=== PATIENT | male | born 1970 | race Caucasian/White ===

== ENCOUNTER → 2020-05-24 | Outpatient (CLI) | payer BC ==
--- NOTE | 2020-05-28 06:09 | PE ---
EXAMINATION TYPE: PET CT fusion skull to thigh DATE OF EXAM: 05/24/2020 COMPARISON: Outside CT abdomen and pelvis May 21, 2020. HISTORY: Colon cancer newly diagnosed on surgical excision April 15. TECHNIQUE: Following the intravenous administration of 11.98 mCi of F-18 FDG, whole body images are performed from the skull base to the midthigh. Images are reviewed on the computer in the coronal, a xial, and sagittal planes. Reconstructed rotating images are created on independent workstation and reviewed on the computer. A l noncontrast CT is performed in conjunction with the PET scan. SCAN: Initial Scan FINDINGS: SKULL BASE AND NECK: Abnormal left supraclavicular adenopathy with multiple hypermetabolic and enlar ged lymph nodes at and below level of thyroid gland. For reference there is 1.6 x 1.7 cm lymph node a xial image 62, max SUV is 3.9. There is high superior mediastinal right paratracheal 1.2 x 0.9 cm hyp ermetabolic lymph node axial image 67, max SUV is 4.29. CHEST, MEDIASTINUM, AND HILAR REGION: Scattered areas of irregular and slightly nodular infiltrates t hroughout both lungs some with slight increased hypermetabolic uptake., for reference roughly 1.4 x 0 .9 cm left lingular irregular nodule or nodular consolidation has increased hypermetabolic uptake, ma x SUV is 2.91 on axial image 107. Posterior right basilar 6 mm nodule or nodular infiltrate has mild hypermetabolic uptake axial image 113, max SUV less than 2.5. There is abnormal hypermetabolic enlarged thoracic adenopathy. For reference subcarinal lymph node me asures 1.9 x 1.3 cm has max SUV of 8.24 on axial image 93. For reference hypervascular left hilar lym ph node on axial image 93 measures 1.7 x 1.3 cm with max SUV of 7.14. For reference enlarged right pa ratracheal lymph node measures 1.5 x 1.4 cm axial image 83 with max SUV of 10.7 cm. ABDOMEN AND PELVIS: Abnormal hypermetabolic retrocrural lymph node at level of diaphragm measures 2.2 x 1.7 cm axial image 116, max SUV is 8.96. There is hepatic metastatic lesion with faint hypodensity roughly 2.8 cm long axis left hepatic lobe lesion axial image 129, max SUV is 6.35. There is abnormal hypermetabolic left adrenal mass measuring 2.8 x 1.9 cm, max SUV is 6.33 on axial i mage 140. There is abnormal hypermetabolic left paracolic peritoneal deposit measuring 1.3 x 0.8 cm axial image 159, max SUV is 4.06. Additionally anterior left mid abdominal peritoneal deposit measuring 1.9 x 0. 8 cm axial image 185, max SUV is 6.53. Marked abnormal retroperitoneal adenopathy with multiple enlarged and hypermetabolic lymph nodes surr ounding aorta, for reference there is 1.8 x 1.3 cm aortocaval lymph node below renal vessels axial im age 177, max SUV is 4.19. OSSEOUS STRUCTURES: Multiple scattered osseous metastatic lesions throughout the spine and pelvis cor responding to subtle lytic lesions, for reference anterior lytic lesion near anterior wall right acet abulum axial image 225 has max SUV of 4.86. OTHER CT: There is left-sided PICC line terminating in SVC. There is coronary artery calcification p resent. Persistent small calcified dependent gallstones. Additional scattered subcentimeter low dense benign lesions throughout the liver are ametabolic. There are a few nonobstructing right renal calculi. Surg ical sutures from partial right-sided colectomy noted. There is percutaneous pigtail drainage cathete r in the right lower quadrant with resolving fluid. There is enlarged prostate gland consistent with BPH. Adjacent pelvic phleboliths. IMPRESSION: Findings are consistent with diffuse metastatic disease as detailed above.
== END | disposition home or self-care (01) ==
LOC: RADPETMAIN 08:58
PROVIDERS: ATTEND Internal Medicine Hematology & Oncology
DX: C18.8 Malignant neoplasm of overlapping sites of colon (principal); C79.51 Secondary malignant neoplasm of bone
CPT/HCPCS: 78815; A9552

== ENCOUNTER 2020-06-25 14:17 | Inpatient (IN) | payer BC ==
[2020-06-25] MEDS ORDERED: SODIUM CHLORIDE 0.9% 1,000 ML IV STA ×2 (14:27→14:29)
[2020-06-25] MEDS ORDERED: ACETAMINOPHEN TAB 500 MG TAB PO STA (14:29)
[2020-06-25] MEDS ORDERED: IBUPROFEN 800 MG TAB PO STA (14:29)
--- NOTE | 2020-06-25 14:29 | ED ---
Arrhythmia/Palpitations HPI - General Chief Complaint: Arrhythmia/Palpitations Stated Complaint: elevated heart rate/fever Time Seen by Provider: 06/25/20 14:27 Source: patient, RN notes reviewed, old records reviewed Mode of arrival: ambulatory Limitations: no limitations - History of Present Illness Initial Comments: This is a 41-year-old male DF for evaluation and feeling feverish nauseous weak, overall not feeling well causing his heart is racing, very thirsty with increased thirst patient has no nausea/vomiting and diarrhea. No medical changes no medical MD Complaint: rapid heart beat, "heart racing" -: days(s) Context: occurred during rest, occurred during exertion Associated Symptoms: nausea/vomiting, anxiety, muscle cramps - Related Data Home Medications Medication Instructions Recorded Confirmed HYDROcodone/APAP 5-325MG [[place] 1 tab PO QID PRN 06/25/20 06/25/20 5-325] fentaNYL 50MCG/HR PATCH [[place] 1 patch TRANSDERM Q72H 06/25/20 06/25/20 50MCG/HR] Allergies Allergy/AdvReac Type Severity Reaction Status Date / Time No Known Allergies Allergy Verified 06/25/20 16:23 Review of Systems ROS Statement: Those systems with pertinent positive or pertinent negative responses have been documented in the HPI. ROS Other: All systems not noted in ROS Statement are negative. Past Medical History Past Medical History: Cancer Additional Past Medical History / Comment(s): colon cancer History of Any Multi-Drug Resistant Organisms: None Reported Past Surgical History: Bowel Resection Past Psychological History: No Psychological Hx Reported Smoking Status: Never smoker Past Alcohol Use History: None Reported Past Drug Use History: None Reported General Exam Limitations: no limitations General appearance: alert, in no apparent distress, anxious Head exam: Present: atraumatic, normocephalic, normal inspection Eye exam: Present: normal appearance, PERRL, EOMI. Absent: scleral icterus, conjunctival injection, periorbital swelling ENT exam: Present: normal exam, mucous membranes dry Neck exam: Present: normal inspection. Absent: tenderness, meningismus, lymphadenopathy Respiratory exam: Present: normal lung sounds bilaterally. Absent: respiratory distress, wheezes, rales, rhonchi, stridor Cardiovascular Exam: Present: normal rhythm, tachycardia, normal heart sounds. Absent: systolic murmur, diastolic murmur, rubs, gallop, clicks GI/Abdominal exam: Present: soft, normal bowel sounds. Absent: distended, tenderness, guarding, rebound, rigid Extremities exam: Present: normal inspection, full ROM, normal capillary refill. Absent: tenderness, pedal edema, joint swelling, calf tenderness Back exam: Present: normal inspection Neurological exam: Present: alert, oriented X3, CN II-XII intact Psychiatric exam: Present: normal affect, normal mood Skin exam: Present: warm, dry, intact, normal color. Absent: rash Course Vital Signs 06/25/20 06/25/20 06/25/20 14:21 15:00 15:30 Temperature 98.2 F Pulse Rate 143 H 137 H 124 H Respiratory 18 18 15 Rate Blood Pressure 113/81 109/86 122/85 O2 Sat by Pulse 96 98 97 Oximetry 06/25/20 06/25/20 15:44 16:00 Temperature 98.4 F Pulse Rate 118 H 120 H Respiratory 18 17 Rate Blood Pressure 127/85 127/85 O2 Sat by Pulse 95 97 Oximetry - Reevaluation(s) Reevaluation #1: 06/25/20 17:38 medical record is reviewed Reevaluation #2: 06/25/20 17:38 Patient has some mildly improved symptoms here in the ER - Consultations Consultation #1: Spoke with Dr. Mendoza who agrees patient EKG Findings - EKG Comments: EKG Findings:: EKG is sinus tachycardia 141 RI 118 QRS 84 QTc 401 Procedures - Sepsis Sepsis Focused Exam #1 Time Sepsis Criteria Met: 18:40 Sepsis Focused Exam Date: 06/25/20 Sepsis Focused Exam Time: 19:20 Sepsis Focused Exam Complete: Yes Vital Signs & RN Notes Reviewed: Yes Capillary Refill: > 2 Seconds: Fingers, Toes Peripheral Pulses: Normal: Radial (R), Radial (L), Posterior Tibialis (R), Posterior Tibialis (L), Dorsalis Pedis (R), Dorsalis Pedis (L) Skin Color: Normal for Patient Respiratory Exam: decreased breath sounds Cardiovascular Exam: tachycardia Medical Decision Making - Medical Decision Making 49 male DF for evaluation, patient presents with fever of unknown origin, severe tachycardia, Will admit for fever of unknown origin continued consultations regarding possible cause of fever, dehydration, hydration symptom management - Lab Data Result diagrams: 06/25/20 14:37 06/25/20 14:37 Lab Results 06/25/20 06/25/20 06/25/20 Range/Units 14:37 14:37 14:37 WBC 7.5 (3.8-10.6) k/uL RBC 5.22 (4.30-5.90) m/uL Hgb 13.9 D (13.0-17.5) gm/dL Hct 42.7 (39.0-53.0) % MCV 81.8 D (80.0-100.0) fL MCH 26.6 (25.0-35.0) pg MCHC 32.5 (31.0-37.0) g/dL RDW 17.7 H (11.5-15.5) % Plt Count 238 (150-450) k/uL Neutrophils % 83 % Lymphocytes % 4 % Monocytes % 8 % Eosinophils % 1 % Basophils % 1 % Neutrophils # 6.2 (1.3-7.7) k/uL Lymphocytes # 0.3 L (1.0-4.8) k/uL Monocytes # 0.6 (0-1.0) k/uL Eosinophils # 0.1 (0-0.7) k/uL Basophils # 0.1 (0-0.2) k/uL Anisocytosis Slight Microcytosis Slight PT 11.7 (9.0-12.0) sec INR 1.2 H (<1.2) APTT 23.0 (22.0-30.0) sec Sodium (137-145) mmol/L Potassium (3.5-5.1) mmol/L Chloride (98-107) mmol/L Carbon Dioxide (22-30) mmol/L Anion Gap mmol/L BUN (9-20) mg/dL Creatinine (0.66-1.25) mg/dL Est GFR (CKD-EPI)AfAm (>60 ml/min/1.73 sqM) Est GFR (CKD-EPI)NonAf (>60 ml/min/1.73 sqM) Glucose (74-99) mg/dL Lactic Ac Sepsis Rflx Plasma Lactic Acid [place] (0.7-2.0) mmol/L Calcium (8.4-10.2) mg/dL Phosphorus (2.5-4.5) mg/dL Magnesium (1.6-2.3) mg/dL Total Bilirubin (0.2-1.3) mg/dL AST (17-59) U/L ALT (4-49) U/L Alkaline Phosphatase (38-126) U/L Troponin I (0.000-0.034) ng/mL NT-Pro-B Natriuret Pep pg/mL Total Protein (6.3-8.2) g/dL Albumin (3.5-5.0) g/dL Lipase (23-300) U/L TSH (0.465-4.680) mIU/L Urine Color Yellow Urine Appearance Clear (Clear) Urine pH 5.5 (5.0-8.0) Ur Specific [place] 1.009 (1.001-1.035) Urine Protein Negative (Negative) Urine Glucose (UA) Negative (Negative) Urine Ketones Negative (Negative) Urine Blood Negative (Negative) Urine Nitrite Negative (Negative) Urine Bilirubin Negative (Negative) Urine Urobilinogen <2.0 (<2.0) mg/dL Ur Leukocyte Esterase Negative (Negative) 06/25/20 06/25/20 06/25/20 Range/Units 14:37 14:37 14:37 WBC (3.8-10.6) k/uL RBC (4.30-5.90) m/uL Hgb (13.0-17.5) gm/dL Hct (39.0-53.0) % MCV (80.0-100.0) fL MCH (25.0-35.0) pg MCHC (31.0-37.0) g/dL RDW (11.5-15.5) % Plt Count (150-450) k/uL Neutrophils % % Lymphocytes % % Monocytes % % Eosinophils % % Basophils % % Neutrophils # (1.3-7.7) k/uL Lymphocytes # (1.0-4.8) k/uL Monocytes # (0-1.0) k/uL Eosinophils # (0-0.7) k/uL Basophils # (0-0.2) k/uL Anisocytosis Microcytosis PT (9.0-12.0) sec INR (<1.2) APTT (22.0-30.0) sec Sodium 130 L (137-145) mmol/L Potassium 5.1 (3.5-5.1) mmol/L Chloride 92 L (98-107) mmol/L Carbon Dioxide 29 (22-30) mmol/L Anion Gap 9 mmol/L BUN 39 H (9-20) mg/dL Creatinine 1.77 H (0.66-1.25) mg/dL Est GFR (CKD-EPI)AfAm 52 (>60 ml/min/1.73 sqM) Est GFR (CKD-EPI)NonAf 45 (>60 ml/min/1.73 sqM) Glucose 102 H (74-99) mg/dL Lactic Ac Sepsis Rflx Plasma Lactic Acid [place] 2.1 H* (0.7-2.0) mmol/L Calcium 12.7 H (8.4-10.2) mg/dL Phosphorus 5.2 H (2.5-4.5) mg/dL Magnesium 1.9 (1.6-2.3) mg/dL Total Bilirubin 2.3 H (0.2-1.3) mg/dL AST 192 H (17-59) U/L ALT 109 H (4-49) U/L Alkaline Phosphatase 601 H (38-126) U/L Troponin I <0.012 (0.000-0.034) ng/mL NT-Pro-B Natriuret Pep pg/mL Total Protein 7.1 (6.3-8.2) g/dL Albumin 3.3 L (3.5-5.0) g/dL Lipase (23-300) U/L TSH 2.360 (0.465-4.680) mIU/L Urine Color Urine Appearance (Clear) Urine pH (5.0-8.0) Ur Specific [place] (1.001-1.035) Urine Protein (Negative) Urine Glucose (UA) (Negative) Urine Ketones (Negative) Urine Blood (Negative) Urine Nitrite (Negative) Urine Bilirubin (Negative) Urine Urobilinogen (<2.0) mg/dL Ur Leukocyte Esterase (Negative) 06/25/20 06/25/20 06/25/20 Range/Units 14:37 15:26 16:17 WBC (3.8-10.6) k/uL RBC (4.30-5.90) m/uL Hgb (13.0-17.5) gm/dL Hct (39.0-53.0) % MCV (80.0-100.0) fL MCH (25.0-35.0) pg MCHC (31.0-37.0) g/dL RDW (11.5-15.5) % Plt Count (150-450) k/uL Neutrophils % % Lymphocytes % % Monocytes % % Eosinophils % % Basophils % % Neutrophils # (1.3-7.7) k/uL Lymphocytes # (1.0-4.8) k/uL Monocytes # (0-1.0) k/uL Eosinophils # (0-0.7) k/uL Basophils # (0-0.2) k/uL Anisocytosis Microcytosis PT (9.0-12.0) sec INR (<1.2) APTT (22.0-30.0) sec Sodium (137-145) mmol/L Potassium (3.5-5.1) mmol/L Chloride (98-107) mmol/L Carbon Dioxide (22-30) mmol/L Anion Gap mmol/L BUN (9-20) mg/dL Creatinine (0.66-1.25) mg/dL Est GFR (CKD-EPI)AfAm (>60 ml/min/1.73 sqM) Est GFR (CKD-EPI)NonAf (>60 ml/min/1.73 sqM) Glucose (74-99) mg/dL Lactic Ac Sepsis Rflx Y Plasma Lactic Acid [place] (0.7-2.0) mmol/L Calcium (8.4-10.2) mg/dL Phosphorus (2.5-4.5) mg/dL Magnesium (1.6-2.3) mg/dL Total Bilirubin (0.2-1.3) mg/dL AST (17-59) U/L ALT (4-49) U/L Alkaline Phosphatase (38-126) U/L Troponin I (0.000-0.034) ng/mL NT-Pro-B Natriuret Pep 239 pg/mL Total Protein (6.3-8.2) g/dL Albumin (3.5-5.0) g/dL Lipase 182 (23-300) U/L TSH (0.465-4.680) mIU/L Urine Color Urine Appearance (Clear) Urine pH (5.0-8.0) Ur Specific [place] (1.001-1.035) Urine Protein (Negative) Urine Glucose (UA) (Negative) Urine Ketones (Negative) Urine Blood (Negative) Urine Nitrite (Negative) Urine Bilirubin (Negative) Urine Urobilinogen (<2.0) mg/dL Ur Leukocyte Esterase (Negative) - Radiology Data Radiology results: report reviewed (Ultrasound does show gallstones, chest x- rays negative for acute disease), image reviewed Critical Care Time Critical Care Time: Yes Total Critical Care Time: 31 Disposition Clinical Impression: Palpitations, Tachycardia, Dehydration, Transaminitis, Gallstones, Fever Disposition: ADMITTED IP TO THIS [facility] Condition: Fair Is patient prescribed a controlled substance at d/c from ED?: No Referrals: Vikas Mendoza MD [Primary Care Provider] - 1-2 days
[2020-06-25] MEDS ORDERED: MORPHINE SULFATE 4 MG/ML SYRINGE IVP STA (15:12)
[2020-06-25 15:14] LABS: Albumin 3.3 g/dL (3.5-5.0); Calcium 12.7 mg/dL (8.4-10.2); Magnesium 1.9 mg/dL (1.6-2.3); Phosphorus 5.2 mg/dL (2.5-4.5); Potassium 5.1 mmol/L (3.5-5.1); Total Bilirubin 2.3 mg/dL (0.2-1.3); Total Protein 7.1 g/dL (6.3-8.2)
[2020-06-25 15:22] LABS: INR 1.2 (<1.2); Prothrombin Time 11.7 sec (9.0-12.0)
[2020-06-25 15:33] LABS: Anisocytosis Slight; Basophils # (A) 0.1 k/uL (0-0.2); Basophils % (A) 1 %; Eosinophils # (A) 0.1 k/uL (0-0.7); Eosinophils % (A) 1 %; HCT 42.7 % (39.0-53.0); Lymphocytes # (A) 0.3 k/uL (1.0-4.8); Lymphocytes % (A) 4 %; MCH 26.6 pg (25.0-35.0); MCHC 32.5 g/dL (31.0-37.0); Mean Platelet Volume 7.9; Microcytosis Slight; Monocytes # (A) 0.6 k/uL (0-1.0); Monocytes % (A) 8 %; Neutrophils # (A) 6.2 k/uL (1.3-7.7); Neutrophils % (A) 83 %; Platelet Count 238 k/uL (150-450); RBC 5.22 m/uL (4.30-5.90); RDW 17.7 % (11.5-15.5); WBC 7.5 k/uL (3.8-10.6)
[2020-06-25 15:34] LABS: HGB 13.9 gm/dL (13.0-17.5); MCV 81.8 fL (80.0-100.0)
[2020-06-25 16:18] LABS: Appearance,Urine Clear (Clear); Bilirubin,Urine Negative (Negative); Blood,Urine Negative (Negative); Color,Urine Yellow; Glucose,Urine (UA) Negative (Negative); Ketones,Urine Negative (Negative); Leukocyte Esterase,Urine Negative (Negative); Nitrite,Urine Negative (Negative); PH, Urine 5.5 (5.0-8.0); Protein,Urine Negative (Negative); Specific Gravity,Urine 1.009 (1.001-1.035); Urobilinogen,Urine <2.0 mg/dL (<2.0)
--- NOTE | 2020-06-25 17:11 | US ---
EXAMINATION TYPE: US gallbladder DATE OF EXAM: 06/25/2020 COMPARISON: CT, PET CLINICAL HISTORY: weak. Midline incisional pain at umbilicus; fever. Patient ate grapes 4 hours earli er. Gallstones seen on PET scan. Pt is post colon resection for CA with history of previous abscess a t midline incision. EXAM MEASUREMENTS: Liver Length: 16.3 cm Gallbladder Wall: 0.4 cm CBD: 0.5 cm Right Kidney: 10.x 6.4 x 5.8 cm Pancreas: mildly hyperechoic, tail obscured by overlying bowel gas Liver: small left lobe is noted Gallbladder: multiple shadowing stones seen and are nonmobile in neck, shadowing stones also seen in fundus along with multiple hyperechoic wall foci which may be wall polyps. Evidence for sonographic Dalal's sign: yes, and noted intercostally CBD: wnl Right Kidney: mild hydronephrosis; couple of renal cysts seen upper pole with larger as cyst cluster = 1.1 x 1.0 x 1.0cm; upper pole hyperechoic and shadowing calcification cluster noted (renal stones) = 0.8 x 0.8 x 0.5cm. No abscess seen at patient's midline umbilical area incision at complaint of pa in. IMPRESSION: There are numerous gallstones. No dilated ducts. Mild right-sided hydronephrosis. Hydronephrosis appears new compared to 05/21/2020 and consistent wi th acute obstruction.
[2020-06-25] MEDS ORDERED: VANCOMYCIN IV PER PHARMACY 1 EACH MISC MISCELLANE PRN (17:35)
[2020-06-25] MEDS ORDERED: AMPICILLIN-SULBACTAM 3 GM in SODIUM CHLORIDE 0.9% 100 ML IVPB STA (17:35)
--- NOTE | 2020-06-25 17:52 | XR ---
EXAMINATION TYPE: XR chest 2V DATE OF EXAM: 06/25/2020 COMPARISON: NONE HISTORY: Weakness TECHNIQUE: 2 views FINDINGS: Heart is normal. There is patchy bilateral pulmonary airspace infiltrates. There is no hear t failure. There are chest leads. The bony thorax is intact. There is no pleural effusion. IMPRESSION: There is some patchy bilateral pneumonic infiltrates that is consistent with inflammatory disease. Normal heart.
[2020-06-25] MEDS ORDERED: VANCOMYCIN 1,250 MG in SODIUM CHLORIDE 0.9% 250 ML IVPB SCH (18:00)
[2020-06-25] MEDS: SODIUM CHLORIDE 0.9% 500 ML 500 ML IV SCH ×4 (18:03→23:56)
[2020-06-25] MEDS: SODIUM CHLORIDE 0.9% 1,000 ML IV SCH ×2 (18:03→23:56)
[2020-06-25] MEDS: HEPARIN SODIUM,PORCINE 5,000 UNIT/ML 1 ML VIAL SQ SCH (23:55)
[2020-06-26] MEDS ORDERED: AMPICILLIN-SULBACTAM 3 GM in SODIUM CHLORIDE 0.9% 100 ML IVPB SCH ×2
[2020-06-26] MEDS: MORPHINE SULFATE 4 MG/ML SYRINGE IVP PRN (00:11)
--- NOTE | 2020-06-26 05:28 | P.HPIM ---
History of Present Illness H&P Date: 06/25/20 Chief Complaint: possible infected Medi-Port. This is a 49 year old male with a previous medical history significant for kidney stones and cholelithiasis, was inititially complaining of increased abdominal pain in the right upper quadrant and had US of the abdomen that showed cholelithiasis, this was followed with HIDA scan that showed biliary dyskinesis and was referred to have Lap-Jocelyn with that week he developed to have increased abdominal pain with significant nausea and vomiting and he presented to [facility] with bowel obstruction picture, he underwent CT scan of the abdomen and pelvis that showed a large cecal mass suggestive of colon cancer, he underwent right colectomy with end to end anastomosis and then he developed to have a pelvic Abscess that was treated with transcutaneous drain and IV antibiotics through a PICC line for 4 weeks which he has done, he was then seen by Hem-Onc Toma Mars and underwent a battery of testing including PET c that showed metastatic disease, he has then had a Mediprot placed recently by Javier Jones and was seen today by STONER HAND at Dr. Chua 's office to discuss further treatment options and possibly a referral to a phase 3 trial at the [facility], patient was extremely weak and tachycardic and there was a suspicion for possible Mediport infection so he was referred to the ER , he did receive 2 L of Normal saline his heart rate was 16o with sinus tachycardia and he is down to 115 , blood cultures were obtained and he was started on Vancomycin and Zosyn and ID consult was obtained along with surgical consult. Review of Systems Constitutional: Reports anorexia, Reports fatigue, Reports night sweats, Reports poor appetite, Reports sweats, Reports weakness Eyes: denies blurred vision, denies bulging eye, denies decreased vision Ears, nose, mouth and throat: Denies dysphagia, Denies neck lump, Denies s welling in throat, Denies sore throat Cardiovascular: Reports rapid heart beat, Denies chest pain, Denies decreased exercise tolerance, Denies dyspnea on exertion, Denies leg edema, Denies lightheadedness, Denies shortness of breath, Denies syncope Respiratory: Denies congestion, Denies cough, Denies cough with sputum, Denies home oxygen, Denies sleep apnea, Denies snoring, Denies wheezing Gastrointestinal: Reports abdominal pain, Reports early satiety, Reports indigestion, Reports loss of appetite, Reports nausea, Denies belching, Denies bloating, Denies BRBPR, Denies change in bowel habits, Denies coffee ground emes is, Denies heartburn, Denies hematemesis, Denies hematochezia, Denies jaundice, Denies melena, Denies vomiting Genitourinary: Denies dysuria, Denies nocturia Musculoskeletal: Reports muscle weakness, Reports myalgias Musculoskeletal: absent: ankle pain, ankle stiffness, ankle swelling, elbow pain, elbow stiffness, elbow swelling, foot pain, foot stiffness, foot swelling, hand pain, hand stiffness, hand swelling, hip pain, hip stiffness, hip swelling, knee pain, knee stiffness, knee swelling, shoulder pain, shoulder stiffness, shoulder swelling, wrist pain, wrist stiffness, wrist swelling Integumentary: Denies pruritus, Denies rash Neurological: Denies numbness, Denies weakness Psychiatric: Reports depression, Denies sadness/tearfulness, Denies sleep disturbances, Denies suicidal ideation Endocrine: Reports fatigue, Reports weight change Past Medical History Past Medical History: Cancer (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 History of Any Multi-Drug Resistant Organisms: None Reported Past Surgical History: Bowel Resection (Right hemicolectomy) Past Psychological History: No Psychological Hx Reported Smoking Status: Never smoker Past Alcohol Use History: None Reported Past Drug Use History: None Reported - Past Family History Father Family Medical History: Cancer (Father at the age of 76 from lung cancer) Mother Family Medical History: Unable to Obtain (Mother at the age of 63) Brother(s) Family Medical History: No Reported History (2 brothers one from a Fire accident.) Sister(s) Family Medical History: No Reported History (2 sisters no health issues.) Son(s) Family Medical History: No Reported History (one son with mental health issues,lives in prison.) Medications and Allergies Home Medications Medication Instructions Recorded Confirmed Type HYDROcodone/APAP 5-325MG [[place] 1 tab PO QID PRN 06/25/20 06/25/20 History 5-325] fentaNYL 50MCG/HR PATCH [[place]ages[place] 1 patch TRANSDERM Q72H 06/25/20 06/25/20 History 50MCG/HR] Allergies Allergy/AdvReac Type Severity Reaction Status Date / Time No Known Allergies Allergy Verified 06/25/20 16:23 Physical Exam Vitals: Vital Signs Temp Pulse Resp BP Pulse Ox 06/25/20 17:56 113 H 16 122/78 97 06/25/20 16:00 98.4 F 120 H 17 127/85 97 06/25/20 15:44 118 H 18 127/85 95 06/25/20 15:30 124 H 15 122/85 97 06/25/20 15:00 137 H 18 109/86 98 06/25/20 14:21 98.2 F 143 H 18 113/81 96 Intake and Output 06/25/20 06/25/20 06/25/20 06:59 14:59 22:59 Other: Weight 59.874 kg Physical examination: HEENT: head is atraumatic normocephalic pupils were equal round reactive to light and accommodations extra ocular muscle movement were intact, conjunctivae were pale and sclera were mildly icteric, mucous membranes of the mouth are somewhat dry. Neck: supple no JVP. Chest: clear to auscultation bilaterally, there is no crackles or wheezes. Heart: first heart sound is normal , second heart sound is normal , tachycardic there is no gallop or murmur. Abdomen: there is mild abdominal tenderness with minimal fullness, there is surgical scar that have healed, positive bowel sounds. Extremities: there is no edema , no calf tenderness DP + 2 bilaterally. Neurologiic examination: patient is awake , alert and oriented X 3 CN II-XII are grossly intact muscle power 4/5 in bilateral upper and lower extremity . Results CBC & Chem 7: 06/25/20 14:37 06/25/20 14:37 Labs: Abnormal Lab Results - Last 24 Hours (Table) 06/25/20 06/25/20 06/25/20 Range/Units 14:37 14:37 14:37 RDW 17.7 H (11.5-15.5) % Lymphocytes # 0.3 L (1.0-4.8) k/uL INR 1.2 H (<1.2) Sodium 130 L (137-145) mmol/L Chloride 92 L (98-107) mmol/L BUN 39 H (9-20) mg/dL Creatinine 1.77 H (0.66-1.25) mg/dL Glucose 102 H (74-99) mg/dL Plasma Lactic Acid [place] (0.7-2.0) mmol/L Calcium 12.7 H (8.4-10.2) mg/dL Phosphorus 5.2 H (2.5-4.5) mg/dL Total Bilirubin 2.3 H (0.2-1.3) mg/dL AST 192 H (17-59) U/L ALT 109 H (4-49) U/L Alkaline Phosphatase 601 H (38-126) U/L Albumin 3.3 L (3.5-5.0) g/dL 06/25/20 Range/Units 14:37 RDW (11.5-15.5) % Lymphocytes # (1.0-4.8) k/uL INR (<1.2) Sodium (137-145) mmol/L Chloride (98-107) mmol/L BUN (9-20) mg/dL Creatinine (0.66-1.25) mg/dL Glucose (74-99) mg/dL Plasma Lactic Acid [place] 2.1 H* (0.7-2.0) mmol/L Calcium (8.4-10.2) mg/dL Phosphorus (2.5-4.5) mg/dL Total Bilirubin (0.2-1.3) mg/dL AST (17-59) U/L ALT (4-49) U/L Alkaline Phosphatase (38-126) U/L Albumin (3.5-5.0) g/dL Thrombosis Risk Factor Assmnt - DVT/VTE Prophylaxis DVT/VTE Prophylaxis: Pharmacologic Prophylaxis ordered, Mechanical Prophylaxis ordered Assessment and Plan Assessment: Assessment and Plan: 1. Acute kidney injury due to acute tubular necrosis and poor oral intake. start IVF Normal saline at 150 ml/h , we will increase oral intake of fluid and we will repeat CMP in AM. 2. Possible Mediport infection. Blood cultures X 2, we will start Vancomycin Pharmacy to [facility] and trough and Zosyn 3.375 gr IVPB Q 8 h. 3. Hyponatremia due to hypovolemia. we will continue with IVF and repeat CMP in AM. 4. Metastatic adenocarcinoma of the colon. was seen by Hem-Onc and [facility] 3 [facility]. 5. Gallstones with biliary dyskinesia. we will continue with Zofran and IVF. 6. history of kidney stones with mild right sided hydronephrosis we will continue to monitor this appears to be new since last US. 7. Sinus tachycardia due to poor oral intake of fluid and dehydration. we will contiue with IVF . 8. DVT prophylaxis. we will continue with Heparin 5000 units SC Q 8 hours. 9. GI prophylaxis. we will continue with Protonix 40 mg IVP daily. 10. Admits to inpatient . estimated length of stay 2 midnights. 11. Full code.
[2020-06-26 06:19] LABS: Anisocytosis Slight; Basophils # (A) 0.1 k/uL (0-0.2); Basophils % (A) 1 %; Eosinophils # (A) 0.2 k/uL (0-0.7); Eosinophils % (A) 3 %; HCT 34.6 % (39.0-53.0); Hypochromasia Slight; Lymphocytes # (A) 0.2 k/uL (1.0-4.8); Lymphocytes % (A) 5 %; MCH 26.5 pg (25.0-35.0); MCHC 31.4 g/dL (31.0-37.0); MCV 84.4 fL (80.0-100.0); Microcytosis Slight; Monocytes # (A) 0.3 k/uL (0-1.0); Monocytes % (A) 6 %; Neutrophils # (A) 4.3 k/uL (1.3-7.7); Neutrophils % (A) 83 %; Platelet Count 197 k/uL (150-450); RBC 4.11 m/uL (4.30-5.90); RDW 17.9 % (11.5-15.5); WBC 5.2 k/uL (3.8-10.6)
[2020-06-26 06:52] LABS: HGB 10.9 gm/dL (13.0-17.5)
[2020-06-26] MEDS: HEPARIN SODIUM,PORCINE 5,000 UNIT/ML 1 ML VIAL SQ SCH ×3 (08:30→23:37)
[2020-06-26] MEDS: PANTOPRAZOLE 40 MG/10 ML VIAL IV SCH (08:30)
[2020-06-26] MEDS: PIPERACILLIN-TAZOBACTAM 3.375 GM in SODIUM CHLORIDE 0.9% 100 ML IVPB SCH ×3 (08:30→23:37)
--- NOTE | 2020-06-26 08:30 | P.GSCN ---
History of Present Illness Consult date: 06/26/20 History of present illness: 49-year-old male that is known to me due to significant medical issues over the past few months. He was found to have an obstructive colon mass during in emergency department visit in April 2020 and did undergo an exploratory laparotomy and right hemicolectomy and omentectomy on April 152019. Pathology did confirm adenocarcinoma of the colon and oncologic workup has shown metastatic disease that is widespread. He is noted to have stage IV colon cancer. Due to the perforated colon cancer, he did also have an intra-abdominal infection that was drained with a catheter and patient was on IV antibiotics secondary to this. He has recently had a referral for a phase 3 trial at the [facility]. He presented to the oncologist's office and was noted to be extremely weak and tachycardic. He denies any significant abdominal pain at this time. He states that he was doing well until the past few days. Mediport was placed approximately 3 weeks ago. He states that he has had multiple blood draws from the site, however has not had any chemotherapy as of yet. He states that he was informed that there was concern for a Mediport infection. He has no additional complaints at this time. Denies any fevers, chills, chest pain or shortness of breath. Review of Systems All systems: negative Past Medical History Past Medical History: Cancer (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 History of Any Multi-Drug Resistant Organisms: None Reported Past Surgical History: Bowel Resection (Right hemicolectomy) Past Anesthesia/Blood Transfusion Reactions: No Reported Reaction Past Psychological History: No Psychological Hx Reported Smoking Status: Never smoker Past Alcohol Use History: None Reported Past Drug Use History: None Reported - Past Family History Father History Unknown: Yes Family Medical History: Cancer (Father at the age of 76 from lung cancer) Mother Family Medical History: Unable to Obtain (Mother at the age of 63) Brother(s) Family Medical History: No Reported History (2 brothers one from a Fire accident.) Sister(s) Family Medical History: No Reported History (2 sisters no health issues.) Son(s) Family Medical History: No Reported History (one son with mental health issues,lives in retirement.) Medications and Allergies Home Medications Medication Instructions Recorded Confirmed Type HYDROcodone/APAP 5-325MG [[place]ick[place] 1 tab PO QID PRN 06/25/20 06/25/20 History 5-325] fentaNYL 50MCG/HR PATCH [Duragesic 1 patch TRANSDERM Q72H 06/25/20 06/25/20 History 50MCG/HR] Allergies Allergy/AdvReac Type Severity Reaction Status Date / Time No Known Allergies Allergy Verified 06/25/20 16:23 Surgical - Exam Osteopathic Statement: *. No significant issues noted on an osteopathic structural exam other than those noted in the History and Physical/Consult. Vital Signs Temp Pulse Resp BP Pulse Ox 98.2 F 143 H 18 113/81 96 06/25/20 14:21 06/25/20 14:21 06/25/20 14:21 06/25/20 14:21 06/25/20 14:21 - General no distress, cachectic - Eyes PERRL, normal ocular movement - ENT no hearing loss - Neck trachea midline - Respiratory normal respiratory effort - Abdomen Soft, nontender, nondistended, no rebound, no guarding, midline incision well healed - Neurologic normal coordination, normal sensation - Psychiatric oriented to time, oriented to person, oriented to place Chest exam performed. No obvious palpable induration or fluctuance at the Mediport site. No erythema. No active purulent drainage. Results - Labs 06/26/20 05:49 06/25/20 14:37 Abnormal Lab Results - Last 24 Hours (Table) 06/25/20 06/25/20 06/25/20 Range/Units 14:37 14:37 14:37 RBC (4.30-5.90) m/uL Hgb (13.0-17.5) gm/dL Hct (39.0-53.0) % RDW 17.7 H (11.5-15.5) % Lymphocytes # 0.3 L (1.0-4.8) k/uL INR 1.2 H (<1.2) Sodium 130 L (137-145) mmol/L Chloride 92 L (98-107) mmol/L BUN 39 H (9-20) mg/dL Creatinine 1.77 H (0.66-1.25) mg/dL Glucose 102 H (74-99) mg/dL Plasma Lactic Acid Layton (0.7-2.0) mmol/L Calcium 12.7 H (8.4-10.2) mg/dL Phosphorus 5.2 H (2.5-4.5) mg/dL Total Bilirubin 2.3 H (0.2-1.3) mg/dL AST 192 H (17-59) U/L ALT 109 H (4-49) U/L Alkaline Phosphatase 601 H (38-126) U/L Albumin 3.3 L (3.5-5.0) g/dL 06/25/20 06/26/20 Range/Units 14:37 05:49 RBC 4.11 L (4.30-5.90) m/uL Hgb 10.9 L D (13.0-17.5) gm/dL Hct 34.6 L (39.0-53.0) % RDW 17.9 H (11.5-15.5) % Lymphocytes # 0.2 L (1.0-4.8) k/uL INR (<1.2) Sodium (137-145) mmol/L Chloride (98-107) mmol/L BUN (9-20) mg/dL Creatinine (0.66-1.25) mg/dL Glucose (74-99) mg/dL Plasma Lactic Acid Layton 2.1 H* (0.7-2.0) mmol/L Calcium (8.4-10.2) mg/dL Phosphorus (2.5-4.5) mg/dL Total Bilirubin (0.2-1.3) mg/dL AST (17-59) U/L ALT (4-49) U/L Alkaline Phosphatase (38-126) U/L Albumin (3.5-5.0) g/dL Diabetes panel 06/25/20 Range/Units 14:37 Sodium 130 L (137-145) mmol/L Potassium 5.1 (3.5-5.1) mmol/L Chloride 92 L (98-107) mmol/L Carbon Dioxide 29 (22-30) mmol/L BUN 39 H (9-20) mg/dL Creatinine 1.77 H (0.66-1.25) mg/dL Glucose 102 H (74-99) mg/dL Calcium 12.7 H (8.4-10.2) mg/dL AST 192 H (17-59) U/L ALT 109 H (4-49) U/L Alkaline Phosphatase 601 H (38-126) U/L Total Protein 7.1 (6.3-8.2) g/dL Albumin 3.3 L (3.5-5.0) g/dL Thyroid panel 06/25/20 Range/Units 14:37 TSH 2.360 (0.465-4.680) mIU/L Calcium panel 06/25/20 Range/Units 14:37 Calcium 12.7 H (8.4-10.2) mg/dL Phosphorus 5.2 H (2.5-4.5) mg/dL Albumin 3.3 L (3.5-5.0) g/dL Pituitary panel 06/25/20 Range/Units 14:37 Sodium 130 L (137-145) mmol/L Potassium 5.1 (3.5-5.1) mmol/L Chloride 92 L (98-107) mmol/L Carbon Dioxide 29 (22-30) mmol/L BUN 39 H (9-20) mg/dL Creatinine 1.77 H (0.66-1.25) mg/dL Glucose 102 H (74-99) mg/dL Calcium 12.7 H (8.4-10.2) mg/dL TSH 2.360 (0.465-4.680) mIU/L Adrenal panel 06/25/20 Range/Units 14:37 Sodium 130 L (137-145) mmol/L Potassium 5.1 (3.5-5.1) mmol/L Chloride 92 L (98-107) mmol/L Carbon Dioxide 29 (22-30) mmol/L BUN 39 H (9-20) mg/dL Creatinine 1.77 H (0.66-1.25) mg/dL Glucose 102 H (74-99) mg/dL Calcium 12.7 H (8.4-10.2) mg/dL Total Bilirubin 2.3 H (0.2-1.3) mg/dL AST 192 H (17-59) U/L ALT 109 H (4-49) U/L Alkaline Phosphatase 601 H (38-126) U/L Total Protein 7.1 (6.3-8.2) g/dL Albumin 3.3 L (3.5-5.0) g/dL Assessment and Plan (1) Dehydration Narrative/Plan: 41-year-old male with stage IV metastatic colon carcinoma. Exam of the chest was performed with no obvious erythema or induration around the Mediport placement site. There is no palpable fluctuance. There is no active purulent drainage. At this point, there does not appear to be a surface infection of the Mediport site. Blood cultures are pending. We will follow up on blood cultures for decision on Mediport removal. Patient is also noted to have transaminitis and elevated bilirubin. He is currently complaining of no abdominal pain. Transaminitis could be associated with metastatic disease or documented cholelithiasis. We will continue to follow. No plan for surgical intervention for gallbladder disease at this time based on the patient's medical history and current asymptomatic presentation. Current Visit: Yes Status: Acute Code(s): E86.0 - DEHYDRATION SNOMED Code(s): 05556540
[2020-06-26 09:49] LABS: African American GFR (CKD) 58.2 (60.0-200.0); Albumin 2.5 g/dL (3.80-4.90); Albumin/Globulin Ratio 1.19 (1.60-3.17); Anion Gap 8.4 mmol/L (4.00-12.00); BUN/Creat Ratio 22.5 Ratio (12.00-20.00); Calcium 10.5 mg/dL (8.7-10.3); Carbon Dioxide 24.6 mmol/L (21.6-31.8); Globulin 2.1 g/dL (1.6-3.3); Non-African American GFR(CKD) 50.2 (60.0-200.0); Potassium 4.3 mmol/L (3.5-5.5); Total Bilirubin 0.9 mg/dL (0.2-1.2); Total Protein 4.6 g/dL (6.2-8.2)
[2020-06-26] MEDS ORDERED: METOPROLOL TARTRATE 12.5 MG TAB PO SCH (11:45)
[2020-06-26] MEDS ORDERED: SODIUM CHLORIDE 0.9% 250 ML with PAMIDRONATE 30 MG IV SCH ×2 (12:15)
[2020-06-26] MEDS ORDERED: SODIUM CHLORIDE 0.9% 250 ML with PAMIDRONATE 30 MG IV ONE ×2 (12:30)
[2020-06-26] MEDS: VANCOMYCIN 1,250 MG in SODIUM CHLORIDE 0.9% 250 ML IVPB SCH (12:31)
[2020-06-26] MEDS: SODIUM CHLORIDE 0.9% 1,000 ML IV SCH ×2 (12:52→17:00)
--- NOTE | 2020-06-26 13:49 | P.CONS ---
History of Present Illness - Reason for Consult Consult date: 06/26/20 Metastatic Colon Cancer Requesting physician: Amee Day - Chief Complaint declining status, weakness - History of Present Illness Mr Kamara is a otherwise healthy white male, who had presented to [facility] on 04/[facility]20, with progressive abdominal pain localized to the right mid to upper abdomen and epigastrium. The patient's symptoms are actually star nuha about 12/29 had been mild and intermittent. Due to the low density of the symptoms and ongoing coronavirus epidemic, the patient did not seek medical attention initially. However, the symptoms persisted and became more prominent. He had an ultrasound of the abdomen on 04/01/20 that showed uncomplicated cholelithiasis and fatty liver. HIDA scan on 04/10/[address] of the abdomen and pelvis on 04/15/20 showed evidence of intussusception of the ileum into the ascending colon with pneumatosis intestinalis of the ascending colon and cecum. There also appeared to be pericecal inflammatory changes and focal areas of the distal small bowel. It lower quadrant, as well as periaortic and retrocaval adenopathy. However size of the retroperitoneal adenopathy was not mentioned. the patient proceeded to surgery on the same day with exploratory laparotomy, right hemicolectomy, as well as resection of a hard mass in the omentum. final pathology showed invasive grade 2 adenocarcinoma with partial mucinous features measuring 4.5 x 4 cm with microscopic serosal perforation, and pericolic lymph nodes involved. The omental nodule , however, showed mature adipose tissue with acute inflammation containing vegetable matter consistent with ruptured viscous. The patient's CT of the chest on 04/16/20 showed no evidence of pulmonary masses. There is bilateral nonspecific enlarged nodes. Echocardiogram from 04/21/20was fairly normal. MRI of the liver on 04/22/20 showed multiple round T2 hyperintense lesions all subcentimeter in size without suspicious nodularity most consistent with benign etiology ( [place] complex) The patient was seen for initial consult during this hospitalization on 04/20/20. He was readmitted to the hospital because of recurrent right-sided abdominal pain and drop in blood pressure. He was found to have a right lower quadrant abscess on CT scan on 04/29/20.and had a drainage tube placed. He also had a PICC line and was started on IV antibiotics. repeat CT on 05/21/20 showed marked decrease in size of the fluid collection with enlarged retroperitoneal nodes similar to the prior CT scan. The patient was seen for his first office visit on 05/21/20. He denied any personal history of malignancy. No prior colonoscopies. Family history is positive only for lung cancer related to smoking. The patient subsequently had a PET scan which unfortunately showed widespread metastatic disease involving left supraclavicular, mediastinal, retroperitoneal and mesenteric nodes, left adrenal, as well as multiple osseous sites, especially in the lumbar spine. There also appeared to be uptake in the liver lesion. He underwent Palliative radiation to his spine with Dr. Levy for pain, when he was seen in May with his in laws it was recommended systemic therapy be started soon as he has advanced disease. The patient and family wanted to seek second opinion at [facility] for options of a clinical trial, although the delay in the appointment has resulted with further overall performance and decline to [facility]. Apparently they had also seen opinion at [facility] for clinical trial through Dr. Baptiste during this time. Dileep presented to the office yesterday for increased weakness, weight loss and overall not feeling well. He admits to intermitant N/V, states out of blue, his legs are weaker and difficult to walk, he has lost close to 20Lbs in 4 weeks. Hypotensive, Tachycardic, and low grade fever on admission. Therefore he was referred to emergency department for further evaluation. Past Medical History Past Medical History: Cancer (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 History of Any Multi-Drug Resistant Organisms: None Reported Past Surgical History: Bowel Resection (Right hemicolectomy) Past Anesthesia/Blood Transfusion Reactions: No Reported Reaction Past Psychological History: No Psychological Hx Reported Smoking Status: Never smoker Past Alcohol Use History: None Reported Past Drug Use History: None Reported - Past Family History Father History Unknown: Yes Family Medical History: Cancer (Father at the age of 76 from lung cancer) Mother Family Medical History: Unable to Obtain (Mother at the age of 63) Brother(s) Family Medical History: No Reported History (2 brothers one from a Fire accident.) Sister(s) Family Medical History: No Reported History (2 sisters no health issues.) Son(s) Family Medical History: No Reported History (one son with mental health issues,lives in retirement.) Medications and Allergies Home Medications Medication Instructions Recorded Confirmed Type HYDROcodone/APAP 5-325MG [Niles 1 tab PO QID PRN 06/25/20 06/25/20 History 5-325] fentaNYL 50MCG/HR PATCH [Duragesic 1 patch TRANSDERM Q72H 06/25/20 06/25/20 History 50MCG/HR] Allergies Allergy/AdvReac Type Severity Reaction Status Date / Time No Known Allergies Allergy Verified 06/25/20 16:23 Physical Exam Vitals: Vital Signs Temp Pulse Pulse Resp BP BP Pulse Ox 06/26/20 07:00 98.7 F 130 H 18 131/86 92 L 06/26/20 04:20 16 06/26/20 00:40 16 06/26/20 00:10 97.6 F 99 16 121/80 96 06/25/20 19:50 16 06/25/20 19:00 97.5 F L 113 H 18 113/79 95 06/25/20 17:56 113 H 16 122/78 97 06/25/20 16:00 98.4 F 120 H 17 127/85 97 06/25/20 15:44 118 H 18 127/85 95 06/25/20 15:30 124 H 15 122/85 97 06/25/20 15:00 137 H 18 109/86 98 06/25/20 14:21 98.2 F 143 H 18 113/81 96 Intake and Output 06/25/20 06/26/20 06/26/20 22:59 06:59 14:59 Intake Total 3050 Balance 3050 Intake: Intake, IV Titration 2950 Amount Ampicillin-Sulbactam 3 gm 100 In Sodium Chloride 0.9% 100 ml @ 200 mls/hr IVPB ONCE STA Rx#:[id number] Ampicillin-Sulbactam 3 gm 100 In Sodium Chloride 0.9% 100 ml @ 200 mls/hr IVPB Q8HR MATTY Rx#:[id number] Sodium Chloride 0.9% 1, 750 000 ml @ 150 mls/hr IV . Q6H40M MATTY Rx#:[id number] Sodium Chloride 0.9% 500 2000 ml 500 ml @ 1000 mls/hr IV Q35M [facility] Rx#:[id number] Oral 100 Other: Voiding Method Toilet # Voids 2 1 Weight 59.874 kg - Constitutional General appearance: cooperative, mild distress, thin - EENT Oral Thrush Eyes: EOMI ENT: NA/AT, normal oropharynx, thrush - Neck Neck: normal ROM - Respiratory Respiratory: bilateral: diminished - Cardiovascular Heart rate: 130 Rhythm: regularly irregular - Gastrointestinal General gastrointestinal: soft, tenderness - Integumentary Integumentary: pale - Musculoskeletal Musculoskeletal: generalized weakness - Psychiatric Weakness Psychiatric: A&O x's 3, appropriate affect Results CBC & Chem 7: 06/26/20 05:49 06/26/20 05:49 Labs: Abnormal Lab Results - Last 24 Hours (Table) 06/25/20 06/25/20 06/25/20 Range/Units 14:37 14:37 14:37 RBC (4.30-5.90) m/uL Hgb (13.0-17.5) gm/dL Hct (39.0-53.0) % RDW 17.7 H (11.5-15.5) % Lymphocytes # 0.3 L (1.0-4.8) k/uL INR 1.2 H (<1.2) Sodium 130 L (137-145) mmol/L Chloride 92 L (98-107) mmol/L BUN 39 H (9-20) mg/dL Creatinine 1.77 H (0.66-1.25) mg/dL Est GFR (CKD-EPI)AfAm (60.0-200.0) Est GFR (CKD-EPI)NonAf (60.0-200.0) BUN/Creatinine Ratio (12.00-20.00) Ratio Glucose 102 H (74-99) mg/dL Plasma Lactic Acid Layton (0.7-2.0) mmol/L Calcium 12.7 H (8.4-10.2) mg/dL Phosphorus 5.2 H (2.5-4.5) mg/dL Total Bilirubin 2.3 H (0.2-1.3) mg/dL AST 192 H (17-59) U/L ALT 109 H (4-49) U/L Alkaline Phosphatase 601 H (38-126) U/L Total Protein (6.2-8.2) g/dL Albumin 3.3 L (3.5-5.0) g/dL Albumin/Globulin Ratio (1.60-3.17) g/dL 06/25/20 06/26/20 06/26/20 Range/Units 14:37 05:49 05:49 RBC 4.11 L (4.30-5.90) m/uL Hgb 10.9 L D (13.0-17.5) gm/dL Hct 34.6 L (39.0-53.0) % RDW 17.9 H (11.5-15.5) % Lymphocytes # 0.2 L (1.0-4.8) k/uL INR (<1.2) Sodium (137-145) mmol/L Chloride (98-107) mmol/L BUN 36.0 H (9-20) mg/dL Creatinine 1.6 H (0.66-1.25) mg/dL Est GFR (CKD-EPI)AfAm 58.2 L (60.0-200.0) Est GFR (CKD-EPI)NonAf 50.2 L (60.0-200.0) BUN/Creatinine Ratio 22.50 H (12.00-20.00) Ratio Glucose (74-99) mg/dL Plasma Lactic Acid Layton 2.1 H* (0.7-2.0) mmol/L Calcium 10.5 H (8.4-10.2) mg/dL Phosphorus (2.5-4.5) mg/dL Total Bilirubin (0.2-1.3) mg/dL AST 72 H (17-59) U/L ALT 64 H (4-49) U/L Alkaline Phosphatase 424 H (38-126) U/L Total Protein 4.6 L (6.2-8.2) g/dL Albumin 2.50 L (3.5-5.0) g/dL Albumin/Globulin Ratio 1.19 L (1.60-3.17) g/dL Chest x-ray: report reviewed (Pneumonic Inflammatory infiltrates ) Assessment and Plan (1) Colon carcinoma metastatic to bone Current Visit: Yes Status: Acute Code(s): C18.9 - MALIGNANT NEOPLASM OF COLON, UNSPECIFIED; C79.51 - SECONDARY MALIGNANT NEOPLASM OF BONE SNOMED Code(s): 582961759 Plan: Assessment and Recommendations: Metastatic Colon Cancer: - Patient has yet to start systemic treatment has been waiting on second opinion from Jessica., although patient has progressively declined since i s it has been re-iterated that systemic treatment is needed to gain control zoila. - Status Post Palliative radiation to Spine - Pain - Currently planned to visit with Jessica on Wednesday next week, we have scheduled chemotherapy in office for Wednesday next week to ensure if he is able to start chemo safetly there wont be further delay, although will need to await padron culture work-up from this hospitalization. Hypercalcemia: - Dehydration and Metastatic Disease to Bones - Aredia 30mg daily x3 days (total dose 90mg), will continue with Xgeva as outpatient in 4 weeks SIRS: 3/4 - Padron Cultures Pending - Chest Xray with inflammatory/infectious, pneumonia - Abx ordered - ID is following Abnormal Liver Function Encephalopathy: - possible secondary to increased Liver versus metastatic disease to Brain -MRI Brain Ordered - Ammonia Level PLan: - Recommend re-imaging CT Chest, ABdomen and Pelvis when Renal FUnction improved - MRI of Brain - Await Padron Cultures/COVID - PT/OT Physician Attest: I have completed the full history and physical and agree with above dictation dictated as a scribe
[2020-06-26] MEDS ORDERED: METOPROLOL TARTRATE 12.5 MG TAB PO STA (14:32)
--- NOTE | 2020-06-26 15:16 | P.PN ---
Subjective Progress Note Date: 06/26/20 This is a 49 year old male with a previous medical history significant for kidney stones and cholelithiasis, was inititially complaining of increased abdominal pain in the right upper quadrant and had US of the abdomen that showed cholelithiasis, this was followed with HIDA scan that showed biliary dyskinesis and was referred to have Lap-Jocelyn with that week he developed to have increased abdominal pain with significant nausea and vomiting and he presented to [facility] with bowel obstruction picture, he underwent CT scan of the abdomen and pelvis that showed a large cecal mass suggestive of colon cancer, he underwent right colectomy with end to end anastomosis and then he developed to have a pelvic Abscess that was treated with transcutaneous drain and IV antibiotics through a PICC line for 4 weeks which he has done, he was then seen by Hem-Onc Toma Mars and underwent a battery of testing including PET c that showed metastatic disease, he has then had a Mediprot placed recently by and was seen today by VIDEO TAPE TRANSFERRER at Dr. Chua 's office to discuss further jeniffer tment options and possibly a referral to a phase 3 trial at the [facility], patient was extremely weak and tachycardic and there was a suspicion for possible Mediport infection so he was referred to the ER , he did receive 2 L of Normal saline his heart rate was 16o with sinus tachycardia and he is down to 115 , blood cultures were obtained and he was started on Vancomycin and Zosyn and ID consult was obtained along with surgical consult. 06/26: Patient has been seen by Dr. Hollis does not feel that there is infection of the Mediport site. Patient was also noted to have transaminitis and elevated bilirubin possibly associated with metastatic disease or documented cholelithiasis. No plan for surgical intervention for gallbladder disease at this time based on patient's medical history and asymptomatic presentation. Patient has been afebrile, heart rate 131/86, pulse ox 92% on 2 L nasal cannula. Heart rate has been elevated up to 140 with activity and 110-120 at rest. Low dose Lopressor added at 12.5 mg twice daily and subsequently increased to 25 mg twice daily. Repeat blood work reveals WBC 5.2, hemoglobin 10.9, platelet count 197. Electrolytes normal, BUN 36, creatinine 1.6. Total bilirubin 0.9, AST 72, ALT 64, alkaline phosphatase 424. Repeat lactic acid 1.0. Patient is currently on IV antibiotics in the form of Zosyn and vancomycin. Oncology consult added. Patient was to start chemotherapy. Consult in place for Dr. Menjivar. Blood culture is status post received. Patient is eating very little and has been seen by dietitian and Ensure 3 times daily is in place. Oncology has ordered Aredia, patient is on IV fluids 150 mL per hour. Of the brain has been ordered. CEA, ferritin, iron profile, uric acid, methylmalonic acid, B12 are pending. Objective - Vital Signs Vital signs: Vital Signs Temp 98.7 F 06/26/20 07:00 Pulse 130 H 06/26/20 07:00 Resp 18 06/26/20 07:00 BP 131/86 06/26/20 07:00 Pulse Ox 92 L 06/26/20 07:00 Intake & Output 06/25/20 06/26/20 06/26/20 18:59 06:59 18:59 Intake Total 3050 Balance 3050 Weight 59.874 kg 59.874 kg Intake: Intake, IV Titration 2950 Amount Ampicillin-Sulbactam 3 gm 100 In Sodium Chloride 0.9% 100 ml @ 200 mls/hr IVPB ONCE [facility] Rx#:[id number] Ampicillin-Sulbactam 3 gm 100 In Sodium Chloride 0.9% 100 ml @ 200 mls/hr IVPB Q8HR [facility] Rx#:[id number] Sodium Chloride 0.9% 1, 750 000 ml @ 150 mls/hr IV . Q6H40M [facility] Rx#:[id number] Sodium Chloride 0.9% 500 2000 ml 500 ml @ 1000 mls/hr IV Q35M [facility] Rx#:[id number] Oral 100 Other: Voiding Method Toilet # Voids 1 - Exam Review of Systems Constitutional: Reports anorexia, Reports fatigue, Reports night sweats, Reports poor appetite, Reports sweats, Reports weakness Eyes: denies blurred vision, denies bulging eye, denies decreased vision Ears, nose, mouth and throat: Denies dysphagia, Denies neck lump, Denies swelling in throat, Denies sore throat Cardiovascular: Reports rapid heart beat, Denies chest pain, Denies decreased exercise tolerance, Denies dyspnea on exertion, Denies leg edema, Denies lightheadedness, Denies shortness of breath, Denies syncope Respiratory: Denies congestion, Denies cough, Denies cough with sputum, Denies home oxygen, Denies sleep apnea, Denies snoring, Denies wheezing Gastrointestinal: Reports abdominal pain, Reports early satiety, Reports indigestion, Reports loss of appetite, Reports nausea, Denies belching, Denies bloating, Denies BRBPR, Denies change in bowel habits, Denies coffee ground emesis, Denies heartburn, Denies hematemesis, Denies hematochezia, Denies jaundice, Denies melena, Denies vomiting Genitourinary: Denies dysuria, Denies nocturia Musculoskeletal: Reports muscle weakness, Reports myalgias Musculoskeletal: absent: ankle pain, ankle stiffness, ankle swelling, elbow pain, elbow stiffness, elbow swelling, foot pain, foot stiffness, foot swelling, hand pain, hand stiffness, hand swelling, hip pain, hip stiffness, hip swelling, knee pain, knee stiffness, knee swelling, shoulder pain, shoulder stiffness, shoulder swelling, wrist pain, wrist stiffness, wrist swelling Integumentary: Denies pruritus, Denies rash Neurological: Denies numbness, Denies weakness Psychiatric: Reports depression, Denies sadness/tearfulness, Denies sleep disturbances, Denies suicidal ideation Endocrine: Reports fatigue, Reports weight change Physical Examination HEENT: head is atraumatic normocephalic pupils were equal round reactive to light and accommodations extra ocular muscle movement were intact, conjunctivae were pale and sclera were mildly icteric, mucous membranes of the mouth are somewhat dry. Neck: supple no JVP. Chest: clear to auscultation bilaterally, there is no crackles or wheezes. Heart: first heart sound is normal , second heart sound is normal , tachycardic there is no gallop or murmur. Abdomen: there is mild abdominal tenderness with minimal fullness, there is surgical scar that have healed, positive bowel sounds. Extremities: there is no edema , no calf tenderness DP + 2 bilaterally. Neurologiic examination: patient is awake , alert and oriented X 3 but slow to respond, mild confusion noted CN II-XII are grossly intact muscle power 4/5 in bilateral upper and lower extremity . - Labs CBC & Chem 7: 06/26/20 05:49 06/26/20 05:49 Labs: Abnormal Lab Results - Last 24 Hours (Table) 06/25/20 06/25/20 06/25/20 Range/Units 14:37 14:37 14:37 RBC (4.30-5.90) m/uL Hgb (13.0-17.5) gm/dL Hct (39.0-53.0) % RDW 17.7 H (11.5-15.5) % Lymphocytes # 0.3 L (1.0-4.8) k/uL INR 1.2 H (<1.2) Sodium 130 L (137-145) mmol/L Chloride 92 L (98-107) mmol/L BUN 39 H (9-20) mg/dL Creatinine 1.77 H (0.66-1.25) mg/dL Est GFR (CKD-EPI)AfAm (60.0-200.0) Est GFR (CKD-EPI)NonAf (60.0-200.0) BUN/Creatinine Ratio (12.00-20.00) Ratio Glucose 102 H (74-99) mg/dL Plasma Lactic Acid Layton (0.7-2.0) mmol/L Calcium 12.7 H (8.4-10.2) mg/dL Phosphorus 5.2 H (2.5-4.5) mg/dL Total Bilirubin 2.3 H (0.2-1.3) mg/dL AST 192 H (17-59) U/L ALT 109 H (4-49) U/L Alkaline Phosphatase 601 H (38-126) U/L Total Protein (6.2-8.2) g/dL Albumin 3.3 L (3.5-5.0) g/dL Albumin/Globulin Ratio (1.60-3.17) g/dL 06/25/20 06/26/20 06/26/20 Range/Units 14:37 05:49 05:49 RBC 4.11 L (4.30-5.90) m/uL Hgb 10.9 L D (13.0-17.5) gm/dL Hct 34.6 L (39.0-53.0) % RDW 17.9 H (11.5-15.5) % Lymphocytes # 0.2 L (1.0-4.8) k/uL INR (<1.2) Sodium (137-145) mmol/L Chloride (98-107) mmol/L BUN 36.0 H (9-20) mg/dL Creatinine 1.6 H (0.66-1.25) mg/dL Est GFR (CKD-EPI)AfAm 58.2 L (60.0-200.0) Est GFR (CKD-EPI)NonAf 50.2 L (60.0-200.0) BUN/Creatinine Ratio 22.50 H (12.00-20.00) Ratio Glucose (74-99) mg/dL Plasma Lactic Acid Layton 2.1 H* (0.7-2.0) mmol/L Calcium 10.5 H (8.4-10.2) mg/dL Phosphorus (2.5-4.5) mg/dL Total Bilirubin (0.2-1.3) mg/dL AST 72 H (17-59) U/L ALT 64 H (4-49) U/L Alkaline Phosphatase 424 H (38-126) U/L Total Protein 4.6 L (6.2-8.2) g/dL Albumin 2.50 L (3.5-5.0) g/dL Albumin/Globulin Ratio 1.19 L (1.60-3.17) g/dL Assessment and Plan Plan: 1. Acute kidney injury due to acute tubular necrosis and poor oral intake. start IVF Normal saline at 150 ml/h , we will increase oral intake of fluid and we will repeat CMP in AM. 2. Possible Mediport infection. Blood cultures X 2, we will start Vancomycin Pharmacy to [facility] it [facility] and trough and Zosyn 3.375 gr IVPB Q [address] Menjivar. 3. Hyponatremia due to hypovolemia. we will continue with IVF and repeat CMP in AM. 4. Metastatic adenocarcinoma of the colon. was seen by Hem-Onc and [facility] 3 [facility]. Consult added for oncology. 5. Gallstones with biliary dyskinesia. we will continue with Zofran and IVF. 6. History of kidney stones with mild right sided hydronephrosis we will continue to monitor this appears to be new since last US. 7. Sinus tachycardia due to poor oral intake of fluid and dehydration. we will contiue with IVF . 8. DVT prophylaxis. we will continue with Heparin 5000 units SC Q 8 hours. 9. GI prophylaxis. we will continue with Protonix 40 mg IVP daily. 10. Severe protein calorie malnutrition with poor oral intake, lack of appetite, BMI of 18. Consult with dietitian appreciated. Continue Ensure 3 times daily along with diet. 11. Sinus tachycardia. Lopressor 25 mg twice daily. 12. Mild metabolic encephalopathy secondary to hypocalcemia. Patient is on Aredia. CODE STATUS: Full code. Discharge plan: Home Impression and plan of care have been directed as dictated by the signing physician. Amee Day nurse practitioner acting as scribe for signing physician.
[2020-06-26 15:51] LABS: % Iron Saturation 33.12 (15.00-50.00); Ferritin 13654.2 ng/mL (22.0-322.0)
[2020-06-26 16:40] LABS: Phosphorus 4.3 mg/dL (2.4-5.1); Uric Acid 8.1 mg/dL (3.7-8.7)
--- NOTE | 2020-06-26 19:39 | CT ---
EXAMINATION TYPE: CT brain wo con DATE OF EXAM: 06/26/2020 COMPARISON: None HISTORY: Decreasing cognitive status. History of bowel cancer. CT DLP: 1098.4 mGycm Automated exposure control for dose reduction was used. Ventricles of normal size. There is no mass effect nor midline shift. There is no sign of intracrania l hemorrhage. The calvarium is intact. There is no evidence of cerebral edema. IMPRESSION: Negative unenhanced head CT scan.
[2020-06-26] MEDS: METOPROLOL TARTRATE 25 MG TAB PO SCH (21:04)
[2020-06-27] MEDS: SODIUM CHLORIDE 0.9% 1,000 ML IV SCH ×5 (03:26→17:40)
[2020-06-27] MEDS: VANCOMYCIN 1,250 MG in SODIUM CHLORIDE 0.9% 250 ML IVPB SCH (03:48)
[2020-06-27 05:37] LABS: African American GFR (CKD) 33.9 (60.0-200.0); Anion Gap 11.3 mmol/L (4.00-12.00); BUN/Creat Ratio 17.2 Ratio (12.00-20.00); Calcium 10.4 mg/dL (8.7-10.3); Carbon Dioxide 21.7 mmol/L (21.6-31.8); Non-African American GFR(CKD) 29.3 (60.0-200.0); Potassium 4.7 mmol/L (3.5-5.5)
[2020-06-27] MEDS: IOPAMIDOL CONTRAST (ORAL USE) VIAL PO PRN ×2 (07:36→08:49)
[2020-06-27] MEDS: PANTOPRAZOLE 40 MG/10 ML VIAL IV SCH (07:48)
[2020-06-27] MEDS: PIPERACILLIN-TAZOBACTAM 3.375 GM in SODIUM CHLORIDE 0.9% 100 ML IVPB SCH ×3 (07:48→23:32)
[2020-06-27] MEDS: HEPARIN SODIUM,PORCINE 5,000 UNIT/ML 1 ML VIAL SQ SCH ×3 (07:48→23:31)
[2020-06-27] MEDS: METOPROLOL TARTRATE 25 MG TAB PO SCH ×2 (07:49→22:00)
--- NOTE | 2020-06-27 08:05 | P.CONS ---
History of Present Illness - Reason for Consult Consult date: 06/26/20 infection Requesting physician: Vikas Mendoza - Chief Complaint weakness x few days - History of Present Illness Patient is a 49-year-old male with a past medical history significant for metastatic colon cancer status post partial colectomy subsequently admitted to the hospital with evidence abdominal abscess that was CT-guided drain and the patient has completed his antibiotic therapy for patient apparently presented to his oncology office yesterday for a follow-up patient was noticed to be tachycardic he was complaining of weakness and did have a low-grade fever with concern for possible infection patient has been advised admission to the hospital on arrival to the ER patient was afebrile patient did have a normal white count liver enzymes were elevated blood culture has been drawn patient did have ultrasound of the gallbladder which shows numerous gallstones but no dilated ducts mild right-sided hydronephrosis which is new compared to previous CT, patient UA was negative patient was started on Zosyn and vancomycin has been admitted to hospital infectious disease was consulted for possible infection and there was concern for possible Mediport site infection however the patient currently not having symptoms to his Mediport site with no pain no swelling or any drainage. Review of Systems Positive point has been mentioned HPI rest of the systems negative Past Medical History Past Medical History: Cancer (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 History of Any Multi-Drug Resistant Organisms: None Reported Past Surgical History: Bowel Resection (Right hemicolectomy) Past Anesthesia/Blood Transfusion Reactions: No Reported Reaction Past Psychological History: No Psychological Hx Reported Smoking Status: Never smoker Past Alcohol Use History: None Reported Past Drug Use History: None Reported - Past Family History Father History Unknown: Yes Family Medical History: Cancer (Father at the age of 76 from lung cancer) Mother Family Medical History: Unable to Obtain (Mother at the age of 63) Brother(s) Family Medical History: No Reported History (2 brothers one from a Fire accident.) Sister(s) Family Medical History: No Reported History (2 sisters no health issues.) Son(s) Family Medical History: No Reported History (one son with mental health issues,lives in longterm.) Medications and Allergies Home Medications Medication Instructions Recorded Confirmed Type HYDROcodone/APAP 5-325MG [[place] 1 tab PO QID PRN 06/25/20 06/25/20 History 5-325] fentaNYL 50MCG/HR PATCH [Duragesic 1 patch TRANSDERM Q72H 06/25/20 06/25/20 History 50MCG/HR] Allergies Allergy/AdvReac Type Severity Reaction Status Date / Time No Known Allergies Allergy Verified 06/25/20 16:23 Physical Exam Vitals: Vital Signs Temp Pulse Pulse Resp BP BP Pulse Ox 06/26/20 07:00 98.7 F 130 H 18 131/86 92 L 06/26/20 04:20 16 06/26/20 00:40 16 06/26/20 00:10 97.6 F 99 16 121/80 96 06/25/20 19:50 16 06/25/20 19:00 97.5 F L 113 H 18 113/79 95 06/25/20 17:56 113 H 16 122/78 97 06/25/20 16:00 98.4 F 120 H 17 127/85 97 06/25/20 15:44 118 H 18 127/85 95 06/25/20 15:30 124 H 15 122/85 97 06/25/20 15:00 137 H 18 109/86 98 06/25/20 14:21 98.2 F 143 H 18 113/81 96 Intake and Output 06/25/20 06/26/20 06/26/20 22:59 06:59 14:59 Intake Total 3050 Balance 3050 Intake: Intake, IV Titration 2950 Amount Ampicillin-Sulbactam 3 gm 100 In Sodium Chloride 0.9% 100 ml @ 200 mls/hr IVPB ONCE [facility] Rx#:[id number] Ampicillin-Sulbactam 3 gm 100 In Sodium Chloride 0.9% 100 ml @ 200 mls/hr IVPB Q8HR [facility] Rx#:[id number] Sodium Chloride 0.9% 1, 750 000 ml @ 150 mls/hr IV . Q6H40M [facility] Rx#:[id number] Sodium Chloride 0.9% 500 2000 ml 500 ml @ 1000 mls/hr IV Q35M [facility] Rx#:[id number] Oral 100 Other: Voiding Method Toilet # Voids 2 1 Weight 59.874 kg GENERAL DESCRIPTION: Middle-aged male lying in bed, no distress. No tachypnea or accessory muscle of respiration use. HEENT: Shows Pallor , no scleral icterus. Oral mucous membrane is dry. NECK: Trachea central, no thyromegaly. LUNGS: Unlabored breathing. Clear to auscultation anteriorly. No wheeze or crackle. HEART: S1, S2, regular rate and rhythm. ABDOMEN: Soft, mild distention but no tenderness , guarding or rigidity EXTREMITIES: No edema of feet. SKIN: No rash, no masses palpable. NEUROLOGICAL: The patient is awake, alert, oriented x3, mood and affect normal. Results CBC & Chem 7: 06/26/20 05:49 06/26/20 20:13 Labs: Abnormal Lab Results - Last 24 Hours (Table) 06/25/20 06/25/20 06/25/20 Range/Units 14:37 14:37 14:37 RBC (4.30-5.90) m/uL Hgb (13.0-17.5) gm/dL Hct (39.0-53.0) % RDW 17.7 H (11.5-15.5) % Lymphocytes # 0.3 L (1.0-4.8) k/uL INR 1.2 H (<1.2) Sodium 130 L (137-145) mmol/L Chloride 92 L (98-107) mmol/L BUN 39 H (9-20) mg/dL Creatinine 1.77 H (0.66-1.25) mg/dL Est GFR (CKD-EPI)AfAm (60.0-200.0) Est GFR (CKD-EPI)NonAf (60.0-200.0) BUN/Creatinine Ratio (12.00-20.00) Ratio Glucose 102 H (74-99) mg/dL Plasma Lactic Acid Layton (0.7-2.0) mmol/L Calcium 12.7 H (8.4-10.2) mg/dL Phosphorus 5.2 H (2.5-4.5) mg/dL Total Bilirubin 2.3 H (0.2-1.3) mg/dL AST 192 H (17-59) U/L ALT 109 H (4-49) U/L Alkaline Phosphatase 601 H (38-126) U/L Total Protein (6.2-8.2) g/dL Albumin 3.3 L (3.5-5.0) g/dL Albumin/Globulin Ratio (1.60-3.17) g/dL 06/25/20 06/26/20 06/26/20 Range/Units 14:37 05:49 05:49 RBC 4.11 L (4.30-5.90) m/uL Hgb 10.9 L D (13.0-17.5) gm/dL Hct 34.6 L (39.0-53.0) % RDW 17.9 H (11.5-15.5) % Lymphocytes # 0.2 L (1.0-4.8) k/uL INR (<1.2) Sodium (137-145) mmol/L Chloride (98-107) mmol/L BUN 36.0 H (9-20) mg/dL Creatinine 1.6 H (0.66-1.25) mg/dL Est GFR (CKD-EPI)AfAm 58.2 L (60.0-200.0) Est GFR (CKD-EPI)NonAf 50.2 L (60.0-200.0) BUN/Creatinine Ratio 22.50 H (12.00-20.00) Ratio Glucose (74-99) mg/dL Plasma Lactic Acid Layton 2.1 H* (0.7-2.0) mmol/L Calcium 10.5 H (8.4-10.2) mg/dL Phosphorus (2.5-4.5) mg/dL Total Bilirubin (0.2-1.3) mg/dL AST 72 H (17-59) U/L ALT 64 H (4-49) U/L Alkaline Phosphatase 424 H (38-126) U/L Total Protein 4.6 L (6.2-8.2) g/dL Albumin 2.50 L (3.5-5.0) g/dL Albumin/Globulin Ratio 1.19 L (1.60-3.17) g/dL Assessment and Plan Assessment: patient presented to hospital with weakness patient was noticed to be tachyca rdic with a low-grade fever at oncology office with concern for possible Mediport infection however the Mediport site looks clean with no evidence of any cellulitis blood culture repeat yesterday has been negative so far patient also have ultrasound of the gallbladder with some gallstone and new right-sided hydronephrosis in this patient with recent history of abdominal abscess will obtain a CT to make sure no evidence of any intra-abdominal collection. (1) Fever Current Visit: Yes Status: Acute Code(s): R50.9 - FEVER, UNSPECIFIED SNOMED Code(s): 238399586 Plan: 1-obtain a CT of abdominal pelvis with oral contrast only 2-Zosyn 3.375 g every 12hr to continue while waiting for the culture finalized however discontinue the vancomycin we will follow on clinical condition and cultures to further adjust medication if needed Thank you for this consultation we will follow the patient along with you Time with Patient: Greater than 30
[2020-06-27 09:23] LABS: African American GFR (CKD) 32.3 (60.0-200.0); Albumin 2.4 g/dL (3.80-4.90); Albumin/Globulin Ratio 1.09 (1.60-3.17); Anion Gap 9.3 mmol/L (4.00-12.00); BUN/Creat Ratio 16.54 Ratio (12.00-20.00); Calcium 10.3 mg/dL (8.7-10.3); Carbon Dioxide 22.7 mmol/L (21.6-31.8); Globulin 2.2 g/dL (1.6-3.3); Non-African American GFR(CKD) 27.9 (60.0-200.0); Potassium 4.6 mmol/L (3.5-5.5); Total Bilirubin 0.9 mg/dL (0.2-1.2); Total Protein 4.6 g/dL (6.2-8.2)
--- NOTE | 2020-06-27 11:00 | CT ---
EXAMINATION TYPE: CT abdomen pelvis wo con DATE OF EXAM: 06/27/2020 COMPARISON: PET CT 05/24/2020 INDICATION: mid abd pain, abscess DLP: 684.1 mGycm, Automated exposure control for dose reduction was used. CONTRAST: 0 mL of Isovue 300. Study performed with Oral Contrast TECHNIQUE: Axial images were obtained from above the diaphragm to the pubic rami in the axial plane a t 5 mm thick sections. Reconstructed images are reviewed on the computer in the coronal plane. FINDINGS: Limited CT sections are obtained the lung bases. There are patchy infiltrates at the bilateral lung bases which are nonspecific. These are increasing from the comparison. Consider infectious etiology. Consider atypical pneumonia within the differential. Small bilateral pleural effusions are present. CT ABDOMEN: Liver: Normal Spleen: Normal Pancreas: Normal Adrenal glands: The adrenal glands are normal. Gallbladder: Normal Kidneys: No masses are evident. There is a moderate right hydronephrosis and hydroureter. Hydroureter extends to the ureterovesical junction. An etiology for the obstruction is not identified. There is mild left hydronephrosis and mild left hydroureter. Hydronephrosis and hydroureter aren't interval fi nding from 05/24/2020. There is a 0.7 cm superior pole right renal stone. A mid right renal stone savanah uring 0.6 cm is present. A punctate 2 mm stones at the inferior pole left kidney. A 0.3 cm mid left r enal calcification is present. These appear to be nonobstructing renal stones. No cysts are present. Lymphadenopathy: There is periaortic lymphadenopathy present. Enlarged lymph nodes are not identified on there are some lymph nodes measuring up to 0.9 cm. These are hyperintense on the PET scan. Aorta: Vascular calcification is within the aorta. Inferior vena cava: Normal. CT PELVIS: Loops of bowel within the abdomen and pelvis are normal. Oral contrast extends to the colon. Ther e are some loops of bowel lacking oral contrast limiting their evaluation. Appendix: Not clearly identified. No suspicious tubular structure is evident Urinary bladder: Distended. Genitourinary structures: Prostate is prominent contains calcification. Osseous structures: No suspicious lytic or sclerotic lesions. IMPRESSIONS: 1. Markedly distended urinary bladder with moderate right hydronephrosis and mild left hydronephrosi s with bilateral hydroureter. Nonobstructing renal stones are identified. Etiology for the hydrourete r and hydronephrosis may be related to the distended urinary bladder. This is an interval finding May 2020. 2. Scattered abdominal adenopathy which is not enlarged by CT criteria but is abnormal by prior recen t PET scan. 3. No suspicious abnormality to suggest abscess. 4. Patchy infiltrates at the lung bases with small bilateral pleural effusions. Infectious etiologies should be considered. Consider atypical pneumonia
[2020-06-27] MEDS ORDERED: SODIUM CHLORIDE 0.9% 250 ML with PAMIDRONATE 30 MG IV ONE ×2 (12:30)
--- NOTE | 2020-06-27 12:52 | P.PN ---
Subjective Progress Note Date: 06/27/20 Patient seen and examined at bedside. Appears confused today. Required Bassett catheter placement based on distended urinary bladder on CT of the abdomen and pelvis that was performed. Objective - Vital Signs Vital signs: Vital Signs Temp 98.0 F 06/27/20 07:52 Pulse 113 H 06/27/20 10:53 Resp 18 06/27/20 07:52 BP 165/105 06/27/20 10:53 Pulse Ox 93 L 06/27/20 07:52 Intake & Output 06/26/20 06/27/20 06/27/20 18:59 06:59 18:59 Intake Total 1036 1200 Output Total 1600 Balance 1036 1200 -1600 Weight 59.874 kg Intake: IV 800 1200 Sodium Chloride 0.9% 1, 800 1200 000 ml @ 150 mls/hr IV . Q6H40M [facility] Rx#:[id number] Oral 236 Output: Urine 1600 Uretheral (Bassett) 1600 Other: # Voids 1 1 # Bowel Movements 1 1 - Constitutional General appearance: Present: no acute distress - Respiratory Details: No difficulty with respiration - Gastrointestinal Gastrointestinal Comment(s): Soft, nontender, nondistended, no rebound, no guarding - Musculoskeletal Musculoskeletal: Present: generalized weakness - Labs CBC & Chem 7: 06/26/20 05:49 06/27/20 06:02 Labs: Abnormal Lab Results - Last 24 Hours (Table) 06/26/20 06/26/20 06/26/20 Range/Units 05:49 05:49 20:13 BUN 43.0 H (9.0-27.0) mg/dL Creatinine 2.5 H (0.6-1.5) mg/dL Est GFR (CKD-EPI)AfAm 33.9 L (60.0-200.0) Est GFR (CKD-EPI)NonAf 29.3 L (60.0-200.0) Calcium 10.4 H (8.7-10.3) mg/dL Iron 51 L (65-175) ug/dL TIBC 154 L (228-460) ug/dL Ferritin 14767.2 H (22.0-322.0) ng/mL AST (14-35) U/L Alkaline Phosphatase (41-126) U/L Total Protein (6.2-8.2) g/dL Albumin (3.80-4.90) g/dL Albumin/Globulin Ratio (1.60-3.17) g/dL Carcinoembryonic Ag 19.2 H (0.0-4.9) ng/mL 06/27/20 Range/Units 06:02 BUN 43.0 H (9.0-27.0) mg/dL Creatinine 2.6 H (0.6-1.5) mg/dL Est GFR (CKD-EPI)AfAm 32.3 L (60.0-200.0) Est GFR (CKD-EPI)NonAf 27.9 L (60.0-200.0) Calcium (8.7-10.3) mg/dL Iron (65-175) ug/dL TIBC (228-460) ug/dL Ferritin (22.0-322.0) ng/mL AST 72 H (14-35) U/L Alkaline Phosphatase 481 H (41-126) U/L Total Protein 4.6 L (6.2-8.2) g/dL Albumin 2.40 L (3.80-4.90) g/dL Albumin/Globulin Ratio 1.09 L (1.60-3.17) g/dL Carcinoembryonic Ag (0.0-4.9) ng/mL Microbiology - Last 24 Hours (Table) 06/25/20 14:51 Blood Culture - Preliminary Blood No Growth after 24 hours Assessment and Plan (1) Dehydration Narrative/Plan: 49-year-old male with metastatic colon cancer, stage IV. Patient has had significant medical decline. Currently, CT of the abdomen and pelvis does not show any intra-abdominal abscess formation and Mediport does not appear to be infected on the surface. So far, blood cultures are negative. No plan for surgical intervention at this time, we will continue to follow and make recommendations based on the patient's clinical progress. Current Visit: Yes Status: Acute Code(s): E86.0 - DEHYDRATION SNOMED Code(s): 83722304
[2020-06-27] MEDS ORDERED: SODIUM CHLORIDE 0.9% 1,000 ML IV SCH ×2 (13:15→14:30)
--- NOTE | 2020-06-27 13:40 | P.PN ---
Subjective Progress Note Date: 06/27/20 This is a 49 year old male with a previous medical history significant for kidney stones and cholelithiasis, was inititially complaining of increased abdominal pain in the right upper quadrant and had US of the abdomen that showed cholelithiasis, this was followed with HIDA scan that showed biliary dyskinesis and was referred to have Lap-Jocelyn with that week he developed to have increased abdominal pain with significant nausea and vomiting and he presented to [facility] with bowel obstruction picture, he underwent CT scan of the abdomen and pelvis that showed a large cecal mass suggestive of colon cancer, he underwent right colectomy with end to end anastomosis and then he developed to have a pelvic Abscess that was treated with transcutaneous drain and IV antibiotics through a PICC line for 4 weeks which he has done, he was then seen by Hem-Onc Toma Mars and underwent a battery of testing including PET c that showed metastatic disease, he has then had a Mediprot placed recently by and was seen today by [employer] ATTENDANT at Dr. Chua 's office to discuss further jeniffer tment options and possibly a referral to a phase 3 trial at the [facility], patient was extremely weak and tachycardic and there was a suspicion for possible Mediport infection so he was referred to the ER , he did receive 2 L of Normal saline his heart rate was 16o with sinus tachycardia and he is down to 115 , blood cultures were obtained and he was started on Vancomycin and Zosyn and ID consult was obtained along with surgical consult. 06/26: Patient has been seen by Dr. Hollis does not feel that there is infection of the Mediport site. Patient was also noted to have transaminitis and elevated bilirubin possibly associated with metastatic disease or documented cholelithiasis. No plan for surgical intervention for gallbladder disease at this time based on patient's medical history and asymptomatic presentation. Patient has been afebrile, heart rate 131/86, pulse ox 92% on 2 L nasal cannula. Heart rate has been elevated up to 140 with activity and 110-120 at rest. Low dose Lopressor added at 12.5 mg twice daily and subsequently increased to 25 mg twice daily. Repeat blood work reveals WBC 5.2, hemoglobin 10.9, platelet count 197. Electrolytes normal, BUN 36, creatinine 1.6. Total bilirubin 0.9, AST 72, ALT 64, alkaline phosphatase 424. Repeat lactic acid 1.0. Patient is currently on IV antibiotics in the form of Zosyn and vancomycin. Oncology consult added. Patient was to start chemotherapy. Consult in place for Dr. Menjivar. Blood culture is status post received. Patient is eating very little and has been seen by dietitian and Ensure 3 [address] is in place. Oncology has ordered Aredia, patient is on IV fluids 150 mL per hour. Of the brain has been ordered. CEA, ferritin, iron profile, uric acid, methylmalonic acid, B12 are pending. 06/27: CAT scan of the abdomen pelvis without contrast revealed markedly distended urinary bladder with moderate right hydronephrosis and mild left hydronephrosis with bilateral hydroureter. Nonobstructing renal stones are identified. Etiology of hydroureter and hydronephrosis may be related to distended urinary bladder. Scattered abdominal adenopathy. No suspicious abnormality to suggest abscess. Patchy infiltrates at the lung bases and small bilateral pleural effusions. Infectious etiologies should be considered. Consider atypical pneumonia. Consult with urology added for hydronephrosis. Patient has been seen by Dr. Menjivar and vancomycin has been discontinued. Patient is currently on Zosyn. Bassett catheter was placed today with removal of 1600 ML's. Patient's aunt is at the bedside and she states she has been going to his house feeding him and doing his housework. Patient is known to have more confusion today. He states what is this idea about her race car. He thinks that he is leaving today. Patient is reoriented. Patient has been afebrile, heart rate 113, blood pressure 165/105, pulse ox 93% on room air. Patient's heart rate has been high despite starting Lopressor yesterday. Hydralazine added for blood pressure. Repeat blood work revealed creatinine of 2.6. Consult with nephrology will be added. Total bilirubin 0.9, AST 72, ALT 45, alkaline phosphatase 481. Albumin 2.4. CEA elevated at 19.2, vitamin B12 299. Uric acid 8.1 iron 51, TIBC 154, iron saturation 33, ferritin 13,654. Patient is eating very little. He is taking in some protein supplementation. Patient is more views from yesterday. CAT scan of the brain showed no acute abnormality. Objective - Vital Signs Vital signs: Vital Signs Temp 98.0 F 06/27/20 07:52 Pulse 113 H 06/27/20 10:53 Resp 18 06/27/20 07:52 BP 165/105 06/27/20 10:53 Pulse Ox 93 L 06/27/20 07:52 Intake & Output 06/26/20 06/27/20 06/27/20 18:59 06:59 18:59 Intake Total 1036 1200 Output Total 1600 Balance 1036 1200 -1600 Weight 59.874 kg Intake: IV 800 1200 Sodium Chloride 0.9% 1, 800 1200 000 ml @ 150 mls/hr IV . Q6H40M MATTY Rx#:[id number] Oral 236 Output: Urine 1600 Uretheral (Bassett) 1600 Other: # Voids 1 1 # Bowel Movements 1 1 - Exam Review of Systems Constitutional: Reports anorexia, Reports fatigue, Reports night sweats, Reports poor appetite, Reports sweats, Reports weakness Eyes: denies blurred vision, denies bulging eye, denies decreased vision Ears, nose, mouth and throat: Denies dysphagia, Denies neck lump, Denies swelling in throat, Denies sore throat Cardiovascular: Reports rapid heart beat, Denies chest pain, Denies decreased exercise tolerance, Denies dyspnea on exertion, Denies leg edema, Denies lightheadedness, Denies shortness of breath, Denies syncope Respiratory: Denies congestion, Denies cough, Denies cough with sputum, Denies home oxygen, Denies sleep apnea, Denies snoring, Denies wheezing Gastrointestinal: Reports abdominal pain, Reports early satiety, Reports indigestion, Reports loss of appetite, Reports nausea, Denies belching, Denies bloating, Denies BRBPR, Denies change in bowel habits, Denies coffee ground emesis, Denies heartburn, Denies hematemesis, Denies hematochezia, Denies jaundice, Denies melena, Denies vomiting Genitourinary: Denies dysuria, Denies nocturia, reported retention Musculoskeletal: Reports muscle weakness, Reports myalgias Musculoskeletal: absent: ankle pain, ankle stiffness, ankle swelling, elbow pain, elbow stiffness, elbow swelling, foot pain, foot stiffness, foot swelling, hand pain, hand stiffness, hand swelling, hip pain, hip stiffness, hip swelling, knee pain, knee stiffness, knee swelling, shoulder pain, shoulder stiffness, shoulder swelling, wrist pain, wrist stiffness, wrist swelling Integumentary: Denies pruritus, Denies rash Neurological: Denies numbness, Denies weakness on the patient confused Psychiatric: Reports depression, Denies sadness/tearfulness, Denies sleep disturbances, Denies suicidal ideation Endocrine: Reports fatigue, Reports weight change Physical Examination HEENT: head is atraumatic normocephalic pupils were equal round reactive to l ight and accommodations extra ocular muscle movement were intact, conjunctivae were pale and sclera were mildly icteric, mucous membranes of the mouth are somewhat dry. Neck: supple no JVP. Chest: clear to auscultation bilaterally, there is no crackles or wheezes. Heart: first heart sound is normal , second heart sound is normal , tachycardic there is no gallop or murmur. Abdomen: there is no abdominal tenderness with minimal fullness, there is surgical scar that have healed, positive bowel sounds. Bassett catheter draining blood-tinged urine Extremities: there is no edema , no calf tenderness DP + 2 bilaterally. Neurologiic examination: patient is awake , alert and oriented to person. CN II-XII are grossly intact muscle power 4/5 in bilateral upper and lower extremity . - Labs CBC & Chem 7: 06/26/20 05:49 06/27/20 06:02 Labs: Abnormal Lab Results - Last 24 Hours (Table) 06/26/20 06/26/20 06/26/20 Range/Units 05:49 05:49 20:13 BUN 43.0 H (9.0-27.0) mg/dL Creatinine 2.5 H (0.6-1.5) mg/dL Est GFR (CKD-EPI)AfAm 33.9 L (60.0-200.0) Est GFR (CKD-EPI)NonAf 29.3 L (60.0-200.0) Calcium 10.4 H (8.7-10.3) mg/dL Iron 51 L (65-175) ug/dL TIBC 154 L (228-460) ug/dL Ferritin 31859.2 H (22.0-322.0) ng/mL AST (14-35) U/L Alkaline Phosphatase (41-126) U/L Total Protein (6.2-8.2) g/dL Albumin (3.80-4.90) g/dL Albumin/Globulin Ratio (1.60-3.17) g/dL Carcinoembryonic Ag 19.2 H (0.0-4.9) ng/mL 06/27/20 Range/Units 06:02 BUN 43.0 H (9.0-27.0) mg/dL Creatinine 2.6 H (0.6-1.5) mg/dL Est GFR (CKD-EPI)AfAm 32.3 L (60.0-200.0) Est GFR (CKD-EPI)NonAf 27.9 L (60.0-200.0) Calcium (8.7-10.3) mg/dL Iron (65-175) ug/dL TIBC (228-460) ug/dL Ferritin (22.0-322.0) ng/mL AST 72 H (14-35) U/L Alkaline Phosphatase 481 H (41-126) U/L Total Protein 4.6 L (6.2-8.2) g/dL Albumin 2.40 L (3.80-4.90) g/dL Albumin/Globulin Ratio 1.09 L (1.60-3.17) g/dL Carcinoembryonic Ag (0.0-4.9) ng/mL Microbiology - Last 24 Hours (Table) 06/25/20 14:51 Blood Culture - Preliminary Blood No Growth after 24 hours Assessment and Plan Plan: 1. Acute kidney injury due to acute tubular necrosis and poor oral intake, hypercalcemia and urinary retention. start IVF Normal saline at 125 ml/h , we will increase oral intake of fluid and we will repeat CMP in AM. Consult with nephrology due to worsening renal function. 2. Possible Mediport infection. Blood cultures, continue Zosyn 3.375 gr IVPB Q [address] Menjivar appreciated. Vancomycin discontinued.. 3. Hyponatremia due to hypovolemia. we will continue with IVF and repeat CMP in AM. 4. Metastatic adenocarcinoma of the colon. was seen by Hem-Onc and [facility]. Consult with oncology appreciated. 5. Gallstones with biliary dyskinesia. we will continue with Zofran and IVF. 6. History of kidney stones with mild right sided hydronephrosis we will continue to monitor this appears to be new since last US. 7. Sinus tachycardia due to poor oral intake of fluid and dehydration. we will contiue with IVF. Continue Lopressor 25 mg twice daily . 8. DVT prophylaxis. we will continue with Heparin 5000 units SC Q 8 hours. 9. GI prophylaxis. we will continue with Protonix 40 mg IVP daily. 10. Severe protein calorie malnutrition with poor oral intake, lack of appe tite, BMI of 18. Consult with dietitian appreciated. Continue Ensure 3 times daily along with diet. 11. Metabolic encephalopathy secondary to hypercalcemia. Patient is on Aredia. 12. Hypercalcemia secondary to dehydration and metastatic disease to the bones. Oncology managing. 13. Bilateral hydronephrosis. Consult with urology. 14. Urinary retention. Bassett catheter placed, consult with urology. 15. Hypertension. Patient started on hydralazine 25 mg twice daily. CODE STATUS: Full code. Discharge plan: To be determined Impression and plan of care have been directed as dictated by the signing physician. Amee Day nurse practitioner acting as scribe for signing physician.
[2020-06-27] MEDS ORDERED: hydrALAZINE HCL 25 MG TAB PO SCH (13:45)
--- NOTE | 2020-06-27 15:00 | P.PN ---
Subjective Progress Note Date: 06/27/20 Patient with marked generalized weakness, slow affect and comprehension. There appears to be intermittent confusion. He states that his pain is responsive to current medications. He denied any nausea or vomiting. No headaches or dizziness. Objective - Vital Signs Vital signs: Vital Signs Temp 98.0 F 06/27/20 07:52 Pulse 113 H 06/27/20 10:53 Resp 18 06/27/20 07:52 BP 165/105 06/27/20 10:53 Pulse Ox 93 L 06/27/20 07:52 Intake & Output 06/26/20 06/27/20 06/27/20 18:59 06:59 18:59 Intake Total 1036 1200 Output Total 2650 Balance 1036 1200 -2650 Weight 59.874 kg Intake: IV 800 1200 Sodium Chloride 0.9% 1, 800 1200 000 ml @ 150 mls/hr IV . Q6H40M MTATY Rx#:[id number] Oral 236 Output: Urine 2650 Uretheral (Bassett) 2650 Other: # Voids 1 1 # Bowel Movements 1 1 - Constitutional Constitutional Comment(s): Marked generalized weakness - EENT Eyes: Present: EOMI ENT: Present: hearing grossly normal, normal oropharynx - Respiratory Respiratory: bilateral: diminished - Cardiovascular Rhythm: regular Heart sounds: normal: S1, S2 - Gastrointestinal General gastrointestinal: Present: normal bowel sounds, soft - Integumentary Integumentary: Present: normal - Neurologic Neurologic: Present: CNII-XII intact - Musculoskeletal Musculoskeletal: Present: generalized weakness, strength equal bilaterally - Psychiatric Psychiatric Comment(s): lethargic,Definite slowing of affect and comprehension. There appears to be at least intermittent confusion - Labs CBC & Chem 7: 06/26/20 05:49 06/27/20 06:02 Labs: Abnormal Lab Results - Last 24 Hours (Table) 06/26/20 06/26/20 06/26/20 Range/Units 05:49 05:49 20:13 BUN 43.0 H (9.0-27.0) mg/dL Creatinine 2.5 H (0.6-1.5) mg/dL Est GFR (CKD-EPI)AfAm 33.9 L (60.0-200.0) Est GFR (CKD-EPI)NonAf 29.3 L (60.0-200.0) Calcium 10.4 H (8.7-10.3) mg/dL Iron 51 L (65-175) ug/dL TIBC 154 L (228-460) ug/dL Ferritin 67099.2 H (22.0-322.0) ng/mL AST (14-35) U/L Alkaline Phosphatase (41-126) U/L Total Protein (6.2-8.2) g/dL Albumin (3.80-4.90) g/dL Albumin/Globulin Ratio (1.60-3.17) g/dL Carcinoembryonic Ag 19.2 H (0.0-4.9) ng/mL 06/27/20 Range/Units 06:02 BUN 43.0 H (9.0-27.0) mg/dL Creatinine 2.6 H (0.6-1.5) mg/dL Est GFR (CKD-EPI)AfAm 32.3 L (60.0-200.0) Est GFR (CKD-EPI)NonAf 27.9 L (60.0-200.0) Calcium (8.7-10.3) mg/dL Iron (65-175) ug/dL TIBC (228-460) ug/dL Ferritin (22.0-322.0) ng/mL AST 72 H (14-35) U/L Alkaline Phosphatase 481 H (41-126) U/L Total Protein 4.6 L (6.2-8.2) g/dL Albumin 2.40 L (3.80-4.90) g/dL Albumin/Globulin Ratio 1.09 L (1.60-3.17) g/dL Carcinoembryonic Ag (0.0-4.9) ng/mL Microbiology - Last 24 Hours (Table) 06/26/20 12:19 Blood Culture - Preliminary Blood No Growth after 24 hours 06/25/20 14:51 Blood Culture - Preliminary Blood No Growth after 24 hours Assessment and Plan (1) Dehydration Narrative/Plan: Due to markedly decreased oral intake, related to progressive malignancy. He is currently on ongoing IV hydration at 150 mL per hour. Continue same and monitor parameters. Current Visit: Yes Status: Acute Code(s): E86.0 - DEHYDRATION SNOMED Code(s): 33547846 (2) Hypercalcemia of malignancy Narrative/Plan: The patient has hypercalcemia likely due to metastatic disease to bone, exacerbated by dehydration. He is currently on normal saline at 1 50 cc an hour. He received Aredia 30 mg so far. Calcium is improved into the low 10 range. As creatinine is elevated, at this time, we will hold further doses of Aredia till creatinine improves. Continue to monitor Current Visit: Yes Status: Acute Code(s): E83.52 - HYPERCALCEMIA SNOMED Code(s): 99917718 (3) Mental status alteration Narrative/Plan: This is likely multifactorial, due to dehydration, as well as hypercalcemia. In addition, the patient has developed acute kidney injury. He is also being investigated for possible infection. The patient is receiving hydration, and hypercalcemia has been treated with improvement. Bassett catheter has been placed to relieve urinary retention, which is felt to be the cause for possible acute kidney injury. ID is on consult. MRI of the brain is pending to rule out brain metastasis. 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 Course so far discussed in the initial consult. He had recommended starting systemic chemotherapy at the time of his initial office visit, but the patient and family wanted to get additional opinions. They have had a consult at [facility], and are to see Dr. Feldman at the [facility] next week. Therefore, systemic therapy was on hold till second opinions were completed in case the patient was a candidate for any clinical trials which he and the family were very interested in Established prognosis is very guarded given aggressive course and clinical decline. At this time is set up to start systemic therapy immediately after his consult at the [facility], he is not a candidate for any clinical trials. Biomarker profile has been ordered with partial results obtained so far not showing any suitable target. The above has been discussed with family Current Visit: Yes Status: Acute Code(s): C18.9 - MALIGNANT NEOPLASM OF COLON, UNSPECIFIED; C79.51 - SECONDARY MALIGNANT NEOPLASM OF BONE SNOMED Code(s): 417883168 (5) Acute kidney failure Narrative/Plan: This appears to be also multifactorial, due to urinary retention and hydronephrosis, as well as hypercalcemia and dehydration. The patient is being treated with IV hydration, treatment for hypercalcemia, as well as Bassett catheter placement. He again remains elevated today. Continue to follow with ongoing measures Current Visit: Yes Status: Acute Code(s): N17.9 - ACUTE KIDNEY FAILURE, UNSPECIFIED SNOMED Code(s): 99683951
[2020-06-27] MEDS: amLODIPine 10 MG TAB PO SCH (15:18)
[2020-06-27] MEDS ORDERED: FUROSEMIDE 10 MG/ML 4 ML VIAL IV STA (15:25)
[2020-06-27] MEDS ORDERED: VANCOMYCIN IV PER PHARMACY 1 EACH MISC MISCELLANE PRN (17:25)
[2020-06-27] MEDS ORDERED: SODIUM CHLORIDE 0.9% 1,000 ML IV ONE (17:31)
--- NOTE | 2020-06-27 17:56 | P.GSCN ---
History of Present Illness Consult date: 06/27/20 Reason for Consult: Urinary retention and bilateral hydronephrosis History of present illness: mr root is 49 yo male with history of metastatic colon cancer. He's admitted to the hospital with weakness. He underwent a CT abdomen and pelvis that demonstrated bilateral hydronephrosis, of note it also showed significantly distended bladder. A Avila catheter was placed with return of 800 mL of urine. Per patient family the patient has been having urinary incontinence the past few weeks, he also been complaining of frequency. No known previous history of urinary retention. Denies any gross hematuria or dysuria Review of Systems ROS unobtainable: due to mental status Past Medical History Past Medical History: Cancer (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 History of Any Multi-Drug Resistant Organisms: None Reported Past Surgical History: Bowel Resection (Right hemicolectomy) Past Anesthesia/Blood Transfusion Reactions: No Reported Reaction Past Psychological History: No Psychological Hx Reported Smoking Status: Never smoker Past Alcohol Use History: None Reported Past Drug Use History: None Reported - Past Family History Father History Unknown: Yes Family Medical History: Cancer (Father at the age of 76 from lung cancer) Mother Family Medical History: Unable to Obtain (Mother at the age of 63) Brother(s) Family Medical History: No Reported History (2 brothers one from a Fire accident.) Sister(s) Family Medical History: No Reported History (2 sisters no health issues.) Son(s) Family Medical History: No Reported History (one son with mental health issues,lives in senior care.) Medications and Allergies Home Medications Medication Instructions Recorded Confirmed Type HYDROcodone/APAP 5-325MG [[place] 1 tab PO QID PRN 06/25/20 06/25/20 History 5-325] fentaNYL 50MCG/HR PATCH [Durages[place] 1 patch TRANSDERM Q72H 06/25/20 06/25/20 History 50MCG/HR] Allergies Allergy/AdvReac Type Severity Reaction Status Date / Time No Known Allergies Allergy Verified 06/25/20 16:23 Surgical - Exam Vital Signs Temp Pulse Resp BP Pulse Ox 98.2 F 143 H 18 113/81 96 06/25/20 14:21 06/25/20 14:21 06/25/20 14:21 06/25/20 14:21 06/25/20 14:21 - General moderate distress, no pain - Eyes normal ocular movement, pale - Respiratory normal expansion, normal respiratory effort - Abdomen Abdomen: no guarding, no rebound, no distended - Genitourinary avila draining clear yellow urine - Psychiatric oriented to person Results - Labs 06/26/20 05:49 06/27/20 06:02 Abnormal Lab Results - Last 24 Hours (Table) 06/26/20 06/26/20 06/27/20 Range/Units 05:49 20:13 06:02 BUN 43.0 H 43.0 H (9.0-27.0) mg/dL Creatinine 2.5 H 2.6 H (0.6-1.5) mg/dL Est GFR (CKD-EPI)AfAm 33.9 L 32.3 L (60.0-200.0) Est GFR (CKD-EPI)NonAf 29.3 L 27.9 L (60.0-200.0) Calcium 10.4 H (8.7-10.3) mg/dL AST 72 H (14-35) U/L Alkaline Phosphatase 481 H (41-126) U/L Total Protein 4.6 L (6.2-8.2) g/dL Albumin 2.40 L (3.80-4.90) g/dL Albumin/Globulin Ratio 1.09 L (1.60-3.17) g/dL Carcinoembryonic Ag 19.2 H (0.0-4.9) ng/mL Microbiology - Last 24 Hours (Table) 06/25/20 14:51 Blood Culture - Preliminary Blood No Growth after 48 hours 06/26/20 12:19 Blood Culture - Preliminary Blood No Growth after 24 hours Diabetes panel 06/26/20 06/27/20 Range/Units 20:13 06:02 Sodium 139 140 (135-145) mmol/L Potassium 4.7 4.6 (3.5-5.5) mmol/L Chloride 106 108 (96-109) mmol/L Carbon Dioxide 21.7 22.7 (21.6-31.8) mmol/L BUN 43.0 H 43.0 H (9.0-27.0) mg/dL Creatinine 2.5 H 2.6 H (0.6-1.5) mg/dL Glucose 94 94 (70-110) mg/dL Calcium 10.4 H 10.3 (8.7-10.3) mg/dL AST 72 H (14-35) U/L ALT 45 (10-49) U/L Alkaline Phosphatase 481 H (41-126) U/L Total Protein 4.6 L (6.2-8.2) g/dL Albumin 2.40 L (3.80-4.90) g/dL Calcium panel 06/26/20 06/27/20 Range/Units 20:13 06:02 Calcium 10.4 H 10.3 (8.7-10.3) mg/dL Albumin 2.40 L (3.80-4.90) g/dL Pituitary panel 06/26/20 06/27/20 Range/Units 20:13 06:02 Sodium 139 140 (135-145) mmol/L Potassium 4.7 4.6 (3.5-5.5) mmol/L Chloride 106 108 (96-109) mmol/L Carbon Dioxide 21.7 22.7 (21.6-31.8) mmol/L BUN 43.0 H 43.0 H (9.0-27.0) mg/dL Creatinine 2.5 H 2.6 H (0.6-1.5) mg/dL Glucose 94 94 (70-110) mg/dL Calcium 10.4 H 10.3 (8.7-10.3) mg/dL Adrenal panel 06/26/20 06/27/20 Range/Units 20:13 06:02 Sodium 139 140 (135-145) mmol/L Potassium 4.7 4.6 (3.5-5.5) mmol/L Chloride 106 108 (96-109) mmol/L Carbon Dioxide 21.7 22.7 (21.6-31.8) mmol/L BUN 43.0 H 43.0 H (9.0-27.0) mg/dL Creatinine 2.5 H 2.6 H (0.6-1.5) mg/dL Glucose 94 94 (70-110) mg/dL Calcium 10.4 H 10.3 (8.7-10.3) mg/dL Total Bilirubin 0.9 (0.2-1.2) mg/dL AST 72 H (14-35) U/L ALT 45 (10-49) U/L Alkaline Phosphatase 481 H (41-126) U/L Total Protein 4.6 L (6.2-8.2) g/dL Albumin 2.40 L (3.80-4.90) g/dL Assessment and Plan Assessment: 49 yo male with hx metastatic colon cancer, admitted to the hospital weakness. CT demonstrated bilateral hydronephrosis and a distended bladder. Avila catheter was placed with return of 800 mL urine. His bilateral hydronephrosis most likely secondary to urinary retention. Plan: -Keep Avila in place for 7 days, can have a trial void in 7 days if creatinine is back to baseline. if Patient still in the hospital in 7 days this can be done while he is inpatient , otherwise he can follow-up as an outpatient for trial of void -Start Flomax 0.4 mg daily
--- NOTE | 2020-06-27 18:04 | P.CNPUL ---
History of Present Illness Consult date: 06/27/20 Requesting physician: Vikas Mendoza Reason for consult: other Chief complaint: Altered mentation, tachycardia History of present illness: 49-year-old white male patient of Dr. Mendoza, with recently diagnosed invasive adenocarcinoma, status post exploratory laparotomy, right hemicolectomy, resection of a omental mass, with partial mucinous features measuring 4.5 x 4 cm with microscopic serosal perforation and 17 out of 20 pericolic with lymph node involvement. Patient was initially treated and worked up at the [facility] where he was admitted on 04/15/2020 with complaints of pr ogressive abdominal pain in the right mid to upper abdomen and epigastrium. Apparently patient's symptoms of abdominal discomfort has been ongoing since December however patient had been putting off medical attention related to ongoing coronavirus epidemic and related to low intensity of the symptoms. CT chest from April 2020 did not show any evidence of pulmonary masses, MRI from 04/22/2020 apparently showed multiple round T2 hyperintense lesions all subcentimeter in size without suspicious nodularity. Following his surgery patient had another readmission in April when she developed right-sided abdominal pain and right lower quadrant abscess as evidenced on the computed tomography scan of the abdomen and pelvis that required placement of a drainage tube, PICC line and IV antibiotics. Follow-up CT on 05/21/2020 showed marked decrease in size of the fluid collection with enlarged retroperitoneal nodes is similar to the prior computed tomography scan. Patient was referred to medical oncology following his discharge in regards to newly diagnosed adenocarcinoma of the colon. His PET scan showed widespread metastatic disease involving left supraclavicular, mediastinal, retroperitoneal and mesenteric nodes, left adrenal, as well as multiple osseous sites especially in the lumbar spine. There was also uptake in the liver lesion. Patient had palliative radiation to the spine with Dr. Levy in May, systemic therapy was recommended however the patient and family wanted to seek second opinion at the [facility], causing a delay in the start of treatment and declined to his overall condition. Patient came into the hospital on 06/25/2022 the emergency department with complaints of feeling feverish, nauseous, weak, having palpitations, feeling very thirsty, and having muscle cramps. Patient confused. The patient's initial hypercalcemia with a calcium level of comfort far. The patient was in acute kidney injury. Creatinine was 1.6 recovered with pressure and subsequently creatinine came up to 2.6 of the patient developed significant obstructive uropathy. CAT scan of the abdomen was done and it showed marked distention of the urinary bladder with moderate right hydronephrosis of marked left hydronephrosis. There was no evidence of the stones. There is evidence of bladder distention. Bassett cath was inserted by severe depression produce approximately 1.8 L of urinary output immediately. At this point in time, the patient is slow in answering questions. He is lethargic. He is confused. He is tachycardic with a heart rate of 150. He did not have any fever or recurrence temperature is 100.7. Pulse ox is 95% 40 suboptimal nasal cannula. No Abdominal pain. Port site over the right anterior chest area of blackened and intact. Review of Systems Constitutional: Reports chronic pain, Reports fatigue, Reports fever, Reports poor appetite, Reports weakness, Reports weight loss Eyes: denies as per HPI, denies blurred vision, denies bulging eye, denies decreased vision, denies diplopia, denies discharge, denies dry eye, denies irritation, denies itching, denies pain, denies photophobia, denies loss of peripheral vision, denies loss of vision, denies tunnel vision/blind spots Ears: deny: decreased hearing, ear discharge, earache, tinnitus Ears, nose, mouth and throat: Denies headache, Denies sore throat Cardiovascular: Denies chest pain, Denies shortness of breath Respiratory: Denies cough Gastrointestinal: Reports indigestion, Reports loss of appetite, Reports nausea Genitourinary: Reports as per HPI Musculoskeletal: Reports as per HPI Musculoskeletal: absent: ankle pain, ankle stiffness, ankle swelling Integumentary: Reports as per HPI Neurological: Reports confusion Psychiatric: Reports as per HPI, Reports confusion Endocrine: Reports fatigue Hematologic/Lymphatic: Reports as per HPI Allergic/Immunologic: Reports as per HPI Past Medical History Past Medical History: Cancer (Metastatic modertately differntiated Adenocarcinoma of the colon post right hemicolectomy) Additional Past Medical History / Comment(s): Metastatic adenocarcinoma of the colon, previous COLECTOMY with end-to-end anastomosis, previous history of pelvic abscess due to perforated colon post percutaneous drainage, Gallstones, kidney stones. History of Any Multi-Drug Resistant Organisms: None Reported Past Surgical History: Bowel Resection (Right hemicolectomy) Past Anesthesia/Blood Transfusion Reactions: No Reported Reaction Past Psychological History: No Psychological Hx Reported Smoking Status: Never smoker Past Alcohol Use History: None Reported Past Drug Use History: None Reported - Past Family History Father History Unknown: Yes Family Medical History: Cancer (Father at the age of 76 from lung cancer) Mother Family Medical History: Unable to Obtain (Mother at the age of 63) Brother(s) Family Medical History: No Reported History (2 brothers one from a Fire accident.) Sister(s) Family Medical History: No Reported History (2 sisters no health issues.) Son(s) Family Medical History: No Reported History (one son with mental health issues,lives in longterm.) Medications and Allergies Home Medications Medication Instructions Recorded Confirmed Type HYDROcodone/APAP 5-325MG [Boron 1 tab PO QID PRN 06/25/20 06/25/20 History 5-325] fentaNYL 50MCG/HR PATCH [Duragesic 1 patch TRANSDERM Q72H 06/25/20 06/25/20 History 50MCG/HR] Allergies Allergy/AdvReac Type Severity Reaction Status Date / Time No Known Allergies Allergy Verified 06/25/20 16:23 Physical Exam Vitals: Vital Signs Temp Pulse Resp BP Pulse Ox 06/27/20 16:32 94 L 06/27/20 16:13 98.2 F 148 H 44 H 148/107 91 L 06/27/20 15:00 98.7 F 135 H 16 164/95 93 L 06/27/20 10:53 113 H 165/105 06/27/20 08:03 121 H 180/97 06/27/20 08:00 121 H 06/27/20 07:52 98.0 F 121 H 18 164/113 93 L 06/27/20 01:56 98.2 F 112 H 16 152/97 95 06/26/20 21:16 95 06/26/20 20:58 98.7 F 126 H 16 142/91 93 L Intake and Output 06/27/20 06/27/20 06/27/20 06:59 14:59 22:59 Intake Total 1200 Output Total 2653 675 Balance 1200 -1179 -702 Intake: IV 1200 Sodium Chloride 0.9% 1, 1200 000 ml @ 150 mls/hr IV . Q6H40M MATTY Rx#:[id number] Output: Urine 2650 675 Uretheral (Bassett) 2650 Other: # Voids 1 1 # Bowel Movements 1 1 General appearance the patient is lethargic, confused, slow in answering questions, but having any significant respiratory distress Head is atraumatic normocephalic. Neck is supple and there is no JVDs no no goiter or neck masses Chest: clear to auscultation bilaterally, there is no crackles or wheezes. Heart: first heart sound is normal , second heart sound is normal , tachycardic there is no gallop or murmur. Abdomen: there is mild abdominal tenderness with minimal fullness, there is surgical scar that have healed, positive bowel sounds. Extremities: there is no edema , no calf tenderness DP + 2 bilaterally. Neurologiic examination: patient is awake , alert and oriented X 1-2 CN II-XII are grossly intact muscle power 4/5 in bilateral upper and lower extremity . Results - Laboratory Findings CBC and BMP: 06/26/20 05:49 06/27/20 06:02 PT/INR, D-dimer PT 11.7 sec (9.0-12.0) 06/25/20 14:37 INR 1.2 (<1.2) H 06/25/20 14:37 Abnormal lab findings: Abnormal Labs 06/25/20 06/25/20 06/25/20 14:37 14:37 14:37 RBC Hgb Hct RDW 17.7 H Lymphocytes # 0.3 L INR 1.2 H Sodium 130 L Chloride 92 L BUN 39 H Creatinine 1.77 H Est GFR (CKD-EPI)AfAm Est GFR (CKD-EPI)NonAf BUN/Creatinine Ratio Glucose 102 H Plasma Lactic Acid Layton Calcium 12.7 H Phosphorus 5.2 H Iron TIBC Ferritin Total Bilirubin 2.3 H AST 192 H ALT 109 H Alkaline Phosphatase 601 H Total Protein Albumin 3.3 L Albumin/Globulin Ratio Carcinoembryonic Ag 06/25/20 06/26/20 06/26/20 14:37 05:49 05:49 RBC 4.11 L Hgb 10.9 L D Hct 34.6 L RDW 17.9 H Lymphocytes # 0.2 L INR Sodium Chloride BUN 36.0 H Creatinine 1.6 H Est GFR (CKD-EPI)AfAm 58.2 L Est GFR (CKD-EPI)NonAf 50.2 L BUN/Creatinine Ratio 22.50 H Glucose Plasma Lactic Acid Layton 2.1 H* Calcium 10.5 H Phosphorus Iron TIBC Ferritin Total Bilirubin AST 72 H ALT 64 H Alkaline Phosphatase 424 H Total Protein 4.6 L Albumin 2.50 L Albumin/Globulin Ratio 1.19 L Carcinoembryonic Ag 06/26/20 06/26/20 06/26/20 05:49 05:49 20:13 RBC Hgb Hct RDW Lymphocytes # INR Sodium Chloride BUN 43.0 H Creatinine 2.5 H Est GFR (CKD-EPI)AfAm 33.9 L Est GFR (CKD-EPI)NonAf 29.3 L BUN/Creatinine Ratio Glucose Plasma Lactic Acid Layton Calcium 10.4 H Phosphorus Iron 51 L TIBC 154 L Ferritin 18176.2 H Total Bilirubin AST ALT Alkaline Phosphatase Total Protein Albumin Albumin/Globulin Ratio Carcinoembryonic Ag 19.2 H 06/27/20 06:02 RBC Hgb Hct RDW Lymphocytes # INR Sodium Chloride BUN 43.0 H Creatinine 2.6 H Est GFR (CKD-EPI)AfAm 32.3 L Est GFR (CKD-EPI)NonAf 27.9 L BUN/Creatinine Ratio Glucose Plasma Lactic Acid Layton Calcium Phosphorus Iron TIBC Ferritin Total Bilirubin AST 72 H ALT Alkaline Phosphatase 481 H Total Protein 4.6 L Albumin 2.40 L Albumin/Globulin Ratio 1.09 L Carcinoembryonic Ag - Diagnostic Findings Chest x-ray: image reviewed CT scan - chest: image reviewed Assessment and Plan Plan: 1 metastatic adenocarcinoma post colectomy with end-to-end anastomosis, post radiation therapy. Skeletal metastases, currently not receiving any treatment awaiting further input from [facility] regarding clinical trials. 2 acute tachycardia with low-grade fevers, consider underlying early infection/sepsis. 3 acute kidney injury due to obstructive uropathy. The patient's significant hydronephrosis bilaterally and distended bladder and depression of increased urine output following a Bassett catheter insertion. He is producing adequate urine output for now. 4 abnormal LFTs, likely secondary to liver metastases 5 pulmonary metastases with several thyroid nodules scattered bilaterally also seen on previous PET/CT 6 sinus tachycardia, secondary to above 7 enlargement and weight loss and a BMI of 18.4 8 generalized weakness and confusion secondary to above 9 Hypercalcemia secondary to skeletal metastases of the patient was treated with fluids and Aridia Plan Administer another 1 L bolus, maintenance IV fluids 0.9 normal saline at a rate of 125 ML per hour, continue with Zosyn and vancomycin, pharmacy to dose, on repeat ultrasound the kidneys tomorrow follow-up blood work, blood cultures have been sent, we need to establish CODE STATUS, his [id number] is currently applying for power of district attorney prognosis is poor, will monitor the patient in the ICU tonight I performed a history & physical examination of the patient and discussed their management with my nurse practitioner, Aleshia Alba. I reviewed the nurse practitioner's note and agree with the documented findings and plan of care. Lung sounds are positive for diffuse wheezes throughout the lung graham. The findings and the impression was discussed with the patient. I attest to the documentation by the nurse practitioner. Time with Patient: Greater than 30
[2020-06-27 18:12] LABS: Anisocytosis Slight; Basophils # (A) 0.2 k/uL (0-0.2); Basophils % (A) 3 %; Eosinophils # (A) 0.2 k/uL (0-0.7); Eosinophils % (A) 2 %; HCT 40.7 % (39.0-53.0); HGB 12.7 gm/dL (13.0-17.5); Hypochromasia Slight; Lymphocytes # (A) 0.1 k/uL (1.0-4.8); Lymphocytes % (A) 2 %; MCH 26.4 pg (25.0-35.0); MCHC 31.1 g/dL (31.0-37.0); MCV 84.9 fL (80.0-100.0); Microcytosis Slight; Monocytes # (A) 0.4 k/uL (0-1.0); Monocytes % (A) 6 %; Neutrophils % (A) 86 %; Platelet Count 233 k/uL (150-450); RDW 18.2 % (11.5-15.5)
--- NOTE | 2020-06-27 23:05 | PN ---
PROGRESS NOTE DATE OF SERVICE: 06/27/2020 REASON FOR FOLLOWUP: Fever. INTERVAL HISTORY: The patient did spike a low-grade fever of 100.7 this afternoon. The patient was tachycardic and had to be transferred to the ICU. When seen this morning after the CT scan he was noticed to have a distended bladder and hydronephrosis, for which a Bassett catheter was inserted. The patient denies having any chest pain or cough. No worsening abdominal pain. No nausea or any diarrhea. PHYSICAL EXAMINATION: Blood pressure 143/94 with a pulse of 141, temperature 100.7. He is 93% on 4 L nasal cannula. General description is a middle-aged male lying in bed in no distress. RESPIRATORY SYSTEM: Unlabored breathing with decreased breath sounds at the base. No wheeze. HEART: S1, S2. Tachycardic. ABDOMEN: Soft. No guarding or rigidity. EXTREMITIES: No edema of the feet. LABS: Hemoglobin is 12 with white count 7.0. BUN of 43, creatinine 2.6. Blood culture has been negative so far. DIAGNOSTIC IMPRESSION AND PLAN: Patient admitted to hospital with fever with initial concern for possible port-related versus intraabdominal source. CT did not show any abscess. The patient is currently covered with Zosyn, which will be continued while monitoring his clinical course closely. Continue with supportive care. MMODL / IJN: [id number] /
[2020-06-28] MEDS: SODIUM CHLORIDE 0.9% 1,000 ML IV SCH ×4 (05:20→17:01)
[2020-06-28 08:15] LABS: Anisocytosis Slight; HCT 36.6 % (39.0-53.0); HGB 11.5 gm/dL (13.0-17.5); Hypochromasia Slight; MCH 26.2 pg (25.0-35.0); MCHC 31.3 g/dL (31.0-37.0); MCV 83.8 fL (80.0-100.0); Mean Platelet Volume 6.8; Microcytosis Slight; Platelet Count 230 k/uL (150-450); RBC 4.37 m/uL (4.30-5.90); RDW 17.8 % (11.5-15.5); WBC 6.3 k/uL (3.8-10.6)
[2020-06-28] MEDS: PIPERACILLIN-TAZOBACTAM 3.375 GM in SODIUM CHLORIDE 0.9% 100 ML IVPB SCH ×3 (08:25→23:18)
[2020-06-28 08:29] LABS: ALT 39 U/L (4-49); AST 115 U/L (17-59); African American GFR (CKD) >90 (>60 ml/min/1.73 sqM); Albumin 2.3 g/dL (3.5-5.0); Alkaline Phosphatase 385 U/L (38-126); Anion Gap 4 mmol/L; Blood Urea Nitrogen 19 mg/dL (9-20); Calcium 9.6 mg/dL (8.4-10.2); Carbon Dioxide 28 mmol/L (22-30); Chloride 103 mmol/L (98-107); Glucose 98 mg/dL (74-99); Magnesium 1.4 mg/dL (1.6-2.3); Non-African American GFR(CKD) 90 (>60 ml/min/1.73 sqM); Potassium 3.3 mmol/L (3.5-5.1); Sodium 135 mmol/L (137-145); Total Bilirubin 1.2 mg/dL (0.2-1.3); Total Protein 5.3 g/dL (6.3-8.2)
[2020-06-28] MEDS: PANTOPRAZOLE 40 MG/10 ML VIAL IV SCH (08:29)
[2020-06-28] MEDS: TAMSULOSIN 0.4 MG CAP.ER.24H PO SCH (08:29)
[2020-06-28] MEDS: HEPARIN SODIUM,PORCINE 5,000 UNIT/ML 1 ML VIAL SQ SCH ×2 (08:30→16:59)
[2020-06-28] MEDS: METOPROLOL TARTRATE 25 MG TAB PO SCH ×2 (08:30→21:13)
[2020-06-28] MEDS: amLODIPine 10 MG TAB PO SCH (08:30)
[2020-06-28 08:34] LABS: Vancomycin,Random 9.3 ug/mL
[2020-06-28 08:45] LABS: INR 1.2 (<1.2); Partial Thromboplastin Time 28.2 sec (22.0-30.0); Prothrombin Time 12.5 sec (9.0-12.0)
[2020-06-28 09:34] LABS: Band Neutrophils % 2 %; Basophils # (M) 0.06 k/uL (0-0.2); Eosinophils # (M) 0.13 k/uL (0-0.7); Lymphocytes # (M) 0.57 k/uL (1.0-4.8); Metamyelocytes # (M) 0.19 k/uL (0); Metamyelocytes % 3 %; Monocytes # (M) 0.38 k/uL (0-1.0); Myelocytes # (M) 0.06 k/uL (0); Myelocytes % 1 %; Neutrophils % (M) 78 %; Nucleated Red Blood Cells 0 /100 WBC (0-0); Total Cells Counted 200
[2020-06-28] MEDS: VANCOMYCIN 1,250 MG in SODIUM CHLORIDE 0.9% 250 ML IVPB SCH ×2 (09:51→21:13)
--- NOTE | 2020-06-28 12:06 | P.PN ---
Subjective Progress Note Date: 06/28/20 49-year-old white male patient of Dr. Mendoza, with recently diagnosed invasive a denocarcinoma, status post exploratory laparotomy, right hemicolectomy, resection of a omental mass, with partial mucinous features measuring 4.5 x 4 cm with microscopic serosal perforation and 17 out of 20 pericolic with lymph node involvement. Patient was initially treated and worked up at the [facility] where he was admitted on 04/15/2020 with complaints of progressive abdominal pain in the right mid to upper abdomen and epigastrium. Apparently patient's symptoms of abdominal discomfort has been ongoing since December however patient had been putting off medical attention related to ongoing coronavirus epidemic and related to low intensity of the symptoms. CT chest from April 2020 did not show any evidence of pulmonary masses, MRI from 04/22/2020 apparently showed multiple round T2 hyperintense lesions all subcentimeter in size without suspicious nodularity. Following his surgery patient had another readmission in April when she developed right-sided abdominal pain and right lower quadrant abscess as evidenced on the computed tomography scan of the abdomen and pelvis that required placement of a drainage tube, PICC line and IV antibiotics. Follow-up CT on 05/21/2020 showed marked decrease in size of the fluid collection with enlarged retroperitoneal nodes is similar to the prior computed tomography scan. Patient was referred to medical oncology following his discharge in regards to newly diagnosed adenocarcinoma of the colon. His PET scan showed widespread metastatic disease involving left supraclavicular, mediastinal, retroperitoneal and mesenteric nodes, left adrenal, as well as multiple osseous sites especially in the lumbar spine. There was also uptake in the liver lesion. Patient had palliative radiation to the spine with Dr. Levy in May, systemic therapy was recommended however the patient and family wanted to seek second opinion at the [facility], causing a delay in the start of treatment and declined to his overall condition. Patient came into the hospital on 06/25/2022 the emergency department with complaints of feeling feverish, nauseous, weak, having palpitations, feeling very thirsty, and having muscle cramps. Patient confused. The patient's initial hypercalcemia with a calcium level of comfort far. The patient was in acute kidney injury. Creatinine was 1.6 recovered with pressure and subsequently creatinine came up to 2.6 of the patient developed significant obstructive uropathy. CAT scan of the abdomen was done and it showed marked distention of the urinary bladder with moderate right hydronephrosis of marked left hydronephrosis. There was no evidence of the stones. There is evidence of bladder distention. Bassett cath was inserted by severe depression produce approximately 1.8 L of urinary output immediately. At this point in time, the patient is slow in answering questions. He is lethargic. He is confused. He is tachycardic with a heart rate of 150. He did not have any fever or rec urrence temperature is 100.7. Pulse ox is 95% 40 suboptimal nasal cannula. No Abdominal pain. Port site over the right anterior chest area of blackened and intact. on 06/28/2020, the patient is awake and doesn't seem to be confused on today's evaluation. His tachycardia is improved and his heart rate is still in sinus between 110 and 120. He did have a spike of temperature yesterday and none since. His cultures of been all negative. He is on room air oxygen.no nausea. No vomiting. No abdominal pain. His white cell count is at 6.2 with hemoglobin 11.5. Platelets of 230.the electrolytes are all within normal limits. The potassium needs to be replaced. LFTs are abnormal as the patient has hepatic metastases. Vancomycin trough was at 9.3. The patient is on examination Zosyn and vancomycin. No other new complaints otherwise for now. Objective - Vital Signs Vital signs: Vital Signs Temp 99.2 F 06/28/20 08:00 Pulse 121 H 06/28/20 11:00 Resp 28 H 06/28/20 11:00 BP 144/86 06/28/20 11:00 Pulse Ox 91 L 06/28/20 11:00 Intake & Output 06/27/20 06/28/20 06/28/20 18:59 06:59 18:59 Intake Total 2017 825 Output Total 4150 2200 725 Balance -4150 -182 100 Weight 65.9 kg Intake: IV 1375 825 Piperacillin-Tazobactam 3 75 .375 gm In Sodium Chloride 0.9% 100 ml @ 25 mls/hr IVPB Q8HR [facility] Rx# :[id number] Sodium Chloride 0.9% 1, 1375 500 000 ml @ 125 mls/hr IV . Q8H [facility] Rx#:[id number] Vancomycin 1,250 mg In 250 Sodium Chloride 0.9% 250 ml @ 125 mls/hr IVPB Q12HR [facility] Rx#:[id number] Oral 643 Output: Urine 4150 2200 725 Uretheral (Bassett) 3475 Other: Voiding Method Toilet Toilet # Voids 1 # Bowel Movements 1 - Exam General appearance the patient is lethargic, has generalized weakness, not confu sed on today's evaluation Head is atraumatic normocephalic. Neck is supple and there is no JVDs no no goiter or neck masses Chest: clear to auscultation bilaterally, there is no crackles or wheezes. Heart: first heart sound is normal , second heart sound is normal , tachycardic there is no gallop or murmur. Abdomen: there is mild abdominal tenderness with minimal fullness, there is surgical scar that have healed, positive bowel sounds. Extremities: there is no edema , no calf tenderness DP + 2 bilaterally. Neurologiic examination: patient is awake , alert and oriented X 3 CN II-XII are grossly intact muscle power 4/5 in bilateral upper and lower extremity . - Labs CBC & Chem 7: 06/28/20 07:44 06/28/20 07:44 Labs: Abnormal Lab Results - Last 24 Hours (Table) 06/26/20 06/27/20 06/27/20 Range/Units 05:49 17:43 17:43 Hgb 12.7 L (13.0-17.5) gm/dL Hct (39.0-53.0) % RDW 18.2 H (11.5-15.5) % Lymphocytes # 0.1 L (1.0-4.8) k/uL Lymphocytes # (Manual) (1.0-4.8) k/uL Metamyelocytes # (Man) (0) k/uL Myelocytes # (Manual) (0) k/uL PT (9.0-12.0) sec INR (<1.2) Sodium (137-145) mmol/L Potassium (3.5-5.1) mmol/L Magnesium (1.6-2.3) mg/dL AST (17-59) U/L Alkaline Phosphatase (38-126) U/L Total Protein (6.3-8.2) g/dL Albumin (3.5-5.0) g/dL Methylmalonic Acid 0.68 H (<0.40) umol/L Procalcitonin 0.59 H (0.02-0.09) ng/mL 06/28/20 06/28/20 06/28/20 Range/Units 07:44 07:44 07:44 Hgb 11.5 L (13.0-17.5) gm/dL Hct 36.6 L (39.0-53.0) % RDW 17.8 H (11.5-15.5) % Lymphocytes # (1.0-4.8) k/uL Lymphocytes # (Manual) 0.57 L (1.0-4.8) k/uL Metamyelocytes # (Man) 0.19 H (0) k/uL Myelocytes # (Manual) 0.06 H (0) k/uL PT 12.5 H (9.0-12.0) sec INR 1.2 H (<1.2) Sodium 135 L (137-145) mmol/L Potassium 3.3 L (3.5-5.1) mmol/L Magnesium 1.4 L (1.6-2.3) mg/dL AST 115 H (17-59) U/L Alkaline Phosphatase 385 H (38-126) U/L Total Protein 5.3 L (6.3-8.2) g/dL Albumin 2.3 L (3.5-5.0) g/dL Methylmalonic Acid (<0.40) umol/L Procalcitonin (0.02-0.09) ng/mL Microbiology - Last 24 Hours (Table) 06/25/20 14:51 Blood Culture - Preliminary Blood No Growth after 48 hours 06/26/20 12:19 Blood Culture - Preliminary Blood No Growth after 24 hours Assessment and Plan Plan: 1 metastatic adenocarcinoma post colectomy with end-to-end anastomosis, post radiation therapy. Skeletal metastases, currently not receiving any treatment awaiting further input from [facility] regarding clinical trials. 2 acute tachycardia with low-grade fevers, consider underlying early infection/s epsis.note that the patient's tachycardia is improved compared to yesterday. He is in sinus tachycardia. Pulmonary embolism is felt to be doubtful. Tachycardia is most likely related to underlying systemic inflammatory response syndrome/sepsis. 3 acute kidney injury due to obstructive uropathy. The patient's significant hydronephrosis bilaterally and distended bladder and the renal function improved and normalized following a Bassett catheter insertion. There was obviously a component of obstructive uropathy and the patient was started on Flomax. Creatinine is down to 0.9. 4 abnormal LFTs, likely secondary to liver metastases 5 pulmonary metastases with several thyroid nodules scattered bilaterally also seen on previous PET/CT 6 sinus tachycardia, secondary to above 7 enlargement and weight loss and a BMI of 18.4 8 generalized weakness and confusion secondary to above 9 Hypercalcemia secondary to skeletal metastases of the patient was treated with fluids and Aridia Plan replace potassium Continue IV fluids The patient is on room air oxygen Tachycardia is improving Renal function is improving and keep the Bassett catheter in place Continue Zosyn and vancomycin as empiric antibiotic coverage Echocardiogram to be done today We'll follow
[2020-06-28] MEDS ORDERED: Potassium Replacement Protocol 1 EACH MISC MISCELLANE PRN (12:16)
[2020-06-28] MEDS: MAGNESIUM SULFATE-D5W PMX 1 GM in DEXTROSE/WATER 1 100ML.BAG IVPB SCH ×2 (12:20→14:33)
--- NOTE | 2020-06-28 12:24 | CONS ---
CONSULTATION REASON FOR CONSULT: Renal failure. HISTORY OF PRESENT ILLNESS: The patient is a 49-year-old male with history of colon cancer which is metastatic. He also has a history of kidney stones. Patient is currently maintained on chemotherapy. He is status post right colectomy with end-to-end anastomosis. There is history of pelvic abscess status post antibiotics for four weeks as well. Patient was admitted to the hospital as he was extremely weak and noted to be significantly tachycardic with suspicion for sepsis and MediPort infection. He denied any previous history of kidney diseases. He has had good urine output. Serum creatinine on admission was 1.7 and peaked to 2.6 mg/dL. Today it is down to 0.9. Patient is maintained on IV fluids at 120 mL an hour. He has currently good urine output. Blood pressure is not low with systolic currently at about 130 mmHg. PAST MEDICAL HISTORY: Colon cancer with metastasis, history of pelvic abscess after surgery, history of gallstones, history of kidney stones. PAST SURGICAL HISTORY: Right hemicolectomy with end-to-end anastomosis, MediPort placement. SOCIAL HISTORY: Negative for smoking, drug abuse or alcohol abuse. MEDICATIONS: Medications prior to admission included [place], Duragesic patch. ALLERGIES: None. REVIEW OF SYSTEMS: As per HPI. Other systems negative. EXAMINATION: Patient is comfortable, awake, he is not in any acute distress. He appears ill. Blood pressure is 125/78, heart rate 112 per minute. He is afebrile. Examination of the heart S1, S2. Examination of the lungs, bilateral breath sounds are heard. Abdomen is soft, nontender. Examination of lower extremities show no significant edema. 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 LABS: Show sodium of 135, potassium 3.3, chloride 103, CO2 is 28, BUN 19, creatinine 0.9, hemoglobin 11.5 g/dL. ASSESSMENT: 1. Acute kidney injury, prerenal, currently improved with IV fluids. Good urine output. UA is completely benign. 2. Metastatic colon cancer. 3. Hypokalemia, status post replacement. 4. Hypomagnesemia, we will replace. 5. Possible sepsis/MediPort related infection, maintained on vancomycin. 6. Hypercalcemia associated with metastatic cancer status post pamidronate. PLAN: Continue with IV fluids. Replace potassium. Replace magnesium. Encourage increased oral intake. Continue antibiotics. Monitor renal function and electrolytes. Thank you for this consultation. We will continue to follow the patient with you during his hospitalization. BETTINA / BENJYN: [id number] /
[2020-06-28] MEDS ORDERED: SODIUM CHLORIDE 0.9% 250 ML with PAMIDRONATE 30 MG IV ONE ×2 (12:30)
[2020-06-28] MEDS: POTASSIUM CHLORIDE ER 20 MEQ TAB.ER PO SCH ×4 (13:06→23:16)
--- NOTE | 2020-06-28 13:37 | P.PN ---
Subjective Progress Note Date: 06/28/20 Principal diagnosis: Metastatic Colon Cancer Patient still intermittently confused. although appears to be feeling better. He did have fever T max 100.7, Still tachycardic. Blood cultures negative to date. He was transferred to ICU overnight for closer monitoring. During this [place] evaluation he is confused, emperature max 100.7. Heart rate yesterday was running in the 140s to 150s with a blood pressure 147/97, pulse ox 92% on 2 L nasal cannula. He also had increas ing confusion and lethargy. Patient was transferred into the intensive care unit and consult added for Dr. Fry. Tachycardia is improved today. Echocardiogram has been ordered. Blood cultures are showing no growth. Repeat blood work reveals WBC 6.2, hemoglobin 11.5, platelet count 230. He is currently on Zosyn and vancomycin. Patient has been seen by nephrology with plans to continue IV fluids, replace potassium and magnesium, encourage oral intake and monitor renal function and electrolytes. Repeat sodium 135, potassium 3.3, BUN 19 and creatinine 0.9. Alkaline phosphatase 395, AST 115. Patient has been seen by urology with recommendations to keep Bassett for 7 days and then trial void if creatinine is back to baseline and start Flomax 0.4 mg daily. MRI of the brain, VQ scan and echocardiogram have been ordered for today. Objective - Vital Signs Vital signs: Vital Signs Temp 99.2 F 06/28/20 08:00 Pulse 121 H 06/28/20 11:00 Resp 28 H 06/28/20 11:00 BP 144/86 06/28/20 11:00 Pulse Ox 91 L 06/28/20 11:00 Intake & Output 06/27/20 06/28/20 06/28/20 18:59 06:59 18:59 Intake Total 2018 825 Output Total 4150 2200 725 Balance -4150 -182 100 Weight 65.9 kg 65.9 kg Intake: IV 1375 825 Piperacillin-Tazobactam 3 75 .375 gm In Sodium Chloride 0.9% 100 ml @ 25 mls/hr IVPB Q8HR [facility] Rx# :[id number] Sodium Chloride 0.9% 1, 1375 500 000 ml @ 125 mls/hr IV . Q8H [facility] Rx#:[id number] Vancomycin 1,250 mg In 250 Sodium Chloride 0.9% 250 ml @ 125 mls/hr IVPB Q12HR [facility] Rx#:[id number] Oral 643 Output: Urine 4150 2200 725 Uretheral (Bassett) 3475 Other: Voiding Method Toilet Toilet # Voids 1 # Bowel Movements 1 - Exam - Constitutional General appearance: cooperative, mild distress, thin - EENT Oral Thrush Eyes: EOMI ENT: NA/AT, normal oropharynx, thrush - Neck Neck: normal ROM - Respiratory Respiratory: bilateral: diminished - Cardiovascular Heart rate: 130 Rhythm: regularly irregular - Gastrointestinal General gastrointestinal: soft, tenderness - Integumentary Integumentary: pale - Musculoskeletal Musculoskeletal: generalized weakness - Psychiatric Weakness Psychiatric: A&O x's 3, appropriate affect - Labs CBC & Chem 7: 06/28/20 07:44 06/28/20 07:44 Labs: Abnormal Lab Results - Last 24 Hours (Table) 06/26/20 06/27/20 06/27/20 Range/Units 05:49 17:43 17:43 Hgb 12.7 L (13.0-17.5) gm/dL Hct (39.0-53.0) % RDW 18.2 H (11.5-15.5) % Lymphocytes # 0.1 L (1.0-4.8) k/uL Lymphocytes # (Manual) (1.0-4.8) k/uL Metamyelocytes # (Man) (0) k/uL Myelocytes # (Manual) (0) k/uL PT (9.0-12.0) sec INR (<1.2) Sodium (137-145) mmol/L Potassium (3.5-5.1) mmol/L Magnesium (1.6-2.3) mg/dL AST (17-59) U/L Alkaline Phosphatase (38-126) U/L Total Protein (6.3-8.2) g/dL Albumin (3.5-5.0) g/dL Methylmalonic Acid 0.68 H (<0.40) umol/L Procalcitonin 0.59 H (0.02-0.09) ng/mL 06/28/20 06/28/20 06/28/20 Range/Units 07:44 07:44 07:44 Hgb 11.5 L (13.0-17.5) gm/dL Hct 36.6 L (39.0-53.0) % RDW 17.8 H (11.5-15.5) % Lymphocytes # (1.0-4.8) k/uL Lymphocytes # (Manual) 0.57 L (1.0-4.8) k/uL Metamyelocytes # (Man) 0.19 H (0) k/uL Myelocytes # (Manual) 0.06 H (0) k/uL PT 12.5 H (9.0-12.0) sec INR 1.2 H (<1.2) Sodium 135 L (137-145) mmol/L Potassium 3.3 L (3.5-5.1) mmol/L Magnesium 1.4 L (1.6-2.3) mg/dL AST 115 H (17-59) U/L Alkaline Phosphatase 385 H (38-126) U/L Total Protein 5.3 L (6.3-8.2) g/dL Albumin 2.3 L (3.5-5.0) g/dL Methylmalonic Acid (<0.40) umol/L Procalcitonin (0.02-0.09) ng/mL Microbiology - Last 24 Hours (Table) 06/25/20 14:51 Blood Culture - Preliminary Blood No Growth after 48 hours 06/26/20 12:19 Blood Culture - Preliminary Blood No Growth after 24 hours Assessment and Plan (1) Colon carcinoma metastatic to bone Current Visit: Yes Status: Acute Code(s): C18.9 - MALIGNANT NEOPLASM OF COLON, UNSPECIFIED; C79.51 - SECONDARY MALIGNANT NEOPLASM OF BONE SNOMED Code(s): 454854257 Plan: Assessment and Recommendations: Metastatic Colon Cancer: - Patient has yet to start systemic treatment has been waiting on second opinion from Jessica., although patient has progressively declined since diagnosis it has been re-iterated that systemic treatment is needed to gain control zoila. - Status Post Palliative radiation to Spine - Pain - Currently planned to visit with Jessica on Wednesday next week, we have scheduled chemotherapy in office for Wednesday next week to ensure if he is able to start chemo safetly there wont be further delay, although will need to await padron culture work-up from this hospitalization. Hypercalcemia: - Dehydration and Metastatic Disease to Bones - Aredia 30mg daily x3 days (total dose 90mg), will continue with Xgeva as outpatient in 4 weeks SIRS: 3/4 - Padron Cultures Pending - Chest Xray with inflammatory/infectious, pneumonia - Abx ordered - ID is following Acute Renal Insuffieincy secondary to bilateral hydronephrosis: improved Abnormal Liver Function: Improving Encephalopathy: - possible secondary to increased Liver versus metastatic disease to Brain -MRI Brain Ordered - Ammonia Level PLan: - Continue care per ICU - MRI of Brain - PT/OT Physician Attest: I have completed the full history and physical and agree with above dictation dictated as a scribe
--- NOTE | 2020-06-28 15:55 | P.PN ---
Subjective Progress Note Date: 06/28/20 This is a 49 year old male with a previous medical history significant for kidney stones and cholelithiasis, was inititially complaining of increased abdominal pain in the right upper quadrant and had US of the abdomen that showed cholelithiasis, this was followed with HIDA scan that showed biliary dyskinesis and was referred to have Lap-Jocelyn with that week he developed to have increased abdominal pain with significant nausea and vomiting and he presented to [facility] with bowel obstruction picture, he underwent CT scan of the abdomen and pelvis that showed a large cecal mass suggestive of colon cancer, he underwent right colectomy with end to end anastomosis and then he developed to have a pelvic Abscess that was treated with transcutaneous drain and IV antibiotics through a PICC line for 4 weeks which he has done, he was then seen by Hem-Onc Toma Mars and underwent a battery of testing including PET c that showed metastatic disease, he has then had a Mediprot placed recently by and was seen today by PRODUCTION GENERALIST at Dr. Chua 's office to discuss further jeniffer tment options and possibly a referral to a phase 3 trial at the [facility], patient was extremely weak and tachycardic and there was a suspicion for possible Mediport infection so he was referred to the ER , he did receive 2 L of Normal saline his heart rate was 16o with sinus tachycardia and he is down to 115 , blood cultures were obtained and he was started on Vancomycin and Zosyn and ID consult was obtained along with surgical consult. 06/26: Patient has been seen by Dr. Hollis does not feel that there is infection of the Mediport site. Patient was also noted to have transaminitis and elevated bilirubin possibly associated with metastatic disease or documented cholelithiasis. No plan for surgical intervention for gallbladder disease at this time based on patient's medical history and asymptomatic presentation. Patient has been afebrile, heart rate 131/86, pulse ox 92% on 2 L nasal cannula. Heart rate has been elevated up to 140 with activity and 110-120 at rest. Low dose Lopressor added at 12.5 mg twice daily and subsequently increased to 25 mg twice daily. Repeat blood work reveals WBC 5.2, hemoglobin 10.9, platelet count 197. Electrolytes normal, BUN 36, creatinine 1.6. Total bilirubin 0.9, AST 72, ALT 64, alkaline phosphatase 424. Repeat lactic acid 1.0. Patient is currently on IV antibiotics in the form of Zosyn and vancomycin. Oncology consult added. Patient was to start chemotherapy. Consult in place for Dr. Menjivar. Blood culture is status post received. Patient is eating very little and has been seen by dietitian and Ensure 3 times daily is in place. Oncology has ordered Aredia, patient is on IV fluids 150 mL per hour. Of the brain has been ordered. CEA, ferritin, iron profile, uric acid, methylmalonic acid, B12 are pending. 06/27: CAT scan of the abdomen pelvis without contrast revealed markedly distended urinary bladder with moderate right hydronephrosis and mild left hydronephrosis with bilateral hydroureter. Nonobstructing renal stones are identified. Etiology of hydroureter and hydronephrosis may be related to distended urinary bladder. Scattered abdominal adenopathy. No suspicious abnormality to suggest abscess. Patchy infiltrates at the lung bases and small bilateral pleural effusions. Infectious etiologies should be considered. Consider atypical pneumonia. Consult with urology added for hydronephrosis. Patient has been seen by Dr. Menjivar and vancomycin has been discontinued. Patient is currently on Zosyn. Bassett catheter was placed today with removal of 1600 ML's. Patient's aunt is at the bedside and she states she has been going to his house feeding him and doing his housework. Patient is known to have more confusion today. He states what is this idea about her race car. He thinks that he is leaving today. Patient is reoriented. Patient has been afebrile, heart rate 113, blood pressure 165/105, pulse ox 93% on room air. Patient's heart rate has been high despite starting Lopressor yesterday. Hydralazine added for blood pressure. Repeat blood work revealed creatinine of 2.6. Consult with nephrology will be added. Total bilirubin 0.9, AST 72, ALT 45, alkaline phosphatase 481. Albumin 2.4. CEA elevated at 19.2, vitamin B12 299. Uric acid 8.1 iron 51, TIBC 154, iron saturation 33, ferritin 13,654. Patient is eating very little. He is taking in some protein supplementation. Patient is more views from yesterday. CAT scan of the brain showed no acute abnormality. 06/28: Temperature max 100.7. Heart rate yesterday was running in the 140s to 150s with a blood pressure 147/97, pulse ox 92% on 2 L nasal cannula. He also had increasing confusion and lethargy. Patient was transferred into the intensive care unit and consult added for Dr. Fry. Tachycardia is improved today. Echocardiogram has been ordered. Blood cultures are showing no growth. Repeat blood work reveals WBC 6.2, hemoglobin 11.5, platelet count 230. He is currently on Zosyn and vancomycin. Patient has been seen by nephrology with plans to continue IV fluids, replace potassium and magnesium, encourage oral intake and monitor renal function and electrolytes. Repeat sodium 135, potassium 3.3, BUN 19 and creatinine 0.9. Alkaline phosphatase 395, AST 115. Patient has been seen by urology with recommendations to keep Bassett for 7 days and then trial void if creatinine is back to baseline and start Flomax 0.4 mg daily. MRI of the brain, VQ scan and echocardiogram have been ordered for today. Objective - Vital Signs Vital signs: Vital Signs Temp 99.2 F 06/28/20 08:00 Pulse 121 H 06/28/20 11:00 Resp 28 H 06/28/20 11:00 BP 144/86 06/28/20 11:00 Pulse Ox 91 L 06/28/20 11:00 Intake & Output 06/27/20 06/28/20 06/28/20 18:59 06:59 18:59 Intake Total 2018 825 Output Total 4150 2200 725 Balance -4150 -182 100 Weight 65.9 kg 65.9 kg Intake: IV 1375 825 Piperacillin-Tazobactam 3 75 .375 gm In Sodium Chloride 0.9% 100 ml @ 25 mls/hr IVPB Q8HR [facility] Rx# :[id number] Sodium Chloride 0.9% 1, 1375 500 000 ml @ 125 mls/hr IV . Q8H [facility] Rx#:[id number] Vancomycin 1,250 mg In 250 Sodium Chloride 0.9% 250 ml @ 125 mls/hr IVPB Q12HR [facility] Rx#:[id number] Oral 643 Output: Urine 4150 2200 725 Uretheral (Bassett) 3475 Other: Voiding Method Toilet Toilet # Voids 1 # Bowel Movements 1 - Exam Review of Systems Constitutional: Reports anorexia, Reports fatigue, Reports night sweats, Reports poor appetite, Reports sweats, Reports weakness Eyes: denies blurred vision, denies bulging eye, denies decreased vision Ears, nose, mouth and throat: Denies dysphagia, Denies neck lump, Denies swelling in throat, Denies sore throat Cardiovascular: Reports rapid heart beat, Denies chest pain, Denies decreased exercise tolerance, Denies dyspnea on exertion, Denies leg edema, Denies lightheadedness, Denies shortness of breath, Denies syncope Respiratory: Denies congestion, Denies cough, Denies cough with sputum, Denies home oxygen, Denies sleep apnea, Denies snoring, Denies wheezing Gastrointestinal: Reports abdominal pain, Reports early satiety, Reports indigestion, Reports loss of appetite, Reports nausea, Denies belching, Denies bloating, Denies BRBPR, Denies change in bowel habits, Denies coffee ground emesis, Denies heartburn, Denies hematemesis, Denies hematochezia, Denies jaundice, Denies melena, Denies vomiting Genitourinary: Denies dysuria, Denies nocturia, reported retention Musculoskeletal: Reports muscle weakness, Reports myalgias Musculoskeletal: absent: ankle pain, ankle stiffness, ankle swelling, elbow pain, elbow stiffness, elbow swelling, foot pain, foot stiffness, foot swelling, hand pain, hand stiffness, hand swelling, hip pain, hip stiffness, hip swelling, knee pain, knee stiffness, knee swelling, shoulder pain, shoulder stiffness, shoulder swelling, wrist pain, wrist stiffness, wrist swelling Integumentary: Denies pruritus, Denies rash Neurological: Denies numbness, Denies weakness, confusion and lethargy that's improving Psychiatric: Reports depression, Denies sadness/tearfulness, Denies sleep disturbances, Denies suicidal ideation Endocrine: Reports fatigue, Reports weight change Physical Examination HEENT: head is atraumatic normocephalic pupils were equal round reactive to light and accommodations extra ocular muscle movement were intact, conjunctivae were pale and sclera were mildly icteric, mucous membranes of the mouth are somewhat dry. Neck: supple no JVP. Chest: clear to auscultation bilaterally, there is no crackles or wheezes. Heart: first heart sound is normal , second heart sound is normal , tachycardic there is no gallop or murmur. Abdomen: there is no abdominal tenderness with minimal fullness, there is surgical scar that have healed, positive bowel sounds. Bassett catheter draining blood-tinged urine Extremities: there is no edema , no calf tenderness DP + 2 bilaterally. Neurologiic examination: patient is awake , alert and oriented to person. CN II-XII are grossly intact muscle power 4/5 in bilateral upper and lower extremity . - Labs CBC & Chem 7: 06/28/20 07:44 06/28/20 07:44 Labs: Abnormal Lab Results - Last 24 Hours (Table) 06/26/20 06/27/20 06/27/20 Range/Units 05:49 17:43 17:43 Hgb 12.7 L (13.0-17.5) gm/dL Hct (39.0-53.0) % RDW 18.2 H (11.5-15.5) % Lymphocytes # 0.1 L (1.0-4.8) k/uL Lymphocytes # (Manual) (1.0-4.8) k/uL Metamyelocytes # (Man) (0) k/uL Myelocytes # (Manual) (0) k/uL PT (9.0-12.0) sec INR (<1.2) Sodium (137-145) mmol/L Potassium (3.5-5.1) mmol/L Magnesium (1.6-2.3) mg/dL AST (17-59) U/L Alkaline Phosphatase (38-126) U/L Total Protein (6.3-8.2) g/dL Albumin (3.5-5.0) g/dL Methylmalonic Acid 0.68 H (<0.40) umol/L Procalcitonin 0.59 H (0.02-0.09) ng/mL 06/28/20 06/28/20 06/28/20 Range/Units 07:44 07:44 07:44 Hgb 11.5 L (13.0-17.5) gm/dL Hct 36.6 L (39.0-53.0) % RDW 17.8 H (11.5-15.5) % Lymphocytes # (1.0-4.8) k/uL Lymphocytes # (Manual) 0.57 L (1.0-4.8) k/uL Metamyelocytes # (Man) 0.19 H (0) k/uL Myelocytes # (Manual) 0.06 H (0) k/uL PT 12.5 H (9.0-12.0) sec INR 1.2 H (<1.2) Sodium 135 L (137-145) mmol/L Potassium 3.3 L (3.5-5.1) mmol/L Magnesium 1.4 L (1.6-2.3) mg/dL AST 115 H (17-59) U/L Alkaline Phosphatase 385 H (38-126) U/L Total Protein 5.3 L (6.3-8.2) g/dL Albumin 2.3 L (3.5-5.0) g/dL Methylmalonic Acid (<0.40) umol/L Procalcitonin (0.02-0.09) ng/mL Microbiology - Last 24 Hours (Table) 06/25/20 14:51 Blood Culture - Preliminary Blood No Growth after 48 hours 06/26/20 12:19 Blood Culture - Preliminary Blood No Growth after 24 hours Assessment and Plan Plan: 1. Acute kidney injury due to acute tubular necrosis and poor oral intake, hypercalcemia and urinary retention. Continue IV fluids, increase oral intake of fluid. Consult with nephrology appreciated. 2. Possible Mediport infection ruled out. Blood cultures, continue Zosyn 3.375 gr IVPB Q [address] Menjivar appreciated. Vancomycin discontinued. 3. Hyponatremia due to hypovolemia. we will continue with IVF and repeat CMP in AM. 4. Metastatic adenocarcinoma of the colon. was seen by Hem-Onc and possible referral to the [facility] for a phase 3 trial. Consult with oncology appreciated. 5. Gallstones with biliary dyskinesia. we will continue with Zofran and IVF. 6. History of kidney stones with mild right sided hydronephrosis we will continue to monitor this appears to be new since last US. 7. Sinus tachycardia due to poor oral intake of fluid and dehydration. we will contiue with IVF. Continue Lopressor 25 mg twice daily . 8. DVT prophylaxis. we will continue with Heparin 5000 units SC Q 8 hours. 9. GI prophylaxis. we will continue with Protonix 40 mg IVP daily. 10. Severe protein calorie malnutrition with poor oral intake, lack of appetite, BMI of 18. Consult with dietitian appreciated. Continue Ensure 3 times daily along with diet. 11. Metabolic encephalopathy secondary to hypercalcemia. Patient is on Aredia. MRI of the brain. 12. Hypercalcemia secondary to dehydration and metastatic disease to the bones. Oncology managing. 13. Bilateral hydronephrosis. Consult with urology. 14. Urinary retention. Bassett catheter placed, consult with urology. Maintain Bassett catheter for 7 days and then voiding trial. Flomax 0.4 mg daily 15. Hypertension. Patient started on amlodipine 10 mg twice daily. 16. Acute respiratory distress with tachypnea and tachycardia patient transferred to the intensive care unit. VQ scan to rule out pulmonary embolism. CODE STATUS: Full code. Discharge plan: To be determined. Patient will require subacute rehab. We'll follow up on Wednesday with case managers/social media senior associate. Discussed with patient's rfowed-xh-nce Christelle. Impression and plan of care have been directed as dictated by the signing physician. Amee Day nurse practitioner acting as scribe for signing physician.
--- NOTE | 2020-06-28 16:11 | MR ---
EXAMINATION TYPE: MR brain wo/w con DATE OF EXAM: 06/28/2020 COMPARISON: CT brain from 2 days ago. HISTORY: Decreasing cognitive status. History of bowel cancer. TECHNIQUE: Multiplanar, multisequence images of the brain and brainstem is performed without and with IV contras t, utilizing 6 mL intravenous Gadavist . FINDINGS: Diffusion weighted images demonstrate no evidence of a recent infarct or other diffusion ab normality. There is no worrisome extra-axial fluid collection. The ventricular system and cisternal spaces are normal in size and appearance. The brain volume is age appropriate. There is occasional T2 hyperintense focus, for reference 5 mm lesion near temporal parietal junction axial image 16 is no nuha. Less than 5 scattered lesions are present. Midline structures demonstrate normal morphology. The craniocervical junction appears within normal limits. Examination is suboptimal due to patient motion. Patient unable to hold still. This limits ev aluation for tiny masses. No obvious suspicious enhancement or enhancing mass identified. The dural v enous sinuses appear patent. The visualized sinuses are clear and the globes are intact. IMPRESSION: Suboptimal study. No obvious enhancing mass to suggest metastatic disease to the brain.
--- NOTE | 2020-06-28 16:12 | PN ---
PROGRESS NOTE DATE OF SERVICE: 06/28/2020 REASON FOR FOLLOWUP: Fever. INTERVAL HISTORY: The patient has been transferred down to the ICU. The patient is currently hemodynamically stable, not on any pressor support. The patient is slightly confused and did have a low-grade fever of 100.7 last night. Afebrile this morning. The patient denies having any chest pain or cough or abdominal pain. No vomiting or diarrhea has been reported. PHYSICAL EXAMINATION: Blood pressure is 150/100 with a pulse of 124, temperature 99.2. He is 92% on room air. General description is a middle-aged male lying in bed in no distress. RESPIRATORY SYSTEM: Unlabored breathing with decreased breath sounds at the base. No wheeze. HEART: S1, S2. Regular rate and rhythm. ABDOMEN: Soft. No tenderness. LABS: Hemoglobin 11.5, white count 6.3, BUN of 19, creatinine 0.99. Vancomycin level low at 9.3. Blood culture has been negative so far. DIAGNOSTIC IMPRESSION AND PLAN: Patient with a fever with initial concern for possible MediPort site. However, his cultures are negative. CT abdominal negative for any abscess. Patient is covered with Zosyn. Vancomycin has been added. However, his kidney function needs to be monitored closely, and if the culture is negative, recommend discontinuing the vancomycin to decrease risk of nephrotoxicity. Continue with supportive care. MMODL / IJN: [id number] /
--- NOTE | 2020-06-28 16:53 | NM ---
EXAMINATION TYPE: NM pul perfusion DATE OF EXAM: 06/28/2020 COMPARISON: NONE HISTORY: Short of breath Following administration of 5 mCi Tc 99m MAA. Images obtained post injection. FINDINGS: There are numerous small subsegmental perfusion defects in the periphery of both lungs. There is no s egmental type defect. The chest x-ray of 06/25/2020 show some mild patchy bilateral pulmonary intersti tial infiltrates. Exam is limited with lack of ventilation images. IMPRESSION: Multiple subsegmental peripheral defects corresponds to intermediate probability of pulmonary embolis m.
[2020-06-28] MEDS ORDERED: HEPARIN SODIUM,PORCINE 10,000 UNIT/ML 1 ML VIAL IV ONE (18:52)
--- NOTE | 2020-06-28 19:18 | ECHOF ---
Referral Reason:tachycardia MEASUREMENTS -------- HEIGHT: 180.3 cm WEIGHT: 65.8 kg BP: 134/94 RVIDd: 2.4 cm (< 3.3) IVSd: 1.2 cm (0.6 - 1.1) LVIDd: 4.0 cm (3.9 - 5.3) LVPWd: 1.2 cm (0.6 - 1.1) IVSs: 1.5 cm LVIDs: 2.6 cm LVPWs: 1.9 cm LA Diam: 3.2 cm (2.7 - 3.8) Ao Diam: 3.4 cm (2.0 - 3.7) AV Cusp: 2.0 cm (1.5 - 2.6) MV EXCURSION: 22.863 mm (> 18.000) MV EF SLOPE: 371 mm/s (70 - 150) EPSS: 1.3 cm FINDINGS -------- Resting tachycardia (HR>100bpm). This was a technically adequate study. The left ventricular size is normal. There is borderline concentric left ventricular hypertrophy. Overall left ventricular systolic function is normal with, an EF between 55 - 60 %. The right ventricle is normal in size. The left atrial size is normal. The right atrium is normal in size. The aortic valve is trileaflet and appears structurally normal. There is trace to mild mitral regurgitation. Trace tricuspid regurgitation present. The pulmonic valve was not well visualized. The aortic root size is normal. IVC Not well visulized. There is no pericardial effusion. CONCLUSIONS -------- 1. Resting tachycardia (HR>100bpm). 2. The left ventricular size is normal. 3. There is borderline concentric left ventricular hypertrophy. 4. Overall left ventricular systolic function is normal with, an EF between 55 - 60 %. 5. There is trace to mild mitral regurgitation. 6. Trace tricuspid regurgitation present. 7. There is no pericardial effusion. CLINICAL EDUCATION MANAGER: Yolanda Marcus RDCS
[2020-06-28 19:48] LABS: INR 1.3 (<1.2); Partial Thromboplastin Time 31.2 sec (22.0-30.0); Prothrombin Time 12.7 sec (9.0-12.0)
[2020-06-28 19:49] LABS: Anisocytosis Slight; HCT 35.7 % (39.0-53.0); HGB 10.9 gm/dL (13.0-17.5); Hypochromasia Slight; MCH 25.6 pg (25.0-35.0); MCHC 30.6 g/dL (31.0-37.0); MCV 83.9 fL (80.0-100.0); Microcytosis Slight; Platelet Count 249 k/uL (150-450); RBC 4.26 m/uL (4.30-5.90); RDW 17.9 % (11.5-15.5); WBC 6.1 k/uL (3.8-10.6)
[2020-06-28 20:38] LABS: Band Neutrophils % 7 %; Eosinophils # (M) 0.12 k/uL (0-0.7); Lymphocytes # (M) 0.43 k/uL (1.0-4.8); Metamyelocytes # (M) 0.06 k/uL (0); Metamyelocytes % 1 %; Monocytes # (M) 0.24 k/uL (0-1.0); Myelocytes # (M) 0.18 k/uL (0); Myelocytes % 3 %; Neutrophils % (M) 76 %; Nucleated Red Blood Cells 0 /100 WBC (0-0); Total Cells Counted 100
[2020-06-28] MEDS: HEPARIN SOD,PORK IN 0.45% NACL 25,000 UNIT in 0.45% NACL 1 250ML.BAG IV SCH (21:14)
[2020-06-29 07:13] LABS: ALT 40 U/L (4-49); AST 158 U/L (17-59); African American GFR (CKD) >90 (>60 ml/min/1.73 sqM); Alkaline Phosphatase 356 U/L (38-126); Anion Gap 2 mmol/L; Blood Urea Nitrogen 12 mg/dL (9-20); Calcium 7.6 mg/dL (8.4-10.2); Carbon Dioxide 27 mmol/L (22-30); Chloride 107 mmol/L (98-107); Glucose 103 mg/dL (74-99); Non-African American GFR(CKD) >90 (>60 ml/min/1.73 sqM); Potassium 3.2 mmol/L (3.5-5.1); Sodium 136 mmol/L (137-145); Total Bilirubin 0.9 mg/dL (0.2-1.3); Total Protein 4.8 g/dL (6.3-8.2)
[2020-06-29 07:15] LABS: Anisocytosis Slight; HCT 32.1 % (39.0-53.0); HGB 10.3 gm/dL (13.0-17.5); Hypochromasia Slight; MCH 26.8 pg (25.0-35.0); MCHC 32.1 g/dL (31.0-37.0); MCV 83.5 fL (80.0-100.0); Microcytosis Slight; Platelet Count 217 k/uL (150-450); Poikilocytosis Slight; RBC 3.84 m/uL (4.30-5.90); RDW 17.8 % (11.5-15.5); WBC 5.6 k/uL (3.8-10.6)
[2020-06-29 07:41] LABS: Vancomycin,Random 11.4 ug/mL
[2020-06-29 08:17] LABS: Band Neutrophils % 3 %; Eosinophils # (M) 0.17 k/uL (0-0.7); Lymphocytes # (M) 0.22 k/uL (1.0-4.8); Metamyelocytes # (M) 0.17 k/uL (0); Metamyelocytes % 3 %; Monocytes # (M) 0.39 k/uL (0-1.0); Myelocytes # (M) 0.22 k/uL (0); Myelocytes % 4 %; Neutrophils % (M) 79 %; Nucleated Red Blood Cells 0 /100 WBC (0-0); Total Cells Counted 200; Toxic Granulation Present
[2020-06-29] MEDS: PIPERACILLIN-TAZOBACTAM 3.375 GM in SODIUM CHLORIDE 0.9% 100 ML IVPB SCH ×2 (10:42→15:39)
[2020-06-29] MEDS: SODIUM CHLORIDE 0.9% 1,000 ML IV SCH ×4 (10:57→15:40)
[2020-06-29] MEDS: METOPROLOL TARTRATE 25 MG TAB PO SCH ×2 (11:16→21:56)
[2020-06-29] MEDS: amLODIPine 10 MG TAB PO SCH (11:16)
[2020-06-29] MEDS: TAMSULOSIN 0.4 MG CAP.ER.24H PO SCH (11:16)
[2020-06-29] MEDS: PANTOPRAZOLE 40 MG/10 ML VIAL IV SCH (11:16)
[2020-06-29] MEDS: VANCOMYCIN 1,250 MG in SODIUM CHLORIDE 0.9% 250 ML IVPB SCH ×2 (11:20→21:58)
[2020-06-29] MEDS: HEPARIN SODIUM,PORCINE 5,000 UNIT/ML 1 ML VIAL IV PRN (11:29)
[2020-06-29] MEDS: POTASSIUM CHLORIDE ER 20 MEQ TAB.ER PO SCH ×2 (11:29→15:39)
--- NOTE | 2020-06-29 12:33 | P.PN ---
Subjective Progress Note Date: 06/29/20 49-year-old white male patient of Dr. Mendoza, with recently diagnosed invasive a denocarcinoma, status post exploratory laparotomy, right hemicolectomy, resection of a omental mass, with partial mucinous features measuring 4.5 x 4 cm with microscopic serosal perforation and 17 out of 20 pericolic with lymph node involvement. Patient was initially treated and worked up at the [facility]– [place] where he was admitted on 04/15/2020 with complaints of progressive abdominal pain in the right mid to upper abdomen and epigastrium. Apparently patient's symptoms of abdominal discomfort has been ongoing since December however patient had been putting off medical attention related to ongoing coronavirus epidemic and related to low intensity of the symptoms. CT chest from April 2020 did not show any evidence of pulmonary masses, MRI from 04/22/2020 apparently showed multiple round T2 hyperintense lesions all subcentimeter in size without suspicious nodularity. Following his surgery patient had another readmission in April when she developed right-sided abdominal pain and right lower quadrant abscess as evidenced on the computed tomography scan of the abdomen and pelvis that required placement of a drainage tube, PICC line and IV antibiotics. Follow-up CT on 05/21/2020 showed marked decrease in size of the fluid collection with enlarged retroperitoneal nodes is similar to the prior computed tomography scan. Patient was referred to medical oncology following his discharge in regards to newly diagnosed adenocarcinoma of the colon. His PET scan showed widespread metastatic disease involving left supraclavicular, mediastinal, retroperitoneal and mesenteric nodes, left adrenal, as well as multiple osseous sites especially in the lumbar spine. There was also uptake in the liver lesion. Patient had palliative radiation to the spine with Dr. Levy in May, systemic therapy was recommended however the patient and family wanted to seek second opinion at the [facility], causing a delay in the start of treatment and declined to his overall condition. Patient came into the hospital on 06/25/2022 the emergency department with complaints of feeling feverish, nauseous, weak, having palpitations, feeling very thirsty, and having muscle cramps. Patient confused. The patient's initial hypercalcemia with a calcium level of comfort far. The patient was in acute kidney injury. Creatinine was 1.6 recovered with pressure and subsequently creatinine came up to 2.6 of the patient developed significant obstructive uropathy. CAT scan of the abdomen was done and it showed marked distention of the urinary bladder with moderate right hydronephrosis of marked left hydronephrosis. There was no evidence of the stones. There is evidence of bladder distention. Bassett cath was inserted by severe depression produce approximately 1.8 L of urinary output immediately. At this point in time, the patient is slow in answering questions. He is lethargic. He is confused. He is tachycardic with a heart rate of 150. He did not have any fever or rec urrence temperature is 100.7. Pulse ox is 95% 40 suboptimal nasal cannula. No Abdominal pain. Port site over the right anterior chest area of blackened and intact. on 06/28/2020, the patient is awake and doesn't seem to be confused on today's evaluation. His tachycardia is improved and his heart rate is still in sinus between 110 and 120. He did have a spike of temperature yesterday and none since. His cultures of been all negative. He is on room air oxygen.no nausea. No vomiting. No abdominal pain. His white cell count is at 6.2 with hemoglobin 11.5. Platelets of 230.the electrolytes are all within normal limits. The potassium needs to be replaced. LFTs are abnormal as the patient has hepatic metastases. Vancomycin trough was at 9.3. The patient is on examination Zosyn and vancomycin. No other new complaints otherwise for now. 06/29/2020, the patient is doing poorly. He is extremely lethargic. He is hard to communicate with. At times is confused. He speaks only a few sentences. He speaks only a few words. He remains tachycardic. Oncology started him on IV heparin. He is on broad-spectrum antibiotic with accommodation of Zosyn and vancomycin. All of his cultures are negative. The patient is not eating. He is extremely debilitated and emaciated. His BMI 20.3. He has some vague abdominal discomfort. Nausea. No vomiting. No emesis. Profoundly weak in all 4 extremities.no much improvement over the past 24 hours. White cell count remains at 5.6. Platelets of 217.breasts of the blood work and electrodes are all within normal limits. Creatinine 0.69.LFTs are abnormal as the patient has hepatic metastases. Objective - Vital Signs Vital signs: Vital Signs Temp 98.5 F 06/29/20 04:00 Pulse 125 H 06/29/20 06:00 Resp 17 06/29/20 06:00 BP 136/89 06/29/20 06:00 Pulse Ox 92 L 06/29/20 06:00 Intake & Output 06/28/20 06/29/20 06/29/20 18:59 06:59 18:59 Intake Total 2150 1825 169.231 Output Total 1450 1015 Balance 700 810 169.231 Weight 65.9 kg Intake: IV 2150 1825 NS @ 125 500 Piperacillin-Tazobactam 3 150 75 .375 gm In Sodium Chloride 0.9% 100 ml @ 25 mls/hr IVPB Q8HR [facility] Rx# :[id number] Sodium Chloride 0.9% 1, 1500 1000 000 ml @ 125 mls/hr IV . Q8H [facility] Rx#:[id number] Sodium Chloride 0.9% 250 250 ml @ 83 mls/hr IV .Q3H1M ONE with Pamidronate 30 mg Rx#:[id number] Vancomycin 1,250 mg In 250 250 Sodium Chloride 0.9% 250 ml @ 125 mls/hr IVPB Q12HR [facility] Rx#:[id number] Intake, IV Titration 169.231 Amount Heparin Sod,Pork in 0.45% 169.231 NaCl 25,000 unit In 0.45 % NaCl 1 250ml.bag @ 18 UNITS/KG/HR 11.862 mls/hr IV .Q21H5M [facility] Rx#: [id number] Output: Urine 1450 1015 Other: Voiding Method Toilet Toilet # Bowel Movements 1 - Exam General appearance the patient is lethargic, has generalized weakness, not confused on today's evaluation, occasionally confused Head is atraumatic normocephalic. Neck is supple and there is no JVDs no no goiter or neck masses Chest: clear to auscultation bilaterally, there is no crackles or wheezes. Heart: first heart sound is normal , second heart sound is normal , tachycardic there is no gallop or murmur. Abdomen: there is mild abdominal tenderness with minimal fullness, there is surgical scar that have healed, positive bowel sounds. Extremities: there is no edema , no calf tenderness DP + 2 bilaterally. Neurologiic examination: patient is awake , alert and oriented X 3 CN II-XII are grossly intact muscle power 4/5 in bilateral upper and lower extremity .note that his mental status is altered occasionally and he is intermittently confused. He has significant motor weakness in all 4 extremities. - Labs CBC & Chem 7: 06/29/20 06:30 06/29/20 06:30 Labs: Abnormal Lab Results - Last 24 Hours (Table) 06/28/20 06/28/20 06/28/20 Range/Units 18:54 18:54 18:54 RBC 4.26 L (4.30-5.90) m/uL Hgb 10.9 L (13.0-17.5) gm/dL Hct 35.7 L (39.0-53.0) % MCHC 30.6 L (31.0-37.0) g/dL RDW 17.9 H (11.5-15.5) % Lymphocytes # (Manual) 0.43 L (1.0-4.8) k/uL Metamyelocytes # (Man) 0.06 H (0) k/uL Myelocytes # (Manual) 0.18 H (0) k/uL PT 12.7 H (9.0-12.0) sec INR 1.3 H (<1.2) APTT 31.2 H (22.0-30.0) sec Sodium (137-145) mmol/L Potassium 3.3 L (3.5-5.1) mmol/L Glucose (74-99) mg/dL Calcium (8.4-10.2) mg/dL AST (17-59) U/L Alkaline Phosphatase (38-126) U/L Total Protein (6.3-8.2) g/dL Albumin (3.5-5.0) g/dL 06/29/20 06/29/20 06/29/20 Range/Units 00:15 06:30 06:30 RBC 3.84 L (4.30-5.90) m/uL Hgb 10.3 L (13.0-17.5) gm/dL Hct 32.1 L (39.0-53.0) % MCHC (31.0-37.0) g/dL RDW 17.8 H (11.5-15.5) % Lymphocytes # (Manual) 0.22 L (1.0-4.8) k/uL Metamyelocytes # (Man) 0.17 H (0) k/uL Myelocytes # (Manual) 0.22 H (0) k/uL PT (9.0-12.0) sec INR (<1.2) APTT 48.9 H (22.0-30.0) sec Sodium 136 L (137-145) mmol/L Potassium 3.2 L (3.5-5.1) mmol/L Glucose 103 H (74-99) mg/dL Calcium 7.6 L (8.4-10.2) mg/dL AST 158 H (17-59) U/L Alkaline Phosphatase 356 H (38-126) U/L Total Protein 4.8 L (6.3-8.2) g/dL Albumin 2.0 L (3.5-5.0) g/dL 06/29/20 Range/Units 06:30 RBC (4.30-5.90) m/uL Hgb (13.0-17.5) gm/dL Hct (39.0-53.0) % MCHC (31.0-37.0) g/dL RDW (11.5-15.5) % Lymphocytes # (Manual) (1.0-4.8) k/uL Metamyelocytes # (Man) (0) k/uL Myelocytes # (Manual) (0) k/uL PT (9.0-12.0) sec INR (<1.2) APTT 41.7 H (22.0-30.0) sec Sodium (137-145) mmol/L Potassium (3.5-5.1) mmol/L Glucose (74-99) mg/dL Calcium (8.4-10.2) mg/dL AST (17-59) U/L Alkaline Phosphatase (38-126) U/L Total Protein (6.3-8.2) g/dL Albumin (3.5-5.0) g/dL Microbiology - Last 24 Hours (Table) 06/27/20 17:43 Blood Culture - Preliminary Blood No Growth after 24 hours 06/25/20 14:51 Blood Culture - Preliminary Blood No Growth after 72 hours 06/26/20 12:19 Blood Culture - Preliminary Blood No Growth after 48 hours Assessment and Plan Plan: 1 metastatic adenocarcinoma post colectomy with end-to-end anastomosis, post radiation therapy. Skeletal metastases, currently not receiving any treatment awaiting further input from [facility] regarding clinical trials. the patient's malignancy is quite extensive and the patient has extensive metastases as mentioned. The patienthas pulmonary metastases, liver metastases and skeletal metastases. His performance and functional status is given progressively worse. I'm not sure is going to be a candidate for any further treatment in the future. He is already intake is minimal. Seems to be quite depressed. Seems to be quite debilitated. 2 acute tachycardia with low-grade fevers, consider underlying early infection/sepsis.note that the patient's tachycardia is improved compared to yesterday. He is in sinus tachycardia. Pulmonary embolism is felt to be doubtful. Tachycardia is most likely related to underlying systemic inflammatory response syndrome/sepsis.oncology saw the patient start the patient IV heparin. Pulmonary embolism is doubtful. 3 acute kidney injury due to obstructive uropathy. The patient's significant hydronephrosis bilaterally and distended bladder and the renal function improved and normalized following a Bassett catheter insertion. There was obviously a component of obstructive uropathy and the patient was started on Flomax. Cr eatinine is down to 0.9. 4 abnormal LFTs, likely secondary to liver metastases 5 pulmonary metastases with several thyroid nodules scattered bilaterally also seen on previous PET/CT 6 sinus tachycardia, secondary to above 7 enlargement and weight loss and a BMI of 18.4 8 generalized weakness and confusion secondary to above 9 Hypercalcemia secondary to skeletal metastases of the patient was treated with fluids and Aridia Plan condition is extremely debilitated. I thinkwhatever worsening is related to his metastatic colon cancer. I do not think personally the patient's pulmonary embolism. Is covered with IV heparin. VQ scan was of an intermediate probability. Echocardiogram shows no evidence of a strain pattern LV dysfunction. Ejection fraction of 55-60%. Oral intake is minimal. Extremely malnourished debilitated and cachectic. Poor prognosis. Advance directives need to be established by oncology. Hospiceis very reasonable in my opinion.
--- NOTE | 2020-06-29 14:43 | US ---
EXAMINATION TYPE: US venous doppler duplex LE DATE OF EXAM: 06/29/2020 2:34 PM COMPARISON: None. CLINICAL HISTORY: possible PE, evaluate for DVTs. No redness. No swelling. Bilateral pain- ICU patie nt . Possible pulmonary embolus. Inconclusive nuclear medicine perfusion. SIDE PERFORMED: Bilateral TECHNIQUE: The lower extremity deep venous system is examined utilizing real time linear array sonog karma with graded compression, doppler sonography and color-flow sonography. VESSELS IMAGED: External Iliac Vein (EIV) Common Femoral Vein Deep Femoral Vein Greater Saphenous Vein * Femoral Vein Popliteal Vein Small Saphenous Vein * Proximal Calf Veins (* superficial vessels) Right Leg: Negative for DVT Left Leg: Negative for DVT Grayscale, color doppler, spectral doppler imaging performed of the deep veins of the bilateral lower extremities. There is normal flow, compressibility, vascular waveforms. IMPRESSION: No ultrasound evidence for acute DVT in either lower extremity.
--- NOTE | 2020-06-29 15:28 | PN ---
PROGRESS NOTE Patient is seen for followup for acute kidney injury. Renal function has improved significantly with serum creatinine down to 0.69 mg/dL. PHYSICAL EXAMINATION: Patient is awake, comfortable. He is not in any acute distress, however, appears ill. Blood pressure this morning was 133/87, heart rate 98 per minute, he is afebrile. Examination of the heart S1, S2. Examination of the lungs, decreased breath sounds at bases. Abdomen is soft, nontender. Examination of lower extremities shows no evidence of edema. 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 LABS: Sodium 136, potassium 3.2, serum creatinine 0.69 mg/dL. ASSESSMENT: 1. Acute kidney injury, obstructive uropathy with bilateral hydronephrosis on CT scan, currently improved with Bassett catheter placement. There is a prerenal component as well. Continue with the IV fluids. 2. Metastatic colon cancer status post radiation therapy with skeletal metastasis, currently maintained on a clinical trial. 3. Hypercalcemia associated with metastatic malignancy status post pamidronate. 4. Fever, maintained on empiric antibiotics. Blood cultures remain negative. PLAN: Continue with Bassett catheter. Continue with IV fluids. Replace potassium. We will sign off as renal function has improved significantly. Urology is also on consult. MMODL / IJN: [id number] /
[2020-06-29] MEDS: HEPARIN SOD,PORK IN 0.45% NACL 25,000 UNIT in 0.45% NACL 1 250ML.BAG IV SCH (15:41)
--- NOTE | 2020-06-29 17:04 | PN ---
PROGRESS NOTE DATE OF SERVICE: 06/29/2020 REASON FOR FOLLOW UP: Fever. INTERVAL HISTORY: Patient is currently afebrile. The patient has been tachycardic. He seems to be slightly sleepy and lethargic and did not provide any reliable history. No nausea or vomiting reported or any diarrhea. PHYSICAL EXAMINATION: Blood pressure 136/90 with a pulse of 108. Temperature of 98.1. He is 92% on 2 L nasal cannula. General description is a middle-aged male lying in bed in no distress. Respiratory system: Unlabored breathing, decreased breath sounds at the bases. Heart S1, S2. Regular rate and rhythm. ABDOMEN: Soft, no tenderness. EXTREMITIES: No edema of the feet. LABS: Hemoglobin is 10.1, white count of 5.6. BUN of 12, creatinine 0.69. Blood culture has been negative. DIAGNOSTIC IMPRESSION AND PLAN: Patient with fever with concern for possible port infection versus secondary to thromboembolic event. Concern for possible pulmonary embolism. The patient is covered with Zosyn with culture negative and should be discontinued to decrease risk of nephrotoxicity and monitor clinical course closely. MMODL / IJN: [id number] /
--- NOTE | 2020-06-29 20:54 | P.PN ---
Subjective Progress Note Date: 06/29/20 Principal diagnosis: Metastatic Colon Cancer Patients mother in law and family at bedside and have decided on comfort measures. Objective - Vital Signs Vital signs: Vital Signs Temp 99.8 F H 06/29/20 16:00 Pulse 131 H 06/29/20 19:00 Resp 24 06/29/20 19:00 BP 135/89 06/29/20 19:00 Pulse Ox 92 L 06/29/20 19:00 Intake & Output 06/29/20 06/29/20 06/30/20 06:59 18:59 06:59 Intake Total 1825 2124.367 125 Output Total 1015 1040 125 Balance 810 1084.367 0 Weight 70.2 kg Intake: IV 1825 1900 125 NS @ 572 419 7932 125 Piperacillin-Tazobactam 3 75 100 .375 gm In Sodium Chloride 0.9% 100 ml @ 25 mls/hr IVPB Q8HR [facility] Rx# :[id number] Sodium Chloride 0.9% 1, 1000 000 ml @ 125 mls/hr IV . Q8H [facility] Rx#:[id number] Vancomycin 1,250 mg In 250 300 Sodium Chloride 0.9% 250 ml @ 125 mls/hr IVPB Q12HR [facility] Rx#:[id number] Intake, IV Titration 224.367 Amount Heparin Sod,Pork in 0.45% 224.367 NaCl 25,000 unit In 0.45 % NaCl 1 250ml.bag @ 18 UNITS/KG/HR 11.862 mls/hr IV .Q21H5M [facility] Rx#: [id number] Output: Urine 1015 1040 125 Other: Voiding Method Toilet Toilet Toilet # Bowel Movements 1 - Exam - Constitutional General appearance: cooperative, mild distress, thin Disoriented - EENT Oral Thrush Eyes: EOMI ENT: NA/AT, normal oropharynx, thrush - Neck Neck: normal ROM - Respiratory Respiratory: bilateral: diminished - Cardiovascular Heart rate: 130 Rhythm: regularly irregular - Gastrointestinal General gastrointestinal: soft, tenderness - Integumentary Integumentary: pale - Musculoskeletal Musculoskeletal: generalized weakness - Psychiatric Weakness Psychiatric:disoriented lethargic - Labs CBC & Chem 7: 07/04/20 08:47 07/04/20 08:47 Labs: Abnormal Lab Results - Last 24 Hours (Table) 06/29/20 06/29/20 06/29/20 Range/Units 00:15 06:30 06:30 RBC 3.84 L (4.30-5.90) m/uL Hgb 10.3 L (13.0-17.5) gm/dL Hct 32.1 L (39.0-53.0) % RDW 17.8 H (11.5-15.5) % Lymphocytes # (Manual) 0.22 L (1.0-4.8) k/uL Metamyelocytes # (Man) 0.17 H (0) k/uL Myelocytes # (Manual) 0.22 H (0) k/uL APTT 48.9 H (22.0-30.0) sec Sodium 136 L (137-145) mmol/L Potassium 3.2 L (3.5-5.1) mmol/L Glucose 103 H (74-99) mg/dL Calcium 7.6 L (8.4-10.2) mg/dL AST 158 H (17-59) U/L Alkaline Phosphatase 356 H (38-126) U/L Total Protein 4.8 L (6.3-8.2) g/dL Albumin 2.0 L (3.5-5.0) g/dL 06/29/20 06/29/20 Range/Units 06:30 17:39 RBC (4.30-5.90) m/uL Hgb (13.0-17.5) gm/dL Hct (39.0-53.0) % RDW (11.5-15.5) % Lymphocytes # (Manual) (1.0-4.8) k/uL Metamyelocytes # (Man) (0) k/uL Myelocytes # (Manual) (0) k/uL APTT 41.7 H 42.0 H (22.0-30.0) sec Sodium (137-145) mmol/L Potassium (3.5-5.1) mmol/L Glucose (74-99) mg/dL Calcium (8.4-10.2) mg/dL AST (17-59) U/L Alkaline Phosphatase (38-126) U/L Total Protein (6.3-8.2) g/dL Albumin (3.5-5.0) g/dL Microbiology - Last 24 Hours (Table) 06/27/20 17:43 Blood Culture - Preliminary Blood No Growth after 48 hours 06/25/20 14:51 Blood Culture - Preliminary Blood No Growth after 96 hours 06/26/20 12:19 Blood Culture - Preliminary Blood No Growth after 72 hours Assessment and Plan (1) Colon carcinoma metastatic to bone Status: Acute Priority: High Code(s): C18.9 - MALIGNANT NEOPLASM OF COLON, UNSPECIFIED; C79.51 - SECONDARY MALIGNANT NEOPLASM OF BONE SNOMED Code(s): 138015905 Plan: Assessment and Recommendations: Metastatic Colon Cancer: - Patient has yet to start systemic treatment has been waiting on second opinion from [facility] although patient has progressively declined since diagnosis it has been re-iterated that systemic treatment is needed to gain control zoila. - Status Post Palliative radiation to Spine - Pain - Currently planned to visit with Jessica on Wednesday next week, we have schedu led chemotherapy in office for Wednesday next week to ensure if he is able to start chemo safetly there wont be further delay, although will need to await padron culture work-up from this hospitalization. - Unfortunately patients status has declined rapidly and patient and family have met with primary team and decided on comfort measures only. Hypercalcemia: - Dehydration and Metastatic Disease to Bones - Aredia 30mg daily x3 days (total dose 90mg), will continue with Xgeva as outpatient in 4 weeks SIRS: 3/4 - Padron Cultures Pending - Chest Xray with inflammatory/infectious, pneumonia - Abx ordered - ID is following Acute Renal Insuffieincy secondary to bilateral hydronephrosis: improved Abnormal Liver Function: Improving Encephalopathy: - possible secondary to increased Liver versus metastatic disease to Brain -MRI Brain did not reveal metastatic cancer. Plan: - Patients family have met with primary team and they have decided on comfort measures. Patients status has declined rapidly.
[2020-06-29] MEDS: HYDROcodone/APAP 5-325MG 1 EACH TAB PO PRN (22:46)
[2020-06-30] MEDS: MORPHINE SULFATE 4 MG/ML SYRINGE IVP PRN ×6 (00:19→22:50)
[2020-06-30] MEDS: PIPERACILLIN-TAZOBACTAM 3.375 GM in SODIUM CHLORIDE 0.9% 100 ML IVPB SCH ×4 (00:42→23:52)
[2020-06-30] MEDS: SODIUM CHLORIDE 0.9% 1,000 ML IV SCH ×3 (01:30→19:56)
[2020-06-30 06:33] LABS: African American GFR (CKD) >90 (>60 ml/min/1.73 sqM); Anion Gap 1 mmol/L; Blood Urea Nitrogen 9 mg/dL (9-20); Calcium 7.3 mg/dL (8.4-10.2); Carbon Dioxide 27 mmol/L (22-30); Chloride 106 mmol/L (98-107); Glucose 85 mg/dL (74-99); Non-African American GFR(CKD) >90 (>60 ml/min/1.73 sqM); Potassium 3.1 mmol/L (3.5-5.1); Sodium 134 mmol/L (137-145)
[2020-06-30] MEDS ORDERED: Potassium Replacement Protocol 1 EACH MISC MISCELLANE PRN ×3 (06:35→22:43)
[2020-06-30 06:36] LABS: Anisocytosis Slight; Basophils % (A) 1 %; Eosinophils # (A) 0.2 k/uL (0-0.7); Eosinophils % (A) 4 %; HCT 31.5 % (39.0-53.0); HGB 10.1 gm/dL (13.0-17.5); Hypochromasia Moderate; Lymphocytes # (A) 0.3 k/uL (1.0-4.8); Lymphocytes % (A) 5 %; MCH 27.1 pg (25.0-35.0); MCHC 32.1 g/dL (31.0-37.0); MCV 84.6 fL (80.0-100.0); Mean Platelet Volume 7.2; Monocytes # (A) 0.3 k/uL (0-1.0); Monocytes % (A) 5 %; Neutrophils % (A) 85 %; Platelet Count 200 k/uL (150-450); Poikilocytosis Slight; RBC 3.72 m/uL (4.30-5.90); RDW 17.6 % (11.5-15.5); WBC 5.9 k/uL (3.8-10.6)
[2020-06-30] MEDS: POTASSIUM CHLORIDE ER 20 MEQ TAB.ER PO SCH ×6 (06:48→23:50)
[2020-06-30] MEDS: METOPROLOL TARTRATE 25 MG TAB PO SCH ×2 (09:19→19:52)
[2020-06-30] MEDS: TAMSULOSIN 0.4 MG CAP.ER.24H PO SCH (09:19)
[2020-06-30] MEDS: amLODIPine 10 MG TAB PO SCH (09:19)
[2020-06-30] MEDS: PANTOPRAZOLE 40 MG/10 ML VIAL IV SCH (09:20)
--- NOTE | 2020-06-30 10:44 | P.PN ---
Subjective Progress Note Date: 06/29/20 This is a 49 year old male with a previous medical history significant for kidney stones and cholelithiasis, was inititially complaining of increased abdominal pain in the right upper quadrant and had US of the abdomen that showed cholelithiasis, this was followed with HIDA scan that showed biliary dyskinesis and was referred to have Lap-Ojcelyn with that week he developed to have increased abdominal pain with significant nausea and vomiting and he presented to [facility] with bowel obstruction picture, he underwent CT scan of the abdomen and pelvis that showed a large cecal mass suggestive of colon cancer, he underwent right colectomy with end to end anastomosis and then he developed to have a pelvic Abscess that was treated with transcutaneous drain and IV antibiotics through a PICC line for 4 weeks which he has done, he was then seen by Hem-Onc Toma Mars and underwent a battery of testing including PET c that showed metastatic disease, he has then had a Mediprot placed recently by and was seen today by [facility] [employer] [facility]ISTANT at Dr. Chua 's office to discuss further jeniffer tment options and possibly a referral to a phase 3 trial at the [facility], patient was extremely weak and tachycardic and there was a suspicion for possible Mediport infection so he was referred to the ER , he did receive 2 L of Normal saline his heart rate was 16o with sinus tachycardia and he is down to 115 , blood cultures were obtained and he was started on Vancomycin and Zosyn and ID consult was obtained along with surgical consult. 06/26: Patient has been seen by Dr. Hollis does not feel that there is infection of the Mediport site. Patient was also noted to have transaminitis and elevated bilirubin possibly associated with metastatic disease or documented cholelithiasis. No plan for surgical intervention for gallbladder disease at this time based on patient's medical history and asymptomatic presentation. Patient has been afebrile, heart rate 131/86, pulse ox 92% on 2 L nasal cannula. Heart rate has been elevated up to 140 with activity and 110-120 at rest. Low dose Lopressor added at 12.5 mg twice daily and subsequently increased to 25 mg twice daily. Repeat blood work reveals WBC 5.2, hemoglobin 10.9, platelet count 197. Electrolytes normal, BUN 36, creatinine 1.6. Total bilirubin 0.9, AST 72, ALT 64, alkaline phosphatase 424. Repeat lactic acid 1.0. Patient is currently on IV antibiotics in the form of Zosyn and vancomycin. Oncology consult added. Patient was to start chemotherapy. Consult in place for Dr. Menjivar. Blood culture is status post received. Patient is eating very little and has been seen by dietitian and Ensure [address] in [address] Oncology has ordered Aredia, patient is on IV fluids 150 mL per hour. Of the brain has been ordered. CEA, ferritin, iron profile, uric acid, methylmalonic acid, B12 are pending. 06/27: CAT scan of the abdomen pelvis without contrast revealed markedly distended urinary bladder with moderate right hydronephrosis and mild left hydronephrosis with bilateral hydroureter. Nonobstructing renal stones are identified. Etiology of hydroureter and hydronephrosis may be related to distended urinary bladder. Scattered abdominal adenopathy. No suspicious abnormality to suggest abscess. Patchy infiltrates at the lung bases and small bilateral pleural effusions. Infectious etiologies should be considered. Consider atypical pneumonia. Consult with urology added for hydronephrosis. Patient has been seen by Dr. Menjivar and vancomycin has been discontinued. Patient is currently on Zosyn. Bassett catheter was placed today with removal of 1600 ML's. Patient's aunt is at the bedside and she states she has been going to his house feeding him and doing his housework. Patient is known to have more confusion today. He states what is this idea about her race car. He thinks that he is leaving today. Patient is reoriented. Patient has been afebrile, heart rate 113, blood pressure 165/105, pulse ox 93% on room air. Patient's heart rate has been high despite starting Lopressor yesterday. Hydralazine added for blood pressure. Repeat blood work revealed creatinine of 2.6. Consult with nephrology will be added. Total bilirubin 0.9, AST 72, ALT 45, alkaline phosphatase 481. Albumin 2.4. CEA elevated at 19.2, vitamin B12 299. Uric acid 8.1 iron 51, TIBC 154, iron saturation 33, ferritin 13,654. Patient is eating very little. He is taking in some protein supplementation. Patient is more views from yesterday. CAT scan of the brain showed no acute abnormality. 06/28: Temperature max 100.7. Heart rate yesterday was running in the 140s to 150s with a blood pressure 147/97, pulse ox 92% on 2 L nasal cannula. He also had increasing confusion and lethargy. Patient was transferred into the intensive care unit and consult added for Dr. Fry. Tachycardia is improved today. Echocardiogram has been ordered. Blood cultures are showing no growth. Repeat blood work reveals WBC 6.2, hemoglobin 11.5, platelet count 230. He is currently on Zosyn and vancomycin. Patient has been seen by nephrology with plans to continue IV fluids, replace potassium and magnesium, encourage oral intake and monitor renal function and electrolytes. Repeat sodium 135, potassium 3.3, BUN 19 and creatinine 0.9. Alkaline phosphatase 395, AST 115. Patient has been seen by urology with recommendations to keep Bassett for 7 days and then trial void if creatinine is back to baseline and start Flomax 0.4 mg daily. MRI of the brain, VQ scan and echocardiogram have been ordered for today. 06/29: Patient sitting up in bed he continues to have significant bradycardia, he underwent an MRI of the brain essentially that showed no evidence of metastatic brain disease, he also had a VQ scan that showed intermediate probability for pulmonary embolism, he is seen already by pulmonary and critical care medicine, he remains intensive care unit, his appetite is better today, he continues to be extremely weak and fragile, we will continue monitor the patient very closely, patient was started on IV heparin for the possibility of pulmonary embolism, he would've the patient does appear to have a significant cachexia due to metastatic colon cancer everywhere except the brain, patient at this stage while in the hospital cannot tolerate any chemotherapy at this point in time in the form of FOLFOX, oncology is following, pulmonary and infectious disease , I had a long conversation with his [id number] and she elected to go for hospice care I discussed with his nurse that the patient is switched to no code at this point in time, and they are I believe interested in hospice care. Objective - Vital Signs Vital signs: Vital Signs Temp 98.1 F 06/29/20 12:00 Pulse 122 H 06/29/20 12:00 Resp 13 06/29/20 12:00 BP 147/90 06/29/20 12:00 Pulse Ox 94 L 06/29/20 12:00 Intake & Output 06/28/20 06/29/2020 18:59 06:59 18:59 Intake Total 2150 1825 1269.231 Output Total 1450 1015 400 Balance 700 810 869.231 Weight 65.9 kg Intake: IV 2150 1825 1100 NS @ 125 500 750 Piperacillin-Tazobactam 3 150 75 100 .375 gm In Sodium Chloride 0.9% 100 ml @ 25 mls/hr IVPB Q8HR [facility] Rx# :[id number] Sodium Chloride 0.9% 1, 1500 1000 000 ml @ 125 mls/hr IV . Q8H [facility] Rx#:[id number] Sodium Chloride 0.9% 250 250 ml @ 83 mls/hr IV .Q3H1M ONE with Pamidronate 30 mg Rx#:[id number] Vancomycin 1,250 mg In 250 250 250 Sodium Chloride 0.9% 250 ml @ 125 mls/hr IVPB Q12HR [facility] Rx#:[id number] Intake, IV Titration 169.231 Amount Heparin Sod,Pork in 0.45% 169.231 NaCl 25,000 unit In 0.45 % NaCl 1 250ml.bag @ 18 UNITS/KG/HR 11.862 mls/hr IV .Q21H5M [facility] Rx#: [id number] Output: Urine 1450 1015 400 Other: Voiding Method Toilet Toilet # Bowel Movements 1 - Exam - Exam Review of Systems Constitutional: Reports anorexia, Reports fatigue, Reports night sweats, Reports poor appetite, Reports sweats, Reports weakness Eyes: denies blurred vision, denies bulging eye, denies decreased vision Ears, nose, mouth and throat: Denies dysphagia, Denies neck lump, Denies swelling in throat, Denies sore throat Cardiovascular: Reports rapid heart beat, Denies chest pain, Denies decreased exercise tolerance, Denies dyspnea on exertion, Denies leg edema, Denies lightheadedness, Denies shortness of breath, Denies syncope Respiratory: Denies congestion, Denies cough, Denies cough with sputum, Denies home oxygen, Denies sleep apnea, Denies snoring, Denies wheezing Gastrointestinal: Reports abdominal pain, Reports early satiety, Reports indigestion, Reports loss of appetite, Reports nausea, Denies belching, Denies bloating, Denies BRBPR, Denies change in bowel habits, Denies coffee ground emesis, Denies heartburn, Denies hematemesis, Denies hematochezia, Denies jaundice, Denies melena, Denies vomiting Genitourinary: Denies dysuria, Denies nocturia, reported retention Musculoskeletal: Reports muscle weakness, Reports myalgias Musculoskeletal: absent: ankle pain, ankle stiffness, ankle swelling, elbow pain, elbow stiffness, elbow swelling, foot pain, foot stiffness, foot swelling, hand pain, hand stiffness, hand swelling, hip pain, hip stiffness, hip swelling, knee pain, knee stiffness, knee swelling, shoulder pain, shoulder stiffness, shoulder swelling, wrist pain, wrist stiffness, wrist swelling Integumentary: Denies pruritus, Denies rash Neurological: Denies numbness, Denies weakness, confusion and lethargy that's improving Psychiatric: Reports depression, Denies sadness/tearfulness, Denies sleep disturbances, Denies suicidal ideation Endocrine: Reports fatigue, Reports weight change Physical Examination HEENT: head is atraumatic normocephalic pupils were equal round reactive to light and accommodations extra ocular muscle movement were intact, conjunctivae were pale and sclera were mildly icteric, mucous membranes of the mouth are somewhat dry. Neck: supple no JVP. Chest: clear to auscultation bilaterally, there is no crackles or wheezes. Heart: first heart sound is normal , second heart sound is normal , tachycardic there is no gallop or murmur. Abdomen: there is no abdominal tenderness with minimal fullness, there is surgical scar that have healed, positive bowel sounds. Bassett catheter draining blood-tinged urine Extremities: there is no edema , no calf tenderness DP + 2 bilaterally. Neurologiic examination: patient is awake , alert and oriented to person. CN II-XII are grossly intact muscle power 4/5 in bilateral upper and lower extremity . - Labs CBC & Chem 7: 06/30/20 05:27 06/30/20 05:27 Labs: Abnormal Lab Results - Last 24 Hours (Table) 06/28/20 06/28/20 06/28/20 Range/Units 18:54 18:54 18:54 RBC 4.26 L (4.30-5.90) m/uL Hgb 10.9 L (13.0-17.5) gm/dL Hct 35.7 L (39.0-53.0) % MCHC 30.6 L (31.0-37.0) g/dL RDW 17.9 H (11.5-15.5) % Lymphocytes # (Manual) 0.43 L (1.0-4.8) k/uL Metamyelocytes # (Man) 0.06 H (0) k/uL Myelocytes # (Manual) 0.18 H (0) k/uL PT 12.7 H (9.0-12.0) sec INR 1.3 H (<1.2) APTT 31.2 H (22.0-30.0) sec Sodium (137-145) mmol/L Potassium 3.3 L (3.5-5.1) mmol/L Glucose (74-99) mg/dL Calcium (8.4-10.2) mg/dL AST (17-59) U/L Alkaline Phosphatase (38-126) U/L Total Protein (6.3-8.2) g/dL Albumin (3.5-5.0) g/dL 06/29/20 06/29/20 06/29/20 Range/Units 00:15 06:30 06:30 RBC 3.84 L (4.30-5.90) m/uL Hgb 10.3 L (13.0-17.5) gm/dL Hct 32.1 L (39.0-53.0) % MCHC (31.0-37.0) g/dL RDW 17.8 H (11.5-15.5) % Lymphocytes # (Manual) 0.22 L (1.0-4.8) k/uL Metamyelocytes # (Man) 0.17 H (0) k/uL Myelocytes # (Manual) 0.22 H (0) k/uL PT (9.0-12.0) sec INR (<1.2) APTT 48.9 H (22.0-30.0) sec Sodium 136 L (137-145) mmol/L Potassium 3.2 L (3.5-5.1) mmol/L Glucose 103 H (74-99) mg/dL Calcium 7.6 L (8.4-10.2) mg/dL AST 158 H (17-59) U/L Alkaline Phosphatase 356 H (38-126) U/L Total Protein 4.8 L (6.3-8.2) g/dL Albumin 2.0 L (3.5-5.0) g/dL 06/29/20 Range/Units 06:30 RBC (4.30-5.90) m/uL Hgb (13.0-17.5) gm/dL Hct (39.0-53.0) % MCHC (31.0-37.0) g/dL RDW (11.5-15.5) % Lymphocytes # (Manual) (1.0-4.8) k/uL Metamyelocytes # (Man) (0) k/uL Myelocytes # (Manual) (0) k/uL PT (9.0-12.0) sec INR (<1.2) APTT 41.7 H (22.0-30.0) sec Sodium (137-145) mmol/L Potassium (3.5-5.1) mmol/L Glucose (74-99) mg/dL Calcium (8.4-10.2) mg/dL AST (17-59) U/L Alkaline Phosphatase (38-126) U/L Total Protein (6.3-8.2) g/dL Albumin (3.5-5.0) g/dL Microbiology - Last 24 Hours (Table) 06/27/20 17:43 Blood Culture - Preliminary Blood No Growth after 24 hours 06/25/20 14:51 Blood Culture - Preliminary Blood No Growth after 72 hours 06/26/20 12:19 Blood Culture - Preliminary Blood No Growth after 48 hours Assessment and Plan Assessment: Assessment and Plan Plan: 1. Acute kidney injury due to acute tubular necrosis and poor oral intake along with hydronephrosis and bilateral hydroureter due to outflow obstruction with hypercalcemia. Improved his creatinine is back to 0.9 after the Bassett catheter has been inserted. 2. Possible Mediport infection ruled out. Blood cultures are negative so far patient will be maintained on Zosyn he was taken off precautions 15 3. Hyponatremia due to hypovolemia. Resolved. 4. 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 Patient appeared to be extremity cachectic with a BMI of 18.4, he is not able to receive any FOLFOX at this point until he is better 5. Gallstones with biliary dyskinesia. Appears his stated this time 6. History of kidney stones with bilateral hydronephrosis and hydroureter. It improved after the patient had a Bassett catheter placement 7. Sinus tachycardia due to poor oral intake of fluid and systemic inflammatory response syndrome even though there is no quite evidence of sepsis, possible pulmonary embolus him, continue IV heparin, continue metoprolol 25 mg orally twice every day 8. Severe protein calorie malnutrition with poor oral intake, lack of appetite, BMI of 18. Consult with dietitian appreciated. Continue Ensure 3 times daily along with diet. 9. Metabolic encephalopathy secondary to hypercalcemia. Improved with Aredia . 10. Hypercalcemia secondary to dehydration and metastatic disease to the bones. Improved with Aredia per 11. Bilateral hydronephrosis. Consult with urology. Continue Bassett catheter. 12. Urinary retention. Bassett catheter placed, consult with urology. Maintain Bassett catheter for 7 days and then voiding trial. Flomax 0.4 mg daily 13. Hypertension. Patient started on amlodipine 10 mg orally once every day as well as metoprolol 25 mg orally twice every day. 14. Prognosis should be changed to DNI. 15. Very poor prognosis likely hospice tomorrow morning.,
[2020-06-30] MEDS: VANCOMYCIN 1,250 MG in SODIUM CHLORIDE 0.9% 250 ML IVPB SCH (10:50)
--- NOTE | 2020-06-30 12:29 | P.PN ---
Subjective Progress Note Date: 06/30/20 49-year-old white male patient of Dr. Mendoza, with recently diagnosed invasive a denocarcinoma, status post exploratory laparotomy, right hemicolectomy, resection of a omental mass, with partial mucinous features measuring 4.5 x 4 cm with microscopic serosal perforation and 17 out of 20 pericolic with lymph node involvement. Patient was initially treated and worked up at the [facility] where he was admitted on 04/15/2020 with complaints of progressive abdominal pain in the right mid to upper abdomen and epigastrium. Apparently patient's symptoms of abdominal discomfort has been ongoing since December however patient had been putting off medical attention related to ongoing coronavirus epidemic and related to low intensity of the symptoms. CT chest from April 2020 did not show any evidence of pulmonary masses, MRI from 04/22/2020 apparently showed multiple round T2 hyperintense lesions all subcentimeter in size without suspicious nodularity. Following his surgery patient had another readmission in April when she developed right-sided abdominal pain and right lower quadrant abscess as evidenced on the computed tomography scan of the abdomen and pelvis that required placement of a drainage tube, PICC line and IV antibiotics. Follow-up CT on 05/21/2020 showed marked decrease in size of the fluid collection with enlarged retroperitoneal nodes is similar to the prior computed tomography scan. Patient was referred to medical oncology following his discharge in regards to newly diagnosed adenocarcinoma of the colon. His PET scan showed widespread metastatic disease involving left supraclavicular, mediastinal, retroperitoneal and mesenteric nodes, left adrenal, as well as multiple osseous sites especially in the lumbar spine. There was also uptake in the liver lesion. Patient had palliative radiation to the spine with Dr. Levy in May, systemic therapy was recommended however the patient and family wanted to seek second opinion at the [facility], causing a delay in the start of treatment and declined to his overall condition. Patient came into the hospital on 06/25/2022 the emergency department with complaints of feeling feverish, nauseous, weak, having palpitations, feeling very thirsty, and having muscle cramps. Patient confused. The patient's initial hypercalcemia with a calcium level of comfort far. The patient was in acute kidney injury. Creatinine was 1.6 recovered with pressure and subsequently creatinine came up to 2.6 of the patient developed significant obstructive uropathy. CAT scan of the abdomen was done and it showed marked distention of the urinary bladder with moderate right hydronephrosis of marked left hydronephrosis. There was no evidence of the stones. There is evidence of bladder distention. Bassett cath was inserted by severe depression produce approximately 1.8 L of urinary output immediately. At this point in time, the patient is slow in answering questions. He is lethargic. He is confused. He is tachycardic with a heart rate of 150. He did not have any fever or rec urrence temperature is 100.7. Pulse ox is 95% 40 suboptimal nasal cannula. No Abdominal pain. Port site over the right anterior chest area of blackened and intact. on 06/28/2020, the patient is awake and doesn't seem to be confused on today's evaluation. His tachycardia is improved and his heart rate is still in sinus between 110 and 120. He did have a spike of temperature yesterday and none since. His cultures of been all negative. He is on room air oxygen.no nausea. No vomiting. No abdominal pain. His white cell count is at 6.2 with hemoglobin 11.5. Platelets of 230.the electrolytes are all within normal limits. The potassium needs to be replaced. LFTs are abnormal as the patient has hepatic metastases. Vancomycin trough was at 9.3. The patient is on examination Zosyn and vancomycin. No other new complaints otherwise for now. 06/29/2020, the patient is doing poorly. He is extremely lethargic. He is hard to communicate with. At times is confused. He speaks only a few sentences. He speaks only a few words. He remains tachycardic. Oncology started him on IV heparin. He is on broad-spectrum antibiotic with accommodation of Zosyn and vancomycin. All of his cultures are negative. The patient is not eating. He is extremely debilitated and emaciated. His BMI 20.3. He has some vague abdominal discomfort. Nausea. No vomiting. No emesis. Profoundly weak in all 4 extremities.no much improvement over the past 24 hours. White cell count remains at 5.6. Platelets of 217.breasts of the blood work and electrodes are all within normal limits. Creatinine 0.69.LFTs are abnormal as the patient has hepatic metastases. 06/30/2020, the patient is doing essentially the same. Still tachycardic. Any weak. Confused. We may very poor baseline performance and functional status. Not candidate in my opinion for any further treatment terms of his Malignancy. Family is contemplating hospice. All of the cultures are negative. The patient was placed on IV heparin. Objective - Vital Signs Vital signs: Vital Signs Temp 98.6 F 06/30/20 08:00 Pulse 115 H 06/30/20 11:00 Resp 16 06/30/20 11:00 BP 131/97 06/30/20 11:00 Pulse Ox 93 L 06/30/20 11:00 Intake & Output 06/29/20 06/30/20 06/30/20 18:59 06:59 18:59 Intake Total 2124.367 1500 975 Output Total 1040 1650 720 Balance 1084.367 -150 255 Weight 70.2 kg Intake: IV 1900 1500 975 NS @ 125 1500 1500 625 Piperacillin-Tazobactam 3 100 100 .375 gm In Sodium Chloride 0.9% 100 ml @ 25 mls/hr IVPB Q8HR MATTY Rx# :[id number] Vancomycin 1,250 mg In 300 250 Sodium Chloride 0.9% 250 ml @ 125 mls/hr IVPB Q12HR MATTY Rx#:[id number] Intake, IV Titration 224.367 Amount Heparin Sod,Pork in 0.45% 224.367 NaCl 25,000 unit In 0.45 % NaCl 1 250ml.bag @ 18 UNITS/KG/HR 11.862 mls/hr IV .[id number] MATTY Rx#: [id number] Output: Urine 1040 1650 720 Other: Voiding Method Toilet Toilet Toilet - Exam General appearance the patient is lethargic, has generalized weakness, not confused on today's evaluation, occasionally confused, currently on 4 L of oxygen by nasal cannula Head is atraumatic normocephalic. Neck is supple and there is no JVDs no no goiter or neck masses Chest: clear to auscultation bilaterally, there is no crackles or wheezes. Heart: first heart sound is normal , second heart sound is normal , tachycardic there is no gallop or murmur. Abdomen: there is mild abdominal tenderness with minimal fullness, there is surgical scar that have healed, positive bowel sounds. Extremities: there is no edema , no calf tenderness DP + 2 bilaterally. Neurologiic examination: patient is awake , alert and oriented X 3 CN II-XII are grossly intact muscle power 4/5 in bilateral upper and lower extremity .note that his mental status is altered occasionally and he is intermittently confused. He has significant motor weakness in all 4 extremities. - Labs CBC & Chem 7: 06/30/20 05:27 06/30/20 05:27 Labs: Abnormal Lab Results - Last 24 Hours (Table) 06/29/20 06/30/20 06/30/20 Range/Units 17:39 05:27 05:27 RBC 3.72 L (4.30-5.90) m/uL Hgb 10.1 L (13.0-17.5) gm/dL Hct 31.5 L (39.0-53.0) % RDW 17.6 H (11.5-15.5) % Lymphocytes # 0.3 L (1.0-4.8) k/uL APTT 42.0 H 44.2 H (22.0-30.0) sec Sodium (137-145) mmol/L Potassium (3.5-5.1) mmol/L Creatinine (0.66-1.25) mg/dL Calcium (8.4-10.2) mg/dL 06/30/20 Range/Units 05:27 RBC (4.30-5.90) m/uL Hgb (13.0-17.5) gm/dL Hct (39.0-53.0) % RDW (11.5-15.5) % Lymphocytes # (1.0-4.8) k/uL APTT (22.0-30.0) sec Sodium 134 L (137-145) mmol/L Potassium 3.1 L (3.5-5.1) mmol/L Creatinine 0.65 L (0.66-1.25) mg/dL Calcium 7.3 L (8.4-10.2) mg/dL Microbiology - Last 24 Hours (Table) 06/27/20 17:43 Blood Culture - Preliminary Blood No Growth after 48 hours 06/25/20 14:51 Blood Culture - Preliminary Blood No Growth after 96 hours 06/26/20 12:19 Blood Culture - Preliminary Blood No Growth after 72 hours Assessment and Plan Plan: 1 metastatic adenocarcinoma post colectomy with end-to-end anastomosis, post radiation therapy. Skeletal metastases, currently not receiving any treatment awaiting further input from [facility] regarding clinical trials. the patient's malignancy is quite extensive and the patient has extensive metastases as mentioned. The patienthas pulmonary metastases, liver metastases and skeletal metastases. His performance and functional status is given progressively worse. I'm not sure is going to be a candidate for any further treatment in the future. He is already intake is minimal. Seems to be quite depressed. Seems to be quite debilitated. 2 acute tachycardia with low-grade fevers, consider underlying early infection/sepsis.note that the patient's tachycardia is improved compared to yesterday. He is in sinus tachycardia. Pulmonary embolism is felt to be doubtful. Tachycardia is most likely related to underlying systemic inflammatory response syndrome/sepsis.oncology saw the patient start the patient IV heparin. Pulmonary embolism is doubtful. 3 acute kidney injury due to obstructive uropathy. The patient's significant hydronephrosis bilaterally and distended bladder and the renal function improved and normalized following a Bassett catheter insertion. There was obviously a component of obstructive uropathy and the patient was started on Flomax. Creatinine is down to 0. 6 4 abnormal LFTs, likely secondary to liver metastases 5 pulmonary metastases with several thyroid nodules scattered bilaterally also seen on previous PET/CT 6 sinus tachycardia, secondary to above 7 enlargement and weight loss and a BMI of 18.4 8 generalized weakness and confusion secondary to above 9 Hypercalcemia secondary to skeletal metastases of the patient was treated with fluids and Aridia Plan condition is extremely debilitated. Condition is unchanged. Continue current treatment. Establish goals of treatment and possible hospice today
--- NOTE | 2020-06-30 12:39 | P.PN ---
Subjective Progress Note Date: 06/30/20 This is a 49 year old male with a previous medical history significant for kidney stones and cholelithiasis, was inititially complaining of increased abdominal pain in the right upper quadrant and had US of the abdomen that showed cholelithiasis, this was followed with HIDA scan that showed biliary dyskinesis and was referred to have Lap-Jocelyn with that week he developed to have increased abdominal pain with significant nausea and vomiting and he presented to [facility] with bowel obstruction picture, he underwent CT scan of the abdomen and pelvis that showed a large cecal mass suggestive of colon cancer, he underwent right colectomy with end to end anastomosis and then he developed to have a pelvic Abscess that was treated with transcutaneous drain and IV antibiotics through a PICC line for 4 weeks which he has done, he was then seen by Hem-Onc Toma Mars and underwent a battery of testing including PET c that showed metastatic disease, he has then had a Mediprot placed recently by and was seen today by TUBE TURNER at Dr. Chua 's office to discuss further jeniffer tment options and possibly a referral to a phase 3 trial at the [facility] [place], patient was extremely weak and tachycardic and there was a suspicion for possible Mediport infection so he was referred to the ER , he did receive 2 L of Normal saline his heart rate was 16o with sinus tachycardia and he is down to 115 , blood cultures were obtained and he was started on Vancomycin and Zosyn and ID consult was obtained along with surgical consult. 06/26: Patient has been seen by Dr. Hollis does not feel that there is infection of the Mediport site. Patient was also noted to have transaminitis and elevated bilirubin possibly associated with metastatic disease or documented cholelithiasis. No plan for surgical intervention for gallbladder disease at this time based on patient's medical history and asymptomatic presentation. Patient has been afebrile, heart rate 131/86, pulse ox 92% on 2 L nasal cannula. Heart rate has been elevated up to 140 with activity and 110-120 at rest. Low dose Lopressor added at 12.5 mg twice daily and subsequently increased to 25 mg twice daily. Repeat blood work reveals WBC 5.2, hemoglobin 10.9, platelet count 197. Electrolytes normal, BUN 36, creatinine 1.6. Total bilirubin 0.9, AST 72, ALT 64, alkaline phosphatase 424. Repeat lactic acid 1.0. Patient is currently on IV antibiotics in the form of Zosyn and vancomycin. Oncology consult added. Patient was to start chemotherapy. Consult in place for Dr. Menjivar. Blood culture is status post received. Patient is eating very little and has been seen by dietitian and Ensure [address] in place. Oncology has ordered Aredia, patient is on IV fluids 150 mL per hour. Of the brain has been ordered. CEA, ferritin, iron profile, uric acid, methylmalonic acid, B12 are pending. 06/27: CAT scan of the abdomen pelvis without contrast revealed markedly distended urinary bladder with moderate right hydronephrosis and mild left hydronephrosis with bilateral hydroureter. Nonobstructing renal stones are identified. Etiology of hydroureter and hydronephrosis may be related to distended urinary bladder. Scattered abdominal adenopathy. No suspicious abnormality to suggest abscess. Patchy infiltrates at the lung bases and small bilateral pleural effusions. Infectious etiologies should be considered. Consider atypical pneumonia. Consult with urology added for hydronephrosis. Patient has been seen by Dr. Menjivar and vancomycin has been discontinued. Patient is currently on Zosyn. Bassett catheter was placed today with removal of 1600 ML's. Patient's aunt is at the bedside and she states she has been going to his house feeding him and doing his housework. Patient is known to have more confusion today. He states what is this idea about her race car. He thinks that he is leaving today. Patient is reoriented. Patient has been afebrile, heart rate 113, blood pressure 165/105, pulse ox 93% on room air. Patient's heart rate has been high despite starting Lopressor yesterday. Hydralazine added for blood pressure. Repeat blood work revealed creatinine of 2.6. Consult with nephrology will be added. Total bilirubin 0.9, AST 72, ALT 45, alkaline phosphatase 481. Albumin 2.4. CEA elevated at 19.2, vitamin B12 299. Uric acid 8.1 iron 51, TIBC 154, iron saturation 33, ferritin 13,654. Patient is eating very little. He is taking in some protein supplementation. Patient is more views from yesterday. CAT scan of the brain showed no acute abnormality. 06/28: Temperature max 100.7. Heart rate yesterday was running in the 140s to 150s with a blood pressure 147/97, pulse ox 92% on 2 L nasal cannula. He also had increasing confusion and lethargy. Patient was transferred into the intensive care unit and consult added for Dr. Fry. Tachycardia is improved today. Echocardiogram has been ordered. Blood cultures are showing no growth. Repeat blood work reveals WBC 6.2, hemoglobin 11.5, platelet count 230. He is currently on Zosyn and vancomycin. Patient has been seen by nephrology with plans to continue IV fluids, replace potassium and magnesium, encourage oral intake and monitor renal function and electrolytes. Repeat sodium 135, potassium 3.3, BUN 19 and creatinine 0.9. Alkaline phosphatase 395, AST 115. Patient has been seen by urology with recommendations to keep Bassett for 7 days and then trial void if creatinine is back to baseline and start Flomax 0.4 mg daily. MRI of the brain, VQ scan and echocardiogram have been ordered for today. 06/29: Patient sitting up in bed he continues to have significant bradycardia, he underwent an MRI of the brain essentially that showed no evidence of metastatic brain disease, he also had a VQ scan that showed intermediate probability for pulmonary embolism, he is seen already by pulmonary and critical care medicine, he remains intensive care unit, his appetite is better today, he continues to be extremely weak and fragile, we will continue monitor the patient very closely, patient was started on IV heparin for the possibility of pulmonary embolism, he would've the patient does appear to have a significant cachexia due to metastatic colon cancer everywhere except the brain, patient at this stage while in the hospital cannot tolerate any chemotherapy at this point in time in the form of FOLFOX, oncology is following, pulmonary and infectious disease , I had a long conversation with his [id number] and she elected to go for hospice care I discussed with his nurse that the patient is switched to no code at this point in time, and they are I believe interested in hospice care. 06/30: Patient sitting up in bed is more awake and more alert today his less tachycardic his heart rhythm is 104-106, he denies any chest pain is less short of breath, he is currently on heparin drip, he has no coughing or hemoptysis, he has no abdominal pain, nausea or vomiting is eating a bit better today, he is more awake and alert after long conversation with the patient he decided not to go for hospice care at this point in time and he wanted to try chemotherapy, we'll continue current medical plan and we will call oncology again for the possibility of chemotherapy at this point in time, I spoke with his [id number] who spend quite a bit of time with him yesterday and he is not ready for hospice at this point in time, please cancel hospice referral and and so the transferred to the hospice home today. Objective - Vital Signs Vital signs: Vital Signs Temp 98.6 F 06/30/20 08:00 Pulse 115 H 06/30/20 11:00 Resp 16 06/30/20 11:00 BP 131/97 06/30/20 11:00 Pulse Ox 93 L 06/30/20 11:00 Intake & Output 06/29/20 06/30/20 06/30/20 18:59 06:59 18:59 Intake Total 2124.367 1500 1225 Output Total 1040 1650 920 Balance 1084.367 -150 305 Weight 70.2 kg Intake: IV 1900 1500 1100 NS @ 125 1500 1500 750 Piperacillin-Tazobactam 3 100 100 .375 gm In Sodium Chloride 0.9% 100 ml @ 25 mls/hr IVPB Q8HR MATTY Rx# :[id number] Vancomycin 1,250 mg In 300 250 Sodium Chloride 0.9% 250 ml @ 125 mls/hr IVPB Q12HR MATTY Rx#:[id number] Intake, IV Titration 224.367 Amount Heparin Sod,Pork in 0.45% 224.367 NaCl 25,000 unit In 0.45 % NaCl 1 250ml.bag @ 18 UNITS/KG/HR 11.862 mls/hr IV .Q21H5M COUNT INCLUDES THE [facility] Rx#: [id number] Oral 125 Output: Urine 1040 1650 920 Other: Voiding Method Toilet Toilet Toilet - Exam - Exam Review of Systems Constitutional: Reports anorexia, Reports fatigue, Reports night sweats, Reports poor appetite, Reports sweats, Reports weakness Eyes: denies blurred vision, denies bulging eye, denies decreased vision Ears, nose, mouth and throat: Denies dysphagia, Denies neck lump, Denies sw elling in throat, Denies sore throat Cardiovascular: Reports rapid heart beat, Denies chest pain, Denies decreased exercise tolerance, Denies dyspnea on exertion, Denies leg edema, Denies lightheadedness, Denies shortness of breath, Denies syncope Respiratory: Denies congestion, Denies cough, Denies cough with sputum, Denies home oxygen, Denies sleep apnea, Denies snoring, Denies wheezing Gastrointestinal: Reports abdominal pain, Reports early satiety, Reports indigestion, Reports loss of appetite, Reports nausea, Denies belching, Denies bloating, Denies BRBPR, Denies change in bowel habits, Denies coffee ground emesis, Denies heartburn, Denies hematemesis, Denies hematochezia, Denies jaundice, Denies melena, Denies vomiting Genitourinary: Denies dysuria, Denies nocturia, reported retention Musculoskeletal: Reports muscle weakness, Reports myalgias Musculoskeletal: absent: ankle pain, ankle stiffness, ankle swelling, elbow pain, elbow stiffness, elbow swelling, foot pain, foot stiffness, foot swelling, hand pain, hand stiffness, hand swelling, hip pain, hip stiffness, hip swelling, knee pain, knee stiffness, knee swelling, shoulder pain, shoulder stiffness, shoulder swelling, wrist pain, wrist stiffness, wrist swelling Integumentary: Denies pruritus, Denies rash Neurological: Denies numbness, Denies weakness, confusion and lethargy that's improving Psychiatric: Reports depression, Denies sadness/tearfulness, Denies sleep disturbances, Denies suicidal ideation Endocrine: Reports fatigue, Reports weight change Physical Examination HEENT: head is atraumatic normocephalic pupils were equal round reactive to light and accommodations extra ocular muscle movement were intact, conjunctivae were pale and sclera were mildly icteric, mucous membranes of the mouth are somewhat dry. Neck: supple no JVP. Chest: clear to auscultation bilaterally, there is no crackles or wheezes. Heart: first heart sound is normal , second heart sound is normal , tachycardic there is no gallop or murmur. Abdomen: there is no abdominal tenderness with minimal fullness, there is surgical scar that have healed, positive bowel sounds. Bassett catheter draining blood-tinged urine Extremities: there is no edema , no calf tenderness DP + 2 bilaterally. Neurologiic examination: patient is awake , alert and oriented to person. CN II-XII are grossly intact muscle power 4/5 in bilateral upper and lower extremity . - Labs CBC & Chem 7: 06/30/20 05:27 06/30/20 05:27 Labs: Abnormal Lab Results - Last 24 Hours (Table) 06/29/20 06/30/20 06/30/20 Range/Units 17:39 05:27 05:27 RBC 3.72 L (4.30-5.90) m/uL Hgb 10.1 L (13.0-17.5) gm/dL Hct 31.5 L (39.0-53.0) % RDW 17.6 H (11.5-15.5) % Lymphocytes # 0.3 L (1.0-4.8) k/uL APTT 42.0 H 44.2 H (22.0-30.0) sec Sodium (137-145) mmol/L Potassium (3.5-5.1) mmol/L Creatinine (0.66-1.25) mg/dL Calcium (8.4-10.2) mg/dL 06/30/20 Range/Units 05:27 RBC (4.30-5.90) m/uL Hgb (13.0-17.5) gm/dL Hct (39.0-53.0) % RDW (11.5-15.5) % Lymphocytes # (1.0-4.8) k/uL APTT (22.0-30.0) sec Sodium 134 L (137-145) mmol/L Potassium 3.1 L (3.5-5.1) mmol/L Creatinine 0.65 L (0.66-1.25) mg/dL Calcium 7.3 L (8.4-10.2) mg/dL Microbiology - Last 24 Hours (Table) 06/27/20 17:43 Blood Culture - Preliminary Blood No Growth after 48 hours 06/25/20 14:51 Blood Culture - Preliminary Blood No Growth after 96 hours 06/26/20 12:19 Blood Culture - Preliminary Blood No Growth after 72 hours Assessment and Plan Assessment: Assessment and Plan Plan: 1. Acute kidney injury due to acute tubular necrosis and poor oral intake along with hydronephrosis and bilateral hydroureter due to outflow obstruction with hypercalcemia. Improved his creatinine is back to 0.9 after the Bassett catheter has been inserted. 2. Possible Mediport infection ruled out. Blood cultures are negative so far patient will be maintained on Zosyn he was taken off precautions 15 3. Hyponatremia due to hypovolemia. Resolved. 4. 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 Patient appeared to be extremity cachectic with a BMI of 18.4, he is not able to receive any FOLFOX at this point until he is better 5. Gallstones with biliary dyskinesia. Appears his stated this time 6. History of kidney stones with bilateral hydronephrosis and hydroureter. It improved after the patient had a Bassett catheter placement 7. Sinus tachycardia due to poor oral intake of fluid and systemic inflammatory response syndrome even though there is no quite evidence of sepsis, possible pulmonary embolus him, continue IV heparin, continue metoprolol 25 mg orally twice every day 8. Severe protein calorie malnutrition with poor oral intake, lack of appetite, BMI of 18. Consult with dietitian appreciated. Continue Ensure 3 times daily along with diet. 9. Metabolic encephalopathy secondary to hypercalcemia. Improved with Aredia . 10. Hypercalcemia secondary to dehydration and metastatic disease to the bones. Improved with Aredia per 11. Bilateral hydronephrosis. Consult with urology. Continue Bassett catheter. 12. Urinary retention. Bassett catheter placed, consult with urology. Maintain Bassett catheter for 7 days and then voiding trial. Flomax 0.4 mg daily 13. Hypertension. Patient started on amlodipine 10 mg orally once every day as well as metoprolol 25 mg orally twice every day. 14. Prognosis should be changed to DNI. 15. Very poor prognosis , patient is likely is going for chemotherapy we will reconsult oncology.
--- NOTE | 2020-06-30 16:19 | PN ---
PROGRESS NOTE DATE OF SERVICE: 06/30/2020 REASON FOR FOLLOWUP: Fever. INTERVAL HISTORY: Patient is currently more awake and alert. The patient is breathing comfortably. Patient denies having any chest pain. Breathing has improved. No nausea, no vomiting. No abdominal pain or diarrhea. PHYSICAL EXAMINATION: Blood pressure 131/97 with a pulse of 115, temperature 98.6. General description is a young male lying in bed in no distress. Respiratory system: Unlabored breathing, decreased breath sounds in the base, with some wheeze. Heart S1, S2. Regular rate and rhythm. ABDOMEN: Soft, no tenderness. EXTREMITIES: No edema of the feet. The MediPort site looks clean. DIAGNOSTIC IMPRESSION AND PLAN: 1. Patient admitted to the hospital with weakness and fever with concern for possible port infection which has been ruled out by negative blood cultures. No significant cellulitis has been noticed. Recommend discontinue vancomycin to decrease risk of nephrotoxicity. 2. Patient to continue with Zosyn. Waiting for his condition to stabilize. Monitor clinical course closely. MMODL / IJN: [id number] /
[2020-06-30] MEDS: HEPARIN SOD,PORK IN 0.45% NACL 25,000 UNIT in 0.45% NACL 1 250ML.BAG IV SCH ×2 (19:54→23:52)
[2020-06-30] MEDS ORDERED: VANCOMYCIN TROUGH DUE 1 EACH MISC MISCELLANE ONE (20:00)
[2020-06-30 22:11] LABS: Magnesium 1.4 mg/dL (1.6-2.3); Potassium 3.3 mmol/L (3.5-5.1)
[2020-06-30] MEDS ORDERED: Magnesium Replacement Protocol 1 EACH MISC MISCELLANE PRN (22:44)
[2020-06-30] MEDS: MAGNESIUM SULFATE-D5W PMX 1 GM in DEXTROSE/WATER 1 100ML.BAG IVPB SCH ×2 (23:05→23:51)
[2020-07-01] MEDS: MAGNESIUM SULFATE-D5W PMX 1 GM in DEXTROSE/WATER 1 100ML.BAG IVPB SCH (01:11)
[2020-07-01] MEDS: MORPHINE SULFATE 4 MG/ML SYRINGE IVP PRN ×4 (04:16→20:54)
[2020-07-01] MEDS: SODIUM CHLORIDE 0.9% 1,000 ML IV SCH ×3 (04:17→17:22)
[2020-07-01 06:57] LABS: African American GFR (CKD) >90 (>60 ml/min/1.73 sqM); Anion Gap 3 mmol/L; Blood Urea Nitrogen 6 mg/dL (9-20); Calcium 7.3 mg/dL (8.4-10.2); Carbon Dioxide 26 mmol/L (22-30); Chloride 105 mmol/L (98-107); Glucose 91 mg/dL (74-99); Magnesium 1.9 mg/dL (1.6-2.3); Non-African American GFR(CKD) >90 (>60 ml/min/1.73 sqM); Potassium 3.6 mmol/L (3.5-5.1); Sodium 134 mmol/L (137-145)
[2020-07-01 07:17] LABS: Anisocytosis Slight; HGB 10.3 gm/dL (13.0-17.5); Hypochromasia Slight; MCHC 31.3 g/dL (31.0-37.0); MCV 83.1 fL (80.0-100.0); Mean Platelet Volume 7.1; Microcytosis Slight; Platelet Count 210 k/uL (150-450); Poikilocytosis Slight; RBC 3.97 m/uL (4.30-5.90); RDW 17.7 % (11.5-15.5); WBC 7.3 k/uL (3.8-10.6)
[2020-07-01] MEDS: HEPARIN SODIUM,PORCINE 5,000 UNIT/ML 1 ML VIAL IV PRN (07:58)
[2020-07-01 08:30] LABS: Band Neutrophils % 3 %; Eosinophils # (M) 0.29 k/uL (0-0.7); Lymphocytes # (M) 0.15 k/uL (1.0-4.8); Metamyelocytes # (M) 0.07 k/uL (0); Metamyelocytes % 1 %; Monocytes # (M) 0.15 k/uL (0-1.0); Myelocytes # (M) 0.07 k/uL (0); Myelocytes % 1 %; Neutrophils % (M) 87 %; Nucleated Red Blood Cells 0 /100 WBC (0-0); Total Cells Counted 200; Toxic Granulation Present
[2020-07-01] MEDS: PIPERACILLIN-TAZOBACTAM 3.375 GM in SODIUM CHLORIDE 0.9% 100 ML IVPB SCH ×2 (09:03→16:34)
[2020-07-01] MEDS: PANTOPRAZOLE 40 MG/10 ML VIAL IV SCH (09:10)
[2020-07-01] MEDS: METOPROLOL TARTRATE 25 MG TAB PO SCH ×2 (09:19→20:55)
[2020-07-01] MEDS: amLODIPine 10 MG TAB PO SCH (09:19)
[2020-07-01] MEDS: TAMSULOSIN 0.4 MG CAP.ER.24H PO SCH (09:19)
[2020-07-01 11:22] VITALS: BMI 21.2
[2020-07-01] MEDS ORDERED: Potassium Replacement Protocol 1 EACH MISC MISCELLANE PRN ×2 (12:34→21:50)
--- NOTE | 2020-07-01 12:34 | P.PN ---
Subjective Progress Note Date: 07/01/20 This is a 49 year old male with a previous medical history significant for kidney stones and cholelithiasis, was inititially complaining of increased abdominal pain in the right upper quadrant and had US of the abdomen that showed cholelithiasis, this was followed with HIDA scan that showed biliary dyskinesis and was referred to have Lap-Jocelyn with that week he developed to have increased abdominal pain with significant nausea and vomiting and he [facility] with bowel obstruction picture, he underwent CT scan of the abdomen and pelvis that showed a large cecal mass suggestive of colon cancer, he underwent right colectomy with end to end anastomosis and then he developed to have a pelvic Abscess that was treated with transcutaneous drain and IV antibiotics through a PICC line for 4 weeks which he has done, he was then seen by Hem-Onc Toma Mars and underwent a battery of testing including PET c that showed metastatic disease, he has then had a Mediprot placed recently by and was seen today by IRRIGATION INSTALLATION SPECIALIST at Dr. Chua 's office to discuss further jeniffer tment options and possibly a referral to a phase 3 trial at the [facility], patient was extremely weak and tachycardic and there was a suspicion for possible Mediport infection so he was referred to the ER , he did receive 2 L of Normal saline his heart rate was 16o with sinus tachycardia and he is down to 115 , blood cultures were obtained and he was started on Vancomycin and Zosyn and ID consult was obtained along with surgical consult. 06/26: Patient has been seen by Dr. Hollis does not feel that there is infection of the Mediport site. Patient was also noted to have transaminitis and elevated bilirubin possibly associated with metastatic disease or documented cholelithiasis. No plan for surgical intervention for gallbladder disease at this time based on patient's medical history and asymptomatic presentation. Patient has been afebrile, heart rate 131/86, pulse ox 92% on 2 L nasal cannula. Heart rate has been elevated up to 140 with activity and 110-120 at rest. Low dose Lopressor added at 12.5 mg twice daily and subsequently increased to 25 mg twice daily. Repeat blood work reveals WBC 5.2, hemoglobin 10.9, platelet count 197. Electrolytes normal, BUN 36, creatinine 1.6. Total bilirubin 0.9, AST 72, ALT 64, alkaline phosphatase 424. Repeat lactic acid 1.0. Patient is currently on IV antibiotics in the form of Zosyn and vancomycin. Oncology consult added. Patient was to start chemotherapy. Consult in place for Dr. Menjivar. Blood culture is status post received. Patient is eating very little and has been seen by dietitian and Ensure [address] in [address]. Oncology has ordered Aredia, patient is on IV fluids 150 mL per hour. Of the brain has been ordered. CEA, ferritin, iron profile, uric acid, methylmalonic acid, B12 are pending. 06/27: CAT scan of the abdomen pelvis without contrast revealed markedly distended urinary bladder with moderate right hydronephrosis and mild left hydronephrosis with bilateral hydroureter. Nonobstructing renal stones are identified. Etiology of hydroureter and hydronephrosis may be related to distended urinary bladder. Scattered abdominal adenopathy. No suspicious abnormality to suggest abscess. Patchy infiltrates at the lung bases and small bilateral pleural effusions. Infectious etiologies should be considered. Consider atypical pneumonia. Consult with urology added for hydronephrosis. Patient has been seen by Dr. Menjivar and vancomycin has been discontinued. Patient is currently on Zosyn. Bassett catheter was placed today with removal of 1600 ML's. Patient's aunt is at the bedside and she states she has been going to his house feeding him and doing his housework. Patient is known to have more confusion today. He states what is this idea about her race car. He thinks that he is leaving today. Patient is reoriented. Patient has been afebrile, heart rate 113, blood pressure 165/105, pulse ox 93% on room air. Patient's heart rate has been high despite starting Lopressor yesterday. Hydralazine added for blood pressure. Repeat blood work revealed creatinine of 2.6. Consult with nephrology will be added. Total bilirubin 0.9, AST 72, ALT 45, alkaline phosphatase 481. Albumin 2.4. CEA elevated at 19.2, vitamin B12 299. Uric acid 8.1 iron 51, TIBC 154, iron saturation 33, ferritin 13,654. Patient is eating very little. He is taking in some protein supplementation. Patient is more views from yesterday. CAT scan of the brain showed no acute abnormality. 06/28: Temperature max 100.7. Heart rate yesterday was running in the 140s to 150s with a blood pressure 147/97, pulse ox 92% on 2 L nasal cannula. He also had increasing confusion and lethargy. Patient was transferred into the intensive care unit and consult added for Dr. Fry. Tachycardia is improved today. Echocardiogram has been ordered. Blood cultures are showing no growth. Repeat blood work reveals WBC 6.2, hemoglobin 11.5, platelet count 230. He is currently on Zosyn and vancomycin. Patient has been seen by nephrology with plans to continue IV fluids, replace potassium and magnesium, encourage oral intake and monitor renal function and electrolytes. Repeat sodium 135, potassium 3.3, BUN 19 and creatinine 0.9. Alkaline phosphatase 395, AST 115. Patient has been seen by urology with recommendations to keep Bassett for 7 days and then trial void if creatinine is back to baseline and start Flomax 0.4 mg daily. MRI of the brain, VQ scan and echocardiogram have been ordered for today. 06/29: Patient sitting up in bed he continues to have significant bradycardia, he underwent an MRI of the brain essentially that showed no evidence of metastatic brain disease, he also had a VQ scan that showed intermediate probability for pulmonary embolism, he is seen already by pulmonary and critical care medicine, he remains intensive care unit, his appetite is better today, he continues to be extremely weak and fragile, we will continue monitor the patient very closely, patient was started on IV heparin for the possibility of pulmonary embolism, he would've the patient does appear to have a significant cachexia due to metastatic colon cancer everywhere except the brain, patient at this stage while in the hospital cannot tolerate any chemotherapy at this point in time in the form of FOLFOX, oncology is following, pulmonary and infectious disease , I had a long conversation with his [id number] and she elected to go for hospice care I discussed with his nurse that the patient is switched to no code at this point in time, and they are I believe interested in hospice care. 06/30: Patient sitting up in bed is more awake and more alert today his less tachycardic his heart rhythm is 104-106, he denies any chest pain is less short of breath, he is currently on heparin drip, he has no coughing or hemoptysis, he has no abdominal pain, nausea or vomiting is eating a bit better today, he is more awake and alert after long conversation with the patient he decided not to go for hospice care at this point in time and he wanted to try chemotherapy, we'll continue current medical plan and we will call oncology again for the possibility of chemotherapy at this point in time, I spoke with his [id number] who spend quite a bit of time with him yesterday and he is not ready for hospice at this point in time, please cancel hospice referral and the transfer to the hospice home today. 07/01: Patient remains in the intensive care unit, heart rate is still running on the low 100s presently 98-115, blood pressure 128/87, pulse ox 92% on 4 L nasal cannula, afebrile. Repeat blood work reveals WBC 7.3, hemoglobin 10.3, platelet count 210. Sodium 134, potassium 3.6, BUN 6 and creatinine 0.54. Magnesium 1.9. All blood cultures have shown no growth. Port infection has been ruled out. Patient is followed by Dr. Menjivar and continued on Zosyn. Patient has been cleared for transfer to oncology by Dr. Bejarano. Patient continues to eat very little and is on a regular diet as well as protein supplements. Patient continues to have significant weakness. Objective - Vital Signs Vital signs: Vital Signs Temp 97.9 F 07/01/20 12:00 Pulse 105 H 07/01/20 12:00 Resp 19 07/01/20 12:00 BP 128/87 07/01/20 12:00 Pulse Ox 92 L 07/01/20 12:00 Intake & Output 06/30/20 07/01/20 07/01/20 18:59 06:59 18:59 Intake Total 2400 1602.281 755.22 Output Total 1770 1630 700 Balance 630 -27.719 55.22 Weight 68.9 kg 68.9 kg Intake: IV 1825 1550 650 NS @ 125 1375 1500 650 Piperacillin-Tazobactam 3 200 50 .375 gm In Sodium Chloride 0.9% 100 ml @ 25 mls/hr IVPB Q8HR [facility] Rx# :[id number] Vancomycin 1,250 mg In 250 Sodium Chloride 0.9% 250 ml @ 125 mls/hr IVPB Q12HR [facility] Rx#:[id number] Intake, IV Titration 250 52.281 105.22 Amount Heparin Sod,Pork in 0.45% 250 52.281 105.22 NaCl 25,000 unit In 0.45 % NaCl 1 250ml.bag @ 18 UNITS/KG/HR 11.862 mls/hr IV .[id number] [facility] Rx#: [id number] Oral 325 Output: Urine 1770 1630 700 Other: Voiding Method Indwelling Catheter Indwelling Catheter - Exam Review of Systems Constitutional: Reports anorexia, reports weight loss, Reports fatigue, Reports night sweats, Reports poor appetite, Reports sweats, Reports weakness Eyes: denies blurred vision, denies bulging eye, denies decreased vision Ears, nose, mouth and throat: Denies dysphagia, Denies neck lump, Denies swelling in throat, Denies sore throat Cardiovascular: Reports rapid heart beat, Denies chest pain, Denies decreased exercise tolerance, Denies dyspnea on exertion, Denies leg edema, Denies lightheadedness, Denies shortness of breath, Denies syncope Respiratory: Denies congestion, Denies cough, Denies cough with sputum, Denies home oxygen, Denies sleep apnea, Denies snoring, Denies wheezing Gastrointestinal: Reports abdominal pain, Reports early satiety, Reports indigestion, Reports loss of appetite, Reports nausea, Denies belching, Denies bloating, Denies BRBPR, Denies change in bowel habits, Denies coffee ground emesis, Denies heartburn, Denies hematemesis, Denies hematochezia, Denies jaundice, Denies melena, Denies vomiting Genitourinary: Denies dysuria, Denies nocturia, reported retention Musculoskeletal: Reports muscle weakness, Reports myalgias Musculoskeletal: absent: ankle pain, ankle stiffness, ankle swelling, elbow pain, elbow stiffness, elbow swelling, foot pain, foot stiffness, foot swelling, hand pain, hand stiffness, hand swelling, hip pain, hip stiffness, hip swelling, knee pain, knee stiffness, knee swelling, shoulder pain, shoulder stiffness, shoulder swelling, wrist pain, wrist stiffness, wrist swelling Integumentary: Denies pruritus, Denies rash Neurological: Denies numbness, Denies weakness, confusion and lethargy that's improving Psychiatric: Reports depression, Denies sadness/tearfulness, Denies sleep disturbances, Denies suicidal ideation Endocrine: Reports fatigue, Reports weight change Physical Examination HEENT: head is atraumatic normocephalic pupils were equal round reactive to l ight and accommodations extra ocular muscle movement were intact, conjunctivae were pale and sclera were mildly icteric, mucous membranes of the mouth are somewhat dry. Neck: supple no JVP. Chest: clear to auscultation bilaterally, there is no crackles or wheezes. Heart: first heart sound is normal , second heart sound is normal , tachycardic there is no gallop or murmur. Abdomen: there is no abdominal tenderness with minimal fullness, there is surgical scar that have healed, positive bowel sounds. Bassett catheter draining blood-tinged urine Extremities: there is no edema , no calf tenderness DP + 2 bilaterally. Neurologiic examination: patient is awake, alert and oriented x3. CN II-XII are grossly intact muscle power 4/5 in bilateral upper and lower extremity . - Labs CBC & Chem 7: 07/01/20 06:06 07/01/20 06:06 Labs: Abnormal Lab Results - Last 24 Hours (Table) 06/30/20 06/30/20 07/01/20 Range/Units 15:35 21:45 06:06 RBC 3.97 L (4.30-5.90) m/uL Hgb 10.3 L (13.0-17.5) gm/dL Hct 33.0 L (39.0-53.0) % RDW 17.7 H (11.5-15.5) % Lymphocytes # (Manual) 0.15 L (1.0-4.8) k/uL Metamyelocytes # (Man) 0.07 H (0) k/uL Myelocytes # (Manual) 0.07 H (0) k/uL APTT (22.0-30.0) sec Sodium (137-145) mmol/L Potassium 3.2 L 3.3 L (3.5-5.1) mmol/L BUN (9-20) mg/dL Creatinine (0.66-1.25) mg/dL Calcium (8.4-10.2) mg/dL Magnesium 1.4 L (1.6-2.3) mg/dL 07/01/20 07/01/20 Range/Units 06:06 06:06 RBC (4.30-5.90) m/uL Hgb (13.0-17.5) gm/dL Hct (39.0-53.0) % RDW (11.5-15.5) % Lymphocytes # (Manual) (1.0-4.8) k/uL Metamyelocytes # (Man) (0) k/uL Myelocytes # (Manual) (0) k/uL APTT 39.5 H (22.0-30.0) sec Sodium 134 L (137-145) mmol/L Potassium (3.5-5.1) mmol/L BUN 6 L (9-20) mg/dL Creatinine 0.54 L (0.66-1.25) mg/dL Calcium 7.3 L (8.4-10.2) mg/dL Magnesium (1.6-2.3) mg/dL Microbiology - Last 24 Hours (Table) 06/27/20 17:43 Blood Culture - Preliminary Blood No Growth after 72 hours 06/25/20 14:51 Blood Culture - Preliminary Blood No Growth after 120 hours 06/26/20 12:19 Blood Culture - Preliminary Blood No Growth after 96 hours Assessment and Plan Plan: 1. Acute kidney injury due to acute tubular necrosis and poor oral intake, hypercalcemia and urinary retention. Continue IV fluids, increase oral intake of fluid. Consult with nephrology appreciated. 2. Possible Mediport infection ruled out. Blood cultures, continue Zosyn 3.375 gr IVPB Q [address] Menjivar appreciated. Vancomycin discontinued. 3. Hyponatremia due to hypovolemia. we will continue with IVF and repeat CMP in AM. 4. 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 Patient appeared to be extremity cachectic with a BMI of 18.4, he is not able to receive any FOLFOX at this point until he is better. Consult with oncology reinitiated. 5. Gallstones with biliary dyskinesia. we will continue with Zofran and IVF. 6. History of kidney stones with mild right sided hydronephrosis we will continue to monitor this appears to be new since last US. 7. Sinus tachycardia due to poor oral intake of fluid and dehydration. we will contiue with IVF. Continue Lopressor 25 mg twice daily . 8. DVT prophylaxis. we will continue with Heparin 5000 units SC Q 8 hours. 9. GI prophylaxis. we will continue with Protonix 40 mg IVP daily. 10. Severe protein calorie malnutrition with poor oral intake, lack of appetite, BMI of 18. Consult with dietitian appreciated. Continue Ensure 3 times daily along with diet. 11. Metabolic encephalopathy secondary to hypercalcemia. Patient is on Aredia. MRI of the brain. 12. Hypercalcemia secondary to dehydration and metastatic disease to the bones. Oncology managing. 13. Bilateral hydronephrosis. Consult with urology. 14. Urinary retention. Bassett catheter placed, consult with urology. Maintain Bassett catheter for 7 days and then voiding trial. Flomax 0.4 mg daily 15. Hypertension. Patient started on amlodipine 10 mg twice daily. 16. Acute respiratory distress with tachypnea and tachycardia patient transferred to the intensive care unit. VQ scan moderate possibility of pulmonary embolism. Patient is on a heparin drip. CODE STATUS: NO code. Prognosis: Poor Discharge plan: To be determined. Patient will require subacute rehab. We'll follow up on Wednesday with case mgr/social insurance analyst. Discussed with patient's [id number] Christelle. Impression and plan of care have been directed as dictated by the signing physician. Amee Day nurse practitioner acting as scribe for signing physician.
--- NOTE | 2020-07-01 12:50 | P.PN ---
Subjective Progress Note Date: 07/01/20 Principal diagnosis: Metastatic poorly differentiated adenocarcinoma of the colon, possible sepsis, and acute hypercalcemia secondary to metastatic disease with acute kidney injury . 49-year-old white male patient of Dr. Mendoza, with recently diagnosed invasive adenocarcinoma, status post exploratory laparotomy, right hemicolectomy, resection of a omental mass, with partial mucinous features measuring 4.5 x 4 cm with microscopic serosal perforation and 17 out of 20 pericolic with lymph node involvement. Patient was initially treated and worked up at the [facility] where he was admitted on 04/15/2020 with complaints of progressive abdominal pain in the right mid to upper abdomen and epigastrium. Apparently patient's symptoms of abdominal discomfort has been ongoing since December however patient had been putting off medical attention related to ongoing coronavirus epidemic and related to low intensity of the symptoms. CT chest from April 2020 did not show any evidence of pulmonary masses, MRI from 04/22/2020 apparently showed multiple round T2 hyperintense lesions all subcentimeter in size without suspicious nodularity. Following his surgery patient had another readmission in April when she developed right-sided abdominal pain and right lower quadrant abscess as evidenced on the computed tomography scan of the abdomen and pelvis that required placement of a drainage tube, PICC line and IV antibiotics. Follow-up CT on 05/21/2020 showed marked decrease in size of the fluid collection with enlarged retroperitoneal nodes is similar to the prior computed tomography scan. Patient was referred to medical oncology following his discharge in regards to newly diagnosed adenocarcinoma of the colon. His PET scan showed widespread metastatic disease involving left supraclavicular, mediastinal, retroperitoneal and mesenteric nodes, left adrenal, as well as multiple osseous sites especially in the lumbar spine. There was also uptake in the liver lesion. Patient had palliative radiation to the spine with Dr. Levy in May, systemic therapy was recommended however the patient and family wanted to seek second opinion at the [facility], causing a delay in the start of treatment and declined to his overall condition. Patient came into the hospital on 06/25/2022 the emergency department with complaints of feeling feverish, nauseous, weak, having palpitations, feeling very thirsty, and having muscle cramps. Patient confused. The patient's initial hypercalcemia with a calcium level of comfort far. The patient was in acute kidney injury. Creatinine was 1.6 recovered with pressure and subsequent ly creatinine came up to 2.6 of the patient developed significant obstructive uropathy. CAT scan of the abdomen was done and it showed marked distention of the urinary bladder with moderate right hydronephrosis of marked left hydronephrosis. There was no evidence of the stones. There is evidence of bladder distention. Bassett cath was inserted by severe depression produce approximately 1.8 L of urinary output immediately. At this point in time, the patient is slow in answering questions. He is lethargic. He is confused. He is tachycardic with a heart rate of 150. He did not have any fever or recurrence temperature is 100.7. Pulse ox is 95% 40 suboptimal nasal cannula. No Abdominal pain. Port site over the right anterior chest area of blackened and intact. on 06/28/2020, the patient is awake and doesn't seem to be confused on today's evaluation. His tachycardia is improved and his heart rate is still in sinus between 110 and 120. He did have a spike of temperature yesterday and none since. His cultures of been all negative. He is on room air oxygen.no nausea. No vomiting. No abdominal pain. His white cell count is at 6.2 with hemoglobin 11.5. Platelets of 230.the electrolytes are all within normal limits. The potassium needs to be replaced. LFTs are abnormal as the patient has hepatic metastases. Vancomycin trough was at 9.3. The patient is on examination Zosyn and vancomycin. No other new complaints otherwise for now. 06/29/2020, the patient is doing poorly. He is extremely lethargic. He is hard to communicate with. At times is confused. He speaks only a few sentences. He speaks only a few words. He remains tachycardic. Oncology started him on IV heparin. He is on broad-spectrum antibiotic with accommodation of Zosyn and vancomycin. All of his cultures are negative. The patient is not eating. He is extremely debilitated and emaciated. His BMI 20.3. He has some vague abdominal discomfort. Nausea. No vomiting. No emesis. Profoundly weak in all 4 extremities.no much improvement over the past 24 hours. White cell count torres ins at 5.6. Platelets of 217.breasts of the blood work and electrodes are all within normal limits. Creatinine 0.69.LFTs are abnormal as the patient has hepatic metastases. 06/30/2020, the patient is doing essentially the same. Still tachycardic. Any weak. Confused. We may very poor baseline performance and functional status. Not candidate in my opinion for any further treatment terms of his Malignancy. Family is contemplating hospice. All of the cultures are negative. The patient was placed on IV heparin. Reevaluated today on 07/01/20, patient remains in the ICU, his CODE STATUS has been changed to DO NOT RESUSCITATE CODE STATUS, he is on 4 L nasal cannula with O2 saturation 94%. Remains tachycardic, weak and dehydrated, remains on heparin for abnormal showing moderate probability for pulmonary embolism. His IV fluid is at 1 25 mL/h, I cut it down to 75 mL per hour, patient is hemodynamically stable, and I plan to transfer the patient out of the ICU to a regular medical floor. We will likely transfer the patient to oncology. CBC is relatively normal, electrolytes are normal renal profile is normal, calcium is normal. PTT is therapeutic at 39.5 Objective - Vital Signs Vital signs: Vital Signs Temp 97.9 F 07/01/20 12:00 Pulse 105 H 07/01/20 12:00 Resp 19 07/01/20 12:00 BP 128/87 07/01/20 12:00 Pulse Ox 92 L 07/01/20 12:00 Intake & Output 06/30/20 07/01/20 07/01/20 18:59 06:59 18:59 Intake Total 2400 1602.281 755.22 Output Total 1770 1630 700 Balance 630 -27.719 55.22 Weight 68.9 kg 68.9 kg Intake: IV 1825 1550 650 NS @ 125 1375 1500 650 Piperacillin-Tazobactam 3 200 50 .375 gm In Sodium Chloride 0.9% 100 ml @ 25 mls/hr IVPB Q8HR MATTY Rx# :[id number] Vancomycin 1,250 mg In 250 Sodium Chloride 0.9% 250 ml @ 125 mls/hr IVPB Q12HR MATTY Rx#:[id number] Intake, IV Titration 250 52.281 105.22 Amount Heparin Sod,Pork in 0.45% 250 52.281 105.22 NaCl 25,000 unit In 0.45 % NaCl 1 250ml.bag @ 18 UNITS/KG/HR 11.862 mls/hr IV .Q21H5M MATTY Rx#: [id number] Oral 325 Output: Urine 1770 1630 700 Other: Voiding Method Indwelling Catheter Indwelling Catheter Indwelling Catheter - Exam Physical Exam: Revealed a torn 9-year-old white male, in no distress. Seems to be alert oriented 3. Remains on 4 L nasal cannula. O2 saturation is 94% Head: Atraumatic, normocephalic. HEENT:[Neck is supple.] [No neck masses.] [No thyromegaly.] [No JVD.] Chest: [Clear throughout, no crackles, no rhonchi, no wheezes.] Cardiac Exam: [Normal S1 and S2, no S3 gallop, no murmur.] Abdomen: [Soft, nontender, no megaly, no rebound, no guarding, normal bowel sounds.] Abdominal surgical scar is noted and it is well-healed. Extremities: [No clubbing, no edema, no cyanosis.] Neurological Exam: [No focal neurologic deficit.] Alert oriented 3. Skin: No rashes. Psychiatric: Normal mood affect and normal mental status examination. - Labs CBC & Chem 7: 07/01/20 06:06 07/01/20 06:06 Labs: Abnormal Lab Results - Last 24 Hours (Table) 06/30/20 06/30/20 07/01/20 Range/Units 15:35 21:45 06:06 RBC 3.97 L (4.30-5.90) m/uL Hgb 10.3 L (13.0-17.5) gm/dL Hct 33.0 L (39.0-53.0) % RDW 17.7 H (11.5-15.5) % Lymphocytes # (Manual) 0.15 L (1.0-4.8) k/uL Metamyelocytes # (Man) 0.07 H (0) k/uL Myelocytes # (Manual) 0.07 H (0) k/uL APTT (22.0-30.0) sec Sodium (137-145) mmol/L Potassium 3.2 L 3.3 L (3.5-5.1) mmol/L BUN (9-20) mg/dL Creatinine (0.66-1.25) mg/dL Calcium (8.4-10.2) mg/dL Magnesium 1.4 L (1.6-2.3) mg/dL 07/01/20 07/01/20 Range/Units 06:06 06:06 RBC (4.30-5.90) m/uL Hgb (13.0-17.5) gm/dL Hct (39.0-53.0) % RDW (11.5-15.5) % Lymphocytes # (Manual) (1.0-4.8) k/uL Metamyelocytes # (Man) (0) k/uL Myelocytes # (Manual) (0) k/uL APTT 39.5 H (22.0-30.0) sec Sodium 134 L (137-145) mmol/L Potassium (3.5-5.1) mmol/L BUN 6 L (9-20) mg/dL Creatinine 0.54 L (0.66-1.25) mg/dL Calcium 7.3 L (8.4-10.2) mg/dL Magnesium (1.6-2.3) mg/dL Microbiology - Last 24 Hours (Table) 06/27/20 17:43 Blood Culture - Preliminary Blood No Growth after 72 hours 06/25/20 14:51 Blood Culture - Preliminary Blood No Growth after 120 hours 06/26/20 12:19 Blood Culture - Preliminary Blood No Growth after 96 hours Assessment and Plan Assessment: Impression: Metastatic adenocarcinoma , skeletal metastasis, patient is status post colecto my and to end anastomosis post radiation therapy Acute tachycardia with low-grade fever, possible sepsis, cultures have been negative. Followed by infectious disease on consultation. Possible pulmonary embolism based on abnormal VQ scan, remains on IV heparin. Acute kidney injury due to obstructive uropathy, resolved. Abnormal liver enzymes mostly related to liver metastasis. Hypercalcemia secondary to skeletal metastasis treated with fluids and with any edema. Recommendation: Continue present supportive care measures. Transfer patient to oncology. Continue heparin and transition to oral anticoagulation therapy. We'll continue to follow. Apparently the patient changed mind about hospice. This is according to the nurse taking care of the patient Time with Patient: Less than 30
[2020-07-01] MEDS: POTASSIUM CHLORIDE ER 20 MEQ TAB.ER PO SCH ×2 (15:02→18:31)
--- NOTE | 2020-07-01 15:57 | PN ---
PROGRESS NOTE DATE OF SERVICE: 07/01/2020 REASON FOR FOLLOWUP: Fever. INTERVAL HISTORY: Patient is currently afebrile. The patient is feeling better. Breathing comfortably. Denies having any chest pain or shortness of breath. Minimal cough. No abdominal pain, no diarrhea. PHYSICAL EXAMINATION: Blood pressure 121/96, pulse 123, temperature 97.9 and 91% on 4 L nasal cannula. General description is a middle-aged male, lying in bed in no distress. RESPIRATORY SYSTEM: Unlabored breathing, clear to auscultation anteriorly. HEART: S1, S2. Regular rate and rhythm. ABDOMEN: Soft, no tenderness. LABS: Hemoglobin is 10, white count of 7.3, BUN of 6, creatinine 0.54. Blood culture has been negative. DIAGNOSTIC IMPRESSION AND PLAN: Patient with fever with concern for possible thrombolic event and concern for PE. Currently on heparin protocol. Continue on empiric Zosyn to continue. Will monitor his clinical course closely. Continue supportive care. MMODL / IJN: [id number] /
--- NOTE | 2020-07-01 16:08 | P.PN ---
Subjective Progress Note Date: 07/01/20 Principal diagnosis: Weakness and confusion 2/2/ ARF, obstructive uropathy, hypercalcemia In f/u today pt is wanting to discuss treatment of cancer, SE, timing of the regimen. He is slow to ask and respond but, appropriate. He denies any acute physical c/o, he is weak, thinks he can care for himself at home as he lives alone. No physical c/o, he did eat about 1/4 of his lunch, he feels he is drinking adequate fluids. Objective - Vital Signs Vital signs: Vital Signs Temp 97.9 F 07/01/20 12:00 Pulse 123 H 07/01/20 15:00 Resp 29 H 07/01/20 15:00 BP 103/78 07/01/20 15:00 Pulse Ox 92 L 07/01/20 14:00 Intake & Output 06/30/20 07/01/20 07/01/20 18:59 06:59 18:59 Intake Total 2400 1602.281 980.22 Output Total 1770 1630 700 Balance 630 -27.719 280.22 Weight 68.9 kg 68.9 kg Intake: IV 1825 1550 875 NS @ 125 1375 1500 800 Piperacillin-Tazobactam 3 200 50 .375 gm In Sodium Chloride 0.9% 100 ml @ 25 mls/hr IVPB Q8HR MATTY Rx# :[id number] Sodium Chloride 0.9% 1, 75 000 ml @ 75 mls/hr IV . [id number] MATTY Rx#:[id number] Vancomycin 1,250 mg In 250 Sodium Chloride 0.9% 250 ml @ 125 mls/hr IVPB Q12HR MATTY Rx#:[id number] Intake, IV Titration 250 52.281 105.22 Amount Heparin Sod,Pork in 0.45% 250 52.281 105.22 NaCl 25,000 unit In 0.45 % NaCl 1 250ml.bag @ 18 UNITS/KG/HR 11.862 mls/hr IV .Q21H5M MATTY Rx#: [id number] Oral 325 Output: Urine 1770 1630 700 Other: Voiding Method Indwelling Catheter Indwelling Catheter Indwelling Catheter - Constitutional General appearance: Present: average body habitus, cooperative, no acute distress - EENT Eyes: Present: anicteric sclerae ENT: Present: hearing grossly normal - Respiratory Respiratory: bilateral: CTA - Cardiovascular Heart sounds: normal: S1, S2 Abnormal Heart Sounds: Absent: systolic murmur, diastolic murmur, rub, S3 Gall op, S4 Gallop, click, other - Peripheral edema leg Peripheral Edema: bilateral: None - Gastrointestinal General gastrointestinal: Present: normal bowel sounds, soft - Neurologic Neurologic: Present: CNII-XII intact - Musculoskeletal Musculoskeletal: Present: generalized weakness, strength equal bilaterally - Psychiatric Psychiatric: Present: A&O x's 3 - Labs CBC & Chem 7: 07/01/20 06:06 07/01/20 06:06 Labs: Abnormal Lab Results - Last 24 Hours (Table) 06/30/20 06/30/20 07/01/20 Range/Units 15:35 21:45 06:06 RBC 3.97 L (4.30-5.90) m/uL Hgb 10.3 L (13.0-17.5) gm/dL Hct 33.0 L (39.0-53.0) % RDW 17.7 H (11.5-15.5) % Lymphocytes # (Manual) 0.15 L (1.0-4.8) k/uL Metamyelocytes # (Man) 0.07 H (0) k/uL Myelocytes # (Manual) 0.07 H (0) k/uL APTT (22.0-30.0) sec Sodium (137-145) mmol/L Potassium 3.2 L 3.3 L (3.5-5.1) mmol/L BUN (9-20) mg/dL Creatinine (0.66-1.25) mg/dL Calcium (8.4-10.2) mg/dL Magnesium 1.4 L (1.6-2.3) mg/dL 07/01/20 07/01/20 07/01/20 Range/Units 06:06 06:06 13:59 RBC (4.30-5.90) m/uL Hgb (13.0-17.5) gm/dL Hct (39.0-53.0) % RDW (11.5-15.5) % Lymphocytes # (Manual) (1.0-4.8) k/uL Metamyelocytes # (Man) (0) k/uL Myelocytes # (Manual) (0) k/uL APTT 39.5 H 48.9 H (22.0-30.0) sec Sodium 134 L (137-145) mmol/L Potassium (3.5-5.1) mmol/L BUN 6 L (9-20) mg/dL Creatinine 0.54 L (0.66-1.25) mg/dL Calcium 7.3 L (8.4-10.2) mg/dL Magnesium (1.6-2.3) mg/dL Microbiology - Last 24 Hours (Table) 06/26/20 12:19 Blood Culture - Preliminary Blood No Growth after 120 hours 06/27/20 17:43 Blood Culture - Preliminary Blood No Growth after 72 hours 06/25/20 14:51 Blood Culture - Preliminary Blood No Growth after 120 hours Assessment and Plan (1) 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 Pt malignancy has unfortunately progressed rapidly as have symptoms of malignancy. Concern is that malignancy is beyond any meaningful effect that any treatment could have on the cancer. At pt request, we reviewed SE r/t FOLFOX regimen including diarrhea, neuropathy, nausea and fatigue. Treatment schedule is days 1-3 once every 14 days. He verbalized understanding. All questions were answered to his satisfaction at this time. He has appt to start treatment this Wed. I told pt that if there is not a plan to discharge may consider giving 1st dose inpatient. He did not respond to that. I will f/u tomorrow. Answer any further questions pt may have. Have reviewed Notes from IM, ID, Surg, Pulm, Neph and Urology. All perspectives appreciated. Current Visit: Yes Status: Acute Priority: High Code(s): C18.9 - MALIGNANT NEOPLASM OF COLON, UNSPECIFIED; C79.51 - SECONDARY MALIGNANT NEOPLASM OF BONE SNOMED Code(s): 245343483 (2) Hypercalcemia of malignancy Narrative/Plan: Treated with aredia. Ca++ level significantly reduced. Current Visit: Yes Status: Acute Priority: High Code(s): E83.52 - HYPERCALCEMIA SNOMED Code(s): 92115570 Time with Patient: Greater than 30 (>35 min spent with pt, >50% counseling and coordinating care)
[2020-07-01] MEDS: HEPARIN SOD,PORK IN 0.45% NACL 25,000 UNIT in 0.45% NACL 1 250ML.BAG IV SCH (16:33)
[2020-07-01] MEDS ORDERED: POTASSIUM CHLORIDE ER 20 MEQ TAB.ER PO SCH (22:00)
[2020-07-02] MEDS: PIPERACILLIN-TAZOBACTAM 3.375 GM in SODIUM CHLORIDE 0.9% 100 ML IVPB SCH ×4 (00:28→23:40)
[2020-07-02] MEDS: MORPHINE SULFATE 4 MG/ML SYRINGE IVP PRN ×3 (02:30→21:00)
[2020-07-02 06:41] LABS: African American GFR (CKD) >90 (>60 ml/min/1.73 sqM); Anion Gap 2 mmol/L; Blood Urea Nitrogen 7 mg/dL (9-20); Calcium 7.4 mg/dL (8.4-10.2); Carbon Dioxide 27 mmol/L (22-30); Chloride 105 mmol/L (98-107); Glucose 99 mg/dL (74-99); Non-African American GFR(CKD) >90 (>60 ml/min/1.73 sqM); Potassium 3.6 mmol/L (3.5-5.1); Sodium 134 mmol/L (137-145)
[2020-07-02] MEDS: HEPARIN SODIUM,PORCINE 5,000 UNIT/ML 1 ML VIAL IV PRN (07:12)
[2020-07-02] MEDS: TAMSULOSIN 0.4 MG CAP.ER.24H PO SCH (07:53)
[2020-07-02] MEDS: METOPROLOL TARTRATE 25 MG TAB PO SCH ×2 (07:53→19:54)
[2020-07-02] MEDS: amLODIPine 10 MG TAB PO SCH (07:53)
[2020-07-02] MEDS: PANTOPRAZOLE 40 MG TABLET PO SCH (07:53)
[2020-07-02] MEDS: HEPARIN SOD,PORK IN 0.45% NACL 25,000 UNIT in 0.45% NACL 1 250ML.BAG IV SCH (11:41)
[2020-07-02] MEDS: SODIUM CHLORIDE 0.9% 1,000 ML IV SCH ×2 (11:50→19:54)
--- NOTE | 2020-07-02 13:00 | P.PN ---
Subjective Progress Note Date: 07/02/20 This is a 49 year old male with a previous medical history significant for kidney stones and cholelithiasis, was inititially complaining of increased abdominal pain in the right upper quadrant and had US of the abdomen that showed cholelithiasis, this was followed with HIDA scan that showed biliary dyskinesis and was referred to have Lap-Jocelyn with that week he developed to have increased abdominal pain with significant nausea and vomiting and he presented to [facility] with bowel obstruction picture, he underwent CT scan of the abdomen and pelvis that showed a large cecal mass suggestive of colon cancer, he underwent right colectomy with end to end anastomosis and then he developed to have a pelvic Abscess that was treated with transcutaneous drain and IV antibiotics through a PICC line for 4 weeks which he has done, he was then seen by Hem-Onc Toma Mars and underwent a battery of testing including PET c that showed metastatic disease, he has then had a Mediprot placed recently by and was seen today by DATABASE REPORTING CONSULTANT at Dr. Chua 's office to discuss further jeniffer tment options and possibly a referral to a phase 3 trial at the [facility], patient was extremely weak and tachycardic and there was a suspicion for possible Mediport infection so he was referred to the ER , he did receive 2 L of Normal saline his heart rate was 16o with sinus tachycardia and he is down to 115 , blood cultures were obtained and he was started on Vancomycin and Zosyn and ID consult was obtained along with surgical consult. 06/26: Patient has been seen by Dr. Hollis does not feel that there is infection of the Mediport site. Patient was also noted to have transaminitis and elevated bilirubin possibly associated with metastatic disease or documented cholelithiasis. No plan for surgical intervention for gallbladder disease at this time based on patient's medical history and asymptomatic presentation. Patient has been afebrile, heart rate 131/86, pulse ox 92% on 2 L nasal cannula. Heart rate has been elevated up to 140 with activity and 110-120 at rest. Low dose Lopressor added at 12.5 mg twice daily and subsequently increased to 25 mg twice daily. Repeat blood work reveals WBC 5.2, hemoglobin 10.9, platelet count 197. Electrolytes normal, BUN 36, creatinine 1.6. Total bilirubin 0.9, AST 72, ALT 64, alkaline phosphatase 424. Repeat lactic acid 1.0. Patient is currently on IV antibiotics in the form of Zosyn and vancomycin. Oncology consult added. Patient was to start chemotherapy. Consult in place for Dr. Menjivar. Blood culture is status post received. Patient is eating very little and has been seen by dietitian and Ensure [address] in place. Oncology has ordered Aredia, patient is on IV fluids 150 mL per hour. Of the brain has been ordered. CEA, ferritin, iron profile, uric acid, methylmalonic acid, B12 are pending. 06/27: CAT scan of the abdomen pelvis without contrast revealed markedly distended urinary bladder with moderate right hydronephrosis and mild left hydronephrosis with bilateral hydroureter. Nonobstructing renal stones are identified. Etiology of hydroureter and hydronephrosis may be related to distended urinary bladder. Scattered abdominal adenopathy. No suspicious abnormality to suggest abscess. Patchy infiltrates at the lung bases and small bilateral pleural effusions. Infectious etiologies should be considered. Consider atypical pneumonia. Consult with urology added for hydronephrosis. Patient has been seen by Dr. Menjivar and vancomycin has been discontinued. Patient is currently on Zosyn. Bassett catheter was placed today with removal of 1600 ML's. Patient's aunt is at the bedside and she states she has been going to his house feeding him and doing his housework. Patient is known to have more confusion today. He states what is this idea about her race car. He thinks that he is leaving today. Patient is reoriented. Patient has been afebrile, heart rate 113, blood pressure 165/105, pulse ox 93% on room air. Patient's heart rate has been high despite starting Lopressor yesterday. Hydralazine added for blood pressure. Repeat blood work revealed creatinine of 2.6. Consult with nephrology will be added. Total bilirubin 0.9, AST 72, ALT 45, alkaline phosphatase 481. Albumin 2.4. CEA elevated at 19.2, vitamin B12 299. Uric acid 8.1 iron 51, TIBC 154, iron saturation 33, ferritin 13,654. Patient is eating very little. He is taking in some protein supplementation. Patient is more views from yesterday. CAT scan of the brain showed no acute abnormality. 06/28: Temperature max 100.7. Heart rate yesterday was running in the 140s to 150s with a blood pressure 147/97, pulse ox 92% on 2 L nasal cannula. He also had increasing confusion and lethargy. Patient was transferred into the intensive care unit and consult added for Dr. Fry. Tachycardia is improved today. Echocardiogram has been ordered. Blood cultures are showing no growth. Repeat blood work reveals WBC 6.2, hemoglobin 11.5, platelet count 230. He is currently on Zosyn and vancomycin. Patient has been seen by nephrology with plans to continue IV fluids, replace potassium and magnesium, encourage oral intake and monitor renal function and electrolytes. Repeat sodium 135, potassium 3.3, BUN 19 and creatinine 0.9. Alkaline phosphatase 395, AST 115. Patient has been seen by urology with recommendations to keep Bassett for 7 days and then trial void if creatinine is back to baseline and start Flomax 0.4 mg daily. MRI of the brain, VQ scan and echocardiogram have been ordered for today. 06/29: Patient sitting up in bed he continues to have significant bradycardia, he underwent an MRI of the brain essentially that showed no evidence of metastatic brain disease, he also had a VQ scan that showed intermediate probability for pulmonary embolism, he is seen already by pulmonary and critical care medicine, he remains intensive care unit, his appetite is better today, he continues to be extremely weak and fragile, we will continue monitor the patient very closely, patient was started on IV heparin for the possibility of pulmonary embolism, he would've the patient does appear to have a significant cachexia due to metastatic colon cancer everywhere except the brain, patient at this stage while in the hospital cannot tolerate any chemotherapy at this point in time in the form of FOLFOX, oncology is following, pulmonary and infectious disease , I had a long conversation with his [id number] and she elected to go for hospice care I discussed with his nurse that the patient is switched to no code at this point in time, and they are I believe interested in hospice care. 06/30: Patient sitting up in bed is more awake and more alert today his less tachycardic his heart rhythm is 104-106, he denies any chest pain is less short of breath, he is currently on heparin drip, he has no coughing or hemoptysis, he has no abdominal pain, nausea or vomiting is eating a bit better today, he is more awake and alert after long conversation with the patient he decided not to go for hospice care at this point in time and he wanted to try chemotherapy, we'll continue current medical plan and we will call oncology again for the possibility of chemotherapy at this point in time, I spoke with his [id number] who spend quite a bit of time with him yesterday and he is not ready for hospice at this point in time, please cancel hospice referral and the transfer to the hospice home today. 07/01: Patient remains in the intensive care unit, heart rate is still running on the low 100s presently 98-115, blood pressure 128/87, pulse ox 92% on 4 L nasal cannula, afebrile. Repeat blood work reveals WBC 7.3, hemoglobin 10.3, platelet count 210. Sodium 134, potassium 3.6, BUN 6 and creatinine 0.54. Magnesium 1.9. All blood cultures have shown no growth. Port infection has been ruled out. Patient is followed by Dr. Menjivar and continued on Zosyn. Patient has been cleared for transfer to oncology by Dr. Bejarano. Patient continues to eat very little and is on a regular diet as well as protein supplements. Patient continues to have significant weakness. 07/02: Oncology is planning to start FOLFOX regime on Wednesday which may start while he is still hospitalized. Patient continues to have significant weakness. PT and OT consults have been added.shortness of breath is improved. Patient is continued on Zosyn and followed by Dr. Menjivar.patient has been afebrile, heart rate 112, blood pressure 114/71, pulse ox 90% on room air. Sodium 134, potassium 3.6, creatinine 0.52. Discharge plan will be home with parent home care and palliative care and friends are helping. Objective - Vital Signs Vital signs: Vital Signs Temp 98.2 F 07/02/20 07:00 Pulse 112 H 07/02/20 07:00 Resp 17 07/02/20 07:00 BP 114/71 07/02/20 07:00 Pulse Ox 90 L 07/02/20 07:00 Intake & Output 07/01/20 07/02/20 07/02/20 18:59 06:59 18:59 Intake Total 1181.353 450 250.000 Output Total 700 1150 Balance 481.353 -700 250.000 Weight 68.9 kg Intake: IV 950 450 NS @ 125 800 Sodium Chloride 0.9% 1, 150 450 000 ml @ 75 mls/hr IV . [id number] [facility] Rx#:[id number] Intake, IV Titration 231.353 250.000 Amount Heparin Sod,Pork in 0.45% 231.353 250.000 NaCl 25,000 unit In 0.45 % NaCl 1 250ml.bag @ 18 UNITS/KG/HR 11.862 mls/hr IV .[id number] [facility] Rx#: [id number] Output: Urine 700 1150 Other: Voiding Method Indwelling Catheter Indwelling Catheter - Exam Review of Systems Constitutional: Reports anorexia, reports weight loss, Reports fatigue, Reports night sweats, Reports poor appetite, Reports sweats, Reports weakness Eyes: denies blurred vision, denies bulging eye, denies decreased vision Ears, nose, mouth and throat: Denies dysphagia, Denies neck lump, Denies swelling in throat, Denies sore throat Cardiovascular: Reports rapid heart beat, Denies chest pain, Denies decreased exercise tolerance, Denies dyspnea on exertion, Denies leg edema, Denies lightheadedness, Denies shortness of breath, Denies syncope Respiratory: Denies congestion, Denies cough, Denies cough with sputum, Denies home oxygen, Denies sleep apnea, Denies snoring, Denies wheezing Gastrointestinal: Reports abdominal pain, Reports early satiety, Reports indigestion, Reports loss of appetite, Reports nausea, Denies belching, Denies bloating, Denies BRBPR, Denies change in bowel habits, Denies coffee ground emesis, Denies heartburn, Denies hematemesis, Denies hematochezia, Denies jaundice, Denies melena, Denies vomiting Genitourinary: Denies dysuria, Denies nocturia, reported retention Musculoskeletal: Reports muscle weakness, Reports myalgias Musculoskeletal: absent: ankle pain, ankle stiffness, ankle swelling, elbow pain, elbow stiffness, elbow swelling, foot pain, foot stiffness, foot swelling, hand pain, hand stiffness, hand swelling, hip pain, hip stiffness, hip swelling, knee pain, knee stiffness, knee swelling, shoulder pain, shoulder stiffness, shoulder swelling, wrist pain, wrist stiffness, wrist swelling Integumentary: Denies pruritus, Denies rash Neurological: Denies numbness, Denies weakness, confusion and lethargy improving Psychiatric: Reports depression, Denies sadness/tearfulness, Denies sleep disturbances, Denies suicidal ideation Endocrine: Reports fatigue, Reports weight change Physical Examination HEENT: head is atraumatic normocephalic pupils were equal round reactive to light and accommodations extra ocular muscle movement were intact, conjunctivae were pale and sclera were mildly icteric. Neck: supple no JVP. Chest: clear to auscultation bilaterally, there is no crackles or wheezes. Heart: first heart sound is normal , second heart sound is normal , tachycardic there is no gallop or murmur. Abdomen: there is no abdominal tenderness with minimal fullness, there is surgical scar that have healed, positive bowel sounds. Bassett catheter draining blood-tinged urine Extremities: there is no edema , no calf tenderness DP + 2 bilaterally. Neurologiic examination: patient is awake, alert and oriented x3. CN II-XII are grossly intact muscle power 4/5 in bilateral upper and lower extremity . - Labs CBC & Chem 7: 07/01/20 06:06 07/02/20 06:01 Labs: Abnormal Lab Results - Last 24 Hours (Table) 07/01/20 07/02/20 07/02/20 Range/Units 13:59 06:01 06:01 APTT 48.9 H 43.0 H (22.0-30.0) sec Sodium 134 L (137-145) mmol/L BUN 7 L (9-20) mg/dL Creatinine 0.52 L (0.66-1.25) mg/dL Calcium 7.4 L (8.4-10.2) mg/dL Microbiology - Last 24 Hours (Table) 06/27/20 17:43 Blood Culture - Preliminary Blood No Growth after 96 hours 06/25/20 14:51 Blood Culture - Final Blood No Growth after 144 hours 06/26/20 12:19 Blood Culture - Preliminary Blood No Growth after 120 hours Assessment and Plan Plan: 1. Acute kidney injury due to acute tubular necrosis and poor oral intake, hypercalcemia and urinary retention. Continue IV fluids, increase oral intake of fluid. Consult with nephrology appreciated. 2. Possible Mediport infection ruled out. Blood cultures, continue Zosyn 3.375 gr IVPB Q [address] Menjivar appreciated. Vancomycin discontinued. 3. Hyponatremia due to hypovolemia. we will continue with IVF and repeat CMP in AM. 4. 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 Oncology is planning for FOLFOX. 5. Gallstones with biliary dyskinesia. we will continue with Zofran and IVF. 6. History of kidney stones with mild right sided hydronephrosis we will continue to monitor this appears to be new since last US. 7. Sinus tachycardia due to poor oral intake of fluid and dehydration. we will contiue with IVF. Continue Lopressor 25 mg twice daily . 8. DVT prophylaxis. we will continue with Heparin 5000 units SC Q 8 hours. 9. GI prophylaxis. we will continue with Protonix 40 mg IVP daily. 10. Severe protein calorie malnutrition with poor oral intake, lack of appetite, BMI of 18. Consult with dietitian appreciated. Continue Ensure 3 times daily along with diet. 11. Metabolic encephalopathy secondary to hypercalcemia. Patient is on Aredia. MRI of the brainas above. 12. Hypercalcemia secondary to dehydration and metastatic disease to the bones. Oncology managing. 13. Bilateral hydronephrosis. Consult with urology. 14. Urinary retention. Bassett catheter placed, consult with urology. Maintain Bassett catheter for 7 days and then voiding trial. Flomax 0.4 mg daily 15. Hypertension. Patient started on amlodipine 10 mg twice daily. 16. Acute respiratory distress with tachypnea and tachycardia patient transferred to the intensive care unit. VQ scan moderate possibility of pulmonary embolism. Patient is on a heparin drip. CODE STATUS: NO code. Prognosis: Poor Discharge plan: home with [facility] and palliative care. PT and OT consults have been added. Impression and plan of care have been directed as dictated by the signing physician. Amee Day nurse practitioner acting as scribe for signing physician.
--- NOTE | 2020-07-02 15:46 | PN ---
PROGRESS NOTE DATE OF SERVICE: 07/02/2020 REASON FOR FOLLOWUP: Fever, possible thromboembolism. INTERVAL HISTORY: Patient is currently afebrile. The patient is feeling better. Breathing comfortably. Denies having any chest pain, no cough, no nausea, no abdominal pain or diarrhea. PHYSICAL EXAMINATION: Blood pressure 114/70 with a pulse of 112, temperature 98.2. He is 90% on room air. General description is a middle-aged male, lying in bed in no distress. RESPIRATORY SYSTEM: Unlabored breathing, decreased breath sounds at the base, no wheeze. HEART: S1, S2. Regular rate and rhythm. ABDOMEN: Soft, no tenderness. LABS: BUN of 7, creatinine 0.52, white count of 7.3. Blood culture has been negative. DIAGNOSTIC IMPRESSION AND PLAN: Patient with low-grade fever, possible thromboembolism. Clinically, no evidence of any infection. CT of abdomen and pelvis was negative. Blood culture has been negative. Antibiotic can be safely discontinued. Monitor the patient closely off antibiotic therapy. Family at the bedside, questions were answered. MMODL / IJN: [id number] /
[2020-07-02] MEDS: RIVAROXABAN 15 MG TAB PO SCH (17:07)
[2020-07-03] MEDS: HYDROcodone/APAP 5-325MG 1 EACH TAB PO PRN ×3 (03:20→21:48)
[2020-07-03] MEDS: SODIUM CHLORIDE 0.9% 1,000 ML IV SCH ×2 (07:08→08:39)
[2020-07-03] MEDS: RIVAROXABAN 15 MG TAB PO SCH ×2 (07:49→18:10)
--- NOTE | 2020-07-03 07:50 | P.DS ---
Providers Date of admission: 06/25/20 17:29 Expected date of discharge: 07/03/20 Attending physician: Vikas Mendoaz Consults: 06/25/20 17:33 Consult Physician Routine Consulting Provider: Karen Hollis Consult Reason/Comments: known Do you want consulting provider notified?: Yes Consult Physician Urgent Consulting Provider: Anne Menjivar Consult Reason/Comments: ID Do you want consulting provider notified?: Yes 06/26/20 11:36 Consult Physician Routine Consulting Provider: Dayton Chua Consult Reason/Comments: colon cancer Do you want consulting provider notified?: Yes 06/27/20 13:23 Consult Physician Routine Consulting Provider: Dakota Lovett Consult Reason/Comments: Hydronephrosis Do you want consulting provider notified?: Yes Consult Physician Routine Consulting Provider: Shaylee Monroy Consult Reason/Comments: eliazar Do you want consulting provider notified?: Yes 06/27/20 16:18 Consult Physician Urgent Consulting Provider: Carmen Fry Consult Reason/Comments: icu management Do you want consulting provider notified?: Yes Primary care physician: Vikas Mendoza [facility] Course: his is a 49 year old male with a previous medical history significant for kidney stones and cholelithiasis, was inititially complaining of increased abdominal pain in the right upper quadrant and had US of the abdomen that showed cholelithiasis, this was followed with HIDA scan that showed biliary dyskinesis and was referred to have Lap-Jocelyn with that week he developed to have increased abdominal pain with significant nausea and vomiting and he presented to [facility] with bowel obstruction picture, he underwent CT scan of the abdomen and pelvis that showed a large cecal mass suggestive of colon cancer, he underwent right colectomy with end to end anastomosis and then he developed to have a pelvic Abscess that was treated with transcutaneous drain and IV antibiotics through a PICC line for 4 weeks which he has done, he was t hen seen by Hem-Onc Toma Mars and underwent a battery of testing including PET c that showed metastatic disease, he has then had a Mediprot placed recently by and was seen today by VENE[facility] GRADER at Dr. Chua 's office to discuss further treatment options and possibly a referral to a phase 3 trial at the of , patient was extremely weak and tachycardic and there was a suspicion for possible Mediport infection so he was referred to the ER , he did receive 2 L of Normal saline his heart rate was 16o with sinus tachycardia and he is down to 115 , blood cultures were obtained and he was started on Vancomycin and Zosyn and ID consult was obtained along with surgical consult. 06/26: Patient has been seen by Dr. Hollis does not feel that there is infection of the Mediport site. Patient was also noted to have transaminitis and elevated bilirubin possibly associated with metastatic disease or documented cholelithiasis. No plan for surgical intervention for gallbladder disease at this time based on patient's medical history and asymptomatic presentation. Patient has been afebrile, heart rate 131/86, pulse ox 92% on 2 L nasal cannula. Heart rate has been elevated up to 140 with activity and 110-120 at rest. Low dose Lopressor added at 12.5 mg twice daily and subsequently increased to 25 mg twice daily. Repeat blood work reveals WBC 5.2, hemoglobin 10.9, platelet count 197. Electrolytes normal, BUN 36, creatinine 1.6. Total bilirubin 0.9, AST 72, ALT 64, alkaline phosphatase 424. Repeat lactic acid 1.0. Patient is currently on IV antibiotics in the form of Zosyn and vancomycin. Oncology consult added. Patient was to start chemotherapy. Consult in place for Dr. Menjivar. Blood culture is status post received. Patient is eating very little and has been seen by dietitian and Ensure [address] in place. Oncology has ordered Aredia, patient is on IV fluids 150 mL per hour. Of the brain has been ordered. CEA, ferritin, iron profile, uric acid, methylmalonic acid, B12 are pending. 06/27: CAT scan of the abdomen pelvis without contrast revealed markedly distended urinary bladder with moderate right hydronephrosis and mild left hydronephrosis with bilateral hydroureter. Nonobstructing renal stones are identified. Etiology of hydroureter and hydronephrosis may be related to distended urinary bladder. Scattered abdominal adenopathy. No suspicious abnormality to suggest abscess. Patchy infiltrates at the lung bases and small bilateral pleural effusions. Infectious etiologies should be considered. Consider atypical pneumonia. Consult with urology added for hydronephrosis. Patient has been seen by Dr. Menjivar and vancomycin has been discontinued. Patient is currently on Zosyn. Bassett catheter was placed today with removal of 1600 ML's. Patient's aunt is at the bedside and she states she has been going to his house feeding him and doing his housework. Patient is known to have more confusion today. He states what is this idea about her race car. He thinks that he is leaving today. Patient is reoriented. Patient has been afebrile, heart rate 113, blood pressure 165/105, pulse ox 93% on room air. Patient's heart rate has been high despite starting Lopressor yesterday. Hydralazine added for blood pressure. Repeat blood work revealed creatinine of 2.6. Consult with nephrology will be added. Total bilirubin 0.9, AST 72, ALT 45, alkaline phosphatase 481. Albumin 2.4. CEA elevated at 19.2, vitamin B12 299. Uric acid 8.1 iron 51, TIBC 154, iron saturation 33, ferritin 13,654. Patient is eating very little. He is taking in some protein supplementation. Patient is more views from yesterday. CAT scan of the brain showed no acute abnormality. 06/28: Temperature max 100.7. Heart rate yesterday was running in the 140s to 150s with a blood pressure 147/97, pulse ox 92% on 2 L nasal cannula. He also had increasing confusion and lethargy. Patient was transferred into the intensive care unit and consult added for Dr. Fry. Tachycardia is improved today. Echocardiogram has been ordered. Blood cultures are showing no growth. Repeat blood work reveals WBC 6.2, hemoglobin 11.5, platelet count 230. He is currently on Zosyn and vancomycin. Patient has been seen by nephrology with plans to continue IV fluids, replace potassium and magnesium, encourage oral intake and monitor renal function and electrolytes. Repeat sodium 135, potassium 3.3, BUN 19 and creatinine 0.9. Alkaline phosphatase 395, AST 115. Patient has been seen by urology with recommendations to keep Bassett for 7 days and then trial void if creatinine is back to baseline and start Flomax 0.4 mg daily. MRI of the brain, VQ scan and echocardiogram have been ordered for today. 06/29: Patient sitting up in bed he continues to have significant bradycardia, he underwent an MRI of the brain essentially that showed no evidence of metastatic brain disease, he also had a VQ scan that showed intermediate probability for pulmonary embolism, he is seen already by pulmonary and critical care medicine, he remains intensive care unit, his appetite is better today, he continues to be extremely weak and fragile, we will continue monitor the patient very closely, patient was started on IV heparin for the possibility of pulmonary embolism, he would've the patient does appear to have a significant cachexia due to metastatic colon cancer everywhere except the brain, patient at this stage while in the hospital cannot tolerate any chemotherapy at this point in time in the form of FOLFOX, oncology is following, pulmonary and infectious disease , I had a long conversation with his [id number] and she elected to go for hospice care I discussed with his nurse that the patient is switched to no code at this point in time, and they are I believe interested in hospice care. 06/30: Patient sitting up in bed is more awake and more alert today his less tachycardic his heart rhythm is 104-106, he denies any chest pain is less short of breath, he is currently on heparin drip, he has no coughing or hemoptysis, he has no abdominal pain, nausea or vomiting is eating a bit better today, he is more awake and alert after long conversation with the patient he decided not to go for hospice care at this point in time and he wanted to try chemotherapy, we'll continue current medical plan and we will call oncology again for the possibility of chemotherapy at this point in time, I spoke with his [id number] who spend quite a bit of time with him yesterday and he is not ready for hospice at this point in time, please cancel hospice referral and the transfer to the hospice home today. 07/01: Patient remains in the intensive care unit, heart rate is still running on the low 100s presently 98-115, blood pressure 128/87, pulse ox 92% on 4 L nasal cannula, afebrile. Repeat blood work reveals WBC 7.3, hemoglobin 10.3, platelet count 210. Sodium 134, potassium 3.6, BUN 6 and creatinine 0.54. Magnesium 1.9. All blood cultures have shown no growth. Port infection has been ruled out. Patient is followed by Dr. Menjivar and continued on Zosyn. Patient has been cleared for transfer to oncology by Dr. Bejarano. Patient continues to eat very little and is on a regular diet as well as protein supplements. Patient continues to have significant weakness. 07/02: Oncology is planning to start FOLFOX regime on Wednesday which may start while he is still hospitalized. Patient continues to have significant weakness. PT and OT consults have been added.shortness of breath is improved. Patient is continued on Zosyn and followed by Dr. Menjivar.patient has been afebrile, heart rate 112, blood pressure 114/71, pulse ox 90% on room air. Sodium 134, potassium 3.6, creatinine 0.52. Discharge plan will be home with [facility] and palliative care and friends are helping. 07/03: Patient is seen today on the [facility] floor. He states his breathing is easier. He did have a bowel movement last evening. He is alert but continues to have some weakness. He denies any pain in his abdomen. He does state that he feels full in his abdomen. Lower extremity edema is improved. He does have Bassett catheter and and voiding trial was to be for tomorrow per urology. We will ask his nurse to pull Bassett today and monitor for urinary retention. Patient has been on Flomax which will be continued at home. Patient was transitioned to oral Xarelto yesterday and heparin drip discontinued. Case discussed with oncology team and patient has been cleared for discharge with plan for outpatient chemotherapy to start on Wednesday. He has been afebrile, heart rate 117, blood pressure 120/80, pulse ox 90% on room air. Patient will be discharged home today in stable condition. Discharge Diagnoses: 1. Acute kidney injury due to acute tubular necrosis and poor oral intake, hypercalcemia and urinary retention. 2. Possible Mediport infection ruled out. 3. Hyponatremia due to hypovolemia. 4. 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 5. Gallstones with biliary dyskinesia. 6. History of kidney stones with mild right sided hydronephrosis. 7. Sinus tachycardia due to poor oral intake of fluid and dehydration. 8. Acute pulmonary embolism. 9. Acute respiratory distress with tachypnea and tachycardia. 10. Severe protein calorie malnutrition with poor oral intake, lack of appetite, BMI of 18. 11. Metabolic encephalopathy secondary to hypercalcemia. 12. Hypercalcemia secondary to dehydration and metastatic disease to the bones. 13. Bilateral hydronephrosis. 14. Urinary retention. 15. Hypertension. Discharge plan: home with [facility] and palliative care. Impression and plan of care have been directed as dictated by the signing physician. Amee Day nurse practitioner acting as scribe for signing physician. Patient Condition at Discharge: Fair Plan - Discharge Summary Discharge Rx Participant: No New Discharge Prescriptions: New Tamsulosin [Flomax] 0.4 mg PO PC-BRKFST #30 cap.er.24h Metoprolol Tartrate [Lopressor] 25 mg PO BID #60 tab amLODIPine [Norvasc] 10 mg PO DAILY #30 tab Pantoprazole [Protonix] 40 mg PO DAILY #30 tablet. Rivaroxaban [Xarelto] 15 mg PO BID-W/MEALS #60 tab Continue fentaNYL 50MCG/HR PATCH [Duragesic 50MCG/HR] 1 patch TRANSDERM Q72H HYDROcodone/APAP 5-325MG [[place] 5-325] 1 tab PO QID PRN PRN Reason: Pain Discharge Medication List HYDROcodone/APAP 5-325MG [[place] 5-325] 1 tab PO QID PRN 06/25/20 [History] fentaNYL 50MCG/HR PATCH [Duragesic 50MCG/HR] 1 patch TRANSDERM Q72H 06/25/20 [History] Metoprolol Tartrate [Lopressor] 25 mg PO BID #60 tab 07/03/20 [Rx] Pantoprazole [Protonix] 40 mg PO DAILY #30 tablet. 07/03/20 [Rx] Rivaroxaban [Xarelto] 15 mg PO BID-W/MEALS #60 tab 07/03/20 [Rx] Tamsulosin [Flomax] 0.4 mg PO PC-BRKFST #30 cap.er.24h 07/03/20 [Rx] amLODIPine [Norvasc] 10 mg PO DAILY #30 tab 07/03/20 [Rx] Follow up Appointment(s)/Referral(s): [facility], [NON-STAFF] - (Palliative Care) Vikas Mendoza MD [Primary Care Provider] - 1 Week Dayton Chua MD [STAFF PHYSICIAN] - 1 Week Discharge Disposition: HOME WITH HOME HEALTH SERVICES
[2020-07-03] MEDS: PIPERACILLIN-TAZOBACTAM 3.375 GM in SODIUM CHLORIDE 0.9% 100 ML IVPB SCH (07:54)
[2020-07-03] MEDS: METOPROLOL TARTRATE 25 MG TAB PO SCH ×2 (08:24→20:04)
[2020-07-03] MEDS: PANTOPRAZOLE 40 MG TABLET PO SCH (08:24)
[2020-07-03] MEDS: TAMSULOSIN 0.4 MG CAP.ER.24H PO SCH (08:24)
[2020-07-03] MEDS: amLODIPine 10 MG TAB PO SCH (08:25)
--- NOTE | 2020-07-03 10:13 | CDI ---
Documentation Clarification Form Date: 07/03/2020 CDS: Candace Luo, CCS, CCDS Admit Date: 06/25/2020 Patient Name: Dileep Kamara Discharge Date: ATTENTION: The Clinical Documentation Specialists (CDI) and [facility] Coding Staff appreciate your assistance in clarifying documentation. Please respond to the clarification below the line at the bottom and electronically sign. The CDI & [facility] Coding staff will review the response and follow-up if needed. Please note: Queries are made part of the Legal Health Record. If you have any questions, please contact the author of this message via ITS. Dear Dr. Vikas Mendoza: Per the 06/28 Attending Progress Note: "Acute respiratory distress with tachypnea and tachycardia patient transferred to the intensive care unit." VQ Scan ordered to rule out pulmonary embolism. History/Risk Factors: Stage IV Colon CA w/metastasis to bone status post bowel resection. Clinical Indicators: Presented to the ED on 06/25 with fever, nausea & weakness, very thirsty & muscle cramps. Admit with Acute kidney injury due to ATN, Hyponatremia & Dehydration. VS on admission (06/25): T 98.2, P 143^, R 18, BP 113/81, PO 96 RA VS 06/27: T 100.7^, P 147^, R 45^, BP 147/97, PO 91 RA - 92 2Lnc, 95 4Lnc. RAD 06/28 NM Lung scan: Multiple subsegmental peripheral defects corresponds to intermediate probability of pulmonary embolism. Treatment 06/28 IV Heparin drip, O2 2-4Lnc, patient transferred to ICU, Home O2 assessment. In your professional opinion, can you please clarify the following: Pulmonary embolism ruled in Pulmonary embolism ruled out Other, please specify Unable to determine (Last Revision: January 2018) Query response documented in Discharge Summary on 07/04: DAMI WITT
--- NOTE | 2020-07-03 10:19 | CDI ---
Documentation Clarification Form Date: 07/03/2020 CDS: Candace Luo, CCS, CCDS Admit Date: 06/25/2020 Patient Name: Dileep Kamara Discharge Date: ATTENTION: The Clinical Documentation Specialists (CDI) and [facility] Coding Staff appreciate your assistance in clarifying documentation. Please respond to the clarification below the line at the bottom and electronically sign. The CDI & [facility] Coding staff will review the response and follow-up if needed. Please note: Queries are made part of the Legal Health Record. If you have any questions, please contact the author of this message via ITS. Dear Dr. Viksa Mendoza: Per the 06/28 Attending Progress Note: "Acute respiratory distress with tachypnea and tachycardia patient transferred to the intensive care unit." VQ Scan ordered to rule out pulmonary embolism. History/Risk Factors: Stage IV Colon CA w/metastasis to bone status post bowel resection. Clinical Indicators: Presented to the ED on 06/25 with fever, nausea & weakness, very thirsty & muscle cramps. Admit with Acute kidney injury due to ATN, Hyponatremia & Dehydration. VS on admission (06/25): T 98.2, P 143^, R 18, BP 113/81, PO 96 RA VS 06/27: T 100.7^, P 147^, R 45^, BP 147/97, PO 91 RA - 92 2Lnc, 95 4Lnc. VS 07/01: PO 86 on 4Lnc RAD 06/28 NM Lung scan: Multiple subsegmental peripheral defects corresponds to intermediate probability of pulmonary embolism. Treatment 06/28 IV Heparin drip, O2 2-4Lnc, patient transferred to ICU, Home O2 assessment. In your professional opinion, can you please clarify if these findings signify one of the following conditions? Acute Respiratory Failure Acute on Chronic Respiratory Failure Chronic Respiratory Failure Other Diagnosis, please specify Unable to determine Please specify: o With hypercapnia? (pCO2 >50 and pH <7.35) o With hypoxia? (pO2 <60 mm Hg or SpO2 <91% on room air) (Last Query Form Revision: June 2019) ___acute hypoxic respiratory failure MTDD
--- NOTE | 2020-07-03 16:00 | P.PN ---
Subjective Progress Note Date: 07/03/20 Principal diagnosis: Weakness and confusion 2/2/ ARF, obstructive uropathy, hypercalcemia. Metastatic colon cancer Patient is slated for discharge today. His POA and his Aunt are at the bedside. Patient sleeps on and off while we are talking, he is denying any pain, he is tolerating some oral intake, unfortunately he is not able to void adequately, and a Bassett with leg bag is going to be placed Objective - Vital Signs Vital signs: Vital Signs Temp 97.9 F 07/03/20 11:28 Pulse 116 H 07/03/20 11:28 Resp 18 07/03/20 11:28 BP 130/82 07/03/20 11:28 Pulse Ox 90 L 07/03/20 11:28 Intake & Output 07/02/20 07/03/20 07/03/20 18:59 06:59 18:59 Intake Total 289.013 600 200 Output Total 1775 800 Balance 289.013 -1175 -600 Intake: Intake, IV Titration 289.013 600 Amount Heparin Sod,Pork in 0.45% 289.013 NaCl 25,000 unit In 0.45 % NaCl 1 250ml.bag @ 18 UNITS/KG/HR 11.862 mls/hr IV .[id number] MATTY Rx#: [id number] Sodium Chloride 0.9% 1, 600 000 ml @ 75 mls/hr IV . [id number] MATTY Rx#:[id number] Oral 200 Output: Urine 1775 Post Void Residual 800 Other: Voiding Method Indwelling Catheter Indwelling Catheter # Bowel Movements 1 - Constitutional Constitutional Comment(s): Progressive cachexia, patient visually looks weak and ill General appearance: Present: no acute distress, thin - EENT Eyes: Present: anicteric sclerae ENT: Present: hearing grossly normal - Respiratory Respiratory: bilateral: CTA - Cardiovascular Heart sounds: normal: S1, S2 Abnormal Heart Sounds: Absent: systolic murmur, diastolic murmur, rub, S3 Gallop, S4 Gallop, click, other - Peripheral edema leg Peripheral Edema: bilateral: None - Gastrointestinal Gastrointestinal Comment(s): Firm to touch - Musculoskeletal Musculoskeletal: Present: generalized weakness - Psychiatric Psychiatric Comment(s): Drifts off to sleep easily, he does answer questions appropriately Psychiatric: Present: appropriate affect, intact judgment & insight - Labs CBC & Chem 7: 07/01/20 06:06 07/02/20 06:01 Labs: Microbiology - Last 24 Hours (Table) 06/27/20 17:43 Blood Culture - Preliminary Blood No Growth after 120 hours 06/26/20 12:19 Blood Culture - Final Blood No Growth after 144 hours Assessment and Plan (1) Colon carcinoma metastatic to bone Narrative/Plan: I reviewed the case with the POA and at the bedside. We discussed the same things that were discussed with the patient yesterday- risks versus benefits of treatment, treatment may or may not have a meaningful impact on his cancer, treatment itself, could have detrimental effects up to, and including . Support of hospice is recommended if no therapy is going to be pursued. Patient POA and Aunt confirm pt wants to proceed with treatment. Patient has appointment Wednesday the at 1 PM for his first cycle of treatment. Highly recommended palliative care, they are agreeable to the same. Discussed with Case Management who will follow-up. Family also had questions about private duty nursing, have asked Case Management to provide them with contact info for the same. We reviewed side effects of chemotherapy including cold sensitivity, diarrhea, plantar, palmar erythrodesia. We also discussed the cycling, treatment once every 14 days. All questions were answered to their satisfaction at this time. Current Visit: Yes Status: Acute Priority: High Code(s): C18.9 - MALIGNANT NEOPLASM OF COLON, UNSPECIFIED; C79.51 - SECONDARY MALIGNANT NEOPLASM OF BONE SNOMED Code(s): 417295475 (2) Hypercalcemia of malignancy Narrative/Plan: Treated with aredia. Ca++ level significantly reduced. Current Visit: Yes Status: Resolved Priority: High Code(s): E83.52 - HYPERCALCEMIA SNOMED Code(s): 21978329 Plan: Patient is okay for D/C from a Hem/Onc standpoint. Case was discussed briefly w ith the Attending. Patient is just awaiting some services to be in place before going home. Time with Patient: Greater than 30 (Greater than 50% of time spent counseling and coordinating care)
--- NOTE | 2020-07-03 16:13 | PN ---
PROGRESS NOTE DATE OF SERVICE: 07/03/2020 REASON FOR FOLLOWUP: Fever, possible thromboembolic event. INTERVAL HISTORY: Patient is currently afebrile. The patient is feeling better. Breathing comfortably. The patient denies having any chest pain or shortness of breath, no cough. No abdominal pain or diarrhea. PHYSICAL EXAMINATION: Blood pressure 130/92 with a pulse of 116, temperature 97.9. He is 90% on room air. General description is a middle-aged male, lying in bed in no distress. RESPIRATORY SYSTEM: Unlabored breathing, clear to auscultation anteriorly. HEART: S1, S2. Regular rate and rhythm. ABDOMEN: Soft, no tenderness. LABS: No new labs have been obtained today. Culture has been negative. DIAGNOSTIC IMPRESSION AND PLAN: Patient with a fever, possible thromboembolic event, infectious etiology has been ruled out with negative cultures, negative . Antibiotic has been discontinued. Patient will continue antibiotic on discharge. Questions and concerns were answered. MMODL / IJN: [id number] /
[2020-07-04] MEDS: SODIUM CHLORIDE 0.9% 1,000 ML IV SCH (00:55)
[2020-07-04] MEDS ORDERED: ONDANSETRON 4 MG/2 ML VIAL IVP PRN (04:36)
[2020-07-04] MEDS: HYDROcodone/APAP 5-325MG 1 EACH TAB PO PRN (05:38)
[2020-07-04 06:17] VITALS: RESP 20
[2020-07-04] MEDS: METOPROLOL TARTRATE 25 MG TAB PO SCH (09:10)
[2020-07-04] MEDS: RIVAROXABAN 15 MG TAB PO SCH (09:10)
[2020-07-04] MEDS: PANTOPRAZOLE 40 MG TABLET PO SCH (09:10)
[2020-07-04] MEDS: amLODIPine 10 MG TAB PO SCH (09:10)
[2020-07-04] MEDS: TAMSULOSIN 0.4 MG CAP.ER.24H PO SCH (09:10)
[2020-07-04 09:22] LABS: ALT 28 U/L (4-49); AST 89 U/L (17-59); African American GFR (CKD) >90 (>60 ml/min/1.73 sqM); Albumin 2.3 g/dL (3.5-5.0); Albumin/Globulin Ratio 0.8; Alkaline Phosphatase 252 U/L (38-126); Anion Gap 4 mmol/L; Blood Urea Nitrogen 5 mg/dL (9-20); Calcium 7.4 mg/dL (8.4-10.2); Carbon Dioxide 27 mmol/L (22-30); Chloride 103 mmol/L (98-107); Globulin 2.9 g/dL; Glucose 78 mg/dL (74-99); Non-African American GFR(CKD) >90 (>60 ml/min/1.73 sqM); Potassium 3.3 mmol/L (3.5-5.1); Sodium 134 mmol/L (137-145); Total Bilirubin 0.7 mg/dL (0.2-1.3); Total Protein 5.2 g/dL (6.3-8.2)
[2020-07-04 09:46] LABS: Anisocytosis Slight; HCT 34.2 % (39.0-53.0); HGB 10.8 gm/dL (13.0-17.5); Hypochromasia Slight; MCH 25.8 pg (25.0-35.0); MCHC 31.6 g/dL (31.0-37.0); MCV 81.5 fL (80.0-100.0); Mean Platelet Volume 6.9; Microcytosis Slight; Platelet Count 237 k/uL (150-450); Poikilocytosis Slight; RDW 17.9 % (11.5-15.5); WBC 7.9 k/uL (3.8-10.6)
[2020-07-04 11:20] LABS: Band Neutrophils % 3 %; Eosinophils # (M) 0.24 k/uL (0-0.7); Lymphocytes # (M) 0.63 k/uL (1.0-4.8); Metamyelocytes # (M) 0.16 k/uL (0); Metamyelocytes % 2 %; Myelocytes # (M) 0.24 k/uL (0); Myelocytes % 3 %; Neutrophils % (M) 78 %; Nucleated Red Blood Cells 0 /100 WBC (0-0); Total Cells Counted 200
[2020-07-04 11:24] LABS: Toxic Granulation Present
[2020-07-04 11:38] VITALS: BP 115/77; PULSE 102; TEMP 98.4
--- NOTE | 2020-07-04 11:42 | P.PN ---
Subjective Progress Note Date: 07/03/20 This is a 49 year old male with a previous medical history significant for kidney stones and cholelithiasis, was inititially complaining of increased abdominal pain in the right upper quadrant and had US of the abdomen that showed cholelithiasis, this was followed with HIDA scan that showed biliary dyskinesis and was referred to have Lap-Jocelyn with that week he developed to have increased abdominal pain with significant nausea and vomiting and he presented to [facility] with bowel obstruction picture, he underwent CT scan of the abdomen and pelvis that showed a large cecal mass suggestive of colon cancer, he underwent right colectomy with end to end anastomosis and then he developed to have a pelvic Abscess that was treated with transcutaneous drain and IV antibiotics through a PICC line for 4 weeks which he has done, he was then seen by Hem-Onc Toma Mars and underwent a battery of testing including PET c that showed metastatic disease, he has then had a Mediprot placed recently by and was seen today by COMPANY DOCTOR at Dr. Chua 's office to discuss further jeniffer tment options and possibly a referral [place] [facility] [place] was extremely weak and tachycardic and there was a suspicion for possible Mediport infection so he was referred to the ER , he did receive 2 L of Normal saline his heart rate was 16o with sinus tachycardia and he is down to 115 , blood cultures were obtained and he was started on Vancomycin and Zosyn and ID consult was obtained along with surgical consult. 06/26: Patient has been seen by Dr. Hollis does not feel that there is infection of the Mediport site. Patient was also noted to have transaminitis and elevated bilirubin possibly associated with metastatic disease or documented cholelithiasis. No plan for surgical intervention for gallbladder disease at this time based on patient's medical history and asymptomatic presentation. Patient has been afebrile, heart rate 131/86, pulse ox 92% on 2 L nasal cannula. Heart rate has been elevated up to 140 with activity and 110-120 at rest. Low dose Lopressor added at 12.5 mg twice daily and subsequently increased to 25 mg twice daily. Repeat blood work reveals WBC 5.2, hemoglobin 10.9, platelet count 197. Electrolytes normal, BUN 36, creatinine 1.6. Total bilirubin 0.9, AST 72, ALT 64, alkaline phosphatase 424. Repeat lactic acid 1.0. Patient is currently on IV antibiotics in the form of Zosyn and vancomycin. Oncology consult added. Patient was to start chemotherapy. Consult in place for Dr. Menjivar. Blood culture is status post received. Patient is eating very little and has been seen by dietitian and Ensure [address] in place. Oncology has ordered Aredia, patient is on IV fluids 150 mL per hour. Of the brain has been ordered. CEA, ferritin, iron profile, uric acid, methylmalonic acid, B12 are pending. 06/27: CAT scan of the abdomen pelvis without contrast revealed markedly distended urinary bladder with moderate right hydronephrosis and mild left hydronephrosis with bilateral hydroureter. Nonobstructing renal stones are identified. Etiology of hydroureter and hydronephrosis may be related to distended urinary bladder. Scattered abdominal adenopathy. No suspicious abnormality to suggest abscess. Patchy infiltrates at the lung bases and small bilateral pleural effusions. Infectious etiologies should be considered. Consider atypical pneumonia. Consult with urology added for hydronephrosis. Patient has been seen by Dr. Menjivar and vancomycin has been discontinued. Patient is currently on Zosyn. Bassett catheter was placed today with removal of 1600 ML's. Patient's aunt is at the bedside and she states she has been going to his house feeding him and doing his housework. Patient is known to have more confusion today. He states what is this idea about her race car. He thinks that he is leaving today. Patient is reoriented. Patient has been afebrile, heart rate 113, blood pressure 165/105, pulse ox 93% on room air. Patient's heart rate has been high despite starting Lopressor yesterday. Hydralazine added for blood pressure. Repeat blood work revealed creatinine of 2.6. Consult with nephrology will be added. Total bilirubin 0.9, AST 72, ALT 45, alkaline phosphatase 481. Albumin 2.4. CEA elevated at 19.2, vitamin B12 299. Uric acid 8.1 iron 51, TIBC 154, iron saturation 33, ferritin 13,654. Patient is eating very little. He is taking in some protein supplementation. Patient is more views from yesterday. CAT scan of the brain showed no acute abnormality. 06/28: Temperature max 100.7. Heart rate yesterday was running in the 140s to 150s with a blood pressure 147/97, pulse ox 92% on 2 L nasal cannula. He also had increasing confusion and lethargy. Patient was transferred into the intensive care unit and consult added for Dr. Fry. Tachycardia is improved today. Echocardiogram has been ordered. Blood cultures are showing no growth. Repeat blood work reveals WBC 6.2, hemoglobin 11.5, platelet count 230. He is currently on Zosyn and vancomycin. Patient has been seen by nephrology with plans to continue IV fluids, replace potassium and magnesium, encourage oral intake and monitor renal function and electrolytes. Repeat sodium 135, potassium 3.3, BUN 19 and creatinine 0.9. Alkaline phosphatase 395, AST 115. Patient has been seen by urology with recommendations to keep Bassett for 7 days and then trial void if creatinine is back to baseline and start Flomax 0.4 mg daily. MRI of the brain, VQ scan and echocardiogram have been ordered for today. 06/29: Patient sitting up in bed he continues to have significant bradycardia, he underwent an MRI of the brain essentially that showed no evidence of metastatic brain disease, he also had a VQ scan that showed intermediate probability for pulmonary embolism, he is seen already by pulmonary and critical care medicine, he remains intensive care unit, his appetite is better today, he continues to be extremely weak and fragile, we will continue monitor the patient very closely, patient was started on IV heparin for the possibility of pulmonary embolism, he would've the patient does appear to have a significant cachexia due to metastatic colon cancer everywhere except the brain, patient at this stage while in the hospital cannot tolerate any chemotherapy at this point in time in the form of FOLFOX, oncology is following, pulmonary and infectious disease , I had a long conversation with his [id number] and she elected to go for hospice care I discussed with his nurse that the patient is switched to no code at this point in time, and they are I believe interested in hospice care. 06/30: Patient sitting up in bed is more awake and more alert today his less tachycardic his heart rhythm is 104-106, he denies any chest pain is less short of breath, he is currently on heparin drip, he has no coughing or hemoptysis, he has no abdominal pain, nausea or vomiting is eating a bit better today, he is more awake and alert after long conversation with the patient he decided not to go for hospice care at this point in time and he wanted to try chemotherapy, we'll continue current medical plan and we will call oncology again for the possibility of chemotherapy at this point in time, I spoke with his [id number] who spend quite a bit of time with him yesterday and he is not ready for hospice at this point in time, please cancel hospice referral and the transfer to the hospice home today. 07/01: Patient remains in the intensive care unit, heart rate is still running on the low 100s presently 98-115, blood pressure 128/87, pulse ox 92% on 4 L nasal cannula, afebrile. Repeat blood work reveals WBC 7.3, hemoglobin 10.3, platelet count 210. Sodium 134, potassium 3.6, BUN 6 and creatinine 0.54. Magnesium 1.9. All blood cultures have shown no growth. Port infection has been ruled out. Patient is followed by Dr. Menjivar and continued on Zosyn. Patient has been cleared for transfer to oncology by Dr. Bejarano. Patient continues to eat very little and is on a regular diet as well as protein supplements. Patient continues to have significant weakness. 07/02: Oncology is planning to start FOLFOX regime on Wednesday which may start while he is still hospitalized. Patient continues to have significant weakness. PT and OT consults have been added.shortness of breath is improved. Patient is continued on Zosyn and followed by Dr. Menjivar.patient has been afebrile, heart rate 112, blood pressure 114/71, pulse ox 90% on room air. Sodium 134, potassium 3.6, creatinine 0.52. Discharge plan will be home with parent home care and palliative care and friends are helping. 07/03: Patient is seen today on the MedSurg floor. He states his breathing is easier. He did have a bowel movement last evening. He is alert but continues to have some weakness. He denies any pain in his abdomen. He does state that he feels full in his abdomen. Lower extremity edema is improved. He does have Bassett catheter and and voiding trial was to be for tomorrow per urology. We will ask his nurse to pull Bassett today and monitor for urinary retention. Patient has been on Flomax which will be continued at home. Patient was transitioned to oral Xarelto yesterday and heparin drip discontinued. Case discussed with oncology team and patient has been cleared for discharge with plan for outpatient chemotherapy to start on Wednesday. He has been afebrile, heart rate 117, blood pressure 120/80, pulse ox 90% on room air. Patient was prepared for discharge but family is trying to find someone to stay with him in the home. Discharge held for this reason. Voiding trial was attempted but failed and Bassett catheter was reinserted. Patient have follow-up with urology as an outpatient and continue Flomax. Objective - Vital Signs Vital signs: Vital Signs Temp 97.7 F 07/03/20 06:50 Pulse 90 07/03/20 06:50 Resp 14 07/03/20 06:50 BP 129/82 07/03/20 06:50 Pulse Ox 91 L 07/03/20 01:20 Intake & Output 07/02/20 07/03/20 07/03/20 18:59 06:59 18:59 Intake Total 289.013 600 Output Total 1775 Balance 289.013 -1175 Intake: Intake, IV Titration 289.013 600 Amount Heparin Sod,Pork in 0.45% 289.013 NaCl 25,000 unit In 0.45 % NaCl 1 250ml.bag @ 18 UNITS/KG/HR 11.862 mls/hr IV .[id number] [facility] Rx#: [id number] Sodium Chloride 0.9% 1, 600 000 ml @ 75 mls/hr IV . [id number] [facility] Rx#:[id number] Output: Urine 1775 Other: Voiding Method Indwelling Catheter # Bowel Movements 1 - Exam Review of Systems Constitutional: Reports anorexia, reports weight loss, Reports fatigue, Reports night sweats, Reports poor appetite, Reports sweats, Reports weakness Eyes: denies blurred vision, denies bulging eye, denies decreased vision Ears, nose, mouth and throat: Denies dysphagia, Denies neck lump, Denies swelling in throat, Denies sore throat Cardiovascular: Denies chest pain, Denies decreased exercise tolerance, Denies dyspnea on exertion, Denies leg edema, Denies lightheadedness, Denies shortness of breath, Denies syncope Respiratory: Denies congestion, Denies cough, Denies cough with sputum, Denies home oxygen, Denies sleep apnea, Denies snoring, Denies wheezing Gastrointestinal: Reports abdominal pain, Reports early satiety, Reports indigestion, Reports loss of appetite, Reports nausea, Denies belching, Denies bloating, Denies BRBPR, Denies change in bowel habits, Denies coffee ground wesley sis, Denies heartburn, Denies hematemesis, Denies hematochezia, Denies jaundice, Denies melena, Denies vomiting Genitourinary: Denies dysuria, Denies nocturia, reported retention Musculoskeletal: Reports muscle weakness, Reports myalgias Musculoskeletal: absent: ankle pain, ankle stiffness, ankle swelling, elbow pain, elbow stiffness, elbow swelling, foot pain, foot stiffness, foot swelling, hand pain, hand stiffness, hand swelling, hip pain, hip stiffness, hip swelling, knee pain, knee stiffness, knee swelling, shoulder pain, shoulder stiffness, shoulder swelling, wrist pain, wrist stiffness, wrist swelling Integumentary: Denies pruritus, Denies rash Neurological: Denies numbness, Denies weakness, confusion and lethargy improving Psychiatric: Reports depression, Denies sadness/tearfulness, Denies sleep disturbances, Denies suicidal ideation Endocrine: Reports fatigue, Reports weight change Physical Examination HEENT: head is atraumatic normocephalic pupils were equal round reactive to light and accommodations extra ocular muscle movement were intact, conjunctivae were pale and sclera were mildly icteric. Neck: supple no JVP. Chest: clear to auscultation bilaterally, there is no crackles or wheezes. Heart: first heart sound is normal , second heart sound is normal , tachycardic there is no gallop or murmur. Abdomen: there is no abdominal tenderness with minimal fullness, there is surgical scar that have healed, positive bowel sounds. Bassett catheter draining blood-tinged urine Extremities: there is no edema , no calf tenderness DP + 2 bilaterally. Neurologiic examination: patient is awake, alert and oriented x3. CN II-XII are grossly intact muscle power 4/5 in bilateral upper and lower extremity . - Labs CBC & Chem 7: 07/04/20 08:47 07/04/20 08:47 Labs: Abnormal Lab Results - Last 24 Hours (Table) 07/02/20 Range/Units 13:11 APTT 48.4 H (22.0-30.0) sec Microbiology - Last 24 Hours (Table) 06/27/20 17:43 Blood Culture - Preliminary Blood No Growth after 120 hours 06/26/20 12:19 Blood Culture - Final Blood No Growth after 144 hours Assessment and Plan Plan: 1. Acute kidney injury due to acute tubular necrosis and poor oral intake, hypercalcemia and urinary retention. Iincrease oral intake of fluid. Consult with nephrology appreciated. 2. Possible Mediport infection ruled out. Blood cultures, continue Zosyn 3.375 gr IVPB Q [address] Menjivar appreciated. Vancomycin discontinued. 3. Hyponatremia due to hypovolemia. we will continue with IVF and repeat CMP in AM. 4. 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 Oncology is planning for FOLFOX. 5. Gallstones with biliary dyskinesia. we will continue with Zofran and IVF. 6. History of kidney stones with mild right sided hydronephrosis we will continue to monitor this appears to be new since last US. 7. Sinus tachycardia due to poor oral intake of fluid and dehydration. we will contiue with IVF. Continue Lopressor 25 mg twice daily . 8. DVT prophylaxis. we will continue with Heparin 5000 units SC Q 8 hours. 9. GI prophylaxis. we will continue with Protonix 40 mg IVP daily. 10. Severe protein calorie malnutrition with poor oral intake, lack of katy etite, BMI of 18. Consult with dietitian appreciated. Continue Ensure 3 times daily along with diet. 11. Metabolic encephalopathy secondary to hypercalcemia. Patient is on Aredia. MRI of the brainas above. 12. Hypercalcemia secondary to dehydration and metastatic disease to the bones. Oncology managing. 13. Bilateral hydronephrosis. Consult with urology. 14. Urinary retention. Bassett catheter placed, consult with urology. Maintain Bassett catheter for 7 days and then voiding trial. Flomax 0.4 mg daily 15. Hypertension. Patient started on amlodipine 10 mg twice daily. 16. Acute respiratory distress with tachypnea and tachycardia patient transferred to the intensive care unit. VQ scan moderate possibility of pulmonary embolism. Patient is on a heparin drip. CODE STATUS: NO code. Prognosis: Poor Discharge plan: home with [facility] and palliative care on Impression and plan of care have been directed as dictated by the signing physician. Amee Day nurse practitioner acting as scribe for signing physician.
--- NOTE | 2020-07-04 12:58 | PN ---
PROGRESS NOTE DATE OF SERVICE: 07/04/2020 REASON FOR FOLLOWUP: Fever, possible thromboembolic event. INTERVAL COURSE: The patient is currently afebrile. Patient is feeling better. Breathing comfortably on room air. Denies having any chest pain or cough. No nausea, no vomiting, no abdominal pain or diarrhea. PHYSICAL EXAMINATION: Blood pressure is 114/84 with a pulse 100, temperature is 98. He is 93% on 2 L nasal cannula. General description is a middle-aged male, lying in bed in no distress. RESPIRATORY SYSTEM: Unlabored breathing, clear to auscultation anteriorly. HEART: S1, S2. Regular rate and rhythm. ABDOMEN: Soft, no tenderness. LABS: Hemoglobin is 10.1, white count 7.9, BUN of 5, creatinine 0.46. Blood culture has been negative. DIAGNOSTIC IMPRESSION AND PLAN: Patient with fever on presentation likely thromboembolic event. This patient did have pain. No evidence of infection. Culture negative. CT of abdomen and pelvis negative. Patient is currently off antibiotic and no recurrence of fever. Hence recommend no antibiotic on discharge. MMODL / IJN: [id number] /
== END 2020-07-04 15:20 | disposition home health service (06) | DRG 682 ==
LOC: EC 14:17 → 4SSUR 17:29 → 2SICU 06-27 16:43 → 4SSUR 07-02 05:49 → 6NMEDSUR 07-03 08:29
PROVIDERS: ADMIT Internal Medicine; ATTEND Internal Medicine
DX: N17.0 Acute kidney failure with tubular necrosis (principal); G93.41 Metabolic encephalopathy; I26.99 Other pulmonary embolism without acute cor pulmonale; J96.01 Acute respiratory failure with hypoxia; E43 Unspecified severe protein-calorie malnutrition; R64 Cachexia; C77.2 Secondary and unspecified malignant neoplasm of intra-abdominal lymph nodes; C77.1 Secondary and unspecified malignant neoplasm of intrathoracic lymph nodes; C79.72 Secondary malignant neoplasm of left adrenal gland; C79.51 Secondary malignant neoplasm of bone; C78.02 Secondary malignant neoplasm of left lung; C78.01 Secondary malignant neoplasm of right lung; E87.1 Hypo-osmolality and hyponatremia; C18.0 Malignant neoplasm of cecum; C78.7 Secondary malignant neoplasm of liver and intrahepatic bile duct; Z68.1 Body mass index [BMI] 19.9 or less, adult; Z20.828 Contact with and (suspected) exposure to other viral communicable diseases; K76.0 Fatty (change of) liver, not elsewhere classified; I95.9 Hypotension, unspecified; Z51.5 Encounter for palliative care; Z66 Do not resuscitate; E86.0 Dehydration; R00.0 Tachycardia, unspecified; E86.1 Hypovolemia; K80.20 Calculus of gallbladder without cholecystitis without obstruction; K82.8 Other specified diseases of gallbladder; N13.2 Hydronephrosis with renal and ureteral calculous obstruction; E87.6 Hypokalemia; F41.9 Anxiety disorder, unspecified; E83.52 Hypercalcemia; R40.2362 Coma scale, best motor response, obeys commands, at arrival to emergency department; R40.2142 Coma scale, eyes open, spontaneous, at arrival to emergency department; R40.2252 Coma scale, best verbal response, oriented, at arrival to emergency department; R32 Unspecified urinary incontinence; N32.89 Other specified disorders of bladder; E83.42 Hypomagnesemia; I10 Essential (primary) hypertension; G89.3 Neoplasm related pain (acute) (chronic); R00.1 Bradycardia, unspecified; Z71.3 Dietary counseling and surveillance; Z87.442 Personal history of urinary calculi; Z79.899 Other long term (current) drug therapy; Z92.3 Personal history of irradiation; Z90.49 Acquired absence of other specified parts of digestive tract; Z95.828 Presence of other vascular implants and grafts; Z80.1 Family history of malignant neoplasm of trachea, bronchus and lung
CPT/HCPCS: 36415; 70450; 70553; 71046; 74176; 76705; 78580; 80048; 80053; 80202; 81003; 82378; 82607; 82728; 83540; 83550; 83605; 83690; 83735; 83880; 83921; 84100; 84132; 84145; 84443; 84484; 84550; 85025; 85610; 85730; 87040; 93005; 93306; 93970; 94760; 96361; 96374; 96375; 99291

== ENCOUNTER 2020-07-08 17:15 | Inpatient (IN) | payer BC ==
[2020-07-08] MEDS ORDERED: IBUPROFEN IV 600 MG in SODIUM CHLORIDE 0.9% 250 ML IV STA (17:54)
[2020-07-08] MEDS: SODIUM CHLORIDE 0.9% 500 ML 500 ML IV SCH ×3 (18:20→18:25)
[2020-07-08 18:35] LABS: ALT 20 U/L (4-49); AST 116 U/L (17-59); African American GFR (CKD) >90 (>60 ml/min/1.73 sqM); Alkaline Phosphatase 346 U/L (38-126); Anion Gap 8 mmol/L; Blood Urea Nitrogen 11 mg/dL (9-20); Calcium 8.5 mg/dL (8.4-10.2); Carbon Dioxide 27 mmol/L (22-30); Chloride 102 mmol/L (98-107); Glucose 84 mg/dL (74-99); Non-African American GFR(CKD) >90 (>60 ml/min/1.73 sqM); Potassium 3.9 mmol/L (3.5-5.1); Sodium 137 mmol/L (137-145); Total Bilirubin 1.1 mg/dL (0.2-1.3); Total Protein 6.3 g/dL (6.3-8.2)
[2020-07-08 18:43] LABS: Appearance,Urine Clear (Clear); Bilirubin,Urine Negative (Negative); Blood,Urine Negative (Negative); Color,Urine Yellow; Glucose,Urine (UA) Negative (Negative); Ketones,Urine 1+ (Negative); Leukocyte Esterase,Urine Negative (Negative); Nitrite,Urine Negative (Negative); PH, Urine 6.5 (5.0-8.0); Protein,Urine Trace (Negative); Specific Gravity,Urine 1.014 (1.001-1.035)
[2020-07-08 18:44] LABS: Anisocytosis Slight; Basophils # (A) 0.1 k/uL (0-0.2); Basophils % (A) 1 %; Eosinophils # (A) 0.1 k/uL (0-0.7); Eosinophils % (A) 3 %; HCT 35.8 % (39.0-53.0); HGB 11.4 gm/dL (13.0-17.5); Hypochromasia Slight; Lymphocytes # (A) 0.4 k/uL (1.0-4.8); Lymphocytes % (A) 7 %; MCH 25.9 pg (25.0-35.0); MCHC 31.8 g/dL (31.0-37.0); MCV 81.4 fL (80.0-100.0); Mean Platelet Volume 7.5; Microcytosis Slight; Monocytes # (A) 0.4 k/uL (0-1.0); Monocytes % (A) 7 %; Neutrophils # (A) 4.7 k/uL (1.3-7.7); Neutrophils % (A) 81 %; Platelet Count 299 k/uL (150-450); Poikilocytosis Slight; RDW 18.3 % (11.5-15.5); WBC 5.9 k/uL (3.8-10.6)
[2020-07-08 18:52] LABS: INR 1.7 (<1.2); Partial Thromboplastin Time 34.9 sec (22.0-30.0); Prothrombin Time 16.9 sec (9.0-12.0)
--- NOTE | 2020-07-08 18:52 | ED ---
Recheck HPI - General Source: patient, RN notes reviewed, old records reviewed Mode of arrival: ambulatory Limitations: no limitations <Kindra Mares - Last Filed: 07/08/20 19:22> <John White - Last Filed: 07/08/20 19:26> - General Chief Complaint: Recheck/Abnormal Lab/Rx Stated Complaint: dehydration Time Seen by Provider: 07/08/20 17:19 - History of Present Illness Initial Comments: This Patient is a 49-year-old male presents the ER today for evaluation for dehydration and weakness, and poor intake. Patient reportedly has stage IV colon cancer. He was supposed to see oncology care and discuss pallative care.. He has some bouts of hallucinations and poor cognition, but will answer questions appropriately and other times. Patient reports he is having no significant pain right now. Patient states that he was recently discharged from the hospital. He was found to be hypoxic at 90% on room air was placed on 2 L of oxygen. He states he does normally not wear oxygen. Pt reports bowel movement yesterday, and has indwelling avila catheter. (Kindra Mares) - Related Data Home Medications Medication Instructions Recorded Confirmed HYDROcodone/APAP 5-325MG [[place] 1 tab PO QID PRN 06/25/20 07/08/20 5-325] fentaNYL 50MCG/HR PATCH [Duragesic 1 patch TRANSDERM Q72H 06/25/20 07/08/20 50MCG/HR] Previous Rx's Medication Instructions Recorded Metoprolol Tartrate [Lopressor] 25 mg PO BID #60 tab 07/03/20 Pantoprazole [Protonix] 40 mg PO DAILY #30 tablet. 07/03/20 Rivaroxaban [Xarelto] 15 mg PO BID-W/MEALS #60 tab 07/03/20 Tamsulosin [Flomax] 0.4 mg PO PC-BRKFST #30 cap.er.24h 07/03/20 amLODIPine [Norvasc] 10 mg PO DAILY #30 tab 07/03/20 Allergies Allergy/AdvReac Type Severity Reaction Status Date / Time No Known Allergies Allergy Verified 07/08/20 19:18 Review of Systems ROS Other: All systems not noted in ROS Statement are negative. <Kindra Mares - Last Filed: 07/08/20 19:22> ROS Other: All systems not noted in ROS Statement are negative. <John White - Last Filed: 07/08/20 19:26> ROS Statement: Those systems with pertinent positive or pertinent negative responses have been documented in the HPI. Past Medical History Past Medical History: Cancer Additional Past Medical History / Comment(s): colon cancer, Gallstones, kidney stones. History of Any Multi-Drug Resistant Organisms: None Reported Past Surgical History: Bowel Resection Past Anesthesia/Blood Transfusion Reactions: No Reported Reaction Past Psychological History: No Psychological Hx Reported Smoking Status: Never smoker Past Alcohol Use History: None Reported Past Drug Use History: None Reported - Past Family History Father History Unknown: Yes Family Medical History: Cancer (Father at the age of 76 from lung cancer) Mother Family Medical History: Unable to Obtain (Mother at the age of 63) Brother(s) Family Medical History: No Reported History (2 brothers one from a Fire accident.) Sister(s) Family Medical History: No Reported History (2 sisters no health issues.) Son(s) Family Medical History: No Reported History (one son with mental health issues,lives in intermediate.) <Kindra Mares - Last Filed: 07/08/20 19:22> General Exam Limitations: no limitations General appearance: alert, in no apparent distress Head exam: Present: atraumatic, normocephalic, normal inspection Eye exam: Present: normal appearance, PERRL, EOMI. Absent: scleral icterus, conjunctival injection, periorbital swelling ENT exam: Present: normal exam, mucous membranes dry. Absent: mucous membranes moist Neck exam: Present: normal inspection. Absent: tenderness, meningismus, lymphadenopathy Respiratory exam: Present: decreased breath sounds. Absent: normal lung sounds bilaterally, respiratory distress, wheezes, rales, rhonchi, stridor Cardiovascular Exam: Present: regular rate, normal rhythm, normal heart sounds. Absent: systolic murmur, diastolic murmur, rubs, gallop, clicks GI/Abdominal exam: Present: soft, normal bowel sounds. Absent: distended, tenderness, guarding, rebound, rigid Extremities exam: Present: normal inspection, full ROM, normal capillary refill. Absent: tenderness, pedal edema, joint swelling, calf tenderness Back exam: Present: normal inspection Neurological exam: Present: alert, oriented X3, CN II-XII intact Psychiatric exam: Present: normal affect, normal mood Skin exam: Present: warm, dry, intact, normal color. Absent: rash <Kindra Mares - Last Filed: 07/08/20 19:22> - General Exam Comments Initial Comments: 49 -year-old male. Patient is very thin and frail. (Kindra Mares) Course <Kindra Mares - Last Filed: 07/08/20 19:22> <John White - Last Filed: 07/08/20 19:26> Vital Signs 07/08/20 17:25 Temperature 99.7 F H Pulse Rate 136 H Respiratory 20 Rate Blood Pressure 98/77 O2 Sat by Pulse 90 L Oximetry - Reevaluation(s) Reevaluation #1: 07/08/20 19:15 Nurse staff informed from visiting nurse that APS will be called due to poor condiytion at home and difficult access to tx. (Kindra Mares) Reevaluation #2: 07/08/20 19:26 Dr. Mendoza did come the emergency department did see the patient. Patient will be admitted (John White) Medical Decision Making - Lab Data Result diagrams: 07/08/20 17:59 07/08/20 17:59 - Radiology Data Radiology results: report reviewed <Kindra Mares - Last Filed: 07/08/20 19:22> - Lab Data Result diagrams: 07/08/20 17:59 07/08/20 17:59 <John White - Last Filed: 07/08/20 19:26> - Medical Decision Making Patient is a 49-year-old male history of stage IV colon cancer. He presents today for concern for poor oral intake bouts of hallucinations and poor cognition. Patient appears clinically very dehydrated. Patient was found to be hypoxic as well and 90% on 2 L. He's been tachycardic at 135 bpm. He complained of no specific pain at this time. I discussed the case with Dr. White discussed the case with patient's PCP Dr. Mendoza who will have the Patient admitted with consult to oncology. (Kindra Mares) - Lab Data Lab Results 07/08/20 07/08/20 07/08/20 Range/Units 17:59 17:59 17:59 WBC 5.9 (3.8-10.6) k/uL RBC 4.40 (4.30-5.90) m/uL Hgb 11.4 L (13.0-17.5) gm/dL Hct 35.8 L (39.0-53.0) % MCV 81.4 (80.0-100.0) fL MCH 25.9 (25.0-35.0) pg MCHC 31.8 (31.0-37.0) g/dL RDW 18.3 H (11.5-15.5) % Plt Count 299 (150-450) k/uL Neutrophils % 81 % Lymphocytes % 7 % Monocytes % 7 % Eosinophils % 3 % Basophils % 1 % Neutrophils # 4.7 (1.3-7.7) k/uL Lymphocytes # 0.4 L (1.0-4.8) k/uL Monocytes # 0.4 (0-1.0) k/uL Eosinophils # 0.1 (0-0.7) k/uL Basophils # 0.1 (0-0.2) k/uL Hypochromasia Slight Poikilocytosis Slight Anisocytosis Slight Microcytosis Slight PT 16.9 H (9.0-12.0) sec INR 1.7 H (<1.2) APTT 34.9 H (22.0-30.0) sec Sodium (137-145) mmol/L Potassium (3.5-5.1) mmol/L Chloride (98-107) mmol/L Carbon Dioxide (22-30) mmol/L Anion Gap mmol/L BUN (9-20) mg/dL Creatinine (0.66-1.25) mg/dL Est GFR (CKD-EPI)AfAm (>60 ml/min/1.73 sqM) Est GFR (CKD-EPI)NonAf (>60 ml/min/1.73 sqM) Glucose (74-99) mg/dL Plasma Lactic Acid [place] (0.7-2.0) mmol/L Calcium (8.4-10.2) mg/dL Total Bilirubin (0.2-1.3) mg/dL AST (17-59) U/L ALT (4-49) U/L Alkaline Phosphatase (38-126) U/L Total Protein (6.3-8.2) g/dL Albumin (3.5-5.0) g/dL Urine Color Yellow Urine Appearance Clear (Clear) Urine pH 6.5 (5.0-8.0) Ur Specific [place] 1.014 (1.001-1.035) Urine Protein Trace H (Negative) Urine Glucose (UA) Negative (Negative) Urine Ketones 1+ H (Negative) Urine Blood Negative (Negative) Urine Nitrite Negative (Negative) Urine Bilirubin Negative (Negative) Urine Urobilinogen 4.0 (<2.0) mg/dL Ur Leukocyte Esterase Negative (Negative) 07/08/20 07/08/20 Range/Units 17:59 17:59 WBC (3.8-10.6) k/uL RBC (4.30-5.90) m/uL Hgb (13.0-17.5) gm/dL Hct (39.0-53.0) % MCV (80.0-100.0) fL MCH (25.0-35.0) pg MCHC (31.0-37.0) g/dL RDW (11.5-15.5) % Plt Count (150-450) k/uL Neutrophils % % Lymphocytes % % Monocytes % % Eosinophils % % Basophils % % Neutrophils # (1.3-7.7) k/uL Lymphocytes # (1.0-4.8) k/uL Monocytes # (0-1.0) k/uL Eosinophils # (0-0.7) k/uL Basophils # (0-0.2) k/uL Hypochromasia Poikilocytosis Anisocytosis Microcytosis PT (9.0-12.0) sec INR (<1.2) APTT (22.0-30.0) sec Sodium 137 (137-145) mmol/L Potassium 3.9 (3.5-5.1) mmol/L Chloride 102 (98-107) mmol/L Carbon Dioxide 27 (22-30) mmol/L Anion Gap 8 mmol/L BUN 11 (9-20) mg/dL Creatinine 0.50 L (0.66-1.25) mg/dL Est GFR (CKD-EPI)AfAm >90 (>60 ml/min/1.73 sqM) Est GFR (CKD-EPI)NonAf >90 (>60 ml/min/1.73 sqM) Glucose 84 (74-99) mg/dL Plasma Lactic Acid [place] 1.6 (0.7-2.0) mmol/L Calcium 8.5 (8.4-10.2) mg/dL Total Bilirubin 1.1 (0.2-1.3) mg/dL AST 116 H (17-59) U/L ALT 20 (4-49) U/L Alkaline Phosphatase 346 H (38-126) U/L Total Protein 6.3 (6.3-8.2) g/dL Albumin 3.0 L (3.5-5.0) g/dL Urine Color Urine Appearance (Clear) Urine pH (5.0-8.0) Ur Specific [place] (1.001-1.035) Urine Protein (Negative) Urine Glucose (UA) (Negative) Urine Ketones (Negative) Urine Blood (Negative) Urine Nitrite (Negative) Urine Bilirubin (Negative) Urine Urobilinogen (<2.0) mg/dL Ur Leukocyte Esterase (Negative) 07/08/20 18:51 KG shows sinus tachycardia. Rally considering. Ischemia. Ventricular rate of 138 beats per minute. WI interval is 160 ms. QRS duration is 86 most seconds. QT QTc is 290/439 ms. (Kindra Mares) Disposition Is patient prescribed a controlled substance at d/c from ED?: No Time of Disposition: 19:25 <Kindra Mares - Last Filed: 07/08/20 19:22> <John White - Last Filed: 07/08/20 19:26> Clinical Impression: Dehydration, Colon carcinoma metastatic to bone, Mental status alteration, Hypoxia Disposition: ADMITTED IP TO THIS HOSP Referrals: Vikas Mendoza MD [Primary Care Provider] - 1-2 days
[2020-07-08] MEDS ORDERED: LORazepam 2 MG/ML INJ IV PRN (19:26)
[2020-07-08] MEDS ORDERED: IBUPROFEN 400 MG TAB PO PRN (19:26)
[2020-07-08] MEDS ORDERED: NALOXONE 0.4 MG/ML 1 ML VIAL IV PRN (19:26)
[2020-07-08] MEDS ORDERED: HYDROmorphone 1 MG/ML 1 ML SYRINGE IVP PRN (19:26)
--- NOTE | 2020-07-08 19:32 | CT ---
EXAMINATION TYPE: CT chest angio for PE DATE OF EXAM: 07/08/2020 COMPARISON: None HISTORY: Weakness CT DLP: 312.2 mGycm Automated exposure control for dose reduction was used. CONTRAST: Performed with IV Contrast, patient injected with 100 mL of Isovue 370. There are 3-D post processed images. FINDINGS: There are moderate bilateral pleural effusions. There is extensive patchy airspace consolidation and atelectasis in the mid and lower lung graham. Heart size is normal. There is no pericardial effusion. I see no filling defects in the pulmonary arteries. Thoracic aorta shows no aneurysm or dissection. T he ascending aorta measures 2.8 cm. There is probably mediastinal and bronchial adenopathy. There are bronchial lymph nodes measuring up to 1.5 cm which are obscured somewhat by the pulmonary infiltrates. Thoracic spine is intact there is no compression fracture. Sternum is intact. There is 2.5 cm hypodense area in the anterior superior right lobe of the liver. There is partial vis ualization of the adrenal glands which are enlarged symmetrically. IMPRESSION: No evidence of pulmonary embolism. Extensive bilateral airspace consolidation and atelectasis. Moderate bilateral pleural effusions. Bro nchial adenopathy. Normal heart size. Lung abnormality consistent with inflammatory disease. Other et iology such as lymphoma not excluded. Pulmonary abnormalities appear slightly increased compared to C T scan of 06/27/2020. Hypodense anterior liver lesion probably increased compared to recent CT scan. Bilateral adrenal mass es.
--- NOTE | 2020-07-08 19:35 | XR ---
EXAMINATION TYPE: XR chest 2V DATE OF EXAM: 07/08/2020 COMPARISON: 06/25/2020 HISTORY: Fever TECHNIQUE: 2 views FINDINGS: There are bilateral patchy pulmonary airspace infiltrates. Heart size is normal. There are chest leads. There is slight elevation of the right diaphragm. There is bilateral blunting of the cos tophrenic angles. There is right central venous catheter with tip in the superior vena cava. Heart si ze is normal. IMPRESSION: Extensive bilateral pulmonary infiltrates and atelectasis with pleural effusions signific antly increased compared to recent exam.
[2020-07-08] MEDS ORDERED: AZITHROMYCIN 500 MG in SODIUM CHLORIDE 0.9% 250 ML IVPB STA (19:47)
[2020-07-08] MEDS: SODIUM CHLORIDE 0.9% 1,000 ML IV SCH (20:21)
[2020-07-09] MEDS: HYDROmorphone 0.5 MG/0.5 ML SYRINGE IVP PRN (03:50)
[2020-07-09] MEDS ORDERED: SODIUM CHLORIDE 0.9% 1,000 ML IV ONE (04:17)
[2020-07-09] MEDS: SODIUM CHLORIDE 0.9% 1,000 ML IV SCH ×2 (05:43→14:22)
[2020-07-09] MEDS ORDERED: METOPROLOL TARTRATE 25 MG TAB PO STA (06:09)
[2020-07-09] MEDS ORDERED: SODIUM CHLORIDE 0.9% 500 ML 500 ML IV ONE (06:10)
[2020-07-09] MEDS ORDERED: RIVAROXABAN 15 MG TAB PO SCH (07:30)
[2020-07-09] MEDS ORDERED: PANTOPRAZOLE 40 MG/10 ML VIAL IV SCH (09:00)
[2020-07-09] MEDS: TAMSULOSIN 0.4 MG CAP.ER.24H PO SCH (09:25)
[2020-07-09] MEDS: amLODIPine 10 MG TAB PO SCH (09:25)
[2020-07-09] MEDS: PANTOPRAZOLE 40 MG TABLET PO SCH (09:25)
[2020-07-09] MEDS: METOPROLOL TARTRATE 25 MG TAB PO SCH ×2 (09:26→19:59)
[2020-07-09] MEDS: ACETAMINOPHEN TAB 325 MG TAB PO PRN ×2 (10:08→20:02)
[2020-07-09] MEDS ORDERED: PIPERACILLIN-TAZOBACTAM 3.375 GM in SODIUM CHLORIDE 0.9% 100 ML IVPB SCH (10:15)
[2020-07-09] MEDS ORDERED: SODIUM CHLORIDE 0.9% 1,000 ML IV SCH ×2 (12:00→13:00)
[2020-07-09] MEDS: IPRATROPIUM-ALBUTEROL 3 ML NEB INHALATION SCH ×3 (12:08→20:33)
[2020-07-09 12:18] LABS: ALT 17 U/L (4-49); AST 190 U/L (17-59); African American GFR (CKD) >90 (>60 ml/min/1.73 sqM); Albumin 2.5 g/dL (3.5-5.0); Albumin/Globulin Ratio 0.8; Alkaline Phosphatase 357 U/L (38-126); Anion Gap 8 mmol/L; Blood Urea Nitrogen 6 mg/dL (9-20); Calcium 7.7 mg/dL (8.4-10.2); Carbon Dioxide 24 mmol/L (22-30); Chloride 105 mmol/L (98-107); Globulin 3.2 g/dL; Glucose 59 mg/dL (74-99); Non-African American GFR(CKD) >90 (>60 ml/min/1.73 sqM); Potassium 3.6 mmol/L (3.5-5.1); Sodium 137 mmol/L (137-145); Total Protein 5.7 g/dL (6.3-8.2)
[2020-07-09 12:21] LABS: Anisocytosis Slight; Basophils % (A) 1 %; Eosinophils # (A) 0.1 k/uL (0-0.7); Eosinophils % (A) 2 %; HCT 33.9 % (39.0-53.0); HGB 10.4 gm/dL (13.0-17.5); Hypochromasia Moderate; Lymphocytes # (A) 0.4 k/uL (1.0-4.8); Lymphocytes % (A) 8 %; MCH 25.5 pg (25.0-35.0); MCHC 30.8 g/dL (31.0-37.0); MCV 82.8 fL (80.0-100.0); Mean Platelet Volume 7.7; Microcytosis Slight; Monocytes # (A) 0.4 k/uL (0-1.0); Monocytes % (A) 7 %; Neutrophils # (A) 4.7 k/uL (1.3-7.7); Neutrophils % (A) 81 %; Platelet Count 313 k/uL (150-450); Poikilocytosis Slight; RBC 4.09 m/uL (4.30-5.90); WBC 5.8 k/uL (3.8-10.6)
--- NOTE | 2020-07-09 13:26 | XR ---
EXAMINATION TYPE: XR chest 1V portable DATE OF EXAM: 07/09/2020 COMPARISON: 07/08/20 HISTORY: SOB TECHNIQUE: Single frontal view of the chest is obtained. FINDINGS: Bilateral diffuse infiltrates are stable. Mediport catheter seen with the tip at the level of the SVC. No pneumothorax. There is a tiny bilateral pleural effusion. Heart size stable and withi n normal limits. IMPRESSION: Stable diffuse bilateral infiltrates correlate for multifocal pneumonia. Pulmonary richard a not excluded.
[2020-07-09] MEDS ORDERED: FUROSEMIDE 10 MG/ML 4 ML VIAL IV STA (13:45)
[2020-07-09] MEDS: LEVOFLOXACIN 500MG-D5W PMX 500 MG in DEXTROSE/WATER 1 100ML.BAG IVPB SCH (14:22)
[2020-07-09 15:40] LABS: Glucose,Whole Blood 73 mg/dL (75-99)
--- NOTE | 2020-07-09 15:46 | P.CONS ---
History of Present Illness - Reason for Consult Consult date: 07/09/20 Metastatic colon cancer Requesting physician: Kindra Mares - Chief Complaint Confusion, dehydration - History of Present Illness Patient has been brought back to the hospital as he is not able/not wanting to eat or drink, he is more confused now than previously, weakness is profound. Pt has not received any chemotherapy treatment for his malignancy, was supposed to start yesterday. His last visit to the hospital (last week) it was discussed as well with him as well as his POA his precarious situation. unfortunately, patient's malignancy is progressive, uncertain if treatment is going to provide any significant relief but, further delays in starting were certainly not going to be of any benefit. Patient was supposed to start treatment yesterday but, unfortunately, there have been some social situations that have prevented him from doing so. At his last hospital visit, his power of family law attorney was not forthcoming about the patient having "27 steps" in and out of his house and the difficulties that that may pose getting him to and from appointments. Home care reported concerns for the home environment. Patient has no idea why he was brought to the emergency room, no one is available to talk with. Patient states some low back pain, nursing reports low O2 saturations severe tachycardia. malignancy history: Patient presented to [facility] 04/15/20 with progressive abdominal pain, localized to the right mid, upper and epigastric area. His symptoms started around December, mild and intermittent. Patient did not seek medical attention and initially due to the low intensity in the symptoms and coronavirus epidemic. Symptoms persisted and progressed, ultrasound abdomen 04/01/20 showed cholelithiasis and fatty liver, HIDA scan 04/10/[address] AP 04/15/20 showed intussusception of the ileum and the ascending colon with pneumatosis intestinalis of the ascending colon and cecum. There was pericecal inflammatory changes. There was some periaortic and retrocaval denopathy mentioned, however the size was not described. patient was taken to surgery, exploratory laparotomy, right hemicolectomy, resection of a hard mass in the omentum. Final pathology invasive, grade 2, adenocarcinoma with partial mucinous features, 4.5 x 4 cm, microscopic serosal perforation, 17/20 pericolic lymph nodes involved. CT chest 04/16/20 showed no evidence of pulmonary metastasis, some bilateral nonspecific enlarged nodes. My of the liver 04/22/20 showed multiple T2 hyperintense lesions, all subcentimeter without suspicious nodularity, documented as most consistent with benign etiology (Doran Logan Miller complex). Patient was seen for initial consult during hospitalization 04/20/20. He was readmitted and 04/29/20 for a right lower quadrant abscess. Repeat CTs 05/21/20 showed improvement in the abscess, enlarged retroperitoneal nodes similar to prior scan. First office visit 05/21/20. Staging PET scan showed widespread metastatic disease involving left supraclavicular, mediastinal, retroperitoneal and mesenteric nodes, left adrenal and multiple osseous lesions. There was also uptake in the liver.he had some palliative radiation to painful spinal lesions, he also wanted to be seen for second opinion at [facility]. Further delayed any treatment. Unfortunately, patient has progressed rather rapidly. He has been hospitalized 2 times in the past month. Review of Systems Documented in HPI what information was obtained from the patient ROS unobtainable: due to mental status Past Medical History Past Medical History: Cancer Additional Past Medical History / Comment(s): colon cancer, Gallstones, kidney stones. History of Any Multi-Drug Resistant Organisms: None Reported Past Surgical History: Bowel Resection Past Anesthesia/Blood Transfusion Reactions: No Reported Reaction Past Psychological History: No Psychological Hx Reported Smoking Status: Never smoker Past Alcohol Use History: None Reported Past Drug Use History: None Reported - Past Family History Father History Unknown: Yes Family Medical History: Cancer (Father at the age of 76 from lung cancer) Mother Family Medical History: Unable to Obtain (Mother at the age of 63) Brother(s) Family Medical History: No Reported History (2 brothers one from a Fire accident.) Sister(s) Family Medical History: No Reported History (2 sisters no health issues.) Son(s) Family Medical History: No Reported History (one son with mental health is sues,lives in custodial.) Medications and Allergies Home Medications Medication Instructions Recorded Confirmed Type HYDROcodone/APAP 5-325MG [[place] 1 tab PO QID PRN 06/25/20 07/08/20 History 5-325] fentaNYL 50MCG/HR PATCH [[place]ages[place] 1 patch TRANSDERM Q72H 06/25/20 07/08/20 History 50MCG/HR] Metoprolol Tartrate [Lopressor] 25 mg PO BID #60 tab 07/03/20 07/08/20 Rx Pantoprazole [Protonix] 40 mg PO DAILY #30 tablet.dr 07/03/20 07/08/20 Rx Rivaroxaban [Xarelto] 15 mg PO BID-W/MEALS #60 tab 07/03/20 07/08/20 Rx Tamsulosin [Flomax] 0.4 mg PO PC-BRKFST #30 cap.er.24h 07/03/20 07/08/20 Rx amLODIPine [Norvasc] 10 mg PO DAILY #30 tab 07/03/20 07/08/20 Rx Allergies Allergy/AdvReac Type Severity Reaction Status Date / Time No Known Allergies Allergy Verified 07/08/20 19:18 Physical Exam Vitals: Vital Signs Temp Pulse Pulse Resp BP Pulse Ox 07/09/20 10:04 124 H 07/09/20 09:21 139 H 18 134/84 91 L 07/09/20 07:00 99.7 F H 130 H 18 118/84 93 L 07/09/20 03:53 130 H 16 129/83 94 L 07/09/20 00:00 115 H 18 122/75 92 L 07/08/20 22:00 97.7 F 115 H 18 108/67 92 L 07/08/20 20:15 98.3 F 125 H 18 120/65 94 L 07/08/20 18:30 137 H 18 117/83 94 L 07/08/20 18:00 140 H 22 109/79 93 L 07/08/20 17:50 133 H 18 07/08/20 17:25 99.7 F H 136 H 20 98/77 90 L Intake and Output 07/08/20 07/09/20 07/09/20 22:59 06:59 14:59 Other: Weight 77.111 kg - Constitutional General appearance: disheveled, mild distress, thin - EENT Dry mucous membranes Eyes: anicteric sclerae, EOMI ENT: hearing grossly normal - Neck Neck: no lymphadenopathy - Respiratory Patient's respirations are shallow Respiratory: bilateral: diminished - Cardiovascular Tachycardia Heart sounds: normal: S1, S2 - Gastrointestinal Firm abdomen to the touch, no rebound General gastrointestinal: decreased bowel sounds - Integumentary Integumentary: decreased turgor - Musculoskeletal Musculoskeletal: generalized weakness - Psychiatric Patient is able to recall Results CBC & Chem 7: 07/09/20 11:01 07/09/20 11:01 Labs: Abnormal Lab Results - Last 24 Hours (Table) 07/08/20 07/08/20 07/08/20 Range/Units 17:59 17:59 17:59 Hgb 11.4 L (13.0-17.5) gm/dL Hct 35.8 L (39.0-53.0) % RDW 18.3 H (11.5-15.5) % Lymphocytes # 0.4 L (1.0-4.8) k/uL PT 16.9 H (9.0-12.0) sec INR 1.7 H (<1.2) APTT 34.9 H (22.0-30.0) sec Creatinine (0.66-1.25) mg/dL AST (17-59) U/L Alkaline Phosphatase (38-126) U/L Albumin (3.5-5.0) g/dL Urine Protein Trace H (Negative) Urine Ketones 1+ H (Negative) 07/08/20 Range/Units 17:59 Hgb (13.0-17.5) gm/dL Hct (39.0-53.0) % RDW (11.5-15.5) % Lymphocytes # (1.0-4.8) k/uL PT (9.0-12.0) sec INR (<1.2) APTT (22.0-30.0) sec Creatinine 0.50 L (0.66-1.25) mg/dL AST 116 H (17-59) U/L Alkaline Phosphatase 346 H (38-126) U/L Albumin 3.0 L (3.5-5.0) g/dL Urine Protein (Negative) Urine Ketones (Negative) Assessment and Plan (1) Mental status alteration Narrative/Plan: Have requested a lumbar puncture with CSF analysis. Concern is for malignancy spread to the brain. pancultures pending, patient is on antibiotics, hypoxia is being treated Current Visit: Yes Status: Acute Priority: High Code(s): R41.82 - ALTERED MENTAL STATUS, UNSPECIFIED SNOMED Code(s): 965632463 (2) Colon carcinoma metastatic to bone Narrative/Plan: Patient has received no systemic therapy for his metastatic disease. Patient's performance status continues to decline. Patient is very confused and hypoxic at this admission. Current Visit: Yes Status: Acute Priority: High Code(s): C18.9 - MALIGNANT NEOPLASM OF COLON, UNSPECIFIED; C79.51 - SECONDARY MALIGNANT NEOPLASM OF BONE SNOMED Code(s): 865837467 (3) Hypoxia Current Visit: Yes Status: Acute Priority: High Code(s): R09.02 - HYPOXEMIA SNOMED Code(s): 864438258 Plan: Dr. Chua has requested repeat covid testing which has been ordered. Lumbar puncture requested with cytology. Zosyn antibiotics. I see from the chart that the patient has been made a no code which is completely appropriate. We'll try to contact power of family law attorney as patient is confused. Doctor attests: I performed a history and physical examination of this patient, developed impression and plan of care. Discussed with dictator. I agree with dictators note, documented as a scribe.
--- NOTE | 2020-07-09 17:15 | P.CNPUL ---
History of Present Illness Consult date: 07/09/20 Requesting physician: Vikas Mendoza Chief complaint: Dehydration, weakness, poor oral intake History of present illness: A 49-year-old tall white male patient of Dr. Mendoza, who we had previously seen in consultation earlier this month on 06/27/2020 in the intensive care, and at that time patient was being treated for acute dehydration, possibility of sepsis, acute kidney injury, hydronephrosis hypercalcemia, related to known history of metastatic colon cancer. In April 2020 patient was admitted to the [facility] complaints of abdominal pain, he was found to have intussusception of the ileum in the ascending colon with pneumatosis, patient underwent exploratory laparotomy, hemicolectomy, and resection of a hard mass in the omentum. She did have colonic perforation at that time, subsequently devel oped an abscess in the right lower quadrant requiring drainage and IV antibiotics. Surgical biopsies revealed no carcinoma with partial mucinous features, and 17 out of 20 lymph nodes involved. Staging PET scan showed widespread metastatic disease involving left supraclavicular, mediastinal, retro peritoneal and mesenteric nodes, left adrenal and multiple osseous lesions. There was also uptake in the liver. Patient had some palliative radiation to the painful spinal lesions, he was seeking a second opinion at the [facility], further delaying treatment. Of course in a patient progressed very rapidly. This is second hospitalization within the last month. Physically he is quite debilitated, his oral intake has been very poor, he has been very weak, cachectic. During last hospitalization medical oncology saw the patient in consultation, discussed patient's options, and hospice palliative care was recommended no therapy was going to be pursued. 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 Chemotherapy with FOLFOX was supposed to start yesterday however patient has not been started on it. Patient was started on oral anticoagulation Xareto for evidence of intermediate probability for PE on the VQ scan during last admission. On 07/03/2020 patient was discharged home with home care and palliative care, and follow-up with medical oncology. On 07/08/2020 patient presented to the emergency department, for evaluation of dehydration, weakness, poor oral intake. In addition patient was having hallucinations, altered mental status, confusion. He denies any significant shortness of breath, denies any discomfort, his sats were only 90% on room air, he was placed on supplemental oxygen. His labs revealed no evidence of leukocytosis, white blood cell count of 5.9, hemoglobin is 11.4, electrolytes and renal profile were within normal limits, calcium was within normal limits 8.5, AST was 116, ALT was 20, alk phosphatase was 346. Urinalysis showed trace protein, 1+ ketones but no evidence of infection. he did have a febrile episode this morning, with a temp of 102F. Currently on 4 L of oxygen with pulse ox of 97%. CTA chest showed no evidence of pulmonary embolism, showed extensive bilateral airspace consolidation and atelectasis, moderately sized bilateral pleural effusions, bronchial adenopathy. Patient was started on empiric antibiotics in the form of azithromycin and Rocephin initially, which was later switched to Levaquin and Zosyn, nebulized bronchodilators, he was given a dose of IV Lasix today, during our evaluation patient is intermittent confused, he is a very poor historian, seems to be in no acute distress. He is receiving a breathing treatment, he is awake, he is answering simple questions, he is slightly tachypneic, but appears to be in no acute distress, tachycardic with a rate of 125 BPM. His chest x-ray today she shows stable diffuse bilateral infiltrates possibility of multifocal pneumonia. And pulmonary edema is not excluded. There is no family at the bedside, but we're told the patient's CODE STATUS is DO NOT RESUSCITATE at this time, medical oncology was consulted Review of Systems All systems: negative Constitutional: Reports anorexia, Reports fatigue, Reports malaise, Reports poor appetite, Reports weakness, Reports weight loss, Denies chills, Denies fever Eyes: denies blurred vision, denies pain Ears, nose, mouth and throat: Denies headache, Denies sore throat Cardiovascular: Denies chest pain, Denies shortness of breath Respiratory: Reports dyspnea, Denies cough Gastrointestinal: Denies abdominal pain, Denies diarrhea, Denies nausea, Denies vomiting Musculoskeletal: Denies myalgias Integumentary: Denies pruritus, Denies rash Neurological: Denies numbness, Denies weakness Psychiatric: Denies anxiety, Denies depression Endocrine: Denies fatigue, Denies weight change Past Medical History Past Medical History: Cancer Additional Past Medical History / Comment(s): colon cancer, Gallstones, kidney stones. History of Any Multi-Drug Resistant Organisms: None Reported Past Surgical History: Bowel Resection Past Anesthesia/Blood Transfusion Reactions: No Reported Reaction Past Psychological History: No Psychological Hx Reported Smoking Status: Never smoker Past Alcohol Use History: None Reported Past Drug Use History: None Reported - Past Family History Father History Unknown: Yes Family Medical History: Cancer (Father at the age of 76 from lung cancer) Mother Family Medical History: Unable to Obtain (Mother at the age of 63) Brother(s) Family Medical History: No Reported History (2 brothers one from a Fire accident.) Sister(s) Family Medical History: No Reported History (2 sisters no health issues.) Son(s) Family Medical History: No Reported History (one son with mental health issues,lives in skilled nursing.) Medications and Allergies Home Medications Medication Instructions Recorded Confirmed Type HYDROcodone/APAP 5-325MG [[place] 1 tab PO QID PRN 06/25/20 07/08/20 History 5-325] fentaNYL 50MCG/HR PATCH [Duragesic 1 patch TRANSDERM Q72H 06/25/20 07/08/20 History 50MCG/HR] Metoprolol Tartrate [Lopressor] 25 mg PO BID #60 tab 07/03/20 07/08/20 Rx Pantoprazole [Protonix] 40 mg PO DAILY #30 tablet.dr 07/03/20 07/08/20 Rx Rivaroxaban [Xarelto] 15 mg PO BID-W/MEALS #60 tab 07/03/20 07/08/20 Rx Tamsulosin [Flomax] 0.4 mg PO PC-BRKFST #30 cap.er.24h 07/03/20 07/08/20 Rx amLODIPine [Norvasc] 10 mg PO DAILY #30 tab 07/03/20 07/08/20 Rx Allergies Allergy/AdvReac Type Severity Reaction Status Date / Time No Known Allergies Allergy Verified 07/08/20 19:18 Physical Exam Vitals: Vital Signs Temp Pulse Pulse Pulse Resp BP BP 07/09/20 15:51 128 H 07/09/20 15:42 124 H 125 H 25 H 07/09/20 15:00 98.9 F 134 H 18 100/69 07/09/20 14:26 28 H 07/09/20 12:17 120 H 07/09/20 12:14 120 H 30 H 07/09/20 12:09 120 H 07/09/20 11:25 99 F 123 H 34 H 111/75 07/09/20 10:36 123 H 17 124/88 07/09/20 10:11 102 F H 07/09/20 10:04 124 H 07/09/20 09:21 139 H 18 134/84 07/09/20 07:00 99.7 F H 130 H 18 118/84 07/09/20 03:53 130 H 16 129/83 07/09/20 00:00 115 H 18 122/75 07/08/20 22:00 97.7 F 115 H 18 108/67 07/08/20 20:15 98.3 F 125 H 18 120/65 07/08/20 18:30 137 H 18 117/83 07/08/20 18:00 140 H 22 109/79 07/08/20 17:50 133 H 18 07/08/20 17:25 99.7 F H 136 H 20 98/77 Pulse Ox 07/09/20 15:51 07/09/20 15:42 07/09/20 15:00 97 07/09/20 14:26 91 L 07/09/20 12:17 07/09/20 12:14 07/09/20 12:09 07/09/20 11:25 90 L 07/09/20 10:36 92 L 07/09/20 10:11 07/09/20 10:04 07/09/20 09:21 91 L 07/09/20 07:00 93 L 07/09/20 03:53 94 L 07/09/20 00:00 92 L 07/08/20 22:00 92 L 07/08/20 20:15 94 L 07/08/20 18:30 94 L 07/08/20 18:00 93 L 07/08/20 17:50 07/08/20 17:25 90 L Intake and Output 07/09/20 07/09/20 07/09/20 06:59 14:59 22:59 Output Total 3300 800 Balance -3300 -800 Output: Urine 3300 800 Other: Voiding Method Indwelling Catheter Indwelling Catheter Weight 77.111 kg GENERAL EXAM: Alert, confused, 49-year-old cachectic white male, on 4 L of oxygen with pulse ox of 87% comfortable in no apparent distress. HEAD: Normocephalic/atraumatic. EYES: Normal reaction of pupils, equal size. Conjunctiva pink, sclera white. NOSE: Clear with pink turbinates. THROAT: No erythema or exudates. NECK: No masses, no JVD, no thyroid enlargement, no adenopathy. CHEST: No chest wall deformity. Symmetrical expansion. LUNGS: Equal air entry with no crackles, wheeze, rhonchi or dullness. CVS: Regular rate and rhythm, normal S1 and S2, no gallops, no murmurs, no rubs, tachycardic, in sinus mechanism ABDOMEN: Soft, nontender. No hepatosplenomegaly, normal bowel sounds, no guarding or rigidity. EXTREMITIES: No clubbing, no edema, no cyanosis, 2+ pulses and upper and lower extremities. MUSCULOSKELETAL: Muscle strength and tone normal. SPINE: No scoliosis or deformity SKIN: No rashes CENTRAL NERVOUS SYSTEM: Alert and oriented -2. Confused, No focal deficits, tone is normal in all 4 extremities. Results - Laboratory Findings CBC and BMP: 07/09/20 11:01 07/09/20 11:01 PT/INR, D-dimer PT 16.9 sec (9.0-12.0) H 07/08/20 17:59 INR 1.7 (<1.2) H 07/08/20 17:59 Abnormal lab findings: Abnormal Labs 07/08/20 07/08/20 07/08/20 17:59 17:59 17:59 RBC Hgb 11.4 L Hct 35.8 L MCHC RDW 18.3 H Lymphocytes # 0.4 L PT 16.9 H INR 1.7 H APTT 34.9 H BUN Creatinine Glucose POC Glucose (mg/dL) Calcium AST Alkaline Phosphatase Total Protein Albumin Urine Protein Trace H Urine Ketones 1+ H 07/08/20 07/09/20 07/09/20 17:59 11:01 11:01 RBC 4.09 L Hgb 10.4 L Hct 33.9 L MCHC 30.8 L RDW 18.0 H Lymphocytes # 0.4 L PT INR APTT BUN 6 L Creatinine 0.50 L 0.44 L Glucose 59 L POC Glucose (mg/dL) Calcium 7.7 L AST 116 H 190 H Alkaline Phosphatase 346 H 357 H Total Protein 5.7 L Albumin 3.0 L 2.5 L Urine Protein Urine Ketones 07/09/20 15:38 RBC Hgb Hct MCHC RDW Lymphocytes # PT INR APTT BUN Creatinine Glucose POC Glucose (mg/dL) 73 L Calcium AST Alkaline Phosphatase Total Protein Albumin Urine Protein Urine Ketones - Diagnostic Findings Chest x-ray: report reviewed, image reviewed CT scan - chest: report reviewed, image reviewed Assessment and Plan Plan: Assessment: #1. Acute hypoxic respiratory failure related to known history of pulmonary metastasis from metastatic adenocarcinoma and possibility of pneumonia, possibly healthcare acquired in view of recent hospitalization. CTA chest ruled out possibility of pulmonary embolism, it did show extensive bilateral airspace consolidation and atelectasis, moderate bilateral pleural effusions, and bronchial adenopathy #2. Dehydration, anorexia, altered mental status, fever related to the above #3. Hospitalization for sepsis, acute kidney injury, hypercalcemia, dehydration, and patient required ICU admission, was discharged home on 07/03/2020 with home care and palliative care #4. Metastatic adenocarcinoma post colectomy with end-to-end anastomosis, and post palliative radiation therapy, with evidence of skeletal metastasis, pulmonary metastasis, liver metastasis. Patient has not started chemotherapy. Was supposed to start FOLFOX in follow-up with medical oncology. #5. Acute tachycardia, with low-grade fevers #6. Recent history of acute kidney injury during last admission, and hydronephrosis, recovered #7. Abnormal LFTs likely secondary to liver metastasis #8. Evidence of pulmonary metastasis #9. Cachexia/anorexia syndrome of malignancy #10. Generalized weakness, and general medical debility #11. Altered mental status secondary to above, recent brain CT did not show evidence of metastasis Plan: Continue current antibiotics, continue supportive treatment, continue nebulized bronchodilators, chest x-ray CT of the chest have been reviewed. Patient is a poor historian, but overall prognosis is poor on above-mentioned advanced metastatic malignancy, and overall quite debilitated medical condition. Is no family at the bedside, coarse status is DO NOT RESUSCITATE. Medical oncology has been consulted, patient has not started chemotherapy in view of his general medical debility. Will continue supportive to the patient, who continued to follow I performed a history & physical examination of the patient and discussed their management with my nurse practitioner, Aleshia Alba. I reviewed the nurse practitioner's note and agree with the documented findings and plan of care. Lung sounds are positive for diffuse wheezes throughout the lung graham. The findings and the impression was discussed with the patient. I attest to the d ocumentation by the nurse practitioner. Time with Patient: Greater than 30
[2020-07-09] MEDS: PIPERACILLIN-TAZOBACTAM 3.375 GM in SODIUM CHLORIDE 0.9% 100 ML IVPB SCH (20:00)
[2020-07-10] MEDS: PIPERACILLIN-TAZOBACTAM 3.375 GM in SODIUM CHLORIDE 0.9% 100 ML IVPB SCH ×3 (03:21→21:29)
[2020-07-10 07:03] LABS: Anisocytosis Slight; HCT 33.8 % (39.0-53.0); HGB 10.7 gm/dL (13.0-17.5); Hypochromasia Slight; MCHC 31.8 g/dL (31.0-37.0); MCV 81.7 fL (80.0-100.0); Mean Platelet Volume 7.3; Microcytosis Slight; Platelet Count 308 k/uL (150-450); Poikilocytosis Slight; RBC 4.14 m/uL (4.30-5.90); RDW 18.1 % (11.5-15.5); WBC 6.3 k/uL (3.8-10.6)
[2020-07-10] MEDS: ACETAMINOPHEN TAB 325 MG TAB PO PRN ×3 (07:19→21:28)
[2020-07-10] MEDS: TAMSULOSIN 0.4 MG CAP.ER.24H PO SCH (07:19)
[2020-07-10] MEDS: PANTOPRAZOLE 40 MG TABLET PO SCH (07:19)
[2020-07-10] MEDS: METOPROLOL TARTRATE 25 MG TAB PO SCH ×2 (07:19→21:28)
[2020-07-10] MEDS: amLODIPine 10 MG TAB PO SCH (07:19)
[2020-07-10 07:30] LABS: Glucose,Whole Blood 85 mg/dL (75-99)
[2020-07-10] MEDS: IPRATROPIUM-ALBUTEROL 3 ML NEB INHALATION SCH ×4 (08:10→21:08)
[2020-07-10 08:40] LABS: Band Neutrophils % 2 %; Eosinophils # (M) 0.13 k/uL (0-0.7); Lymphocytes # (M) 0.44 k/uL (1.0-4.8); Metamyelocytes # (M) 0.06 k/uL (0); Metamyelocytes % 1 %; Monocytes # (M) 0.32 k/uL (0-1.0); Neutrophils % (M) 84 %; Nucleated Red Blood Cells 0 /100 WBC (0-0); Total Cells Counted 200
[2020-07-10 09:37] LABS: INR 2.1 (<1.2); Prothrombin Time 20.7 sec (9.0-12.0)
[2020-07-10] MEDS: HYDROcodone/APAP 5-325MG 1 EACH TAB PO PRN ×2 (09:43→16:38)
[2020-07-10 12:54] LABS: African American GFR (CKD) 148.5 (60.0-200.0); Albumin 2.9 g/dL (3.80-4.90); Albumin/Globulin Ratio 1.26 (1.60-3.17); Anion Gap 16.2 mmol/L (4.00-12.00); Carbon Dioxide 23.8 mmol/L (21.6-31.8); Globulin 2.3 g/dL (1.6-3.3); Non-African American GFR(CKD) 128.1 (60.0-200.0); Potassium 3.1 mmol/L (3.5-5.5); Total Bilirubin 0.9 mg/dL (0.2-1.2); Total Protein 5.2 g/dL (6.2-8.2)
[2020-07-10] MEDS: SODIUM CHLORIDE 0.9% 1,000 ML IV SCH (13:16)
[2020-07-10] MEDS: LEVOFLOXACIN 500MG-D5W PMX 500 MG in DEXTROSE/WATER 1 100ML.BAG IVPB SCH (14:37)
[2020-07-10] MEDS ORDERED: Potassium Replacement Protocol 1 EACH MISC MISCELLANE PRN (14:54)
--- NOTE | 2020-07-10 14:55 | P.HPIM ---
History of Present Illness H&P Date: 07/08/20 Chief Complaint: Dehydration with sinus tachycardia. This is a 49 year old male with a previous medical history significant for kidney stones and cholelithiasis, was inititially complaining of increased abdominal pain in the right upper quadrant and had US of the abdomen that showed cholelithiasis, this was followed with HIDA scan that showed biliary dyskinesis and was referred to have Lap-Jocelyn with that week he developed to have increased abdominal pain with significant nausea and vomiting and he presented to [facility] with bowel obstruction picture, he underwent CT scan of the abdomen and pelvis that showed a large cecal mass suggestive of colon cancer, he underwent right colectomy with end to end anastomosis and then he developed to have a pelvic Abscess that was treated with transcutaneous drain and IV antibiotics through a PICC line for 4 weeks which he has done, he was then seen by Hem-Onc Toma Mars and underwent a battery of testing including PET c that showed metastatic disease, he has then had a Mediprot placed recently by and was seen today by LEGAL CASHIER at Dr. Chua 's office to discuss further treatment options and possibly a referral to a phase 3 trial at the [facility], patient was extremely weak and tachycardic and there was a suspicion for possible Mediport infection which was ruled out and he was admitted to the ICU and was seen by pulmonary and critical care along with Oncology and had hypercalcemia which was treated with Aredia X days. and had acute kidney injury, ct scan showed bilateral hydronephrosis with hydroureter, had Bassett catheter in and initially was going to go for Hospice home, but he decided against it and wanted to try systemic chemotherapy for stag 4 colon cancer, and also there was a suspicion for pulmonary emboli and was started on heparin initially then she he was transitioned into Xarelto 15 mg orally bid, he had a floor care technician supposedly to help him at home, but his oral intake of fluid and food was minimal and he became dehydrated and I spoke with him on Wednesday and he said that he will be doing better, unfortunately his Mother in law called on Wednesday after he was seen by an Oncology nurse who stated that he is extremely dehydrated and it was recommended for him to go to the ER , but this did not happened till last night where he was hypotensive and tachycardic , and he did receive a total of 5 liter an currently on IVF 150 ml.h of normal saline, he was admitted with oncology consult and foster care social worker consult for patient care, patient uncerwent CTA of the chest that showed no evidence of PE but bilateral pleural effusion with bibasilar infiltrate, he was started on Zosyn and Added levaquin for gram negative coverage, and decrease IVF to KVO and he did receive a dose of lasix 40 mg IVP x1. Review of Systems Constitutional: Reports anorexia, Reports fatigue, Reports lethargy, Reports malaise, Reports night sweats, Reports poor appetite, Reports weakness, Reports weight loss Eyes: denies blurred vision, denies bulging eye, denies decreased vision Ears, nose, mouth and throat: Denies dysphagia, Denies neck lump, Denies sore throat Cardiovascular: Reports decreased exercise tolerance, Reports dyspnea on exertion, Reports rapid heart beat, Reports shortness of breath, Denies chest pain, Denies leg edema, Denies lightheadedness, Denies orthopnea, Denies palpitations, Denies syncope Respiratory: Reports congestion, Reports cough, Reports cough with sputum, Reports wheezing, Denies home oxygen, Denies pain, Denies pain on inspiration, Denies sleep apnea, Denies snoring Gastrointestinal: Reports abdominal pain, Reports bloating, Reports change in bowel habits, Reports dyspepsia, Reports early satiety, Reports indigestion, Reports loss of appetite, Reports nausea, Denies heartburn, Denies hematemesis, Denies hematochezia, Denies lactose intolerance, Denies melena, Denies vomiting Genitourinary: Denies dysuria, Denies incontinence, Denies nocturia Musculoskeletal: Denies myalgias Musculoskeletal: absent: ankle pain, ankle stiffness, ankle swelling, elbow pain, elbow stiffness, elbow swelling, foot pain, foot stiffness, foot swelling, hand pain, hand stiffness, hand swelling, hip pain, hip stiffness, hip swelling, knee pain, knee stiffness, knee swelling, shoulder pain, shoulder stiffness, shoulder swelling, wrist pain, wrist stiffness, wrist swelling Integumentary: Denies pruritus, Denies rash Neurological: Reports balance difficulties, Reports confusion, Reports weakness, Denies numbness Psychiatric: Reports anxiety, Reports depression, Denies sadness/tearfulness, Denies sleep disturbances, Denies suicidal ideation Endocrine: Denies fatigue, Denies weight change Past Medical History Past Medical History: Cancer Additional Past Medical History / Comment(s): colon cancer, Gallstones, kidney stones. History of Any Multi-Drug Resistant Organisms: None Reported Past Surgical History: Bowel Resection Past Anesthesia/Blood Transfusion Reactions: No Reported Reaction Past Psychological History: No Psychological Hx Reported Smoking Status: Never smoker Past Alcohol Use History: None Reported Past Drug Use History: None Reported - Past Family History Father History Unknown: Yes Family Medical History: Cancer (Father at the age of 76 from lung cancer) Mother Family Medical History: Unable to Obtain (Mother at the age of 63) Brother(s) Family Medical History: No Reported History (2 brothers one from a Fire accident.) Sister(s) Family Medical History: No Reported History (2 sisters no health issues.) Son(s) Family Medical History: No Reported History (one son with mental health issues,lives in snf.) Medications and Allergies Home Medications Medication Instructions Recorded Confirmed Type HYDROcodone/APAP 5-325MG [[place] 1 tab PO QID PRN 06/25/20 07/08/20 History 5-325] fentaNYL 50MCG/HR PATCH [Duragesic 1 patch TRANSDERM Q72H 06/25/20 07/08/20 History 50MCG/HR] Metoprolol Tartrate [Lopressor] 25 mg PO BID #60 tab 07/03/20 07/08/20 Rx Pantoprazole [Protonix] 40 mg PO DAILY #30 tablet.dr 07/03/20 07/08/20 Rx Rivaroxaban [Xarelto] 15 mg PO BID-W/MEALS #60 tab 07/03/20 07/08/20 Rx Tamsulosin [Flomax] 0.4 mg PO PC-BRKFST #30 cap.er.24h 07/03/20 07/08/20 Rx amLODIPine [Norvasc] 10 mg PO DAILY #30 tab 07/03/20 07/08/20 Rx Allergies Allergy/AdvReac Type Severity Reaction Status Date / Time No Known Allergies Allergy Verified 07/08/20 19:18 Physical Exam Vitals: Vital Signs Temp Pulse Pulse Resp BP Pulse Ox 07/09/20 07:00 99.7 F H 130 H 18 118/84 93 L 07/09/20 03:53 130 H 16 129/83 94 L 07/09/20 00:00 115 H 18 122/75 92 L 07/08/20 22:00 97.7 F 115 H 18 108/67 92 L 07/08/20 20:15 98.3 F 125 H 18 120/65 94 L 07/08/20 18:30 137 H 18 117/83 94 L 07/08/20 18:00 140 H 22 109/79 93 L 07/08/20 17:50 133 H 18 07/08/20 17:25 99.7 F H 136 H 20 98/77 90 L Intake and Output 07/08/20 07/09/20 07/09/20 22:59 06:59 14:59 Other: Weight 77.111 kg Physical examination: HEENT: head is atraumatic normocephalic pupils were equal round reactive to light and accommodations extra ocular muscle movement were intact, conjunctivae were pale and sclera were mildly icteric, mucous membranes of the mouth are somewhat dry. Neck: supple no JVP. Chest: decrease breath sounds at the bases with egophony and decrease tactile fremitus, with minimal intercostal retraction. Heart: first heart sound is normal , second heart sound is normal , tachycardic there is no gallop or murmur. Abdomen: there is mild abdominal tenderness with minimal fullness, there is surgical scar that have healed, positive bowel sounds. Extremities: there is no edema , no calf tenderness DP + 2 bilaterally. Neurologiic examination: patient is awake , alert and oriented X 3 CN II-XII are grossly intact muscle power 4/5 in bilateral upper and lower extremity . Results CBC & Chem 7: 07/10/20 05:34 07/10/20 05:34 Labs: Abnormal Lab Results - Last 24 Hours (Table) 07/08/20 07/08/20 07/08/20 Range/Units 17:59 17:59 17:59 Hgb 11.4 L (13.0-17.5) gm/dL Hct 35.8 L (39.0-53.0) % RDW 18.3 H (11.5-15.5) % Lymphocytes # 0.4 L (1.0-4.8) k/uL PT 16.9 H (9.0-12.0) sec INR 1.7 H (<1.2) APTT 34.9 H (22.0-30.0) sec Creatinine (0.66-1.25) mg/dL AST (17-59) U/L Alkaline Phosphatase (38-126) U/L Albumin (3.5-5.0) g/dL Urine Protein Trace H (Negative) Urine Ketones 1+ H (Negative) 07/08/20 Range/Units 17:59 Hgb (13.0-17.5) gm/dL Hct (39.0-53.0) % RDW (11.5-15.5) % Lymphocytes # (1.0-4.8) k/uL PT (9.0-12.0) sec INR (<1.2) APTT (22.0-30.0) sec Creatinine 0.50 L (0.66-1.25) mg/dL AST 116 H (17-59) U/L Alkaline Phosphatase 346 H (38-126) U/L Albumin 3.0 L (3.5-5.0) g/dL Urine Protein (Negative) Urine Ketones (Negative) Thrombosis Risk Factor Assmnt - DVT/VTE Prophylaxis DVT/VTE Prophylaxis: Pharmacologic Prophylaxis ordered, Mechanical Prophylaxis ordered Assessment and Plan Assessment: Assessment and plan: 1. Acute hypoxemic respiratory failure due to bilateral pleural effusion and bibasilar infiltrate due to possible gram negative pneumonia. we will decrease IVF to KVO and we will continue with Zosyn 3.375 Gr IVPB Q 6 hours andwe will add Levaquin 500 mg IVPB daily, we will check sputum cultures and we will continue wth Duoneb and O2 support and we will add pulmonary consult, we will continue to monitor very closely. 2. Poor oral intake with dehydration with overcorrection post 5.5 L of NS. we will decrease IVF to KVO. patient given one dose of Lasix 40 mg IVP x1. 3. Sinus tachycardia. multifactorial . we will continue with Metoprolol 25 mg orally bid and we will continue to correct the underlying conditions. 4. Possible Pulmonary Embolism was ruled out with CTA that did not show PE. we will discontinue Xarelto. 5. Hypokalemia. we will replace. 6. Metastatic colon cancer stage 4. we will consult Oncology for treatment plan. 7. Cachexia with poor oral intake and severe weight loss. we will continue with Protein suplements. 8. Medical debility. due to his cancer. we will consult PT. 9. Bilateral hydroureter and hydronephrosis due to tumor biulk. we will maintain Bassett cather and Flomax 0.4 mg orally daily. 10. Pain management with Fentanyl patch and Hydrocodone. 11. 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 we will monitor, transfuse for HGB less than 7. 12. DVT prophylaxis. currently on Xarelto. 13. GI prophylaxis. we will continue with PPI. 14. DNR. 15. Prognosis is very guarded.
--- NOTE | 2020-07-10 14:58 | P.PN ---
Subjective Progress Note Date: 07/09/20 This is a 49 year old male with a previous medical history significant for kidney stones and cholelithiasis, was inititially complaining of increased abdominal pain in the right upper quadrant and had US of the abdomen that showed cholelithiasis, this was followed with HIDA scan that showed biliary dyskinesis and was referred to have Lap-Jocelyn with that week he developed to have increased abdominal pain with significant nausea and vomiting and he presented to [facility] with bowel obstruction picture, he underwent CT scan of the abdomen and pelvis that showed a large cecal mass suggestive of colon cancer, he underwent right colectomy with end to end anastomosis and then he developed to have a pelvic Abscess that was treated with transcutaneous drain and IV antibiotics through a PICC line for 4 weeks which he has done, he was then seen by Hem-Onc Toma Mars and underwent a battery of testing including PET c that showed metastatic disease, he has then had a Mediprot placed recently by and was seen today by DISC PAD GRINDER at Dr. Chua 's office to discuss further jeniffer tment options and possibly a referral to a phase [address] [facility], patient was extremely weak and tachycardic and there was a suspicion for possible Mediport infection which was ruled out and he was admitted to the ICU and was seen by pulmonary and critical care along with Oncology and had hypercalcemia which was treated with Aredia X days. and had acute kidney injury, ct scan showed bilateral hydronephrosis with hydroureter, had Bassett catheter in and initially was going to go for Hospice home, but he decided against it and wanted to try systemic chemotherapy for stag 4 colon cancer, and also there was a suspicion for pulmonary emboli and was started on heparin initially then she he was transitioned into Xarelto 15 mg orally bid, he had a customer care agent supposedly to help him at home, but his oral intake of fluid and food was minimal and he became dehydrated and I spoke with him on Wednesday and he said that he will be doing better, unfortunately his Mother in law called on Wednesday after he was seen by an Oncology nurse who stated that he is extremely dehydrated and it was recommended for him to go to the ER , but this did not happened till last night where he was hypotensive and tachycardic , and he did receive a total of 5 liter an currently on IVF 150 ml.h of normal saline, he was admitted with oncology consult and community mental health social worker consult for patient care, patient uncerwent CTA of the chest that showed no evidence of PE but bilateral pleural effusion with bibasilar infiltrate, he was started on Zosyn and Added levaquin for gram negative coverage, and decrease IVF to KVO and he did receive a dose of lasix 40 mg IVP x1. 07/09: patient is feeling more short of breath, did receive duoneb, and currently on O2 4 L NC, we will keep IVF at KVO, repeated CXR showed worsening bilateral infiltrate and pleural effusion, we will continue with current treatment with O2, Zosyn and Levaquin and Pulmonary consult,. Objective - Vital Signs Vital signs: Vital Signs Temp 99.7 F H 07/09/20 07:00 Pulse 130 H 07/09/20 07:00 Resp 18 07/09/20 07:00 BP 118/84 07/09/20 07:00 Pulse Ox 93 L 07/09/20 07:00 Intake & Output 07/08/20 07/09/20 07/09/20 18:59 06:59 18:59 Weight 77.111 kg - Exam Review of Systems Constitutional: Reports anorexia, Reports fatigue, Reports lethargy, Reports malaise, Reports night sweats, Reports poor appetite, Reports weakness, Reports weight loss Eyes: denies blurred vision, denies bulging eye, denies decreased vision Ears, nose, mouth and throat: Denies dysphagia, Denies neck lump, Denies sore throat Cardiovascular: Reports decreased exercise tolerance, Reports dyspnea on exertion, Reports rapid heart beat, Reports shortness of breath, Denies chest pain, Denies leg edema, Denies lightheadedness, Denies orthopnea, Denies palpitations, Denies syncope Respiratory: Reports congestion, Reports cough, Reports cough with sputum, Reports wheezing, Denies home oxygen, Denies pain, Denies pain on inspiration, Denies sleep apnea, Denies snoring Gastrointestinal: Reports abdominal pain, Reports bloating, Reports change in bowel habits, Reports dyspepsia, Reports early satiety, Reports indigestion, Reports loss of appetite, Reports nausea, Denies heartburn, Denies hematemesis, Denies hematochezia, Denies lactose intolerance, Denies melena, Denies vomiting Genitourinary: Denies dysuria, Denies incontinence, Denies nocturia Musculoskeletal: Denies myalgias Musculoskeletal: absent: ankle pain, ankle stiffness, ankle swelling, elbow pain, elbow stiffness, elbow swelling, foot pain, foot stiffness, foot swelling, hand pain, hand stiffness, hand swelling, hip pain, hip stiffness, hip swelling, knee pain, knee stiffness, knee swelling, shoulder pain, shoulder stiffness, shoulder swelling, wrist pain, wrist stiffness, wrist swelling Integumentary: Denies pruritus, Denies rash Neurological: Reports balance difficulties, Reports confusion, Reports weakness, Denies numbness Psychiatric: Reports anxiety, Reports depression, Denies sadness/tearfulness, Denies sleep disturbances, Denies suicidal ideation Endocrine: Denies fatigue, Denies weight change Physical examination: HEENT: head is atraumatic normocephalic pupils were equal round reactive to light and accommodations extra ocular muscle movement were intact, conjunctivae were pale and sclera were mildly icteric, mucous membranes of the mouth are somewhat dry. Neck: supple no JVP. Chest: decrease breath sounds at the bases with egophony and decrease tactile fremitus, with minimal intercostal retraction. Heart: first heart sound is normal , second heart sound is normal , tachycardic there is no gallop or murmur. Abdomen: there is mild abdominal tenderness with minimal fullness, there is surgical scar that have healed, positive bowel sounds. Extremities: there is no edema , no calf tenderness DP + 2 bilaterally. Neurologiic examination: patient is awake , alert and oriented X 3 CN II-XII are grossly intact muscle power 4/5 in bilateral upper and lower extremity . - Labs CBC & Chem 7: 07/10/20 05:34 07/10/20 05:34 Labs: Abnormal Lab Results - Last 24 Hours (Table) 07/08/20 07/08/20 07/08/20 Range/Units 17:59 17:59 17:59 Hgb 11.4 L (13.0-17.5) gm/dL Hct 35.8 L (39.0-53.0) % RDW 18.3 H (11.5-15.5) % Lymphocytes # 0.4 L (1.0-4.8) k/uL PT 16.9 H (9.0-12.0) sec INR 1.7 H (<1.2) APTT 34.9 H (22.0-30.0) sec Creatinine (0.66-1.25) mg/dL AST (17-59) U/L Alkaline Phosphatase (38-126) U/L Albumin (3.5-5.0) g/dL Urine Protein Trace H (Negative) Urine Ketones 1+ H (Negative) 07/08/20 Range/Units 17:59 Hgb (13.0-17.5) gm/dL Hct (39.0-53.0) % RDW (11.5-15.5) % Lymphocytes # (1.0-4.8) k/uL PT (9.0-12.0) sec INR (<1.2) APTT (22.0-30.0) sec Creatinine 0.50 L (0.66-1.25) mg/dL AST 116 H (17-59) U/L Alkaline Phosphatase 346 H (38-126) U/L Albumin 3.0 L (3.5-5.0) g/dL Urine Protein (Negative) Urine Ketones (Negative) Assessment and Plan Assessment: Assessment and plan: 1. Acute hypoxemic respiratory failure due to bilateral pleural effusion and bibasilar infiltrate due to possible gram negative pneumonia. we will decrease IVF to KVO and we will continue with Zosyn 3.375 Gr IVPB Q 6 hours andwe will add Levaquin 500 mg IVPB daily, we will check sputum cultures and we will continue wth Duoneb and O2 support and we will add pulmonary consult, we will continue to monitor very closely. 2. Poor oral intake with dehydration with overcorrection post 5.5 L of NS. we will decrease IVF to KVO. patient given one dose of Lasix 40 mg IVP x1. 3. Sinus tachycardia. multifactorial . we will continue with Metoprolol 25 mg orally bid and we will continue to correct the underlying conditions. 4. Possible Pulmonary Embolism was ruled out with CTA that did not show PE. we will discontinue Xarelto. 5. Hypokalemia. we will replace. 6. Metastatic colon cancer stage 4. we will consult Oncology for treatment plan. 7. Cachexia with poor oral intake and severe weight loss. we will continue with Protein suplements. 8. Medical debility. due to his cancer. we will consult PT. 9. Bilateral hydroureter and hydronephrosis due to tumor biulk. we will maintain Bassett cather and Flomax 0.4 mg orally daily. 10. Pain management with Fentanyl patch and Hydrocodone. 11. 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 we will monitor, transfuse for HGB less than 7. 12. DVT prophylaxis. currently on Xarelto. 13. GI prophylaxis. we will continue with PPI.
--- NOTE | 2020-07-10 15:09 | P.PN ---
Subjective Progress Note Date: 07/10/20 Principal diagnosis: Dehydration, weakness, poor oral intake, altered mental status A 49-year-old tall white male patient of Dr. Mendoza, who we had previously seen in consultation earlier this month on 06/27/2020 in the intensive care, and at that time patient was being treated for acute dehydration, possibility of sepsis, acute kidney injury, hydronephrosis hypercalcemia, related to known history of metastatic colon cancer. In April 2020 patient was admitted to the [facility] complaints of abdominal pain, he was found to have intussusception of the ileum in the ascending colon with pneumatosis, patient underwent exploratory laparotomy, hemicolectomy, and resection of a hard mass in the omentum. She did have colonic perforation at that time, subsequently developed an abscess in the right lower quadrant requiring drainage and IV antibiotics. Surgical biopsies revealed no carcinoma with partial mucinous features, and 17 out of 20 lymph nodes involved. Staging PET scan showed widespread metastatic disease involving left supraclavicular, mediastinal, retroperitoneal and mesenteric nodes, left adrenal and multiple osseous lesions. There was also uptake in the liver. Patient had some palliative radiation to the painful spinal lesions, he was seeking a second opinion at the [facility], further delaying treatment. Of course in a patient progressed very rapidly. This is second hospitalization within the last month. Physically he is quite debilitated, his oral intake has been very poor, he has been very weak, cachectic. During last hospitalization medical oncology saw the patient in consultation, discussed patient's options, and hospice palliative care was recommended no therapy was going to be pursued. After some thought the patient and his power of senior trial attorney wanted to proceed with treatment. Chemotherapy with FOLFOX was supposed to start yesterday however patient has not been started on it. Patient was started on oral anticoagulation Xareto for evidence of intermediate probability for PE on the VQ scan during last admission. On 07/03/2020 patient was discharged home with home care and palliative care, and follow-up with medical oncology. On 07/08/2020 patient presented to the emergency department, for evaluation of dehydration, weakness, poor oral intake. In addition patient was having hallucinations, altered mental status, confusion. He denies any significant shortness of breath, denies any discomfort, his sats were only 90% on room air, he was placed on supplemental oxygen. His labs revealed no evidence of leukocytosis, white blood cell count of 5.9, hemoglobin is 11.4, electrolytes and renal profile were within normal limits, calcium was within normal limits 8.5, AST was 116, ALT was 20, alk phosphatase was 346. Urinalysis showed trace protein, 1+ ketones but no evidence of infection. he did have a febrile episode this morning, with a temp of 102F. Currently on 4 L of oxygen with pulse ox of 97%. CTA chest showed no evidence of pulmonary embolism, showed extensive bilateral airspace consolidation and atelectasis, moderately sized bilateral pleural effusions, bronchial adenopathy. Patient was started on empiric antibiotics in the form of azithromycin and Rocephin initially, which was later switched to Levaquin and Zosyn, nebulized bronchodilators, he was given a dose of IV Lasix today, during our evaluation patient is intermittent confused, he is a very poor historian, seems to be in no acute distress. He is receiving a breathing treatment, he is awake, he is answering simple questions, he is slightly tachypneic, but appears to be in no acute distress, tachycardic with a rate of 125 BPM. His chest x-ray today she shows stable diffuse bilateral infiltrates possibility of multifocal pneumonia. And pulmonary edema is not excluded. There is no family at the bedside, but we're told the patient's CODE STATUS is DO NOT RESUSCITATE at this time, medical oncology was consulted On 07/10/2020 patient seen in follow-up on the general medical surgical floor, he continues to do poorly, he is very confused, he is febrile, with a temp of 102.5F, tachycardic, breathing is labored, shallow, rapid. Yesterday chest x- ray showed stable diffuse bilateral infiltrates 30 to underlying pulmonary metastasis, and pneumonia could not entirely be excluded. Today's labs have been reviewed, showing whippets ochronosis, hemoglobin 10.7, sodium of 140, potassium is 3.1, CO2 is 23, BUN was 9 creatinine was 0.5. COVID 19 was ruled out based on a negative PCR. Blood cultures have shown no growth to date. Possibility of pulmonary edema was patient on the chest x-ray report, patient did receive an extra dose of Lasix yesterday, with no significant improvement in dyspnea. He is on empiric antibiotics in the form of Levaquin, and Zosyn. He is on nebulized bronchodilators, he is on pain medications for pain and discomfort. His appetite remains very poor, he is oral intake has been very limited. Patient is very weak, confused. Patient has not been able to start chemotherapy, related to [id number]-[id number] hospitalizations, overall declining physi tima function, generalized weakness, and we are told that patient is having some social difficulties with getting the patient to treatment. Medical oncology is following, during last admission patient was recommended palliative care, and possibly hospice for evidence of progressive metastasized malignancy. However we're told the patient was also seeking second opinion at the [facility], were not sure what type of treatment was recommended. CODE STATUS is DO NOT RESUSCITATE, for now we'll continue with supportive medical treatment, however overall prognosis is quite poor Objective - Vital Signs Vital signs: Vital Signs Temp 102.5 F H 07/10/20 14:38 Pulse 126 H 07/10/20 11:35 Resp 20 07/10/20 07:00 BP 133/82 07/10/20 07:00 Pulse Ox 93 L 07/10/20 08:11 Intake & Output 07/09/20 07/10/20 07/10/20 18:59 06:59 18:59 Intake Total 100 Output Total 4800 1000 Balance -4800 -900 Weight 77.111 kg Intake: Intake, IV Titration 100 Amount Piperacillin-Tazobactam 3 100 .375 gm In Sodium Chloride 0.9% 100 ml @ 25 mls/hr IVPB Q8H [facility] Rx#: [id number] Output: Urine 4800 1000 Other: Voiding Method Indwelling Catheter Indwelling Catheter - Exam GENERAL EXAM: Alert, confused, 49-year-old cachectic white male, on 4 L of oxygen with pulse ox of 91% comfortable in no apparent distress. HEAD: Normocephalic/atraumatic. EYES: Normal reaction of pupils, equal size. Conjunctiva pink, sclera white. NOSE: Clear with pink turbinates. THROAT: No erythema or exudates. NECK: No masses, no JVD, no thyroid enlargement, no adenopathy. CHEST: No chest wall deformity. Symmetrical expansion. LUNGS: Equal air entry with no crackles, wheeze, rhonchi or dullness. CVS: Regular rate and rhythm, normal S1 and S2, no gallops, no murmurs, no rubs, tachycardic, in sinus mechanism ABDOMEN: Soft, nontender. No hepatosplenomegaly, normal bowel sounds, no guarding or rigidity. EXTREMITIES: No clubbing, no edema, no cyanosis, 2+ pulses and upper and lower extremities. MUSCULOSKELETAL: Muscle strength and tone normal. SPINE: No scoliosis or deformity SKIN: No rashes CENTRAL NERVOUS SYSTEM: Alert and oriented -2. Confused, No focal deficits, tone is normal in all 4 extremities. - Labs CBC & Chem 7: 07/10/20 05:34 07/10/20 05:34 Labs: Abnormal Lab Results - Last 24 Hours (Table) 07/09/20 07/10/20 07/10/20 Range/Units 15:38 05:34 05:34 RBC 4.14 L (4.30-5.90) m/uL Hgb 10.7 L (13.0-17.5) gm/dL Hct 33.8 L (39.0-53.0) % RDW 18.1 H (11.5-15.5) % Lymphocytes # (Manual) 0.44 L (1.0-4.8) k/uL Metamyelocytes # (Man) 0.06 H (0) k/uL PT 20.7 H (9.0-12.0) sec INR 2.1 H (<1.2) Potassium (3.5-5.5) mmol/L Anion Gap (4.00-12.00) mmol/L Creatinine (0.6-1.5) mg/dL POC Glucose (mg/dL) 73 L (75-99) mg/dL Calcium (8.7-10.3) mg/dL AST (14-35) U/L Alkaline Phosphatase (41-126) U/L Total Protein (6.2-8.2) g/dL Albumin (3.80-4.90) g/dL Albumin/Globulin Ratio (1.60-3.17) g/dL 07/10/20 Range/Units 05:34 RBC (4.30-5.90) m/uL Hgb (13.0-17.5) gm/dL Hct (39.0-53.0) % RDW (11.5-15.5) % Lymphocytes # (Manual) (1.0-4.8) k/uL Metamyelocytes # (Man) (0) k/uL PT (9.0-12.0) sec INR (<1.2) Potassium 3.1 L (3.5-5.5) mmol/L Anion Gap 16.20 H (4.00-12.00) mmol/L Creatinine 0.5 L (0.6-1.5) mg/dL POC Glucose (mg/dL) (75-99) mg/dL Calcium 8.0 L (8.7-10.3) mg/dL AST 89 H (14-35) U/L Alkaline Phosphatase 446 H (41-126) U/L Total Protein 5.2 L (6.2-8.2) g/dL Albumin 2.90 L (3.80-4.90) g/dL Albumin/Globulin Ratio 1.26 L (1.60-3.17) g/dL Microbiology - Last 24 Hours (Table) 07/08/20 17:59 Blood Culture - Preliminary Blood No Growth after 24 hours 07/08/20 18:23 Blood Culture - Preliminary Blood No Growth after 24 hours Assessment and Plan Plan: Assessment: #1. Acute hypoxic respiratory failure related to known history of pulmonary metastasis from metastatic adenocarcinoma and possibility of pneumonia, possibly healthcare acquired in view of recent hospitalization. CTA chest ruled out possibility of pulmonary embolism, it did show extensive bilateral airspace consolidation and atelectasis, moderate bilateral pleural effusions, and bronchial adenopathy #2. Dehydration, anorexia, altered mental status, fever related to the above #3. Hospitalization for sepsis, acute kidney injury, hypercalcemia, dehydration, and patient required ICU admission, was discharged home on 07/03/2020 with home care and palliative care #4. Metastatic adenocarcinoma post colectomy with end-to-end anastomosis, and post palliative radiation therapy, with evidence of skeletal metastasis, pulmonary metastasis, liver metastasis. Patient has not started chemotherapy. Was supposed to start FOLFOX in follow-up with medical oncology. #5. Acute tachycardia, with low-grade fevers #6. Recent history of acute kidney injury during last admission, and hydronephrosis, recovered #7. Abnormal LFTs likely secondary to liver metastasis #8. Evidence of pulmonary metastasis #9. Cachexia/anorexia syndrome of malignancy #10. Generalized weakness, and general medical debility #11. Altered mental status secondary to above, recent brain CT did not show evidence of metastasis Plan: Continue current medical treatment, supportive care, antibiotics, patient is doing poorly, lethargic, confused, rapid shallow breathing. Overall prognosis is poor, patient is DO NOT RESUSCITATE at this time, he is declining, at this point patient likely would not even be able to tolerate any chemotherapy. Treatment for metastatic colon cancer per medical oncology. Please refer to their consultation. Recommend discussing goals of treatment with the family, and recommend palliative care possible hospice care at this time. I performed a history & physical examination of the patient and discussed their management with my nurse practitioner, Aleshia Alba. I reviewed the nurse practitioner's note and agree with the documented findings and plan of care. Lung sounds are positive for diffuse wheezes throughout the lung graham. The findings and the impression was discussed with the patient. I attest to the doc umentation by the nurse practitioner. Time with Patient: Less than 30
[2020-07-10] MEDS: POTASSIUM CHLORIDE ER 20 MEQ TAB.ER PO SCH ×2 (16:12→16:38)
--- NOTE | 2020-07-10 17:17 | P.PN ---
Subjective Progress Note Date: 07/10/20 This is a 49 year old male with a previous medical history significant for kidney stones and cholelithiasis, was inititially complaining of increased abdominal pain in the right upper quadrant and had US of the abdomen that showed cholelithiasis, this was followed with HIDA scan that showed biliary dyskinesis and was referred to have Lap-Jocelyn with that week he developed to have increased abdominal pain with significant nausea and vomiting and he presented to [facility] with bowel obstruction picture, he underwent CT scan of the abdomen and pelvis that showed a large cecal mass suggestive of colon cancer, he underwent right colectomy with end to end anastomosis and then he developed to have a pelvic Abscess that was treated with transcutaneous drain and IV antibiotics through a PICC line for 4 weeks which he has done, he was then seen by Hem-Onc Toma aMrs and underwent a battery of testing including PET c that showed metastatic disease, he has then had a Mediprot placed recently by and was seen today by PROFESSOR OF BUSINESS ADMINISTRATION at Dr. Chua 's office to discuss further jeniffer tment options and possibly a referral to a phase 3 trial at the [facility], patient was extremely weak and tachycardic and there was a suspicion for possible Mediport infection which was ruled out and he was admitted to the ICU and was seen by pulmonary and critical care along with Oncology and had hypercalcemia which was treated with Aredia X days. and had acute kidney injury, ct scan showed bilateral hydronephrosis with hydroureter, had Bassett catheter in and initially was going to go for Hospice home, but he decided against it and wanted to try systemic chemotherapy for stag 4 colon cancer, and also there was a suspicion for pulmonary emboli and was started on heparin initially then she he was transitioned into Xarelto 15 mg orally bid, he had a care technician supposedly to help him at home, but his oral intake of fluid and food was minimal and he became dehydrated and I spoke with him on Wednesday and he said that he will be doing better, unfortunately his Mother in law called on Wednesday after he was seen by an Oncology nurse who stated that he is extremely dehydrated and it was recommended for him to go to the ER , but this did not happened till last night where he was hypotensive and tachycardic , and he did receive a total of 5 liter an currently on IVF 150 ml.h of normal saline, he was admitted with oncology consult and social services coordinator consult for patient care, patient uncerwent CTA of the chest that showed no evidence of PE but bilateral pleural effusion with bibasilar infiltrate, he was started on Zosyn and Added levaquin for gram negative coverage, and decrease IVF to KVO and he did receive a dose of lasix 40 mg IVP x1. 07/09: patient is feeling more short of breath, did receive duoneb, and currently on O2 4 L NC, we will keep IVF at KVO, repeated CXR showed worsening bilateral infiltrate and pleural effusion, we will continue with current treatment with O2, Zosyn and Levaquin and Pulmonary consult,. 07/10: Patient was deteriorated quite a bit over the last 24 hours, his DURABLE POWER OF AUTOMOTIVE POWER ELECTRONICS ENGINEER recommended for the patient to go on hospice after discussing the situation with oncology at this point in time patient is scheduled to be transferred to the hospice home tomorrow morning we will maintain the patient on current IV antibiotic for now Bassett catheter for now and the plan will be to transition the patient into hospice over the next 24 hours I spoke the patient about this and he appears to be quite confused about the whole situation but he is willing to go for hospice care at this point in time as he is getting extremely weak and his prognosis very poor. Objective - Vital Signs Vital signs: Vital Signs Temp 102.5 F H 07/10/20 14:38 Pulse 126 H 07/10/20 11:35 Resp 20 07/10/20 07:00 BP 133/82 07/10/20 07:00 Pulse Ox 93 L 07/10/20 08:11 Intake & Output 07/09/20 07/10/20 07/10/20 18:59 06:59 18:59 Intake Total 100 Output Total 4800 1000 Balance -4800 -900 Weight 77.111 kg Intake: Intake, IV Titration 100 Amount Piperacillin-Tazobactam 3 100 .375 gm In Sodium Chloride 0.9% 100 ml @ 25 mls/hr IVPB Q8H ON LICENSE OF [facility] Rx#: [id number] Output: Urine 4800 1000 Other: Voiding Method Indwelling Catheter Indwelling Catheter - Exam Review of Systems Constitutional: Reports anorexia, Reports fatigue, Reports lethargy, Reports malaise, Reports night sweats, Reports poor appetite, Reports weakness, Reports weight loss Eyes: denies blurred vision, denies bulging eye, denies decreased vision Ears, nose, mouth and throat: Denies dysphagia, Denies neck lump, Denies sore throat Cardiovascular: Reports decreased exercise tolerance, Reports dyspnea on exertion, Reports rapid heart beat, Reports shortness of breath, Denies chest pa in, Denies leg edema, Denies lightheadedness, Denies orthopnea, Denies palpitations, Denies syncope Respiratory: Reports congestion, Reports cough, Reports cough with sputum, Reports wheezing, Denies home oxygen, Denies pain, Denies pain on inspiration, Denies sleep apnea, Denies snoring Gastrointestinal: Reports abdominal pain, Reports bloating, Reports change in bowel habits, Reports dyspepsia, Reports early satiety, Reports indigestion, Reports loss of appetite, Reports nausea, Denies heartburn, Denies hematemesis, Denies hematochezia, Denies lactose intolerance, Denies melena, Denies vomiting Genitourinary: Denies dysuria, Denies incontinence, Denies nocturia Musculoskeletal: Denies myalgias Musculoskeletal: absent: ankle pain, ankle stiffness, ankle swelling, elbow pain, elbow stiffness, elbow swelling, foot pain, foot stiffness, foot swelling, hand pain, hand stiffness, hand swelling, hip pain, hip stiffness, hip swelling, knee pain, knee stiffness, knee swelling, shoulder pain, shoulder stiffness, shoulder swelling, wrist pain, wrist stiffness, wrist swelling Integumentary: Denies pruritus, Denies rash Neurological: Reports balance difficulties, Reports confusion, Reports weakness, Denies numbness Psychiatric: Reports anxiety, Reports depression, Denies sadness/tearfulness, Denies sleep disturbances, Denies suicidal ideation Endocrine: Denies fatigue, Denies weight change Physical examination: HEENT: head is atraumatic normocephalic pupils were equal round reactive to light and accommodations extra ocular muscle movement were intact, conjunctivae were pale and sclera were mildly icteric, mucous membranes of the mouth are somewhat dry. Neck: supple no JVP. Chest: decrease breath sounds at the bases with egophony and decrease tactile fr emitus, with minimal intercostal retraction. Heart: first heart sound is normal , second heart sound is normal , tachycardic there is no gallop or murmur. Abdomen: there is mild abdominal tenderness with minimal fullness, there is surgical scar that have healed, positive bowel sounds. Extremities: there is no edema , no calf tenderness DP + 2 bilaterally. Neurologiic examination: patient is awake , alert and oriented X 3 CN II-XII are grossly intact muscle power 4/5 in bilateral upper and lower extremity . - Labs CBC & Chem 7: 07/10/20 05:34 07/10/20 05:34 Labs: Abnormal Lab Results - Last 24 Hours (Table) 07/09/20 07/10/20 07/10/20 Range/Units 15:38 05:34 05:34 RBC 4.14 L (4.30-5.90) m/uL Hgb 10.7 L (13.0-17.5) gm/dL Hct 33.8 L (39.0-53.0) % RDW 18.1 H (11.5-15.5) % Lymphocytes # (Manual) 0.44 L (1.0-4.8) k/uL Metamyelocytes # (Man) 0.06 H (0) k/uL PT 20.7 H (9.0-12.0) sec INR 2.1 H (<1.2) Potassium (3.5-5.5) mmol/L Anion Gap (4.00-12.00) mmol/L Creatinine (0.6-1.5) mg/dL POC Glucose (mg/dL) 73 L (75-99) mg/dL Calcium (8.7-10.3) mg/dL AST (14-35) U/L Alkaline Phosphatase (41-126) U/L Total Protein (6.2-8.2) g/dL Albumin (3.80-4.90) g/dL Albumin/Globulin Ratio (1.60-3.17) g/dL 07/10/20 Range/Units 05:34 RBC (4.30-5.90) m/uL Hgb (13.0-17.5) gm/dL Hct (39.0-53.0) % RDW (11.5-15.5) % Lymphocytes # (Manual) (1.0-4.8) k/uL Metamyelocytes # (Man) (0) k/uL PT (9.0-12.0) sec INR (<1.2) Potassium 3.1 L (3.5-5.5) mmol/L Anion Gap 16.20 H (4.00-12.00) mmol/L Creatinine 0.5 L (0.6-1.5) mg/dL POC Glucose (mg/dL) (75-99) mg/dL Calcium 8.0 L (8.7-10.3) mg/dL AST 89 H (14-35) U/L Alkaline Phosphatase 446 H (41-126) U/L Total Protein 5.2 L (6.2-8.2) g/dL Albumin 2.90 L (3.80-4.90) g/dL Albumin/Globulin Ratio 1.26 L (1.60-3.17) g/dL Microbiology - Last 24 Hours (Table) 07/08/20 17:59 Blood Culture - Preliminary Blood No Growth after 24 hours 07/08/20 18:23 Blood Culture - Preliminary Blood No Growth after 24 hours Assessment and Plan Assessment: Assessment and plan: 1. Acute hypoxemic respiratory failure due to bilateral pleural effusion and bibasilar infiltrate due to possible gram negative pneumonia. we will decrease IVF to KVO and we will continue with Zosyn 3.375 Gr IVPB Q 6 hours andwe will add Levaquin 500 mg IVPB daily, we will check sputum cultures and we will contin ue wth Duoneb and O2 support . 2. Poor oral intake with dehydration with overcorrection post 5.5 L of NS. we will decrease IVF to KVO. patient given one dose of Lasix 40 mg IVP x1. 3. Sinus tachycardia. multifactorial . we will continue with Metoprolol 25 mg orally bid and we will continue to correct the underlying conditions. 4. Possible Pulmonary Embolism was ruled out with CTA that did not show PE. we will discontinue Xarelto. 5. Hypokalemia. we will replace. 6. Metastatic colon cancer stage 4. we will consult Oncology for treatment plan. 7. Cachexia with poor oral intake and severe weight loss. we will continue with Protein suplements. 8. Medical debility. due to his cancer. we will consult PT. 9. Bilateral hydroureter and hydronephrosis due to tumor bulk. we will maintain Bassett catheter and Flomax 0.4 mg orally daily. 10. Pain management with Fentanyl patch and Hydrocodone. 11. 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 we will monitor, transfuse for HGB less than 7. 12. DVT prophylaxis. currently on Xarelto. 13. GI prophylaxis. we will continue with PPI. 14. DNR. 15. Plan for hospice home tomorrow morning.
--- NOTE | 2020-07-10 17:28 | P.PN ---
Subjective Progress Note Date: 07/10/20 Principal diagnosis: Dehydration, confusion In f/u today pt states that he is remodeling his room, mentioned a dog in the room. When I asked if he knew where he was he did not answer, when I told him he was in the hospital he asked me how he got here. Objective - Vital Signs Vital signs: Vital Signs Temp 99.7 F H 07/10/20 15:00 Pulse 128 H 07/10/20 16:03 Resp 18 07/10/20 15:00 BP 102/63 07/10/20 15:00 Pulse Ox 93 L 07/10/20 15:00 Intake & Output 07/09/20 07/10/20 07/10/20 18:59 06:59 18:59 Intake Total 100 Output Total 4800 1000 Balance -4800 -900 Weight 77.111 kg Intake: Intake, IV Titration 100 Amount Piperacillin-Tazobactam 3 100 .375 gm In Sodium Chloride 0.9% 100 ml @ 25 mls/hr IVPB Q8H [facility] Rx#: [id number] Output: Urine 4800 1000 Other: Voiding Method Indwelling Catheter Indwelling Catheter - Exam Thin, frail, emaciated pt with metastatic colon cancer. He has masseter muscle wasting, he is confused, he drifts off to sleep during conversation and then jolts himself awake, S1S2, BBS are CTA, weak inspiratory effort, abd firm, distant BS, legs are thin with visible muscle wasting - Labs CBC & Chem 7: 07/10/20 05:34 07/10/20 05:34 Labs: Abnormal Lab Results - Last 24 Hours (Table) 07/10/20 07/10/20 07/10/20 Range/Units 05:34 05:34 05:34 RBC 4.14 L (4.30-5.90) m/uL Hgb 10.7 L (13.0-17.5) gm/dL Hct 33.8 L (39.0-53.0) % RDW 18.1 H (11.5-15.5) % Lymphocytes # (Manual) 0.44 L (1.0-4.8) k/uL Metamyelocytes # (Man) 0.06 H (0) k/uL PT 20.7 H (9.0-12.0) sec INR 2.1 H (<1.2) Potassium 3.1 L (3.5-5.5) mmol/L Anion Gap 16.20 H (4.00-12.00) mmol/L Creatinine 0.5 L (0.6-1.5) mg/dL Calcium 8.0 L (8.7-10.3) mg/dL AST 89 H (14-35) U/L Alkaline Phosphatase 446 H (41-126) U/L Total Protein 5.2 L (6.2-8.2) g/dL Albumin 2.90 L (3.80-4.90) g/dL Albumin/Globulin Ratio 1.26 L (1.60-3.17) g/dL Microbiology - Last 24 Hours (Table) 07/08/20 17:59 Blood Culture - Preliminary Blood No Growth after 24 hours 07/08/20 18:23 Blood Culture - Preliminary Blood No Growth after 24 hours Assessment and Plan (1) Mental status alteration Current Visit: Yes Status: Acute Priority: High Code(s): R41.82 - ALTERED MENTAL STATUS, UNSPECIFIED SNOMED Code(s): 351361402 (2) Colon carcinoma metastatic to bone Current Visit: Yes Status: Acute Priority: High Code(s): C18.9 - MALIGNANT NEOPLASM OF COLON, UNSPECIFIED; C79.51 - SECONDARY MALIGNANT NEOPLASM OF BONE SNOMED Code(s): 125662635 (3) Hypoxia Current Visit: Yes Status: Acute Priority: High Code(s): R09.02 - HYPOXEMIA SNOMED Code(s): 985759497 Plan: I told pt he had declined very rapidly and based on exam of pt Oncology can no longer offer him chemotherapy. The effects would be more detrimental to his condition and likely cause more, unnecessary suffering. I am not sure how much he was able to understand but, he drifted back off to sleep. I contacted [facility] and reviewed the above. Pt looks to be actively dying. All questions answered. [facility] is accepting of hospice on pt behalf as pt is not able to make decisions on his own at this time. Discussed with Guest Services Officer who is trying to get pt to hospice house for [facility] care LP order discontinued Time with Patient: Greater than 30
[2020-07-11] MEDS: PIPERACILLIN-TAZOBACTAM 3.375 GM in SODIUM CHLORIDE 0.9% 100 ML IVPB SCH (04:24)
[2020-07-11] MEDS: HYDROcodone/APAP 5-325MG 1 EACH TAB PO PRN (04:27)
[2020-07-11] MEDS ORDERED: RIVAROXABAN 15 MG TAB PO SCH (07:30)
[2020-07-11] MEDS: IPRATROPIUM-ALBUTEROL 3 ML NEB INHALATION SCH (08:07)
[2020-07-11] MEDS: HYDROmorphone 0.5 MG/0.5 ML SYRINGE IVP PRN (08:47)
[2020-07-11 08:57] LABS: Anisocytosis Slight; Basophils # (A) 0.1 k/uL (0-0.2); Basophils % (A) 1 %; Eosinophils # (A) 0.1 k/uL (0-0.7); Eosinophils % (A) 1 %; HCT 31.7 % (39.0-53.0); HGB 9.9 gm/dL (13.0-17.5); Hypochromasia Moderate; Lymphocytes # (A) 0.4 k/uL (1.0-4.8); Lymphocytes % (A) 7 %; MCH 25.8 pg (25.0-35.0); MCHC 31.1 g/dL (31.0-37.0); MCV 82.9 fL (80.0-100.0); Mean Platelet Volume 7.3; Microcytosis Slight; Monocytes # (A) 0.4 k/uL (0-1.0); Monocytes % (A) 7 %; Neutrophils % (A) 81 %; Platelet Count 278 k/uL (150-450); Poikilocytosis Slight; RBC 3.82 m/uL (4.30-5.90); RDW 17.9 % (11.5-15.5); WBC 4.9 k/uL (3.8-10.6)
[2020-07-11 09:18] VITALS: BP 122/81; PULSE 143; RESP 22; TEMP 101.3
[2020-07-11 12:23] LABS: African American GFR (CKD) 148.5 (60.0-200.0); Albumin 2.8 g/dL (3.80-4.90); Albumin/Globulin Ratio 1.12 (1.60-3.17); Anion Gap 11.5 mmol/L (4.00-12.00); Calcium 8.2 mg/dL (8.7-10.3); Carbon Dioxide 29.5 mmol/L (21.6-31.8); Globulin 2.5 g/dL (1.6-3.3); Non-African American GFR(CKD) 128.1 (60.0-200.0); Potassium 3.5 mmol/L (3.5-5.5); Total Bilirubin 0.9 mg/dL (0.2-1.2); Total Protein 5.3 g/dL (6.2-8.2)
--- NOTE | 2020-07-13 08:10 | CDI ---
Documentation Clarification Form Date: 07/13/20 From: Zhane Noyola Phone: If you have a question about this query, please contact Sandrita Correia, Digital Community Manager at [phone] between 8am and 5pm. Admit Date: 07/08/20 Discharge Date: 07/11/20 Patient Name: ADELA OSEGUERA Visit Number: [id number] ATTENTION: The Clinical Documentation Specialists (CDI) and [facility] Coding Staff appreciate your assistance in clarifying documentation. Please respond to the clarification below the line at the bottom and electronically sign. The CDI & [facility] Coding staff will review the response and follow-up if needed. Please note: Queries are made part of the Legal Health Record. If you have any questions, please contact the author of this message via ITS. Dear Dr. Vikas Mendoza, Altered Mental Status was documented in both consults, PNs 07/09, 07/10 x 2. History/Risk Factors: colon ca mets to bone, numerous lymph nodes, liver and lung, gm-neg pneumonia, acute hypoxic respiratory failure, dehydration, cachexia, anemia d/t malignancy Clinical Indicators: He is having hallucinations, altered mental status and confusion. X Ray: extensive bilateral pulmonary infiltrates and atelectasis with pleural effusions. CT: Recent brain CT did not show evidence of metastasis. Treatment: IV fluids, IV antibiotics In your professional opinion, please clarify the etiology of the Altered Mental Status, if known. Delirium (specify cause): Dementia (if know, specify Type and if with/without Behavioral Disturbance) Encephalopathy (specify Type and Underlying Medical Illness) Other condition (please specify) Unable to determine __Metabolic encephalopathy MTDD
--- NOTE | 2020-07-13 08:20 | CDI ---
Documentation Clarification Form Date: 07/13/20 From: Zhane Noyola Phone: If you have a question about this query, please contact Sandrita Correia, Calciner Operator Helper at [phone] between 8am and 5pm. Admit Date: 07/08/20 Discharge Date: 07/11/20 Patient Name: ADELA OSEGUERA Visit Number: [id number] ATTENTION: The Clinical Documentation Specialists (CDI) and [facility] Coding Staff appreciate your assistance in clarifying documentation. Please respond to the clarification below the line at the bottom and electronically sign. The CDI & [facility] Coding staff will review the response and follow-up if needed. Please note: Queries are made part of the Legal Health Record. If you have any questions, please contact the author of this message via ITS. Dear Dr. Vikas Mendoza, Cachexia has been documented in H&P, consult by Dr Pettit, PNs 07/09, 07/10 x 2 History/Risk Factors: colon ca mets to bone, numerous lymph nodes, liver and lung, gm-neg pneumonia, acute hypoxic respiratory failure, dehydration, cachexia, anemia d/t malignancy Clinical Indicators: Cachexia with poor oral intake and severe weight loss will continue with protein supplements. Cachexia/anorexia syndrome of malignancy. He has masseter muscle wasting. Legs are thin with visible muscle wasting. Current BMI: 23.7 Treatment: Protein supplements Lab monitorin/28-07/11 Total protein: 6.3, 5.7, 5.2, 5.3 Albumin: 3.0, 2.5, 2.90, 2.80 Albumin/Globulin: 0.8, 1.26, 1.12 In your professional opinion, can you please clarify if these findings signify one of the following conditions? Mild Protein-Calorie Malnutrition Moderate Protein-Calorie Malnutrition Severe Protein-Calorie Malnutrition Malnutrition, unspecified Other condition, please specify Unable to determine severe protein-calorie malnutrition _ MTDD
--- NOTE | 2020-07-16 14:21 | P.DS ---
Providers Date of admission: 07/08/20 19:22 Expected date of discharge: 07/11/20 Attending physician: Vikas Mendoza Consults: 07/08/20 19:26 Consult Physician Stat Consulting Provider: Dayton Chua Consult Reason/Comments: Stage 4 colon ca, dehydration Do you want consulting provider notified?: Yes 07/09/20 12:53 Consult Physician Routine Consulting Provider: Carmen Fry Consult Reason/Comments: SOB/EFFUSIONS Do you want consulting provider notified?: Yes [facility] Hospital Course: This is a 49 year old male with a previous medical history significant for kidney stones and cholelithiasis, was inititially complaining of increased abdominal pain in the right upper quadrant and had US of the abdomen that showed cholelithiasis, this was followed with HIDA scan that showed biliary dyskinesis and was referred to have Lap-Jocelyn with that week he developed to have increased abdominal pain with significant nausea and vomiting and he presented to [facility] with bowel obstruction picture, he underwent CT scan of the abdomen and pelvis that showed a large cecal mass suggestive of colon cancer, he underwent right colectomy with end to end anastomosis and then he developed to have a pelvic Abscess that was treated with transcutaneous drain and IV antibiotics through a PICC line for 4 weeks which he has done, he was then seen by Hem-Onc Toma Mars and underwent a battery of testing including PET c that showed metastatic disease, he has then had a Mediprot placed recently by and was seen today by DEVELOPMENTAL SERVICES WORKER at Dr. Chua 's office to discuss further treatment options and possibly a referral [facility] a [facility] , patient was extremely weak and tachycardic and there was a suspicion for possible Mediport infection which was ruled out and he was admitted to the ICU and was seen by pulmonary and critical care along with Oncology and had hypercalcemia which was treated with Aredia X days. and had acute kidney injury, ct scan showed bilateral hydronephrosis with hydroureter, had Bassett catheter in and initially was going to go for Hospice home, but he decided against it and wanted to try systemic chemotherapy for stag 4 colon cancer, and also there was a suspicion for pulmonary emboli and was started on heparin initially then she he was transitioned into Xarelto 15 mg orally bid, he had a adult care provider supposedly to help him at home, but his oral intake of fluid and food was minimal and he became dehydrated and I spoke with him on Wednesday and he said that he will be doing better, unfortunately his Mother in law called on Wednesday after he was seen by an Oncology nurse who stated that he is extremely dehydrated and it was recommended for him to go to the ER , but this did not happened till last night where he was hypotensive and tachycardic , and he did receive a total of 5 liter an currently on IVF 150 ml.h of normal saline, he was admitted with oncology consult and social services director consult for patient care, patient uncerwent CTA of the chest that showed no evidence of PE but bilateral pleural effusion with bibasilar infiltrate, he was started on Zosyn and Added levaquin for gram negative coverage, and decrease IVF to KVO and he did receive a dose of lasix 40 mg IVP x1. 07/09: patient is feeling more short of breath, did receive duoneb, and currently on O2 4 L NC, we will keep IVF at KVO, repeated CXR showed worsening bilateral infiltrate and pleural effusion, we will continue with current treatment with O2, Zosyn and Levaquin and Pulmonary consult,. 07/10: Patient was deteriorated quite a bit over the last 24 hours, his DURABLE POWER OF FABRICATOR SPECIAL ITEMS recommended for the patient to go on hospice after discussing the situation with oncology at this point in time patient is scheduled to be transferred to the hospice home tomorrow morning we will maintain the patient on current IV antibiotic for now Bassett catheter for now and the plan will be to transition the patient into hospice over the next 24 hours I spoke the patient about this and he appears to be quite confused about the whole situation but he is willing to go for hospice care at this point in time as he is getting extremely weak and his prognosis very poor. discharge diagnoses: 1. Acute hypoxemic respiratory failure due to bilateral pleural effusion and bibasilar infiltrate due to possible gram negative pneumonia. 2. Metabolic encephalopathy secondary to sepsis and metastatic cancer.. 3. Poor oral intake with dehydration . 3. Sinus tachycardia. multifactorial . 4. Possible Pulmonary Embolism was ruled out with CTA. 5. Hypokalemia. 6. Metastatic colon cancer stage 4. 7. Cachexia with severe protein-calorie malnutrition. 8. Medical debility. 9. Bilateral hydroureter and hydronephrosis due to tumor bulk. we will maintain Bassett catheter. 10. Pain management with Fentanyl patch and Hydrocodone. 11. Anemia to malignancy 12. Very poor prognosis 13, Transfer to the Hospice house. Patient Condition at Discharge: Stable Plan - Discharge Summary New Discharge Prescriptions: No Action fentaNYL 50MCG/HR PATCH [Duragesic 50MCG/HR] 1 patch TRANSDERM Q72H HYDROcodone/APAP 5-325MG [Basin 5-325] 1 tab PO QID PRN PRN Reason: Pain Tamsulosin [Flomax] 0.4 mg PO PC-BRKFST #30 cap.er.24h Metoprolol Tartrate [Lopressor] 25 mg PO BID #60 tab amLODIPine [Norvasc] 10 mg PO DAILY #30 tab Pantoprazole [Protonix] 40 mg PO DAILY #30 tablet. Rivaroxaban [Xarelto] 15 mg PO BID-W/MEALS #60 tab Discharge Medication List HYDROcodone/APAP 5-325MG [Basin 5-325] 1 tab PO QID PRN 06/25/20 [History] fentaNYL 50MCG/HR PATCH [Duragesic 50MCG/HR] 1 patch TRANSDERM Q72H 06/25/20 [History] Metoprolol Tartrate [Lopressor] 25 mg PO BID #60 tab 07/03/20 [Rx] Pantoprazole [Protonix] 40 mg PO DAILY #30 tablet. 07/03/20 [Rx] Rivaroxaban [Xarelto] 15 mg PO BID-W/MEALS #60 tab 07/03/20 [Rx] Tamsulosin [Flomax] 0.4 mg PO PC-BRKFST #30 cap.er.24h 07/03/20 [Rx] amLODIPine [Norvasc] 10 mg PO DAILY #30 tab 07/03/20 [Rx] Follow up Appointment(s)/Referral(s): Vikas Mendoza MD [Primary Care Provider] - 1-2 days Discharge Disposition: DISCH TO HOSPICE [facility]
== END 2020-07-11 10:13 | disposition hospice, inpatient (51) | DRG 871 ==
LOC: EC 17:15 → 6NMEDSUR 19:22 → 4SSUR 07-09 10:32
PROVIDERS: ADMIT Internal Medicine; ATTEND Internal Medicine
DX: A41.9 Sepsis, unspecified organism (principal); J15.6 Pneumonia due to other Gram-negative bacteria; J96.01 Acute respiratory failure with hypoxia; G93.41 Metabolic encephalopathy; E43 Unspecified severe protein-calorie malnutrition; R64 Cachexia; C79.51 Secondary malignant neoplasm of bone; C77.0 Secondary and unspecified malignant neoplasm of lymph nodes of head, face and neck; C77.1 Secondary and unspecified malignant neoplasm of intrathoracic lymph nodes; C77.2 Secondary and unspecified malignant neoplasm of intra-abdominal lymph nodes; J90 Pleural effusion, not elsewhere classified; C18.9 Malignant neoplasm of colon, unspecified; C78.7 Secondary malignant neoplasm of liver and intrahepatic bile duct; C78.00 Secondary malignant neoplasm of unspecified lung; R65.20 Severe sepsis without septic shock; K76.0 Fatty (change of) liver, not elsewhere classified; Z66 Do not resuscitate; Z51.5 Encounter for palliative care; Z20.828 Contact with and (suspected) exposure to other viral communicable diseases; E86.0 Dehydration; E87.6 Hypokalemia; D63.0 Anemia in neoplastic disease; Z68.23 Body mass index [BMI] 23.0-23.9, adult; M54.5 Low back pain; R00.0 Tachycardia, unspecified; K80.20 Calculus of gallbladder without cholecystitis without obstruction; Z79.01 Long term (current) use of anticoagulants; Z79.891 Long term (current) use of opiate analgesic; Z79.899 Other long term (current) drug therapy; Z86.711 Personal history of pulmonary embolism; Z87.442 Personal history of urinary calculi; Z90.49 Acquired absence of other specified parts of digestive tract; Z80.1 Family history of malignant neoplasm of trachea, bronchus and lung; Z81.8 Family history of other mental and behavioral disorders
CPT/HCPCS: 36415; 71045; 71046; 71275; 80053; 81003; 83605; 83880; 84484; 85025; 85610; 85730; 87040; 93005; 94640; 96361; 96365; 96367; 96375; 99285